=== PATIENT | female | born 1970 | race Caucasian/White ===

== ENCOUNTER 2019-05-31 13:49 | Outpatient (CLI) | payer BC, SELFPAY ==
--- NOTE | 2019-05-31 13:55 | US_ITS ---
WS: [id number] ULTRASOUND RENAL TECHNIQUE: Ultrasound examination of both kidneys. CLINICAL INFORMATION: CHRONIC KIDNEY DISEASE COMPARISON: None. FINDINGS: RIGHT: Right kidney is normal in size and appearance. Echogenicity: Normal. Cortical thickness: 1.1 cm; Normal. Hydronephrosis: None. Perinephric fluid: None. Right kidney measures: 11.4 cm x 5.7 cm x 5.6 cm. LEFT: Left kidney is normal in size and appearance. Echogenicity: Normal. Cortical thickness: 1.4 cm; Normal. Hydronephrosis: None. Perinephric fluid: None. Left kidney measures: 13.6 cm x 5.3 cm x 7.3 cm. Normal visualized aorta. Normal bladder. US/US renal BI* [id number] IMPRESSION: Unremarkable renal ultrasound
== END 2019-05-31 13:50 | disposition home or self-care (01) ==
LOC: RAD 13:51
PROVIDERS: Visit Provider Internal Medicine Nephrology
DX: N18.3 Chronic kidney disease, stage 3 (moderate) (principal)
CPT/HCPCS: 76770

== ENCOUNTER 2019-06-04 12:12 | Emergency (ER) | payer BC, SELFPAY ==
--- NOTE | 2019-06-04 12:17 | XRR_ITS ---
PROCEDURE INFORMATION: Exam: XR Chest, 1 View Exam date and time: 06/04/2019 12:35 PM Age: 48 years old Clinical indication: Chest pain; Type not specified; Additional info: Cp TECHNIQUE: Imaging protocol: XR of the chest Views: 1 view. COMPARISON: CR Chest 1 [place] [id number] 03/23/2019 6:37 PM FINDINGS: Lungs: Unremarkable. No consolidation. Pleural space: Unremarkable. No pleural effusion. No pneumothorax. Heart/Mediastinum: Borderline to mild cardiomegaly. Bones/joints: Unremarkable. XR/XR chest 1V portable [id number] IMPRESSION: Borderline to mild cardiomegaly.
--- NOTE | 2019-06-04 12:18 | ECG_ITS ---
Measurements Intervals [place] Rate: 99 P: 8 OH: 131 QRS: -10 QRSD: 86 T: 189 QT: 349 QTc: 449 SINUS RHYTHM NONSPECIFIC T-WAVE ABNORMALITY Compared to ECG 03/26/2019 00:26:40 T-wave abnormality now present Atrial flutter no longer present Left-axis deviation no longer present Myocardial infarct finding no longer present Electronically Signed On 06-04-2019 20:26:30 VORTEX OPERATOR by Robert Larios M.D. [email or web address]
[2019-06-04 12:20] VITALS: BP 133/113; PULSE 100; RESP 23; TEMP 36.8; O2SAT 96; BMI 40.7
--- NOTE | 2019-06-04 12:32 | ED_ITS ---
Entered by Flower Diaz, acting as scribe for Yordy Mead MD Jun 04, 2019 12:12 HPI - Chest Pain General: Chief Complaint: Chest Pain Stated Complaint: cp Time Seen by Provider: 06/04/19 12:26 Source: patient Mode of arrival: ambulatory Limitations: no limitations History of Present Illness: HPI narrative: 48 yo female presents with chest pain. 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 pt states she was walking to her car when she got sudden chest pain. pt states exertion makes this worse and nothing makes this better. pt has a hx of a recent PE 2 months ago. 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) Timing of current episode: constant Onset: during exertion (walking to car) Pain location: epigastric Pain radiation: none Severity: moderate Quality: heaviness Relieving factors: nothing Exacerbating factors: exertion Context: history of DVT/PE Associated symptoms: Deny fever(s), nausea or vomiting Treatment prior to arrival: none Review of Systems Const: Denies: fever, chills, body aches or change in appetite Eyes: Denies: blurry vision or eye discomfort ENMT: Denies: throat pain or dental pain GI: Denies: nausea, vomiting or diarrhea : Denies: painful urination Musc: Denies: neck pain or back pain Skin/Breast: Denies: rash Neuro: Denies: headache Psych: Denies: depression Hayder/Lymph: Denies: easy bruising All/Imm: Denies: hives PFSH ED PFSH: Statuses (acute, chronic, etc) shown below reflect problem list status as previously entered and may not be historically accurate Social History Smoking and tobacco status: former smoker Physical Exam Const: COMMON NORMALS: no apparent distress, oriented x3 and healthy appearing HENMT: COMMON NORMALS: normocephalic and head/scalp atraumatic HEAD & SCALP: normocephalic and atraumatic Eye: COMMON NORMALS: PERRL and EOMs intact bilaterally PUPIL: Yes PERRL Neck/C-Spine: COMMON NORMALS: full ROM and supple Resp: COMMON NORMALS: normal respiratory effort, no retractions, no use of accessory muscles and clear to auscultation bilaterally AUSCULTATION: clear to auscultation bilaterally Cardio: COMMON NORMALS: regular rate, regular rhythm and no murmurs RATE: regular rate RHYTHM: regular rhythm Extremity: COMMON NORMALS: normal to inspection and full ROM Neuro: COMMON NORMALS: oriented x3, moves all extremities and no focal motor deficits Psych: COMMON NORMALS: mental status grossly normal, thought process normal and cooperative THOUGHT PROCESS: normal thought process Skin: COMMON NORMALS: no rashes or lesions noted and no wounds GENERAL SKIN EXAM: no rashes or lesions noted Course Vital Signs: Vital signs: Vital Signs Temperature 98.3 F 06/04/19 12:20 Pulse Rate 74 06/04/19 15:27 Respiratory Rate 16 06/04/19 15:27 Blood Pressure 144/74 06/04/19 15:27 Pulse Oximetry 93 06/04/19 15:27 MDM - Chest Pain MDM Narrative: Medical decision making narrative: Patient presents here with chest pain that is atypical in nature. Patient's repeat troponin has a delta less than 10. He has no signs of acute cardiac cause and no signs of pulmonary embolism. 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 She is return if worsening. Lab Data: Labs: Lab Results 06/04/19 06/04/19 06/04/19 Range/Units 12:45 12:45 12:45 WBC 12.6 H (4.0-10.0) 10^3/ uL RBC 4.87 (4.1-5.3) 10^6/u L Hgb 12.6 (11.5-15.3) g/dL Hct 42.1 (37.0-47.0) % MCV 86.4 (81-99) fL MCH 25.9 L (28.0-34.0) pg MCHC 29.9 L (30.0-36.0) g/dL RDW 17.2 H (12.1-15.1) % Plt Count 317 (130-400) 10^3/c mm MPV 10.7 H (7.4-10.4) fL Neut % (Auto) 70.7 % Lymph % (Auto) 18.9 % Moore % (Auto) 7.1 % Eos % (Auto) 2.3 % Baso % (Auto) 0.6 % Neut # (Auto) 8.9 H (1.8-7.7) 10^3/u L Lymph # (Auto) 2.4 (0.8-4.8) 10^3/u L Moore # (Auto) 0.9 (0.2-0.9) 10^3/u L Eos # (Auto) 0.3 (0.0-0.8) 10^3/u L Baso # (Auto) 0.1 (0.0-0.1) 10^3/u L Nucleated RBC % (a uto) 0 % Nucleated RBCs # 0.0 /100WBC PT 14.00 H (10.5-13.3) SECO NDS INR 1.04 (0.8-1.2) Sodium 135 L (136-145) mmol/L Potassium 4.0 (3.5-5.1) mmol/L Chloride 101 (98-107) mmol/L Carbon Dioxide 23 (22-29) mmol/L Anion Gap 15.0 (5-19) BUN 16 (6-20) mg/dL Creatinine 0.7 (0.5-0.9) mg/dL GFR Calculation 89.3 L (90-130) mL/min Glucose 267 H (74-109) mg/dL Calcium 9.5 (8.5-10.5) mg/dL Total Bilirubin 0.4 (0.15-1.2) mg/dL AST 17 (0-32) U/L ALT < 5 (0-33) U/L Alkaline Phosphata se 114 H (35-105) IU/L Troponin T Baselin e (0-10) ng/mL Troponin T 120 Min earnest (0-10) ng/mL Delta Troponin T (0-10) ABS# NT-Pro-B Natriuret Pep 6034 H (0-125) pg/mL Total Protein 7.5 (6.6-8.7) g/dL Albumin 2.8 L (3.5-5.2) g/dL Globulin 4.7 H (1.3-4.6) g/dL 06/04/19 06/04/19 Range/Units 12:45 14:35 WBC (4.0-10.0) 10^3/ uL RBC (4.1-5.3) 10^6/u L Hgb (11.5-15.3) g/dL Hct (37.0-47.0) % MCV (81-99) fL MCH (28.0-34.0) pg MCHC (30.0-36.0) g/dL RDW (12.1-15.1) % Plt Count (130-400) 10^3/c mm MPV (7.4-10.4) fL Neut % (Auto) % Lymph % (Auto) % Moore % (Auto) % Eos % (Auto) % Baso % (Auto) % Neut # (Auto) (1.8-7.7) 10^3/u L Lymph # (Auto) (0.8-4.8) 10^3/u L Moore # (Auto) (0.2-0.9) 10^3/u L Eos # (Auto) (0.0-0.8) 10^3/u L Baso # (Auto) (0.0-0.1) 10^3/u L Nucleated RBC % (a uto) % Nucleated RBCs # /100WBC PT (10.5-13.3) SECO NDS INR (0.8-1.2) Sodium (136-145) mmol/L Potassium (3.5-5.1) mmol/L Chloride (98-107) mmol/L Carbon Dioxide (22-29) mmol/L Anion Gap (5-19) BUN (6-20) mg/dL Creatinine (0.5-0.9) mg/dL GFR Calculation (90-130) mL/min Glucose (74-109) mg/dL Calcium (8.5-10.5) mg/dL Total Bilirubin (0.15-1.2) mg/dL AST (0-32) U/L ALT (0-33) U/L Alkaline Phosphata se (35-105) IU/L Troponin T Baselin e 37 H (0-10) ng/mL Troponin T 120 Min earnest 34.70 H (0-10) ng/mL Delta Troponin T -2.30 L (0-10) ABS# NT-Pro-B Natriuret Pep (0-125) pg/mL Total Protein (6.6-8.7) g/dL Albumin (3.5-5.2) g/dL Globulin (1.3-4.6) g/dL Imaging Data^: CXR: Radiologist's impression: Ordering Provider/Ordering MD: Yordy Mead MD Date of Service: 06/04/19 Procedure(s): XR chest 1V portable [id number] Accession Number(s): [id number] Report Number: [id number] PROCEDURE INFORMATION: Exam: XR Chest, 1 View Exam date and time: 06/04/2019 12:35 PM Age: 48 years old Clinical indication: Chest pain; Type not specified; Additional info: Cp TECHNIQUE: Imaging protocol: XR of the chest Views: 1 view. COMPARISON: CR Chest 1 [place] [id number] 03/23/2019 6:37 PM FINDINGS: Lungs: Unremarkable. No consolidation. Pleural space: Unremarkable. No pleural effusion. No pneumothorax. Heart/Mediastinum: Borderline to mild cardiomegaly. Bones/joints: Unremarkable. XR/XR chest 1V portable [id number] IMPRESSION: Borderline to mild cardiomegaly. EKG Data^: EKG 1: EKG interpretation date: 06/04/19 EKG interpretation time: 14:22 Interpretation: nsr hr [address] or t wave abnormalities qrs 87 qtc 410 Discharge Plan Discharge Patient Disposition: Home, Self-Care Clinical Impression: Chest pain Qualifiers: Chest pain type: other chest pain Qualified Code(s): R07.89 - Other chest pain Condition: Stable Prescriptions: No Action furosemide [Lasix] 40 mg Tablet 40 mg PO DAILY RF: 0 atorvastatin 40 mg Tablet 40 mg PO QPM RF: 0 hydralazine 10 mg Tablet 10 mg PO BID RF: 0 cefpodoxime 100 mg Tablet 100 mg PO BID RF: 0 fluconazole 150 mg Tablet 150 mg PO Q3D RF: 0 Aspir-Low 81 mg Tablet,Delayed Release (Dr/Ec) 81 mg PO DAILY RF: 0 Tylenol Extra Strength 500 mg Tablet 1,000 mg PO Q4H PRN (Reason: Pain) RF: 0 spironolactone 25 mg Tablet 12.5 mg PO DAILY RF: 0 carvedilol 3.125 mg Tablet 3.125 mg PO BID RF: 0 famotidine 20 mg Tablet 20 mg PO BID RF: 0 norethindrone acetate 5 mg tablet 10 mg PO DAILY RF: 0 gabapentin 100 mg Capsule 100 mg PO TID PRN (Reason: Pain) RF: 0 insulin lispro [Humalog KwikPen Insulin] 100 unit/mL Insulin Pen See Rx Instructions .ROUTE .COMPLEX RF: 0 Eliquis 5 mg Tablet 5 mg PO BID RF: 0 Toujeo SoloStar U-300 Insulin 300 unit/mL (1.5 mL) Insulin Pen 50 unit SUBCUT BID RF: 0 Discharge Orders: Discharge Order (Routine); Ordered 06/04/19 Ordered By: Yordy Mead Referrals: Erik Castillo [Family Provider] - 4-7 days Discharge Diet: Advance as tolerated Discharge Activity: Resume usual activity Patient Instructions: Chest Pain (ED) Discharge Date/Time: 06/04/19 15:28 Coding Level of Care Code ED Dredge Pumper for Chg Fwd Exam Problem Focused The documentation recorded by the Joe torre Bridget Annette, accurately reflects the service I personally performed and the decisions made by Alyce tello Korby, MD Jun 04, 2019 12:12
[2019-06-04 13:01] VITALS: RESP 18; O2SAT 98
[2019-06-04] MEDS: HYDROmorphone 1 mg/mL INJ 1 mL IVP ×2 (13:01→15:02)
[2019-06-04] MEDS: ondansetron 2 mg/ML SDV 2 mL 4 MG IVP (13:02)
[2019-06-04 13:03] LABS: Basophils # 0.1 10^3/uL (0.0-0.1); Basophils % 0.6 %; Eosinophils # 0.3 10^3/uL (0.0-0.8); Eosinophils % 2.3 %; Hematocrit 42.1 % (37.0-47.0); Hemoglobin 12.6 g/dL (11.5-15.3); INR 1.04 (0.8-1.2); Lymphocytes # 2.4 10^3/uL (0.8-4.8); Lymphocytes % 18.9 %; Mean Corpuscular HGB Conc 29.9 g/dL (30.0-36.0); Mean Corpuscular Hemoglobin 25.9 pg (28.0-34.0); Mean Corpuscular Volume 86.4 fL (81-99); Mean Platelet Volume 10.7 fL (7.4-10.4); Monocytes # 0.9 10^3/uL (0.2-0.9); Monocytes % 7.1 %; Neutrophils # 8.9 10^3/uL (1.8-7.7); Neutrophils % 70.7 %; Nucleated Red Blood Cells % 0 %; Platelet Count 317 10^3/cmm (130-400); Red Blood Count 4.87 10^6/uL (4.1-5.3); Red Cell Distribution Width 17.2 % (12.1-15.1); White Blood Count 12.6 10^3/uL (4.0-10.0)
[2019-06-04 13:12] LABS: Troponin(5th) Baseline 37 ng/mL (0-10)
[2019-06-04 13:21] LABS: Alanine Aminotransferase < 5 U/L (0-33); Albumin Level 2.8 g/dL (3.5-5.2); Alkaline Phosphatase 114 IU/L (35-105); Aspartate Amino Transferase 17 U/L (0-32); Blood Urea Nitrogen 16 mg/dL (6-20); Calcium 9.5 mg/dL (8.5-10.5); Carbon Dioxide 23 mmol/L (22-29); Chloride 101 mmol/L (98-107); Globulin 4.7 g/dL (1.3-4.6); Glomerular Filtration Rate 89.3 mL/min (90-130); Glucose 267 mg/dL (74-109); NT Pro B Type Natriuretic Pept 6034 pg/mL (0-125); Sodium 135 mmol/L (136-145); Total Bilirubin 0.4 mg/dL (0.15-1.2); Total Protein 7.5 g/dL (6.6-8.7)
--- NOTE | 2019-06-04 14:18 | ECG_ITS ---
Measurements Intervals [place] Rate: 92 P: 7 TX: 134 QRS: -22 QRSD: 87 T: 187 QT: 360 QTc: 446 SINUS RHYTHM POSSIBLE LEFT ATRIAL ENLARGEMENT [-0.1mV P WAVE IN V1/V2] BORDERLINE LEFT AXIS DEVIATION [QRS AXIS < -20] NONSPECIFIC T-WAVE ABNORMALITY INTERPRETATION BASED ON A DEFAULT AGE OF 40 YEARS Compared to ECG 03/26/2019 00:26:40 T-wave abnormality now present Atrial flutter no longer present Myocardial infarct finding no longer present Electronically Signed On 06-05-2019 21:04:21 CONTRACTING SUPPORT SPECIALIST by Robert Larios M.D. [email or web address]
[2019-06-04 15:02] VITALS: RESP 18; O2SAT 97
[2019-06-04 15:27] VITALS: BP 144/74; PULSE 74; RESP 16; O2SAT 93
== END 2019-06-04 15:28 | disposition home or self-care (01) ==
PROVIDERS: Emergency Provider Emergency Medicine
DX: R07.89 Other chest pain (principal); Z79.82 Long term (current) use of aspirin; Z79.01 Long term (current) use of anticoagulants; Z79.4 Long term (current) use of insulin; Z87.891 Personal history of nicotine dependence
CPT/HCPCS: 36415; 71045; 80053; 83880; 84484; 85025; 85610; 93005; 96374; 96375; 96376; 99281; 99284; J1170; J2405

== ENCOUNTER 2019-06-20 03:29 | Inpatient (IN) | payer BC, SELFPAY ==
[2019-06-20] VITALS (27 sets, daily range): BP systolic 123–156; BP diastolic 64–103; PULSE 90–104; RESP 13–34; TEMP 36.6–37; O2SAT 93–99; BMI 41.5
--- NOTE | 2019-06-20 04:14 | XR_ITS ---
WS: [id number] XR chest 1V portable [id number] REASON FOR EXAM: cough FINDINGS: Cardiomegaly is again noted similar to the previous exam June 04, 2019. The lung garza are adequately aerated. There is no evidence of pleural effusion, pulmonary edema, pn eumonia, or mass effect. XR/XR chest 1V portable [id number] IMPRESSION: Cardiomegaly
--- NOTE | 2019-06-20 04:14 | ECG_ITS ---
Measurements Intervals [place] Rate: 98 P: 29 PA: 128 QRS: -18 QRSD: 98 T: 95 QT: 342 QTc: 438 SINUS RHYTHM POSSIBLE ANTERIOR MYOCARDIAL INFARCTION , OF INDETERMINATE AGE Compared to ECG 06/04/2019 14:22:31 Myocardial infarct finding now present T-wave abnormality no longer present Electronically Signed On 06-20-2019 10:31:31 [employer] POLICE [employer]IEUTENANT by Alexandra Mg M.D. [email or web address]
--- NOTE | 2019-06-20 04:18 | ED_ITS ---
Entered by Nuvia Powell, acting as scribe for Keeley Mcleod Jun 20, 2019 03:29 Documented by User: Keeley Mcleod 06/20/19 05:26 HPI - Chest Pain General: Chief Complaint: Chest Pain Stated Complaint: chest pain Time Seen by Provider: 06/20/19 04:13 Source: patient Mode of arrival: ambulatory History of Present Illness: HPI narrative: 48 y/o female presents to the ED with complaint of sharp chest pain. Pt states she was awakened from sleep with nausea. She denies any diaphoresis. Pt states she has hx of PE, DVT, and CHF. MD complaint: chest pain Onset (ago): hour(s) (1) Timing of current episode: constant and still present Prior episodes: Yes Onset: during rest Pain location: substernal Severity: mild Quality: sharp Relieving factors: nothing Associated symptoms: Reports nausea; Deny abdominal pain, diaphoresis, dyspnea, fever(s) or vomiting Review of Systems General: Reports: other (negative unless marked) Const: Denies: fever, chills, body aches, fatigue, malaise or diaphoresis Eyes: Denies: change in vision or blurry vision ENMT: Denies: throat pain, painful swallowing, hoarseness, ear pain, ear discharge, Change in hearing or nasal discharge Resp: Denies: shortness of breath, productive cough, non-productive cough, wheezing, coughing up blood or chest congestion GI: Reports: nausea; Denies: abdominal pain, vomiting, vomiting blood, coffee grounds in vomit, diarrhea, constipation, cramping, blood in stool or black tarry stool : Denies: flank pain, painful urination, urinary frequency, urinary urgency, decreased urine ouput, urinary incontinence or blood in urine Musc: Denies: neck pain, back pain, extremity pain, extremity swelling, joint pain, joint swelling, joint warmth or joint stiffness Skin/Breast: Denies: rash, skin tenderness or yellow skin Neuro: Denies: headache, numbness in extremities, weakness in extremities, changes in sensation, lack of coordination, difficulty walking, dizziness, vertigo or confusion Endo: Denies: excessive thirst, tired all the time, cold intolerance, excessive sweating, flushing or hot flashes Hayder/Lymph: Denies: easy bruising, easy bleeding, petechiae or enlarged lymph nodes All/Imm: Denies: hives, throat swelling, tongue swelling, facial swelling or acute wheezing PFSH ED PFSH: Social History Smoking and tobacco status: former smoker Physical Exam Const: COMMON NORMALS: no apparent distress, oriented x3, no limitations, healthy appearing and well nourished EXAM LIMITATIONS: no altered mental status GENERAL APPEARANCE: cooperative, well kempt and well developed ORIENTATION/CONSCIOUSNESS: Yes awake HENMT: COMMON NORMALS: normocephalic, head/scalp atraumatic, hearing grossly normal bilaterally, external ears normal, EAC's normal, external nose normal and moist oral mucous membranes HEAD & SCALP: normal to inspection, normocephalic and atraumatic FACE & SINUS: normal facial exam and face symmetric NOSE: external nose normal and nares normal EXTERNAL EAR: Yes external ears normal EXTERNAL AUDITORY CANAL: EAC's normal MOUTH: oral and palatal mucosa normal and tongue normal Eye: COMMON NORMALS: PERRL, EOMs intact bilaterally, conjunctivae normal and no scleral icterus GENERAL EYE: normal appearance of both eyes and normal light reflex CONJUNCTIVA: Yes conjunctivae normal SCLERA: sclerae normal CORNEA: Yes corneas normal PUPIL: Yes PERRL DIRECT OPHTHALMOSCOPY: Yes normal light reflex Neck/C-Spine: COMMON NORMALS: full ROM, no lymphadenopathy, supple and no meningeal signs GENERAL: Yes normal visual inspection and Yes trachea midline CERVICAL SPINE: Yes cervical ROM normal Resp: COMMON NORMALS: normal respiratory effort, no retractions, no use of accessory muscles and clear to auscultation bilaterally EFFORT & INSPECTION: Yes able to speak in complete sentences AUSCULTATION: clear to auscultation bilaterally GI: COMMON NORMALS: soft to palpation, non-tender, no hepatosplenomegaly and no masses INSPECTION: Yes normal to inspection PALPATION: Yes soft and Yes no hepatosplenomegaly : COMMON NORMALS: Yes no CVA tenderness BLADDER/KIDNEY EXAM: Yes no CVA tenderness Back/Pelvis: COMMON NORMALS: no CVA tenderness, thoracic and lumbar spine normal to inspection, no thoracic nor lumbar tenderness and thoraco-lumbar ROM normal Extremity: COMMON NORMALS: normal to inspection, full ROM, normal capillary refill, no joint enlargement, no clubbing, cyanosis or edema and no calf tenderness Neuro: COMMON NORMALS: oriented x3, CN's II-XII intact bilaterally, moves all extremities, no focal motor deficits and no sensory deficits noted MENINGEAL SIGNS: Yes no meningeal signs Psych: COMMON NORMALS: mental status grossly normal, thought process normal, c ooperative, affect normal, speech normal and activity/motor behavior normal APPEARANCE: Yes well kempt SPEECH: Yes normal speech THOUGHT PROCESS: normal thought process Skin: COMMON NORMALS: no rashes or lesions noted, skin turgor normal, no jaundice, no petechiae and no mottling GENERAL SKIN EXAM: no rashes or lesions noted and turgor normal Course Vital Signs: Vital signs: Vital Signs Temperature 97.8 F 06/20/19 04:23 Pulse Rate 104 H 06/20/19 07:16 Respiratory Rate 16 06/20/19 07:52 Blood Pressure 147/97 06/20/19 07:16 Pulse Oximetry 97 06/20/19 04:23 MDM - Chest Pain Lab Data: Labs: Lab Results 06/20/19 06/20/19 06/20/19 Range/Units 04:21 04:21 04:21 WBC 12.1 H (4.0-10.0) 10^3/ uL RBC 5.48 H (4.1-5.3) 10^6/u L Hgb 13.2 (11.5-15.3) g/dL Hct 44.8 (37.0-47.0) % MCV 81.8 (81-99) fL MCH 24.1 L (28.0-34.0) pg MCHC 29.5 L (30.0-36.0) g/dL RDW 17.2 H (12.1-15.1) % Plt Count 416 H (130-400) 10^3/c mm MPV 11.3 H (7.4-10.4) fL Neut % (Auto) 77.4 % Lymph % (Auto) 13.5 % [place] % (Auto) 6.6 % Eos % (Auto) 1.1 % Baso % (Auto) 0.9 % Neut # (Auto) 9.3 H (1.8-7.7) 10^3/u L Lymph # (Auto) 1.6 (0.8-4.8) 10^3/u L [place] # (Auto) 0.8 (0.2-0.9) 10^3/u L Eos # (Auto) 0.1 (0.0-0.8) 10^3/u L Baso # (Auto) 0.1 (0.0-0.1) 10^3/u L Nucleated RBC % (a uto) 0 % Nucleated RBCs # 0.0 /100WBC ABG pH (7.35-7.45) ABG pCO2 (35-45) mmHg ABG pO2 (80.0-100.0) mmH g ABG HCO3 (22-26) mmol/L ABG Base Excess (-2.0-2.0) mmol/ L Hector Test O2 Delivery Device FiO2 % Freelance Director ID Sodium 128 L (136-145) mmol/L Potassium 5.2 H (3.5-5.1) mmol/L Chloride 91 L (98-107) mmol/L Carbon Dioxide 22 (22-29) mmol/L Anion Gap 20.2 H (5-19) BUN 12 (6-20) mg/dL Creatinine 0.8 (0.5-0.9) mg/dL GFR Calculation 76.6 L (90-130) mL/min Glucose 658 H* (65-115) mg/dL POC Glucose (70-110) mg/dL Calcium 9.7 (8.5-10.5) mg/dL Total Bilirubin 0.3 (0.15-1.2) mg/dL AST 9 (0-32) U/L ALT 6 (0-33) U/L Alkaline Phosphata se 142 H (35-105) IU/L Troponin T Baselin e 71 H (0-10) ng/mL Troponin T 120 Min [place] (0-10) ng/mL Delta Troponin T (0-10) ABS# Total Protein 6.7 (6.6-8.7) g/dL Albumin 2.5 L (3.5-5.2) g/dL Globulin 4.2 (1.3-4.6) g/dL Lipase 31 (13-60) U/L Serum Ketones (Negative) 06/20/19 06/20/19 06/20/19 Range/Units 04:21 07:09 07:10 WBC (4.0-10.0) 10^3/ uL RBC (4.1-5.3) 10^6/u L Hgb (11.5-15.3) g/dL Hct (37.0-47.0) % MCV (81-99) fL MCH (28.0-34.0) pg MCHC (30.0-36.0) g/dL RDW (12.1-15.1) % Plt Count (130-400) 10^3/c mm MPV (7.4-10.4) fL Neut % (Auto) % Lymph % (Auto) % [place] % (Auto) % Eos % (Auto) % Baso % (Auto) % Neut # (Auto) (1.8-7.7) 10^3/u L Lymph # (Auto) (0.8-4.8) 10^3/u L [place] # (Auto) (0.2-0.9) 10^3/u L Eos # (Auto) (0.0-0.8) 10^3/u L Baso # (Auto) (0.0-0.1) 10^3/u L Nucleated RBC % (a uto) % Nucleated RBCs # /100WBC ABG pH (7.35-7.45) ABG pCO2 (35-45) mmHg ABG pO2 (80.0-100.0) mmH g ABG HCO3 (22-26) mmol/L ABG Base Excess (-2.0-2.0) mmol/ L Hector Test O2 Delivery Device FiO2 % Freelance Director ID Sodium (136-145) mmol/L Potassium (3.5-5.1) mmol/L Chloride (98-107) mmol/L Carbon Dioxide (22-29) mmol/L Anion Gap (5-19) BUN (6-20) mg/dL Creatinine (0.5-0.9) mg/dL GFR Calculation (90-130) mL/min Glucose (65-115) mg/dL POC Glucose 421 (70-110) mg/dL Calcium (8.5-10.5) mg/dL Total Bilirubin (0.15-1.2) mg/dL AST (0-32) U/L ALT (0-33) U/L Alkaline Phosphata se (35-105) IU/L Troponin T Baselin e (0-10) ng/mL Troponin T 120 Min [place] 98.91 H (0-10) ng/mL Delta Troponin T 27.91 H* (0-10) ABS# Total Protein (6.6-8.7) g/dL Albumin (3.5-5.2) g/dL Globulin (1.3-4.6) g/dL Lipase (13-60) U/L Serum Ketones Negative (Negative) 06/20/19 Range/Units 07:55 WBC (4.0-10.0) 10^3/ uL RBC (4.1-5.3) 10^6/u L Hgb (11.5-15.3) g/dL Hct (37.0-47.0) % MCV (81-99) fL MCH (28.0-34.0) pg MCHC (30.0-36.0) g/dL RDW (12.1-15.1) % Plt Count (130-400) 10^3/c mm MPV (7.4-10.4) fL Neut % (Auto) % Lymph % (Auto) % [place] % (Auto) % Eos % (Auto) % Baso % (Auto) % Neut # (Auto) (1.8-7.7) 10^3/u L Lymph # (Auto) (0.8-4.8) 10^3/u L [place] # (Auto) (0.2-0.9) 10^3/u L Eos # (Auto) (0.0-0.8) 10^3/u L Baso # (Auto) (0.0-0.1) 10^3/u L Nucleated RBC % (a uto) % Nucleated RBCs # /100WBC ABG pH 7.43 (7.35-7.45) ABG pCO2 33.5 L (35-45) mmHg ABG pO2 86.2 (80.0-100.0) mmH g ABG HCO3 22.3 (22-26) mmol/L ABG Base Excess -1.4 (-2.0-2.0) mmol/ L Hector Test Y O2 Delivery Device None FiO2 21.0 % Freelance Director ID Broma Sodium (136-145) mmol/L Potassium (3.5-5.1) mmol/L Chloride (98-107) mmol/L Carbon Dioxide (22-29) mmol/L Anion Gap (5-19) BUN (6-20) mg/dL Creatinine (0.5-0.9) mg/dL GFR Calculation (90-130) mL/min Glucose (65-115) mg/dL POC Glucose (70-110) mg/dL Calcium (8.5-10.5) mg/dL Total Bilirubin (0.15-1.2) mg/dL AST (0-32) U/L ALT (0-33) U/L Alkaline Phosphata se (35-105) IU/L Troponin T Baselin e (0-10) ng/mL Troponin T 120 Min [place] (0-10) ng/mL Delta Troponin T (0-10) ABS# Total Protein (6.6-8.7) g/dL Albumin (3.5-5.2) g/dL Globulin (1.3-4.6) g/dL Lipase (13-60) U/L Serum Ketones (Negative) EKG Data^: EKG 1: Attestation: I personally reviewed and interpreted this EKG as follows: EKG interpretation date: 06/20/19 EKG interpretation time: 04:14 Interpretation: Normal sinus rhythm at 98 beats a minute, left axis deviation, no acute ST-T wave changes. Discharge Plan Discharge Patient Disposition: Admitted As Inpatient Clinical Impression: Acute non-ST elevation myocardial infarction (NSTEMI), Acute hyperglycemia, Poorly controlled diabetes mellitus Chest pain Qualifiers: Chest pain type: chest pain due to myocardial ischemia Ischemic chest pain typ e: unstable angina pectoris Qualified Code(s): I20.0 - Unstable angina Condition: Fair Referrals: Erik Castillo [Primary Care Provider] - Sign Out Sign Out Data: Patient Sign Out occurred on 06/20/19 at 09:00. Patient's care was discussed, and care was transferred from to Quinton Woods. Coding Level of Care Code ED Clerk Television Production for Chg Fwd Exam Comprehensive Documented by User: Quinton Woods DO 06/20/19 09:08 HPI - Chest Pain General: Chief Complaint: Chest Pain Stated Complaint: chest pain Time Seen by Provider: 06/20/19 04:13 [facility] ED PFSH: Social History Smoking and tobacco status: former smoker Course Vital Signs: Vital signs: Vital Signs Temperature 97.8 F 06/20/19 04:23 Pulse Rate 104 H 06/20/19 07:16 Respiratory Rate 16 06/20/19 07:52 Blood Pressure 147/97 06/20/19 07:16 Pulse Oximetry 97 06/20/19 04:23 MDM - Chest Pain Lab Data: Labs: Lab Results 06/20/19 06/20/19 06/20/19 Range/Units 04:21 04:21 04:21 WBC 12.1 H (4.0-10.0) 10^3/ uL RBC 5.48 H (4.1-5.3) 10^6/u L Hgb 13.2 (11.5-15.3) g/dL Hct 44.8 (37.0-47.0) % MCV 81.8 (81-99) fL MCH 24.1 L (28.0-34.0) pg MCHC 29.5 L (30.0-36.0) g/dL RDW 17.2 H (12.1-15.1) % Plt Count 416 H (130-400) 10^3/c mm MPV 11.3 H (7.4-10.4) fL Neut % (Auto) 77.4 % Lymph % (Auto) 13.5 % [place] % (Auto) 6.6 % Eos % (Auto) 1.1 % Baso % (Auto) 0.9 % Neut # (Auto) 9.3 H (1.8-7.7) 10^3/u L Lymph # (Auto) 1.6 (0.8-4.8) 10^3/u L [place] # (Auto) 0.8 (0.2-0.9) 10^3/u L Eos # (Auto) 0.1 (0.0-0.8) 10^3/u L Baso # (Auto) 0.1 (0.0-0.1) 10^3/u L Nucleated RBC % (a uto) 0 % Nucleated RBCs # 0.0 /100WBC ABG pH (7.35-7.45) ABG pCO2 (35-45) mmHg ABG pO2 (80.0-100.0) mmH g ABG HCO3 (22-26) mmol/L ABG Base Excess (-2.0-2.0) mmol/ L Hector Test O2 Delivery Device FiO2 % Freelance Director ID Sodium 128 L (136-145) mmol/L Potassium 5.2 H (3.5-5.1) mmol/L Chloride 91 L (98-107) mmol/L Carbon Dioxide 22 (22-29) mmol/L Anion Gap 20.2 H (5-19) BUN 12 (6-20) mg/dL Creatinine 0.8 (0.5-0.9) mg/dL GFR Calculation 76.6 L (90-130) mL/min Glucose 658 H* (65-115) mg/dL POC Glucose (70-110) mg/dL Calcium 9.7 (8.5-10.5) mg/dL Total Bilirubin 0.3 (0.15-1.2) mg/dL AST 9 (0-32) U/L ALT 6 (0-33) U/L Alkaline Phosphata se 142 H (35-105) IU/L Troponin T Baselin e 71 H (0-10) ng/mL Troponin T 120 Min [place] (0-10) ng/mL Delta Troponin T (0-10) ABS# Total Protein 6.7 (6.6-8.7) g/dL Albumin 2.5 L (3.5-5.2) g/dL Globulin 4.2 (1.3-4.6) g/dL Lipase 31 (13-60) U/L Serum Ketones (Negative) 06/20/19 06/20/19 06/20/19 Range/Units 04:21 07:09 07:10 WBC (4.0-10.0) 10^3/ uL RBC (4.1-5.3) 10^6/u L Hgb (11.5-15.3) g/dL Hct (37.0-47.0) % MCV (81-99) fL MCH (28.0-34.0) pg MCHC (30.0-36.0) g/dL RDW (12.1-15.1) % Plt Count (130-400) 10^3/c mm MPV (7.4-10.4) fL Neut % (Auto) % Lymph % (Auto) % [place] % (Auto) % Eos % (Auto) % Baso % (Auto) % Neut # (Auto) (1.8-7.7) 10^3/u L Lymph # (Auto) (0.8-4.8) 10^3/u L [place] # (Auto) (0.2-0.9) 10^3/u L Eos # (Auto) (0.0-0.8) 10^3/u L Baso # (Auto) (0.0-0.1) 10^3/u L Nucleated RBC % (a uto) % Nucleated RBCs # /100WBC ABG pH (7.35-7.45) ABG pCO2 (35-45) mmHg ABG pO2 (80.0-100.0) mmH g ABG HCO3 (22-26) mmol/L ABG Base Excess (-2.0-2.0) mmol/ L Hector Test O2 Delivery Device FiO2 % Freelance Director ID Sodium (136-145) mmol/L Potassium (3.5-5.1) mmol/L Chloride (98-107) mmol/L Carbon Dioxide (22-29) mmol/L Anion Gap (5-19) BUN (6-20) mg/dL Creatinine (0.5-0.9) mg/dL GFR Calculation (90-130) mL/min Glucose (65-115) mg/dL POC Glucose 421 (70-110) mg/dL Calcium (8.5-10.5) mg/dL Total Bilirubin (0.15-1.2) mg/dL AST (0-32) U/L ALT (0-33) U/L Alkaline Phosphata se (35-105) IU/L Troponin T Baselin e (0-10) ng/mL Troponin T 120 Min [place] 98.91 H (0-10) ng/mL Delta Troponin T 27.91 H* (0-10) ABS# Total Protein (6.6-8.7) g/dL Albumin (3.5-5.2) g/dL Globulin (1.3-4.6) g/dL Lipase (13-60) U/L Serum Ketones Negative (Negative) 02/18/20 Range/Units 07:55 WBC (4.0-10.0) 10^3/ uL RBC (4.1-5.3) 10^6/u L Hgb (11.5-15.3) g/dL Hct (37.0-47.0) % MCV (81-99) fL MCH (28.0-34.0) pg MCHC (30.0-36.0) g/dL RDW (12.1-15.1) % Plt Count (130-400) 10^3/c mm MPV (7.4-10.4) fL Neut % (Auto) % Lymph % (Auto) % [place] % (Auto) % Eos % (Auto) % Baso % (Auto) % Neut # (Auto) (1.8-7.7) 10^3/u L Lymph # (Auto) (0.8-4.8) 10^3/u L [place] # (Auto) (0.2-0.9) 10^3/u L Eos # (Auto) (0.0-0.8) 10^3/u L Baso # (Auto) (0.0-0.1) 10^3/u L Nucleated RBC % (a uto) % Nucleated RBCs # /100WBC ABG pH 7.43 (7.35-7.45) ABG pCO2 33.5 L (35-45) mmHg ABG pO2 86.2 (80.0-100.0) mmH g ABG HCO3 22.3 (22-26) mmol/L ABG Base Excess -1.4 (-2.0-2.0) mmol/ L Hector Test Y O2 Delivery Device None FiO2 21.0 % Freelance Director ID Broma Sodium (136-145) mmol/L Potassium (3.5-5.1) mmol/L Chloride (98-107) mmol/L Carbon Dioxide (22-29) mmol/L Anion Gap (5-19) BUN (6-20) mg/dL Creatinine (0.5-0.9) mg/dL GFR Calculation (90-130) mL/min Glucose (65-115) mg/dL POC Glucose (70-110) mg/dL Calcium (8.5-10.5) mg/dL Total Bilirubin (0.15-1.2) mg/dL AST (0-32) U/L ALT (0-33) U/L Alkaline Phosphata se (35-105) IU/L Troponin T Baselin e (0-10) ng/mL Troponin T 120 Min [place] (0-10) ng/mL Delta Troponin T (0-10) ABS# Total Protein (6.6-8.7) g/dL Albumin (3.5-5.2) g/dL Globulin (1.3-4.6) g/dL Lipase (13-60) U/L Serum Ketones (Negative) Discharge Plan Discharge Patient Disposition: Admitted As Inpatient Clinical Impression: Acute non-ST elevation myocardial infarction (NSTEMI), Acute hyperglycemia, Poorly controlled diabetes mellitus Chest pain Qualifiers: Chest pain type: chest pain due to myocardial ischemia Ischemic chest pain type: unstable angina pectoris Qualified Code(s): I20.0 - Unstable angina Condition: Fair Referrals: Erik Castillo [Primary Care Provider] - Sign Out Sign Out Data: Patient Sign Out occurred on 06/20/19 at 09:00. Patient's care was discussed, and care was transferred from to Quinton Woods. Coding Level of Care Code ED Clerk Television Production for Chg Fwd Exam Comprehensive The documentation recorded by the Andre torre Ashley, accurately reflects the service I personally performed and the decisions made by Shani tello Eli N Jun 20, 2019 03:29
[2019-06-20 04:29] LABS: Basophils # 0.1 10^3/uL (0.0-0.1); Basophils % 0.9 %; Eosinophils # 0.1 10^3/uL (0.0-0.8); Eosinophils % 1.1 %; Hematocrit 44.8 % (37.0-47.0); Hemoglobin 13.2 g/dL (11.5-15.3); Lymphocytes # 1.6 10^3/uL (0.8-4.8); Lymphocytes % 13.5 %; Mean Corpuscular HGB Conc 29.5 g/dL (30.0-36.0); Mean Corpuscular Hemoglobin 24.1 pg (28.0-34.0); Mean Corpuscular Volume 81.8 fL (81-99); Mean Platelet Volume 11.3 fL (7.4-10.4); Monocytes # 0.8 10^3/uL (0.2-0.9); Monocytes % 6.6 %; Neutrophils # 9.3 10^3/uL (1.8-7.7); Neutrophils % 77.4 %; Nucleated Red Blood Cells % 0 %; Platelet Count 416 10^3/cmm (130-400); Red Blood Count 5.48 10^6/uL (4.1-5.3); Red Cell Distribution Width 17.2 % (12.1-15.1); White Blood Count 12.1 10^3/uL (4.0-10.0)
[2019-06-20 04:51] LABS: Troponin(5th) Baseline 71 ng/mL (0-10)
[2019-06-20 05:01] LABS: Alanine Aminotransferase 6 U/L (0-33); Albumin Level 2.5 g/dL (3.5-5.2); Alkaline Phosphatase 142 IU/L (35-105); Anion Gap 20.2 (5-19); Blood Urea Nitrogen 12 mg/dL (6-20); Calcium 9.7 mg/dL (8.5-10.5); Carbon Dioxide 22 mmol/L (22-29); Chloride 91 mmol/L (98-107); Creatinine Clr Calc Pharmacy 115.4547; Globulin 4.2 g/dL (1.3-4.6); Glomerular Filtration Rate 76.6 mL/min (90-130); Lipase 31 U/L (13-60); Potassium 5.2 mmol/L (3.5-5.1); Sodium 128 mmol/L (136-145); Total Bilirubin 0.3 mg/dL (0.15-1.2); Total Protein 6.7 g/dL (6.6-8.7)
[2019-06-20 05:07] LABS: Aspartate Amino Transferase 9 U/L (0-32); Glucose 658 mg/dL (65-115)
[2019-06-20] MEDS: ondansetron 2 mg/ML SDV 2 mL 4 MG IVP ×2 (05:16→08:47)
[2019-06-20] MEDS: aspirin 325 mg Tablet PO (05:16)
[2019-06-20] MEDS: sodium chloride 0.9% 1,000 ML 100 ML IV ×3 (05:16→22:24)
[2019-06-20] MEDS: nitroglycerin 0.4 mg sublingual Tablet SUBLINGUAL ×2 (05:19→05:35)
[2019-06-20] MEDS: sodium chloride 0.9% 1,000 ML 999 ML IV (05:37)
[2019-06-20] MEDS: morphine 4 mg/mL SDV 1 mL 2 MG IVP ×2 (06:09→07:52)
--- NOTE | 2019-06-20 06:14 | ECG_ITS ---
Measurements Intervals [place] Rate: 98 P: 40 AR: 133 QRS: 5 QRSD: 90 T: 0 QT: 345 QTc: 441 SINUS RHYTHM WITH OCCASIONAL VENTRICULAR PREMATURE COMPLEXES NONSPECIFIC ST & T-WAVE ABNORMALITY Compared to ECG 06/04/2019 14:22:31 Ventricular premature complex(es) now present T-wave abnormality still present Electronically Signed On 06-20-2019 18:02:53 SASH ASSEMBLER by Alexandra Mg M.D. [id number]
--- NOTE | 2019-06-20 07:11 | PC.NURSE ---
glucose currently 421. Pt C/O pain returning. Lab to room for redraw of troponin
[2019-06-20 07:12] LABS: Glucose Point of Care 421 mg/dL (70-110)
[2019-06-20 07:16] LABS: Ketone (Acetest) Serum Negative (Negative)
[2019-06-20 07:36] LABS: Troponin 5 2HR 98.91 ng/mL (0-10)
[2019-06-20 07:38] LABS: Troponin 5 2HR Delta 27.91 ABS# (0-10)
--- NOTE | 2019-06-20 07:41 | PC.NURSE ---
Troponin 98.91, Delta 27.91
--- NOTE | 2019-06-20 08:01 | PC.NURSE ---
Respiratory to room for ABG's
[2019-06-20 08:06] LABS: ABG PCO2 33.5 mmHg (35-45); ABG PH Result 7.43 (7.35-7.45); HCO3 ABG 22.3 mmol/L (22-26); PO2 ABG 86.2 mmHg (80.0-100.0)
[2019-06-20 08:07] LABS: Base Excess ABG -1.4 mmol/L (-2.0-2.0)
--- NOTE | 2019-06-20 09:09 | PC.NURSE ---
Pt states pain level down to a 2 after morphine and no nausea after zofran
[2019-06-20 09:33] LABS: Bilirubin Urine Neg (NEGATIVE); Blood Urine 3+ (Negative); Glucose Urine UA 4+ (Normal); Ketones Urine Negative (Negative); Leukocyte Esterase Urine Negative (Negative); Nitrate Urine Negative (Negative); Protein Urine 3+ (Negative); Specific Gravity, Urine 1.015 (1.005-1.030); Urine Appearance Clear (CLEAR); Urine Color Yellow (Yellow); Urobilinogen Urine Norm (Negative)
[2019-06-20 09:36] LABS: Add Urine Culture? No; Bacteria Urine 1+; WBC Urine 15-25 /hpf (0-5)
--- NOTE | 2019-06-20 10:02 | PM.HP ---
Providers/Chief Complaint Primary Care Provider: Erik Castillo Chief Complaint: chest pain History of Present Illness Eliza Quinn is a 48 year old female with history of diabetes, systolic CHF felt to be secondary to nonischemic cardiomyopathy, HTN, COPD, chronic kidney disease stage II, morbid obesity, recently quit smoking, presented to ER due to complaint of chest pain which started this morning, substernal, achy, persistent, severe. She states that she could not sleep most of the night, and in the morning started experiencing the symptoms which did not change with position, inspiration, pressure, did not feel like heartburn. She is currently pain-free. She says that she did receive nitroglycerin earlier, although that initially did not help. Morphine did seem to help the pain. She has been having a cough for 3-4 weeks, nonproductive. Chest x-ray showed cardiomegaly. EKGs with nonspecific ST and T wave abnormality. Troponin found elevated at 71 baseline with positive delta up to 98.91 at 120 minutes. She is hyperglycemic with blood glucose 658, not in ketoacidosis. She did not take any of her medications yet this morning. Review of Systems Const: Reports: other (Poor appetite); Denies: fever, chills, body aches or malaise Eyes: Denies: change in vision or eye redness ENMT: Denies: throat pain, oral sores/lesions or ear pain Card: Reports: chest pain and edema; Denies: pre-syncope or shortness of breath on exertion Resp: Reports: non-productive cough; Denies: shortness of breath, productive cough, change in phlegm color or coughing up blood GI: Denies: abdominal pain, nausea, vomiting, diarrhea, constipation, blood in stool or black tarry stool : Denies: flank pain, urinary frequency or blood in urine Musc: Denies: back pain, joint swelling or redness Skin/Breast: Denies: rash, sores or new lesion Neuro: Denies: headache, numbness in extremities, weakness in extremities, dizziness, confusion or seizure-like activity Endo: Denies: excessive urination or excessive thirst [place]/Lymph: Denies: easy bleeding or purpura All/Imm: Denies: hives, throat swelling or tongue swelling Medications/Allergies Home Medications Medication Instructions Recorded Confirmed Last Taken Type cyclobenzaprine 5 mg PO TID PRN 06/20/19 06/20/19 Unknown History Allergies Allergy/AdvReac Type Severity Reaction Status Date / Time No Known Allergies Allergy Verified 06/04/19 12:25 PFSH Acute PFSH: Medical History Chronic anticoagulation Chronic kidney disease, stage II (mild) History of DVT (deep vein thrombosis) Nonischemic cardiomyopathy Poorly controlled diabetes mellitus Urinary tract infection due to ESBL Klebsiella Surgical History History of back surgery History of History of shoulder surgery Hx of cholecystectomy Family History Other Diabetes Social History Smoking and tobacco status: former smoker Quit status (tobacco): has quit using tobacco Year quit tobacco: 3 mo ago Alcohol intake: never Substance/Drug Use: never Lives independently: Yes Household members: children Current occupational status: employed Vitals/I&O/Wt Last Vital Signs Temp 97.8 F 06/20/19 04:23 Pulse 104 H 06/20/19 07:16 Resp 16 06/20/19 07:52 BP 147/97 06/20/19 07:16 Pulse Ox 97 06/20/19 04:23 Weight last 48 hrs Weight 120.202 kg Physical Exam Const: COMMON NORMALS: no apparent distress and oriented x3 HENMT: COMMON NORMALS: oropharynx normal Neck/C-Spine: COMMON NORMALS: no JVD Resp: COMMON NORMALS: normal respiratory effort and clear to auscultation bilaterally AUSCULTATION: clear to auscultation bilaterally Cardio: COMMON NORMALS: no JVD, regular rhythm, S1 normal heart sound, S2 normal heart sound and no murmurs RHYTHM: regular rhythm HEART SOUNDS: S1 normal and S2 normal GI: COMMON NORMALS: normal to inspection, nondistended, normoactive bowel sounds, soft to palpation and non-tender PALPATION: Yes soft Extremity: COMMON NORMALS: no joint enlargement and no pedal edema Neuro: COMMON NORMALS: oriented x3 and moves all extremities Skin: LESIONS: lesion noted (Small ulcerations noted from poorly healed excoriations on her arms) Data : 06/20/19 04:21 06/20/19 04:21 A&P Assessment and plan (1) Acute non-ST elevation myocardial infarction (NSTEMI): Currently no further chest pain. Troponin found abnormal, with positive delta. 6-hour troponin 237. Received aspirin. She is already on anticoagulation. Continue beta-cristin, statin. Will load her with Plavix. Appreciate cardiology assessment. Status: Acute Code(s): I21.4 - Non-ST elevation (NSTEMI) myocardial infarction (2) Chest pain: As above. Status: Acute Qualifiers: Chest pain type: chest pain due to myocardial ischemia Ischemic chest pain type: unstable angina pectoris Qualified Code(s): I20.0 - Unstable angina Code(s): R07.9 - Chest pain, unspecified (3) Acute hyperglycemia: Blood glucose poorly controlled. She says that her primary care provider has been working with her on adjusting diabetes regimen. She has not yet taken any of her medications this morning. At this time we will continue her Lantus. Add insulin sliding scale. Status: Acute Code(s): R73.9 - Hyperglycemia, unspecified (4) Poorly controlled diabetes mellitus: As above. Status: Acute Code(s): E11.65 - Type 2 diabetes mellitus with hyperglycemia Additional A&P Information History of DVT. On chronic anticoagulation. Quit smoking about 3 months ago. Attestations Medical Necessity Statement*: Place in observation. Coding Level of Care Code Acute Plasterer Journeyman for Emily Anthony Diagnoses Acute non-ST elevation myocardial infarction (NSTEMI) I21.4 Chest pain I20.0 Chest pain type: chest pain due to myocardial ischemia Ischemic chest pain type: unstable angina pectoris Acute hyperglycemia R73.9 Poorly controlled diabetes mellitus E11.65
--- NOTE | 2019-06-20 10:14 | ECG_ITS ---
Measurements Intervals [place] Rate: 98 P: 63 CO: 131 QRS: -12 QRSD: 100 T: 0 QT: 355 QTc: [address] & T-WAVE ABNORMALITY Compared to ECG 06/04/2019 14:22:31 No significant changes Electronically Signed On 06-20-2019 17:20:58 [employer]ORCYCLE [employer]SEM[employer] by Alexandra Mg M.D. [email or web address]
[2019-06-20 10:50] LABS: Troponin 5 6HR 237.4 ng/mL (0-10)
[2019-06-20 10:59] LABS: Troponin 5 6HR Delta 166.4 ng/L (0-12)
[2019-06-20] MEDS: clopidogrel 300 mg Tablet PO (12:19)
[2019-06-20] MEDS: enoxaparin 120 mg/0.8 mL Syringe SUBCUT (12:19)
[2019-06-20] MEDS: morphine 4 mg/mL SDV 1 mL IVP ×2 (12:23→22:22)
[2019-06-20 13:05] LABS: Arterial Blood Gas Hematocrit 39.3 % (37-47); Blood Gas Allen Test Pos; Blood Gas Sample Site Radial, left; Blood Gas Sample Type Arterial
[2019-06-20] MEDS: lidocaine 2% viscous 15 ML, aluminum-mag hydrox-simethicon 30 ML, sucralfate oral liq 1 GM PO (13:12)
--- NOTE | 2019-06-20 13:23 | PM.CONSULT ---
Providers/Reason For Consult Consulting Physican/Specialty*: Cardiology Reason for Consult*: NSTEMI Primary Care Provider: Erik Castillo History of Present Illness History of Present Illness Eliza Quinn is a 48 year old female with past medical history of morbid obesity (BMI=43), nonischemic cardiomyopathy (left ventricle ejection fraction of 37%, normal coronaries by coronary angiogram in July 2018), history of apical ballooning syndrome in 2012, ?history of contrast-induced nephropathy leading to dialysis in July 2018, insulin-dependent diabetes mellitus, baseline chronic kidney disease stage II was hospitalized in Mar 2019 with shortness of breath, orthostatic hypotension and recurrent syncope. ?She was found to have superficial femoral vein and popliteal and posterior tibial vein DVT. ?For right upper quadrant tenderness and abnormal liver enzymes she underwent ultrasound of abdomen and was found to have hepatomegaly. ?Emperic diagnosis of pulmonary embolism was made and she was started on anticoagulation. ?She was dehydrated and received some IV fluids as well as was treated for ESBL Klebsiella UTI. ?She was discharged home on Coreg 3.125 twice a day, hydralazine 10 mg by mouth 3 times a day and Lasix 40 mg daily. She was doing well until last Wednesday and Wednesday when she started having nausea vomiting and diarrhea. She was unable to keep any of her medications down. This resolved on Wednesday and late Wednesday night early Wednesday morning she developed retrosternal chest discomfort described as dull 7/10 in intensity with intermittent sharp pains. She denies having any associated shortness of breath any radiation of her pain nausea or vomiting. She denies having any sick contacts, any URI or UTI-like symptoms. On presentation to the ER her troponin was noted to be elevated with no EKG changes and hence I have been asked to evaluate the patient to assist in further management. Review of Systems Const: Reports: fatigue; Denies: fever, chills or night sweats Eyes: Denies: change in vision ENMT: Denies: nasal discharge or nasal congestion Card: Reports: chest pain (as mentioned in HPI), swelling of feet/ankles (right more than left) and shortness of breath on exertion; Denies: palpitations, irregular heart rhythm, lightheadedness or shortness of breath when lying down Resp: Reports: shortness of breath; Denies: productive cough, non-productive cough or pain on inspiration GI: Denies: abdominal pain, nausea, vomiting, vomiting blood or blood in stool : Denies: difficulty urinating, painful urination or blood in urine Skin/Breast: Denies: rash or new lesion Neuro: Denies: headache or weakness in extremities Psych: Denies: anxiety or depression Hayder/Lymph: Denies: petechiae or purpura All/Imm: Denies: throat swelling or tongue swelling Meds/Allergies Home Medications and Allergies Home Medications Medication Instructions Recorded Confirmed Type acetaminophen [Tylenol Extra 1,000 mg PO Q4H PRN 06/04/19 06/20/19 History Strength] apixaban [Eliquis] 5 mg PO BID 06/04/19 06/20/19 History aspirin [Aspir-Low] 81 mg PO DAILY 06/04/19 06/20/19 History atorvastatin 40 mg PO QPM 06/04/19 06/20/19 History carvedilol 3.125 mg PO BID 06/04/19 06/20/19 History famotidine 20 mg PO BID 06/04/19 06/20/19 History furosemide [Lasix] 40 mg PO DAILY 06/04/19 06/20/19 History gabapentin 100 mg PO TID PRN 06/04/19 06/20/19 History hydralazine 10 mg PO TID 06/04/19 06/20/19 History insulin glargine U-300 conc 50 unit SUBCUT BID 06/04/19 06/20/19 History [Toujeo SoloStar U-300 Insulin] insulin lispro [Humalog KwikPen See Rx Instructions .ROUTE .COMPLEX 06/04/19 06/20/19 History Insulin] norethindrone acetate 10 mg PO BID 06/04/19 06/20/19 History spironolactone 12.5 mg PO DAILY 06/04/19 06/20/19 History cyclobenzaprine 5 mg PO TID PRN 06/20/19 06/20/19 History Allergies Allergy/AdvReac Type Severity Reaction Status Date / Time No Known Allergies Allergy Verified 06/04/19 12:25 Current Medications Current Medications Generic Name Dose Route Start Last Admin Trade Name Freq PRN Reason Stop Dose Admin Enoxaparin Sodium 120 mg 06/20/19 13:00 06/20/19 12:19 Lovenox SUBCUT 120 mg Q12H HI Administration Sodium Chloride 1,000 mls @ 100 mls/hr 06/20/19 04:15 06/20/19 05:16 Sodium Chloride 0.9% IV 100 mls/hr .Q10H HI Administration Sodium Chloride 1,000 mls @ 100 mls/hr 06/20/19 09:15 06/20/19 12:21 Sodium Chloride 0.9% IV 100 mls/hr .Q10H HI Administration Morphine Sulfate 4 mg 06/20/19 09:03 06/20/19 12:23 Morphine IVP 4 mg Q4H PRN Administration SEVERE PAIN Nitroglycerin 0.4 mg 06/20/19 04:13 06/20/19 05:35 Nitrostat SUBLINGUAL 0.4 mg Q5M PRN Administration CHEST PAIN PFSH Acute PFSH: Medical History Chronic anticoagulation Chronic kidney disease, stage II (mild) History of DVT (deep vein thrombosis) Nonischemic cardiomyopathy Poorly controlled diabetes mellitus Urinary tract infection due to ESBL Klebsiella Surgical History History of back surgery History of History of shoulder surgery Hx of cholecystectomy Family History Other Diabetes Social History Smoking and tobacco status: former smoker Quit status (tobacco): has quit using tobacco Year quit tobacco: 3 mo ago Alcohol intake: never Substance/Drug Use: never Lives independently: Yes Household members: children Current occupational status: employed Vitals/I&O/Wt Last Vital Signs Temp 97.8 F 06/20/19 04:23 Pulse 99 06/20/19 12:47 Resp 20 H 06/20/19 12:47 BP 139/80 06/20/19 12:47 Pulse Ox 99 06/20/19 12:47 Weight last 48 hrs Weight 265 lb Physical Exam Narrative: EXAM NARRATIVE: GENERAL: Averagely built and averagely nourished in no acute distress HEENT: Extraocular movement intact. Pupils equal round reactive to light. No pallor or icterus. NECK: central trachea, No JVD. No carotid bruit. CARDIOVASCULAR SYSTEM: S1-S2 regular. No S3 or S4 present. No murmur rubs or gallops. RESPIRATORY SYSTEM: Chest clear to auscultation. No wheezes rhonchi or rubs heard.No use of accessory muscles. ABDOMEN: Soft, nontender and nondistended. Normal bowel sounds present. EXTREMITIES: No cyanosis or clubbing. Trace-1+ edema (R>L). No signs of chronic venous insufficiency. WORKERS COMPENSATION CLAIMS SPECIALIST: Patient is alert oriented ?3. No focal neurological deficits. SKIN: Normal turgor and temperature. PSYCH: Normal insight and judgment. Data EKG^: EKG 1: I personally reviewed and interpreted this EKG as follows: My Interpretation: SINUS RHYTHM WITH OCCASIONAL VENTRICULAR PREMATURE COMPLEXES NONSPECIFIC ST & T-WAVE ABNORMALITY Previous EKG SINUS RHYTHM POSSIBLE ANTERIOR MYOCARDIAL INFARCTION , OF INDETERMINATE AGE Compared to ECG 06/04/2019 14:22:31 Myocardial infarct finding now present T-wave abnormality no longer present Other Data: Other data: Laboratory Tests 06/20/19 06/20/19 06/20/19 04:21 04:21 07:10 ABG pH ABG pCO2 ABG pO2 ABG HCO3 FiO2 Total Bilirubin 0.3 AST 9 ALT 6 Alkaline Phosphata se 142 H Troponin I 6 Hour Troponin I Hi Sens Del Troponin T Baselin e 71 H Troponin T 120 Min [place] 98.91 H Delta Troponin T 27.91 H* Total Protein 6.7 Albumin 2.5 L Globulin 4.2 Lipase 31 Urine Protein Urine Glucose (UA) Urine Ketones Urine Occult Blood Urine Nitrate Urine RBC Urine WBC 06/20/19 06/20/19 06/20/19 07:55 08:25 10:19 ABG pH 7.43 ABG pCO2 33.5 L ABG pO2 86.2 ABG HCO3 22.3 FiO2 21.0 Total Bilirubin AST ALT Alkaline Phosphata se Troponin I 6 Hour 237.4 H Troponin I Hi Sens Del 166.4 H* Troponin T Baselin e Troponin T 120 Min [place] Delta Troponin T Total Protein Albumin Globulin Lipase Urine Protein 3+ H Urine Glucose (UA) 4+ H Urine Ketones Negative Urine Occult Blood 3+ H Urine Nitrate Negative Urine RBC 5-10 H Urine WBC 15-25 H #Transthoracic echocardiogram (March): Moderately decreased left ventricular systolic function with global hypokinesis with ejection fraction of 37%. ?Grade 1 diastolic dysfunction. ?Moderately increased right atrial size. ?Trace mitral valve regurgitation. ?Mild aortic valve regurgitation. ?Moderate tricuspid valve regurgitation. # Lexiscan myocardial perfusion imaging (March): Patchy area of decreased tracer uptake in the anterolateral inferior and anteroseptal region suggestive of myocardial scarring versus attenuation artifact. ?Left ventricular ejection fraction of 17%. ?Diffuse hypokinesis of left ventricle. # Labs (03/2019) creatinine increased from 0.8-3 and decreased to 1.2. ?AST increased from 11-3027 and decreased to 16, ALT increased from 11-1060 and decreased 211 and alkaline phosphatase increased from 151-255 and decreased to 178. A&P Assessment and plan (1) Acute non-ST elevation myocardial infarction (NSTEMI): No significant EKG changes however patient has multiple CAD risk factors. She has negative coronary angiogram July of last year. Her renal function has normalized but she does have history of contrast-induced nephropathy. -Decision of coronary angiogram based on the findings of echocardiogram. -Continue to treat medically as non-ST elevation acute coronary syndrome in the meantime. Status: Acute Code(s): I21.4 - Non-ST elevation (NSTEMI) myocardial infarction (2) Poorly controlled diabetes mellitus: Status: Acute Code(s): E11.65 - Type 2 diabetes mellitus with hyperglycemia (3) Chronic anticoagulation: Status: Acute Code(s): Z79.01 - correction (current) use of anticoagulants (4) Nonischemic cardiomyopathy: Echocardiogram showed left ventricle ejection fraction of 37% few months back. -Follow-up on repeat echocardiogram. Status: Acute Code(s): I42.8 - Other cardiomyopathies (5) History of DVT (deep vein thrombosis): Status: Acute Code(s): Z86.718 - Personal history of other venous thrombosis and embolism Coding Level of Care Code Acute [facility] for [facility] Fwd Diagnoses Acute non-ST elevation myocardial infarction (NSTEMI) I21.4 Poorly controlled diabetes mellitus E11.65 Chronic anticoagulation Z79.01 Nonischemic cardiomyopathy I42.8 History of DVT (deep vein thrombosis) Z86.718
--- NOTE | 2019-06-20 14:24 | USCV_ITS ---
Eliza Quinn Age: 48 Gender: F : 1970 Exam Date: 06/20/2019 14:51 Ordering Phys: Alexandra Mg MD Technologist: Ed Kelley Exam Location: [facility] [place] Indication: LV FUNCTION BP: 126 / 78 HR: 96 Rhythm: Sinus Technical Quality: Good MEASUREMENTS (Male / Female) Normal Values 2D ECHO LVOT Diameter 2.4 cm LV Ejection Fraction MOD 2C 46.5 % LV Ejection Fraction 2C AL 46.7 % LA Diameter 4.6 cm M-MODE LV Diastolic Diameter MM 7.2 cm 4.2 - 5.9 / 3.9 - 5.3 cm LV Systolic Diameter MM 5.9 cm LV Ejection Fraction MM Teich 36.0 % IVS Diastolic Thickness MM 0.9 cm 0.6 - 1.0 / 0.6 - 0.9 cm IVS Systolic Thickness MM 1.2 cm LVPW Diastolic Thickness MM 1.1 cm 0.6 - 1.0 / 0.6 - 0.9 cm LVPW Systolic Thickness MM 1.3 cm RV Diastolic Diameter MM 1.8 cm Aortic Annulus Diameter 3.9 cm LA Ao Ratio MM 1.2 MV E Point Septal Separation 2.8 cm FINDINGS Left Ventricle Dilated left ventricle cavity. Moderately to severely decreased left ventricular systolic function. Left ventricular ejection fraction is estimated at 30 %. Global hypokinesis more pronounced in septal wall with relative sparing of basal to mid inferolateral sandhu. Right Ventricle Normal right ventricular size and systolic function. Right Atrium Normal right atrial size. Left Atrium Mildly increased left atrial size. Mitral Valve Mildly thickened mitral valve. Aortic Valve Aortic valve not well visualized. Tricuspid Valve Structurally normal tricuspid valve. Pulmonic Valve Pulmonic valve not assessed. Pericardium No pericardial effusion. Aorta Aorta not well visualized. CONCLUSIONS 1. Dilated left ventricle cavity. Moderately to severely decreased left ventricular systolic function. Left ventricular ejection fraction is estimated at 30 %. Global hypokinesis more pronounced in septal wall with relative sparing of basal to mid inferolateral sandhu. 2. Normal right ventricular size and systolic function. 3. When compared to previous echocardiogram dated 03/24/2019, there may not have been any significant change. Alexandra Mg MD (Electronically Signed) Final Date: 20 June 2019 18:35 Amended: 21 June 2019 09:14 C
--- NOTE | 2019-06-20 14:42 | PC.NURSE ---
US at bedside for ECHO
[2019-06-20] MEDS: perflutren protein-a microsphr 0.22 mg/mL SDV 3 mL 1 ML IV (15:08)
[2019-06-20] MEDS: famotidine 20 mg Tablet PO (16:13)
[2019-06-20] MEDS: hyDRALAzine 10 mg Tablet PO ×2 (16:13→20:41)
[2019-06-20] MEDS: carvedilol 3.125 mg Tablet PO (16:13)
[2019-06-20 16:25] LABS: Glucose Point of Care 454 mg/dL (70-110)
[2019-06-20] MEDS: atorvastatin 40 mg Tablet PO (18:20)
[2019-06-20] MEDS: cyclobenzaprine 10 mg Tablet 5 MG PO (18:33)
--- NOTE | 2019-06-20 18:59 | PC.NURSE ---
Assumed care of patient at this time. Performed assessments as documented. Patient reporting kidney pain pointing to both left and right flank for area of 5/10 pain. Noted redness to right leg with weak pulses. Patient reports taking Eliquis at home. Bilateral lower extremity +2 pitting edema observed.
[2019-06-20 20:22] LABS: Glucose Point of Care 373 mg/dL (70-110)
[2019-06-21] VITALS (39 sets, daily range): BP systolic 112–145; BP diastolic 71–95; PULSE 88–99; RESP 17–31; TEMP 36.6–36.8; O2SAT 92–99
[2019-06-21] MEDS: enoxaparin 120 mg/0.8 mL Syringe SUBCUT (01:54)
[2019-06-21] MEDS: morphine 4 mg/mL SDV 1 mL IVP ×3 (02:27→23:58)
[2019-06-21 04:16] LABS: Basophils # 0.1 10^3/uL (0.0-0.1); Basophils % 1.3 %; Eosinophils # 0.3 10^3/uL (0.0-0.8); Eosinophils % 2.6 %; Hematocrit 44.6 % (37.0-47.0); Hemoglobin 13.1 g/dL (11.5-15.3); Lymphocytes # 2.4 10^3/uL (0.8-4.8); Lymphocytes % 22.5 %; Mean Corpuscular HGB Conc 29.4 g/dL (30.0-36.0); Mean Corpuscular Hemoglobin 24.1 pg (28.0-34.0); Mean Corpuscular Volume 82.1 fL (81-99); Mean Platelet Volume 11.1 fL (7.4-10.4); Monocytes # 0.8 10^3/uL (0.2-0.9); Monocytes % 7.9 %; Neutrophils # 6.9 10^3/uL (1.8-7.7); Neutrophils % 65.2 %; Nucleated Red Blood Cells % 0 %; Platelet Count 360 10^3/cmm (130-400); Red Blood Count 5.43 10^6/uL (4.1-5.3); Red Cell Distribution Width 16.7 % (12.1-15.1); White Blood Count 10.6 10^3/uL (4.0-10.0)
[2019-06-21 04:27] LABS: Alanine Aminotransferase 9 U/L (0-33); Albumin Level 2.1 g/dL (3.5-5.2); Alkaline Phosphatase 111 IU/L (35-105); Anion Gap 17.5 (5-19); Aspartate Amino Transferase 50 U/L (0-32); Blood Urea Nitrogen 16 mg/dL (6-20); Calcium 9.2 mg/dL (8.5-10.5); Carbon Dioxide 21 mmol/L (22-29); Chloride 95 mmol/L (98-107); Creatinine Clr Calc Pharmacy 115.4547; Globulin 5.3 g/dL (1.3-4.6); Glomerular Filtration Rate 76.6 mL/min (90-130); Glucose 338 mg/dL (65-115); Potassium 4.5 mmol/L (3.5-5.1); Sodium 129 mmol/L (136-145); Total Bilirubin 0.3 mg/dL (0.15-1.2); Total Protein 7.4 g/dL (6.6-8.7)
[2019-06-21 06:31] LABS: Glucose Point of Care 282 mg/dL (70-110)
[2019-06-21 08:11] LABS: Troponin T (5th) Once 1342
--- NOTE | 2019-06-21 09:02 | XACV_ITS ---
Exam Room: [facility] Ht: 170 cm Wt: 120 kg BSA: 2.44 m2 Gender: Female : 1970 Any Known Allergies: No known allergies Exam Priority: Routine Procedure(s): Procedure Description: Diagnostic procedure Procedure Description: PCI procedure Procedure Description: Left Heart Catheterization Procedure Description: PTCA Procedure Description: Coronary Thrombectomy Procedure Description: Peripheral Cath Diagnostic Procedure Procedure Description: Coronary Angiography Diagnostic Cath Status: Urgent Diagnostic Findings No significant disease noted in the Left Main, LAD, Circumflex, or RCA coronary arteries. Coronary angiography shows right dominance. Interventional Findings Peripheral angiogram: Please see inventory for devices used in this procedure. Reason for peripheral angiogram was acute right leg with thrombus in the tibioperoneal trunk confirmed with vascular study. Reason for peripheral angiogram and intervention: Acute limb ischemia proven with vascular study, right leg and foot pain Through left groin approach right common iliac was engaged. Peripheral angiogram was performed which showed right common iliac, right external and internal iliac, right common femoral artery right profunda femoral artery, right proximal to mid SFA showed good flow without significant obstruction.Right distal SFA and popliteal artery had sluggish flow. Tibioperoneal trunk of the right leg was completely occluded no flow was observed below it. No anterior, posterior tibial and peroneal artery noted due to occlusion, posterior tibial artery staining with thrombus was noted. There appeared to be a thrombus while below the knee arteries appeared to be very calcified. Peripheral intervention: After somewhat difficulty we were able to cross through the tibioperoneal trunk into peroneal artery. Using penumbra device multiple passes for thrombectomy was performed. Due to reocclusion and no reflow phenomena we also used Pronto 4 catheter in desperate attempt to open up the vessel below the knee to restore the flow. I then crossed with wire into posterior anterior tibial vessels. Multiple balloon angioplasty was performed in tibioperoneal trunk anterior posterior tibial artery and peroneal arteries. At one point I was able to restore the flow in all 3 above defined arteries but later shutdown again. I also performed kissing balloon from tibioperoneal trunk and posterior tibial and peroneal artery. Multiple injections of nitroglycerin were performed as spasm was observed. Finally I was able to restore blood flow in the posterior tibial artery all the way to the leg. Selective injection in the anterior and peroneal artery also confirm the flow. Due to history of renal dysfunction we used less contrast with hand-injection. Good dopplerable anterior and posterior tibial pulse with good pinkish color of right foot was achieved. It was also observed that patient has highly calcified tibioperoneal trunk ostial anterior tibial and peroneal artery stenosis is observed. Since we achieved good pulse duration over the flow in the right foot it was suggested that for now we will start patient on anticoagulation and will follow her up with atherectomy of tibioperoneal trunk in the future . Conclusions No significant disease noted in the Left Main, LAD, Circumflex, or RCA coronary arteries. Recommendations 1-Return to inpatient for close monitoring and routine cath care2-Risk factor modification for secondary prevention3-Statin and aspirin 81 mg life-long, if tolerated4-Continue anticoagulation5-Continue optimal medical management6-Follow up with Dr. Dorsey in four weeks and your primary care in 10 days. Pressures Phase:Rest AO : 114 mmHg / 85 mmHg ( 100 mmHg ) @ 5:07:00 AM 168 mmHg / 79 mmHg ( 108 mmHg ) @ 5:29:00 AM 164 mmHg / 78 mmHg ( 109 mmHg ) @ 5:35:00 AM 155 mmHg / 74 mmHg ( 97 mmHg ) @ 5:42:00 AM 140 mmHg / 69 mmHg ( 94 mmHg ) @ 6:00:00 AM 142 mmHg / 71 mmHg ( 96 mmHg ) @ 6:10:00 AM 148 mmHg / 70 mmHg ( 99 mmHg ) @ 6:29:00 AM 133 mmHg / 67 mmHg ( 89 mmHg ) @ 7:11:00 AM 135 mmHg / 69 mmHg ( 92 mmHg ) @ 7:28:00 AM 131 mmHg / 66 mmHg ( 90 mmHg ) @ 7:58:00 AM 122 mmHg / 68 mmHg ( 87 mmHg ) @ 8:06:00 AM Hemodynamic Data Phase:Rest AO : 114.0 mmHg / 85.0 mmHg ( 100.0 mmHg ) @ 5:07:00 AM 168.0 mmHg / 79.0 mmHg ( 108.0 mmHg ) @ 5:29:00 AM 164.0 mmHg / 78.0 mmHg ( 109.0 mmHg ) @ 5:35:00 AM 155.0 mmHg / 74.0 mmHg ( 97.0 mmHg ) @ 5:42:00 AM 140.0 mmHg / 69.0 mmHg ( 94.0 mmHg ) @ 6:00:00 AM 142.0 mmHg / 71.0 mmHg ( 96.0 mmHg ) @ 6:10:00 AM 148.0 mmHg / 70.0 mmHg ( 99.0 mmHg ) @ 6:29:00 AM 133.0 mmHg / 67.0 mmHg ( 89.0 mmHg ) @ 7:11:00 AM 135.0 mmHg / 69.0 mmHg ( 92.0 mmHg ) @ 7:28:00 AM 131.0 mmHg / 66.0 mmHg ( 90.0 mmHg ) @ 7:58:00 AM 122.0 mmHg / 68.0 mmHg ( 87.0 mmHg ) @ 8:06:00 AM Clinical Evaluation EBL: 5mL-10mL Procedural Details Procedure Consent Obtained. Pre-Procedure Time Out. Identified patient by full name and date of as verbalized by the patient/guarantor. Does the consent match the physician's order: Yes. Accurate & Complete Informed Consent: Yes. Inpatient/Outpatient History & Physical on Chart: Yes. If H&P is completed, is and addenduem needed: N/A; If yes, is the addendum complete: N/A. Visualize and Verify Site with Patient/Guarantor: N/A. Relevant Radiology Images available: Yes. Pre-op teaching completed and patient verbalized understanding. The risks, benefits, and alternatives of sedation and/or procedure were discussed by physician. The patient agrees to continue. Procedure started. Correct patient, site and procedure confirmed by cath team. PERRLA. Strong, equal hand research quality assurance specialist bilaterally. Lungs clear x 5 lobes. IV Site on Arrival: 20 gauge in the right anticubital. IV Fluids: 0.9% NaCl at KVO. 0 mL infused prior to label pinker. Pre Procedural Pulses: bilateral dorsalis pedis was Doppled. Pre Procedural Pulses: bilateral posterior tibial was Doppled. Pre Procedural Pulses: bilateral radial was Doppled. Oxygen started at 2liters/min via nasal canula. bilateral groins was prepped with chloroprep then draped in the usual sterile fashion. Physician notified. Baseline sample Acquired. HR: 91 BPM. Equipment: 6F - Femoral. Cardiac Cath Pack. ACTapPress Manifold Kit Model BT 2000. Heparinized Saline (2 units/mL), 1000 mL bag. Kit, Micropuncture. Physician arrived. Physician scrubbed in. Immediate Pre-Procedure Time Out. Correct Patient: Yes; Correct Procedure: Yes; Correct Site: Yes; Correct Patient Position: Yes; Correct Supplies: Yes; Dried Flammable Prep: Yes; Blood Products Available: No;. Lidocaine 1% infiltrated to the left groin. Arterial access obtained with micropuncture set. A 5 thai JL4 catheter in over wire. Multiple views taken of left coronary artery. Catheter out. A 5 thai JR4 catheter in over wire. Multiple views taken of right coronary artery. Inventory is TR Glidewire Angled Stiff Shaft .035 260cm. JR4 postioned above the bifurcation of the iliacs. Aortagram performed @ 10 mL/sec for a total of 20 mL. Catheter removed over the glide wire. 6Fr short sheath exchanged for a 6FR long flexor sheath. Side port of sheath attached to Normal Saline flush at KVO to maintain patency. seeker inserted over glide wire. glidewire removed. hand injection. command wire inserted. seeker removed. Penumbra Indigo system inserted over wire. aspiration performed in right peroneal trunk. catheter removed. seeker inserted. checking results. attempted to insert Penumbra Indigo system over wire. aspiration catheter removed. Inflation number : 1 A AB ARMADA 14 OTW [id number] was prepped and advanced across the Posterior Tibial, Right , then inflated to 8 JO for 2:00 seconds. Inflation number: 2 The AB ARMADA 14 OTW [id number] was reinflated across the Posterior Tibial, Right, to 8 JO for 0:35 seconds. Balloon out. Patient's family updated. seeker inserted over command wire. command wire removed. hand injection performed. wire removed. Inflation number: 3 The AB ARMADA 14 OTW [id number] was reinflated across the Posterior Tibial, Right, to 8 JO for 2:00 seconds. Balloon inserted over the wire to the tibial peroneal trunk. Inflation number: 4 The AB ARMADA 14 OTW [id number] was reinflated across the Posterior Tibial, Right, to 8 JO for 1:02 seconds. Balloon out over wire. Inflation number: 5 The AB ARMADA 14 OTW [id number] was reinflated across the Posterior Tibial, Right, to 10 JO for 2:00 seconds. Inflation number : 6 A AB ARMADA 14 OTW [id number] was prepped and advanced across the Posterior Tibial, Right , then inflated to 8 JO for 0:22 seconds. Inflation number: 7 The AB ARMADA 14 OTW [id number] was reinflated across the Posterior Tibial, Right, to 8 JO for 2:01 seconds. Balloon and wire out. glidewire inserted. seeker advanced OTW. runthrough wire inserted. Inventory is TR Runthrough NS Guidewire .014 300cm. Pronto V4 extraction catheter inserted. Patient's family unavailable. Pronto V4 extraction catheter removed. Inflation number : 8 A AB ARMADA 35 OTW [id number] was prepped and advanced across the Posterior Tibial, Right , then inflated to 4 JO for 0:31 seconds. Inflation number: 9 The AB ARMADA 35 OTW [id number] was reinflated across the Posterior Tibial, Right, to 3 JO for 0:31 seconds. Inflation number: 10 The AB ARMADA 35 OTW [id number] was reinflated across the Posterior Tibial, Right, to 10 JO for 0:32 seconds. Inflation number: 11 The AB ARMADA 35 OTW [id number] was reinflated across the Posterior Tibial, Right, to 8 JO for 0:21 seconds. Inflation number: 12 The AB ARMADA 35 OTW [id number] was reinflated across the Posterior Tibial, Right, to 8 JO for 0:31 seconds. Inflation number: 13 The AB ARMADA 35 OTW [id number] was reinflated across the Posterior Tibial, Right, to 8 JO for 0:36 seconds. Inflation number: 14 The AB ARMADA 14 OTW [id number] was reinflated across the Posterior Tibial, Right, to 8 JO for 1:52 seconds. Inflation number: 15 The AB ARMADA 14 OTW [id number] was reinflated across the Posterior Tibial, Right, to 10 JO for 1:04 seconds. runthrough inserted. seeker removed over wire. Inflation number : 1 A AB MINI TREK 2.00X25 RX BALLOON was prepped and advanced across the Peroneal, Right , then inflated to 8 JO for 1:02 seconds. Inflation number : 16 A AB MINI TREK 2.00X30 RX BALLOON was prepped and advanced across the Posterior Tibial, Right , then inflated to 8 JO for 1:11 seconds. Inflation number: 17 The AB MINI TREK 2.00X30 RX BALLOON was reinflated across the Posterior Tibial, Right, to 4 JO for 1:07 seconds. Inflation number: 2 The AB MINI TREK 2.00X25 RX BALLOON was reinflated across the Peroneal, Right, to 4 JO for 1:05 seconds. Inflation number: 3 The AB MINI TREK 2.00X25 RX BALLOON was reinflated across the Peroneal, Right, to 4 JO for 0:35 seconds. Inflation number: 18 The AB MINI TREK 2.00X30 RX BALLOON was reinflated across the Posterior Tibial, Right, to 4 JO for 0:36 seconds. Inflation number: 4 The AB MINI TREK 2.00X25 RX BALLOON was reinflated across the Peroneal, Right, to 9 JO for 0:32 seconds. Inflation number: 19 The AB MINI TREK 2.00X30 RX BALLOON was reinflated across the Posterior Tibial, Right, to 9 JO for 0:32 seconds. Inflation number: 5 The AB MINI TREK 2.00X25 RX BALLOON was reinflated across the Peroneal, Right, to 14 JO for 0:31 seconds. Inflation number: 20 The AB MINI TREK 2.00X30 RX BALLOON was reinflated across the Posterior Tibial, Right, to 14 JO for 0:31 seconds. Inflation number: 6 The AB MINI TREK 2.00X25 RX BALLOON was reinflated across the Peroneal, Right, to 14 JO for 0:08 seconds. Inflation number: 21 The AB MINI TREK 2.00X30 RX BALLOON was reinflated across the Posterior Tibial, Right, to 14 JO for 0:08 seconds. Inflation number: 7 The AB MINI TREK 2.00X25 RX BALLOON was reinflated across the Peroneal, Right, to 14 JO for 0:15 seconds. Inflation number: 22 The AB MINI TREK 2.00X30 RX BALLOON was reinflated across the Posterior Tibial, Right, to 14 JO for 0:33 seconds. Inflation number: 8 The AB MINI TREK 2.00X25 RX BALLOON was reinflated across the Peroneal, Right, to 14 JO for 0:11 seconds. Inflation number: 9 The AB MINI TREK 2.00X25 RX BALLOON was reinflated across the Peroneal, Right, to 14 JO for 0:30 seconds. Inflation number: 23 The AB MINI TREK 2.00X30 RX BALLOON was reinflated across the Posterior Tibial, Right, to 14 JO for 0:29 seconds. both wires removed. glidewire inserted. 6Fr long sheath exchanged for a 6FR short sheath. A Suture was successful obtaining hemostatsis at the Left Femoral artery insertion site. Sheath(s) sutured into position with 2-0 silk and sterile 4x4's and Op-site applied over the site. No oozing or signs and symptoms of hematoma noted. Arterial sheath flushed and connected to tranducer and pressure bag with heparinized saline. Post Procedure: Pulses reassessed and unchanged. PERRLA. Strong, equal hand research quality assurance specialist bilaterally. No VTE prophylaxis required. Medication's Wasted: Nitro = 48.2 mg. Medication's Wasted: Heparin = 2000 units. Total IV fluids: 400 mL. Fluoro: 629:00. Contrast type used: Visipaque 320 mgI/mL, 500 mL bottle. [id number]. Post-op diagnosis: normal coronaries. Complications: none. Estimated blood loss: 5mL-10mL. Procedure completed. [facility] Clinical Fraility Score: 4: Vulnerable. On Air Director Indications: ACS <= 24 hours. Chest Pain Symptom Assessment: Atypical Angina. Cardiovascular Instability: No. Vital chart was stopped. Patient transferred by bed to 1st floor. Site: Left Femoral artery Sheath Size: 6 Fr Hemostasis Method: Suture Hemostasis Success: Successful Procedure Medications Start: 10:42 AM Stop: 10:42 AM Medication: Zofran (ondansetron) Amount: 4 mg Route: I.V. Start: 10:48 AM Stop: 10:48 AM Medication: Pepcid Amount: 40 mg Route: I.V. Start: 10:52 AM Stop: 10:52 AM Medication: Versed Amount: 1 mg Route: I.V. Start: 10:52 AM Stop: 10:52 AM Medication: Fentanyl Amount: 50 mcg Route: I.V. Start: 10:55 AM Stop: 10:55 AM Medication: 0.9% Saline Amount: 100 ml/hr Route: I.V. drip Start: 11:12 AM Stop: 11:12 AM Medication: Versed Amount: 1 mg Route: I.V. Start: 11:12 AM Stop: 11:12 AM Medication: Fentanyl Amount: 25 mcg Route: I.V. Start: 11:34 AM Stop: 11:34 AM Medication: Versed Amount: 1 mg Route: I.V. Start: 11:34 AM Stop: 11:34 AM Medication: Fentanyl Amount: 25 mcg Route: I.V. Start: 11:51 AM Stop: 11:51 AM Medication: Lovenox (Enoxaparin) Amount: 40 mg Route: I.V. Start: 12:06 PM Stop: 12:06 PM Medication: Versed Amount: 1 mg Route: I.V. Start: 12:35 PM Stop: 12:35 PM Medication: Versed Amount: 1 mg Route: I.V. Start: 12:35 PM Stop: 12:35 PM Medication: Fentanyl Amount: 50 mcg Route: I.V. Start: 1:07 PM Stop: 1:07 PM Medication: Versed Amount: 1 mg Route: I.V. Start: 1:07 PM Stop: 1:07 PM Medication: Fentanyl Amount: 50 mcg Route: I.V. Start: 1:11 PM Stop: 1:11 PM Medication: Lovenox (Enoxaparin) Amount: 60 mg Route: I.V. Start: 1:29 PM Stop: 1:29 PM Medication: Nitrogylcerin Amount: 400 mcg Route: I.A. Start: 1:37 PM Stop: 1:37 PM Medication: Lovenox (Enoxaparin) Amount: 30 mg Route: I.V. Start: 1:40 PM Stop: 1:40 PM Medication: Versed Amount: 1 mg Route: I.V. Start: 1:40 PM Stop: 1:40 PM Medication: Fentanyl Amount: 50 mcg Route: I.V. Start: 2:04 PM Stop: 2:04 PM Medication: Nitrogylcerin Amount: 400 mcg Route: I.A. Start: 2:08 PM Stop: 2:08 PM Medication: Nitrogylcerin Amount: 400 mcg Route: I.A. Start: 2:13 PM Stop: 2:13 PM Medication: Versed Amount: 1 mg Route: I.V. Start: 2:13 PM Stop: 2:13 PM Medication: Fentanyl Amount: 50 mcg Route: I.V. Start: 2:38 PM Stop: 2:38 PM Medication: Nitrogylcerin Amount: 400 mcg Route: I.A. I, the attending physician, have reviewed and verified all procedure medications. Yes, all medications given per verbal order History/Risk Factors Hypertension: Yes Dyslipidemia: No Diabetic Therapy: Insulin Peripheral Arterial Disease (PAD): No Myocardial Infarction (NE): No Obesity: Yes Renal Disease: No Tobacco Use: Former Prior Interventions PCI: No CABG: No Valve Surgery: No Report Signatures Finalized by:Sofi Dorsey MD on 07/05/2019 7:25:46 PM
[2019-06-21] MEDS: clopidogrel 75 mg Tablet PO (09:27)
[2019-06-21] MEDS: aspirin 325 mg EC Tablet PO (09:27)
[2019-06-21] MEDS: FUROsemide 10 mg/mL SDV 4mL 40 MG IVP (09:27)
[2019-06-21] MEDS: famotidine 20 mg Tablet PO (09:27)
[2019-06-21] MEDS: carvedilol 3.125 mg Tablet PO (09:27)
[2019-06-21] MEDS: sodium chloride 0.9% 1,000 ML 100 ML IV ×2 (09:28→20:09)
[2019-06-21] MEDS: diphenhydrAMINE 50 mg Capsule PO (10:25)
--- NOTE | 2019-06-21 10:35 | P.CONIM_ITS ---
Providers/Reason For Consult Consulting Physican/Specialty*: Interventional cardiology Reason for Consult*: Limb ischemia/Non-ST elevation NC Attending Physician: Kar Pearl Primary Care Provider: Erik Castillo History of Present Illness History of Present Illness Eliza uQinn is a 48 year old female past medical history significant for nonischemic cardiomyopathy, history of DVT on anticoagulation, history of uncontrolled diabetes mellitus, obesity, history of contrast-induced nephropathy leading to transient dialysis presented with nausea diarrhea and chest pain going on for the last couple of days. Cardiac markers were abnormal with generation fifth troponin increased to 237. She kept on having chest pressure and chest pain. She also complaining of leg pain. She has dopplerable anterior tibial but no posterior tibial in both feet. She is able to move both feet no sensory deficit. Color of both foot not dusky. Both forefeet are slightly cool to touch in the toe region. Arterial Doppler consistent with popliteal thrombus, it is unofficial result. I have been asked by our cardiology and medicine colleagues to assist in her care. Review of Systems General: Reports: other (negative unless marked) Const: Reports: fatigue and other (Poor appetite); Denies: fever, chills, body aches, malaise, night sweats or diaphoresis Eyes: Denies: change in vision, blurry vision or eye redness ENMT: Denies: throat pain, painful swallowing, hoarseness, oral sores/lesions, ear pain, ear discharge, change in hearing, nasal discharge or nasal congestion Card: Reports: chest pain (as mentioned in HPI), edema, swelling of feet/ankles (right more than left) and shortness of breath on exertion; Denies: palpitations, irregular heart rhythm, lightheadedness, pre-syncope or shortness of breath when lying down Resp: Reports: shortness of breath; Denies: productive cough, non-productive cough, wheezing, pain on inspiration, change in phlegm color, coughing up blood or chest congestion GI: Denies: abdominal pain, nausea, vomiting, vomiting blood, coffee grounds in vomit, diarrhea, constipation, cramping, blood in stool or black tarry stool : Denies: flank pain, difficulty urinating, painful urination, urinary frequency, urinary urgency, decreased urine ouput, urinary incontinence or blood in urine Musc: Denies: neck pain, back pain, extremity pain, extremity swelling, joint pain, joint swelling, redness, joint warmth or joint stiffness Skin/Breast: Denies: rash, skin tenderness, sores, new lesion or yellow skin Neuro: Denies: headache, numbness in extremities, weakness in extremities, changes in sensation, lack of coordination, difficulty walking, dizziness, vertigo, confusion or seizure-like activity Psych: Denies: anxiety or depression Endo: Denies: excessive urination, excessive thirst, tired all the time, cold intolerance, excessive sweating, flushing or hot flashes Hayder/Lymph: Denies: easy bruising, easy bleeding, petechiae, purpura or enlarged lymph nodes All/Imm: Denies: hives, throat swelling, tongue swelling, facial swelling or acute wheezing Meds/Allergies Home Medications and Allergies Home Medications Medication Instructions Recorded Confirmed Type acetaminophen [Tylenol Extra 1,000 mg PO Q4H PRN 06/04/19 06/20/19 History Strength] apixaban [Eliquis] 5 mg PO BID 06/04/19 06/20/19 History aspirin [Aspir-Low] 81 mg PO DAILY 06/04/19 06/20/19 History atorvastatin 40 mg PO QPM 06/04/19 06/20/19 History carvedilol 3.125 mg PO BID 06/04/19 06/20/19 History famotidine 20 mg PO BID 06/04/19 06/20/19 History furosemide [Lasix] 40 mg PO DAILY 06/04/19 06/20/19 History gabapentin 100 mg PO TID PRN 06/04/19 06/20/19 History hydralazine 10 mg PO TID 06/04/19 06/20/19 History insulin glargine U-300 conc 50 unit SUBCUT BID 06/04/19 06/20/19 History [Toujeo SoloStar U-300 Insulin] insulin lispro [Humalog KwikPen See Rx Instructions .ROUTE .COMPLEX 06/04/19 06/20/19 History Insulin] norethindrone acetate 10 mg PO BID 06/04/19 06/20/19 History spironolactone 12.5 mg PO DAILY 06/04/19 06/20/19 History cyclobenzaprine 5 mg PO TID PRN 06/20/19 06/20/19 History Allergies Allergy/AdvReac Type Severity Reaction Status Date / Time No Known Allergies Allergy Verified 06/04/19 12:25 Current Medications Current Medications Generic Name Dose Route Start Last Admin Trade Name Freq PRN Reason Stop Dose Admin Aspirin 81 mg 06/21/19 09:00 06/21/19 10:07 Aspirin Ec PO Not Given DAILY HI Atorvastatin Calcium 40 mg 06/20/19 18:00 06/20/19 18:20 Lipitor PO 40 mg QPM HI Administration Carvedilol 3.125 mg 06/20/19 15:46 06/21/19 09:27 Coreg PO 3.125 mg BID HI Administration Cyclobenzaprine HCl 5 mg 06/20/19 18:30 06/20/19 18:33 Flexeril PO 5 mg TID PRN Administration MUSCLE PAIN Enoxaparin Sodium 120 mg 06/20/19 13:00 06/21/19 01:54 Lovenox SUBCUT 120 mg Q12H HI Administration Famotidine 20 mg 06/20/19 15:46 06/21/19 09:27 Pepcid Tab PO 20 mg BID HI Administration Hydralazine HCl 10 mg 06/20/19 15:46 06/20/19 20:41 Apresoline PO 10 mg TID HI Administration Sodium Chloride 1,000 mls @ 100 mls/hr 06/20/19 04:15 06/21/19 09:28 Sodium Chloride 0.9% IV 100 mls/hr .Q10H HI Administration Sodium Chloride 1,000 mls @ 100 mls/hr 06/20/19 09:15 06/21/19 07:35 Sodium Chloride 0.9% IV Not Given .Q10H HI Insulin Aspart 0 unit 06/20/19 15:46 06/21/19 09:27 Novolog SUBCUT 10 unit WM&BEDTIME HI Administration Protocol Morphine Sulfate 4 mg 06/20/19 09:03 06/21/19 02:27 Morphine IVP 4 mg Q4H PRN Administration SEVERE PAIN Nitroglycerin 0.4 mg 06/20/19 04:13 06/20/19 05:35 Nitrostat SUBLINGUAL 0.4 mg Q5M PRN Administration CHEST PAIN PFSH Acute PFSH: Medical History (Updated 06/21/19 @ 18:52 by Kar Pearl MD) Chronic anticoagulation Chronic kidney disease, stage II (mild) History of DVT (deep vein thrombosis) Nonischemic cardiomyopathy Poorly controlled diabetes mellitus Urinary tract infection due to ESBL Klebsiella Surgical History History of back surgery History of History of shoulder surgery Hx of cholecystectomy Family History Other Diabetes Social History Smoking and tobacco status: former smoker Quit status (tobacco): has quit using tobacco Year quit tobacco: 3 mo ago Alcohol intake: never Substance/Drug Use: never Lives independently: Yes Household members: children Current occupational status: employed Vitals/I&O/Wt Last Vital Signs Temp 98.3 F 06/21/19 07:32 Pulse 92 06/21/19 07:30 Resp 18 06/21/19 07:30 BP 134/82 06/21/19 07:30 Pulse Ox 98 06/21/19 07:30 06/20/19 06/21/19 06/21/19 22:59 06:59 14:59 Intake Total 2480 / 2480 1040 / 1040 Balance 2480 / 2480 1040 / 1040 Weight last 48 hrs Weight 265 lb Physical Exam Narrative: EXAM NARRATIVE: GENERAL: Patient is alert, awake and oriented x3. NECK: No jugular vein distension. HEENT: No cyanosis. No icterus. No pallor. HEART: Regular S1 and S2. No murmur, rub or gallop. LUNGS: Clear to auscultate bilaterally. ABDOMEN: Soft, nontender and nondistended. Positive bowel sounds. No guarding, rebound or tenderness. CENTRAL NERVOUS SYSTEM: Grossly nonfocal. EXTREMITIES: Lower extremities without edema bilaterally. Pulses not palpable in both feet. Toes of the right foot or on the older side but reasonable capillary refill. It isn't appeared to me acute ischemia. A&P Assessment and plan (1) Acute non-ST elevation myocardial infarction (NSTEMI): Patient cardiac markers are markedly abnormal however cannot rule out stress-induced or viral myocarditis. We agree with proceeding with angiogram. Patient has been explained Risk benefit and alternative for the procedure.. Patient has been explained high risk for contrast induced nephropathy. She agrees rate and would like to proceed with it. She has been hydrated and will be hydrated during the procedure. We will try to minimize contrast Status: Acute Code(s): I21.4 - Non-ST elevation (NSTEMI) myocardial infarction (2) Poorly controlled diabetes mellitus: As per medicine Status: Acute Code(s): E11.65 - Type 2 diabetes mellitus with hyperglycemia (3) Chronic anticoagulation: Continue Lovenox Status: Acute Code(s): Z79.01 - supervisor intermediates (current) use of anticoagulants (4) Nonischemic cardiomyopathy: Appeared to be compensated Status: Acute Code(s): I42.8 - Other cardiomyopathies (5) History of DVT (deep vein thrombosis): Patient is on Lovenox. Continue Status: Acute Code(s): Z86.718 - Personal history of other venous thrombosis and embolism (6) Lower limb ischemia: We will proceed with arterial angiogram. Further plan will be advised as per progress of the patient. Patient has been explained all risks benefits and alternative for the procedure including emergent vascular surgery ,Acute limb ischemia, and contrast iinduced nephropathy Status: Acute Code(s): I99.8 - Other disorder of circulatory system Coding Level of Care Code New Pt Acute Application Support for g Fwd Patient Type New History Expanded Problem Focused Exam Detailed Medical Decision Making High Complexity Diagnoses Acute non-ST elevation myocardial infarction (NSTEMI) I21.4 Poorly controlled diabetes mellitus E11.65 Chronic anticoagulation Z79.01 Nonischemic cardiomyopathy I42.8 History of DVT (deep vein thrombosis) Z86.718 Lower limb ischemia I99.8
--- NOTE | 2019-06-21 12:18 | PC.CHAP ---
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 oxygen furnace operator visit [] Patient/Family/Request visit [] Outpatient visit [] Follow-up visit [] Physician referral [] Code/Alert [x] Routine visit [] Staff referral [] Actively dying [] Patient sleeping [x] Family support [] [] Out of room [] Palliative care [] [] Receiving care in room [] Pre-surgical visit [] Trauma [] Long length of stay [] ICU visit [] Other: Relational/Emotional Strength [] Patient feels connected with others/family/visitors/staff [] Distress [] Loneliness/isolation [] Abandonment Spirituality of Patient [] Person of Crystal [] Attends Jainism of their Crystal [] Believes in Prayer [] Reads Bible or Judaism materials [] There are Spiritual issues to be addressed Scale And Skip Car Operator Interventions [] Prayer [] Active listening [] Non-anxious presence [] Spiritual/emotional support [] Crisis/trauma care [] Spiritual counseling [] Bereavement support [] Provided bereavement packet [] Provided Bible/devotional materials [] Provided toy/stuffed animal, coloring book to patient or family member [] Provided Communion [] Anointing/[place] [] Salvation [x] Completed spiritual assessment [] Other: Impact on Illness or Injury [] Angry [] Fearful [] Anxious [] Often cries [] Exhaustion [] Unable to work [] Unable to attend anglican [] Unable to walk/stand [] Unable to read [] Unable to drive [] Unable to eat/drink [] Unable to sleep [] Unable to be with family [] Patient intubated [] Other: Summary Patients out for tests. Parents were present discussed patient. Time spent with patient 10min
--- NOTE | 2019-06-21 14:46 | P.PN_ITS ---
Subjective Subjective: Interval history: Patient underwent thrombectomy followed by balloon angioplasty of tibioperoneal trunk anterior, posterior and peroneal artery of the right leg. One-vessel runoff noted. Post procedure patient had good dopplerable posterior and anterior tibial pulse. Foot was warm. No overnight event. She continues to have good dopplerable posterior and anterior tibial pulse of the right leg. She has nonischemic cardiomyopathy coronary arteries were normal. Vitals/I&O/Wt Last Vital Signs Temp 98.3 F 06/21/19 07:32 Pulse 92 06/21/19 07:30 Resp 18 06/21/19 07:30 BP 134/82 06/21/19 07:30 Pulse Ox 98 06/21/19 07:30 06/20/19 06/21/19 06/21/19 22:59 06:59 14:59 Intake Total 2480 / 2480 1160 / 1160 Balance 2480 / 2480 1160 / 1160 Weight last 48 hrs Weight 265 lb Physical Exam Narrative: EXAM NARRATIVE: GENERAL: Patient is alert, awake and oriented x3. NECK: No jugular vein distension. HEENT: No cyanosis. No icterus. No pallor. HEART: Regular S1 and S2. No murmur, rub or gallop. LUNGS: Clear to auscultate bilaterally. ABDOMEN: Soft, nontender and nondistended. Positive bowel sounds. No guarding, rebound or tenderness. CENTRAL NERVOUS SYSTEM: Grossly nonfocal. EXTREMITIES: Lower extremities without edema bilaterally. Dopplerable anterior and posterior tibial pulse in the right foot. Foot appeared to be warm moist with good capillary refill. Data : 06/22/19 04:00 06/22/19 04:00 A&P Assessment and plan (1) Acute non-ST elevation myocardial infarction (NSTEMI): Normal coronaries. No obstructive disease noted. Could be stress-induced cardiomyopathy. Continue statin and aspirin beta-cristin and ROSETTA inhibitor. 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 Switching to Xarelto since patient has peripheral vascular disease as well Status: Acute Code(s): Z86.718 - Personal history of other venous thrombosis and embolism (6) Lower limb ischemia: Patient underwent peripheral angiogram she was found to have acute on chronic total occlusion at the level of popliteal artery and tibioperoneal trunk. Posterior anterior tibial and peroneal arteries were chronically occluded. Most likely she was living by collaterals and now ruptured the plaque in the tibioperoneal trunk area where there was lot of clot burden. With somewhat difficulty I was able to cross into peroneal artery. Penumbra device was used for embolectomy. Multiple balloon angioplasties were performed in anterior tibial, peroneal and posterior tibial arteries. We were able to achieve a reasonable two-vessel runoff to the foot, severe spasm of the vessels were observed after balloon angioplasty. Nitroglycerin was also given. Since patient has history of contrast-induced nephropathy we will tried to keep contrast as low as possible. I have sent and discuss imaging with vascular surgery at the [facility] to Dr. Jonas who recommended treating with anticoagulation for 2 to 3 weeks and possible CSI atherectomy. She will be seeing Dr. Jonas as an outpatient. Currently she is stable has good anterior and posterior dopplerable pulses. Status: Acute Code(s): I99.8 - Other disorder of circulatory system Attestations Medical Necessity Statement*: Patient require continuation hospitalization for 24 more hours. We are switching her to anticoagulation. Coding Level of Care Code Established Pt Acute Cloth Washer Back Tender for g Fwernestine Patient Type Established History Expanded Problem Focused Exam Expanded Problem Focused Medical Decision Making Moderate Complexity Diagnoses Acute non-ST elevation myocardial infarction (NSTEMI) I21.4 Poorly controlled diabetes mellitus E11.65 Chronic anticoagulation Z79.01 Nonischemic cardiomyopathy I42.8 History of DVT (deep vein thrombosis) Z86.718 Lower limb ischemia I99.8
[2019-06-21 17:05] LABS: Glucose Point of Care 272 mg/dL (70-110)
--- NOTE | 2019-06-21 18:51 | PM.PN ---
Subjective Subjective: Interval history: This morning she denied chest pain. Persistent numbness, pain in both lower extremities, worse on the right, with swelling, purple discoloration of the right foot. Vitals/I&O/Wt Last Vital Signs Temp 98.3 F 06/21/19 07:32 Pulse 91 06/21/19 17:45 Resp 19 H 06/21/19 17:25 BP 112/76 06/21/19 17:25 Pulse Ox 99 06/21/19 17:45 06/21/19 06/21/19 06/21/19 06:59 14:59 22:59 Intake Total 1160 / 1160 Balance 1160 / 1160 Weight last 48 hrs Weight 120.202 kg Physical Exam Const: COMMON NORMALS: no apparent distress and oriented x3 HENMT: COMMON NORMALS: oropharynx normal Neck/C-Spine: COMMON NORMALS: no JVD Resp: COMMON NORMALS: normal respiratory effort and clear to auscultation bilaterally AUSCULTATION: clear to auscultation bilaterally Cardio: COMMON NORMALS: no JVD, regular rhythm, S1 normal heart sound, S2 normal heart sound and no murmurs RHYTHM: regular rhythm HEART SOUNDS: S1 normal and S2 normal GI: COMMON NORMALS: normal to inspection, nondistended, normoactive bowel sounds, soft to palpation and non-tender PALPATION: Yes soft Extremity: COMMON NORMALS: no joint enlargement and no pedal edema Neuro: COMMON NORMALS: oriented x3 and moves all extremities Skin: COMMON NORMALS: no rashes or lesions noted GENERAL SKIN EXAM: no rashes or lesions noted LESIONS: lesion noted (Small ulcerations noted from poorly healed excoriations on her arms) Data : 06/21/19 03:50 06/21/19 03:50 A&P Assessment and plan (1) Lower limb ischemia: Acute on chronic occlusion of circulation noted on peripheral angiography below popliteal artery, with chronic calcification, as well as acute obstruction. Earlier no flow noted in right lower extremity below popliteal artery on duplex ultrasound apart from perhaps some collaterals. Flow to DP artery was reopened during angiography. Tibioperoneal trunk could not be opened endovascularly. Appreciate cardiology recommendations. Continue anticoagulation. Aspirin. Statin. Attempt to improve diabetes control and adherence with diet and medications. Status: Acute Code(s): I99.8 - Other disorder of circulatory system (2) Acute non-ST elevation myocardial infarction (NSTEMI): Appears to have nonischemic myocardial injury. No acute obstruction of coronary artery noted. Etiology of troponin ovation is not entirely clear. Possibly stress-induced cardiomyopathy. Status: Acute Code(s): I21.4 - Non-ST elevation (NSTEMI) myocardial infarction (3) Chest pain: As above. Status: Acute Qualifiers: Chest pain type: chest pain due to myocardial ischemia Ischemic chest pain type: unstable angina pectoris Qualified Code(s): I20.0 - Unstable angina Code(s): R07.9 - Chest pain, unspecified (4) Acute hyperglycemia: Blood glucose poorly controlled. She says that her primary care provider has been working with her on adjusting diabetes regimen. Restart Lantus, not sure why it was discontinued. Continue insulin sliding scale. Status: Acute Code(s): R73.9 - Hyperglycemia, unspecified (5) Poorly controlled diabetes mellitus: As above. Status: Acute Code(s): E11.65 - Type 2 diabetes mellitus with hyperglycemia Additional A&P Information History of DVT. On chronic anticoagulation. Quit smoking about 3 months ago. Attestations Medical Necessity Statement*: Continue admission for assessment of management of acute limb ischemia, nonischemic myocardial injury. Coding Level of Care Code Acute Licensed And Certified Midwife for Emily Anthony Diagnoses Lower limb ischemia I99.8 Acute non-ST elevation myocardial infarction (NSTEMI) I21.4 Chest pain I20.0 Chest pain type: chest pain due to myocardial ischemia Ischemic chest pain type: unstable angina pectoris Acute hyperglycemia R73.9 Poorly controlled diabetes mellitus E11.65
[2019-06-21] MEDS: apixaban 5 mg Tablet PO (19:28)
[2019-06-21 20:36] LABS: Partial Thromboplastin Time 32.1 SECONDS (23.9-36.7)
--- NOTE | 2019-06-21 20:36 | PC.NURSE ---
Lab unable to draw PTT. This nurse krys lab from IV site to right AC without difficulty after wasting 6cc's. Awaiting lab results before pulling sheath to left groin. Pierre catheter inserted using sterile technique with return of cloudy yellow urine. Tolerated fair. Will monitor.
--- NOTE | 2019-06-21 21:21 | USCV_ITS ---
Kai Eliza Age: 48 Gender: F : 1970 Exam Date: 06/21/2019 08:49 Ordering Phys: Kar Pearl MD Technologist: Ed Kelley Exam Location: [facility] [place] Indication: COLD RT FOOT Risk Factors: Previous Vascular Surgery: RIGHT LEFT Waveform Velocity (cm/s) Velocity (cm/s) Waveform 66.5 Iliac Prox Iliac Mid 67.7 64.1 Iliac Distal 64.7 FEDERAL MEDIATOR 67.1 SFA Prox 58.6 SFA Mid 47.1 SFA Dist FINDINGS NO BLOOD FLOW FROM RT POPLETEAL DOWN COULD NOT DO SUSANNAH NO FLOW Normal Doppler flow signals in the iliac and femoral arteries Sluggish blood flow in the popliteal artery No Doppler flow signals are noted in the dorsalis pedis and posterior artery. CONCLUSIONS 1. Features of subtotal occlusion of the right popliteal artery with no detectable flow in the dorsalis pedis and posterior tibial arteries, based on the Doppler flow signals. 2. Patent iliac and femoral arteries with a normal Doppler flow pattern. No similar previous studies are available for comparison Dr Robert Larios MD [facility] (Electronically Signed) Final Date: 21 June 2019 20:11 S
[2019-06-21] MEDS: hyDRALAzine 10 mg Tablet PO (21:34)
[2019-06-21] MEDS: insulin glargine 100 units/1 mL 30 UNIT SUBCUT (21:37)
[2019-06-21 21:38] LABS: Glucose Point of Care 494 mg/dL (70-110)
--- NOTE | 2019-06-21 22:00 | PC.NURSE ---
Sheath pulled from left groin at 2200 with pressure applied. Pressure held for 20 minutes. No hematoma noted. Area soft to palpation. No bleeding or drainage noted after 20 minutes. Pressure dressing applied to left groin after 20 minutes of pressure. Tolerated well. Will monitor.
[2019-06-22] VITALS (12 sets, daily range): BP systolic 117–162; BP diastolic 68–89; PULSE 92–97; RESP 16–26; TEMP 36.6–37.2; O2SAT 94–100
--- NOTE | 2019-06-22 03:17 | PC.NURSE ---
Walked into patient's room to check patient's cath site and found patient moving left leg. Explained to patient the need to keep leg straight with patient voicing, I don't know if I can do it or not. Site to left groin without drainage or hematoma noted. Dressing dry and intact. When can I have something for pain.....my back is starting to hurt again. This nurse informed patient that it would be around 4 before I could give her something. Patient voices understanding. Will monitor.
[2019-06-22] MEDS: morphine 4 mg/mL SDV 1 mL IVP ×2 (04:04→18:04)
--- NOTE | 2019-06-22 04:12 | PC.NURSE ---
Ambulated patient from room to nurses station and back to room. Tolerated well. Cath site to left groin without drainage or hematoma. Dressing dry and intact. Complaining of severe back and leg pain. From laying there so long. Will monitor.
[2019-06-22 04:38] LABS: Basophils # 0.1 10^3/uL (0.0-0.1); Basophils % 1.3 %; Eosinophils # 0.2 10^3/uL (0.0-0.8); Eosinophils % 1.8 %; Hematocrit 38.8 % (37.0-47.0); Hemoglobin 11.3 g/dL (11.5-15.3); Lymphocytes # 2.4 10^3/uL (0.8-4.8); Lymphocytes % 22.9 %; Mean Corpuscular HGB Conc 29.1 g/dL (30.0-36.0); Mean Corpuscular Hemoglobin 24.2 pg (28.0-34.0); Mean Corpuscular Volume 83.3 fL (81-99); Mean Platelet Volume 11.2 fL (7.4-10.4); Monocytes # 0.9 10^3/uL (0.2-0.9); Monocytes % 8.9 %; Neutrophils # 6.7 10^3/uL (1.8-7.7); Neutrophils % 64.6 %; Nucleated Red Blood Cells % 0 %; Platelet Count 389 10^3/cmm (130-400); Red Blood Count 4.66 10^6/uL (4.1-5.3); Red Cell Distribution Width 16.9 % (12.1-15.1); White Blood Count 10.3 10^3/uL (4.0-10.0)
[2019-06-22 04:54] LABS: Alanine Aminotransferase 7 U/L (0-33); Alkaline Phosphatase 106 IU/L (35-105); Aspartate Amino Transferase 20 U/L (0-32); Blood Urea Nitrogen 14 mg/dL (6-20); Calcium 8.5 mg/dL (8.5-10.5); Carbon Dioxide 23 mmol/L (22-29); Chloride 95 mmol/L (98-107); Globulin 4.6 g/dL (1.3-4.6); Glomerular Filtration Rate 66.8 mL/min (90-130); Sodium 129 mmol/L (136-145); Total Bilirubin 0.3 mg/dL (0.15-1.2); Total Protein 6.6 g/dL (6.6-8.7)
[2019-06-22 05:17] LABS: Glucose 525 mg/dL (65-115)
[2019-06-22] MEDS: sodium chloride 0.9% 1,000 ML 100 ML IV ×4 (05:31→15:58)
--- NOTE | 2019-06-22 05:43 | PC.NURSE ---
Critical glucose of 525mg/dl called to Dr. Menjivar. 16 units of novolog insulin given sc per sliding scale. Tolerated well. Will monitor. No change noted in left groin cath site at this time. Patient denies discomfort at this time.
[2019-06-22] MEDS: enoxaparin 120 mg/0.8 mL Syringe SUBCUT ×2 (06:26→12:49)
[2019-06-22 06:44] LABS: Glucose Point of Care 450 mg/dL (70-110)
[2019-06-22 08:26] LABS: Glucose Point of Care 360 mg/dL (70-110)
[2019-06-22] MEDS: spironolactone 25 mg Tablet 12.5 MG PO (10:36)
[2019-06-22] MEDS: carvedilol 3.125 mg Tablet PO ×2 (10:36→18:02)
[2019-06-22] MEDS: famotidine 20 mg Tablet PO ×2 (10:36→18:02)
[2019-06-22] MEDS: hyDRALAzine 10 mg Tablet PO ×3 (10:36→22:04)
[2019-06-22] MEDS: insulin glargine 100 units/1 mL 30 UNIT SUBCUT ×2 (10:36→18:03)
[2019-06-22] MEDS: aspirin 81 mg EC Tablet PO (10:36)
[2019-06-22 11:41] LABS: Glucose Point of Care 350 mg/dL (70-110)
[2019-06-22] MEDS: acetaminophen 325 mg Tablet 650 MG PO (15:57)
[2019-06-22 17:21] LABS: Glucose Point of Care 356 mg/dL (70-110)
[2019-06-22] MEDS: atorvastatin 40 mg Tablet PO (18:02)
[2019-06-22] MEDS: rivaroxaban 10 mg Tablet 20 MG PO (18:02)
--- NOTE | 2019-06-22 19:10 | PC.NURSE ---
Patient states in her room when rounding and introducing self, I do not want to take a shower, I feel cruddy PCT was told same information, patient encouraged to shower but declines and patient was instructed that if she changes her mind to notify nursing at any time. Patient verbalizes understanding. Patient given bath wipes and shower cap per patient request. Care continued.
--- NOTE | 2019-06-22 20:29 | PC.NURSE ---
Removed patient's right groin dressing, patient's right groin area without redness. Patient has changed her mind and is requesting a shower at this time.
--- NOTE | 2019-06-22 20:56 | PM.PN ---
Subjective Subjective: Interval history: She is doing well. She states she can feel much change in symptoms and right lower extremity due to neuropathy. Otherwise denies any worsening of symptoms. Sensation is currently impaired, she is able to move her toes. Vitals/I&O/Wt Last Vital Signs Temp 97.9 F 06/22/19 15:54 Pulse 92 06/22/19 15:54 Resp 16 06/22/19 18:04 BP 117/71 06/22/19 15:54 Pulse Ox 96 06/22/19 18:04 06/22/19 06/22/19 06/22/19 06:59 14:59 22:59 Intake Total 1086.667 / 3486.667 971.667 / 971.667 240 / 1211.667 Output Total 1750 / 1750 Balance -663.333 / 1736.667 971.667 / 971.667 240 / 1211.667 Weight last 48 hrs Weight 129.682 kg Physical Exam Const: COMMON NORMALS: no apparent distress and oriented x3 HENMT: COMMON NORMALS: oropharynx normal Neck/C-Spine: COMMON NORMALS: no JVD Resp: COMMON NORMALS: normal respiratory effort and clear to auscultation bilaterally AUSCULTATION: clear to auscultation bilaterally Cardio: COMMON NORMALS: no JVD, regular rhythm, S1 normal heart sound, S2 normal heart sound and no murmurs RHYTHM: regular rhythm HEART SOUNDS: S1 normal and S2 normal GI: COMMON NORMALS: normal to inspection, nondistended, normoactive bowel sounds, soft to palpation and non-tender PALPATION: Yes soft Extremity: COMMON NORMALS: no joint enlargement and no pedal edema Neuro: COMMON NORMALS: oriented x3 and moves all extremities Skin: COMMON NORMALS: no rashes or lesions noted GENERAL SKIN EXAM: no rashes or lesions noted LESIONS: lesion noted (Small ulcerations noted from poorly healed excoriations on her arms) Urinary Catheter Management^: Pierre: Cath Placed During This Visit: yes, but has since been removed by the nurse Reason for Continuing Indwelling Catheter: Other Urinary Catheter Date of Insertion: 06/21/19 Urinary Catheter Time of Insertion: 19:33 Date Urinary Catheter Removed: 06/22/19 Time Urinary Catheter Discontinued: 08:00 Data : 06/22/19 04:00 06/22/19 04:00 A&P Assessment and plan (1) Lower limb ischemia: Has pulses in right lower extremity today. Sensation was did not feel much improvement, but does have chronic neuropathy. Appreciate cardiology recommendations. Anticoagulation to be switched to Xarelto tonight. Subsequent follow-up with vascular surgery for possible staged rotablation procedure. 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 Continue anticoagulation. Aspirin. Statin. Attempt to improve diabetes control and adherence with diet and medications. Status: Acute Code(s): I99.8 - Other disorder of circulatory system (2) Poorly controlled diabetes mellitus: Again severely hyperglycemic today. Consistent carbohydrate diet as ordered. Monitor for noncompliance. Will increase glargine to 40 units. At home on 50 units twice daily, but I am concerned about compliance based on reports during prior admissions, and would be concerned about hypoglycemia if we restart her home regimen exactly. We will increase sliding scale correction dose to aggressive. Status: Acute Code(s): E11.65 - Type 2 diabetes mellitus with hyperglycemia (3) Acute non-ST elevation myocardial infarction (NSTEMI): Appears to have nonischemic myocardial injury. No acute obstruction of coronary artery noted. Etiology of troponin ovation is not entirely clear. Possibly stress-induced cardiomyopathy. Status: Acute Code(s): I21.4 - Non-ST elevation (NSTEMI) myocardial infarction (4) Chest pain: As above. Status: Acute Qualifiers: Chest pain type: chest pain due to myocardial ischemia Ischemic chest pain type: unstable angina pectoris Qualified Code(s): I20.0 - Unstable angina Code(s): R07.9 - Chest pain, unspecified (5) Acute hyperglycemia: As above. Status: Acute Code(s): R73.9 - Hyperglycemia, unspecified Additional A&P Information History of DVT. On chronic anticoagulation. Quit smoking about 3 months ago. Attestations Medical Necessity Statement*: Continue admission hospital event of acute on chronic lower limb ischemia, optimization of control hyperglycemia. Coding Level of Care Code Acute Chemistry Department Chair for [facility] Diagnoses Lower limb ischemia I99.8 Poorly controlled diabetes mellitus E11.65 Acute non-ST elevation myocardial infarction (NSTEMI) I21.4 Chest pain I20.0 Chest pain type: chest pain due to myocardial ischemia Ischemic chest pain type: unstable angina pectoris Acute hyperglycemia R73.9
[2019-06-22 21:51] LABS: Glucose Point of Care 418 mg/dL (70-110)
--- NOTE | 2019-06-22 21:57 | PC.NURSE ---
Patient agreed to shower, patient took shower and full linen change completed.
[2019-06-23] VITALS (56 sets, daily range): BP systolic 122–159; BP diastolic 62–97; PULSE 89–95; RESP 15–33; TEMP 36.8–37; O2SAT 97–99
[2019-06-23] MEDS: sodium chloride 0.9% 1,000 ML 100 ML IV (04:11)
[2019-06-23 04:12] LABS: Basophils # 0.1 10^3/uL (0.0-0.1); Basophils % 1.2 %; Eosinophils # 0.3 10^3/uL (0.0-0.8); Hematocrit 36.8 % (37.0-47.0); Hemoglobin 10.6 g/dL (11.5-15.3); Lymphocytes # 2.5 10^3/uL (0.8-4.8); Lymphocytes % 24.7 %; Mean Corpuscular HGB Conc 28.8 g/dL (30.0-36.0); Mean Corpuscular Hemoglobin 25.1 pg (28.0-34.0); Mean Corpuscular Volume 87.2 fL (81-99); Mean Platelet Volume 11.3 fL (7.4-10.4); Monocytes # 0.9 10^3/uL (0.2-0.9); Monocytes % 9.1 %; Neutrophils # 6.2 10^3/uL (1.8-7.7); Neutrophils % 61.6 %; Nucleated Red Blood Cells % 0 %; Platelet Count 337 10^3/cmm (130-400); Red Blood Count 4.22 10^6/uL (4.1-5.3); Red Cell Distribution Width 16.7 % (12.1-15.1)
[2019-06-23 04:22] LABS: Alanine Aminotransferase 7 U/L (0-33); Albumin Level 1.6 g/dL (3.5-5.2); Alkaline Phosphatase 106 IU/L (35-105); Chloride 102 mmol/L (98-107); Potassium 3.9 mmol/L (3.5-5.1); Sodium 134 mmol/L (136-145)
[2019-06-23 05:03] LABS: Anion Gap 16.9 (5-19); Aspartate Amino Transferase 12 U/L (0-32); Blood Urea Nitrogen 14 mg/dL (6-20); Calcium 8.2 mg/dL (8.5-10.5); Carbon Dioxide 19 mmol/L (22-29); Globulin 4.4 g/dL (1.3-4.6); Glomerular Filtration Rate 76.6 mL/min (90-130); Glucose 216 mg/dL (65-115); Total Bilirubin 0.2 mg/dL (0.15-1.2); Total Protein 6.1 g/dL (6.6-8.7)
[2019-06-23 06:42] LABS: Glucose Point of Care 223 mg/dL (70-110)
--- NOTE | 2019-06-23 06:44 | PC.NURSE ---
Patient c/o right foot pain, doppled pedal pulse and 2+, contacted Dr. Graham to make aware that the patient's right foot has redness on top of foot with bruising. Per Dr. Graham, he will be to see patient. Made patient aware and care continued.
--- NOTE | 2019-06-23 08:50 | PM.PN ---
Subjective Subjective: Interval history: Patient is complaining of right foot pain. There is a new spot on the dorsum of the foot with some redness. She continues to have good dopplerable anterior and posterior tibial pulses. She has good second and third toe digital pulse which is also dopplerable. She though has developed swelling of the right foot, she has intact motor and sensory sensation. Vitals/I&O/Wt Last Vital Signs Temp 98.2 F 06/23/19 04:00 Pulse 94 06/23/19 07:47 Resp 20 H 06/23/19 07:47 BP 122/92 06/23/19 07:47 Pulse Ox 99 06/23/19 07:47 06/22/19 06/23/19 06/23/19 22:59 06:59 14:59 Intake Total 240 / 2374.151 9767 / 2311.667 500 / 500 Balance 240 / 6220.096 3673 / 2311.667 500 / 500 Weight last 48 hrs Weight 290 lb 6.4 oz Weight 285 lb 14.4 oz Physical Exam Narrative: EXAM NARRATIVE: GENERAL: Patient is alert, awake and oriented x3. NECK: No jugular vein distension. HEENT: No cyanosis. No icterus. No pallor. HEART: Regular S1 and S2. No murmur, rub or gallop. LUNGS: Clear to auscultate bilaterally. ABDOMEN: Soft, nontender and nondistended. Positive bowel sounds. No guarding, rebound or tenderness. CENTRAL NERVOUS SYSTEM: Grossly nonfocal. EXTREMITIES: Lower extremities without edema bilaterally. Dopplerable anterior and posterior tibial pulse in the right foot. Motor and sensory intact. Right dorsal foot mid reddish spot tender to touch. Swelling of the right foot is more pronounced. Second third toe digital vessels are also dopplerable. No obvious wound. Urinary Catheter Management^: Pierre: Cath Placed During This Visit: yes, but has since been removed by the nurse Reason for Continuing Indwelling Catheter: Other Urinary Catheter Date of Insertion: 06/21/19 Urinary Catheter Time of Insertion: 19:33 Date Urinary Catheter Removed: 06/22/19 Time Urinary Catheter Discontinued: 08:00 Data : 06/23/19 03:24 06/23/19 03:24 A&P Assessment and plan (1) Acute non-ST elevation myocardial infarction (NSTEMI): Normal coronaries. No obstructive disease noted. Could be stress-induced cardiomyopathy. Continue statin and aspirin beta-cristin and ROSETTA inhibitor. Status: Acute Code(s): I21.4 - Non-ST elevation (NSTEMI) myocardial infarction (2) Poorly controlled diabetes mellitus: Treatment as per medicine Status: Acute Code(s): E11.65 - Type 2 diabetes mellitus with hyperglycemia (3) Chronic anticoagulation: Patient has been switched to Xarelto Status: Acute Code(s): Z79.01 - assisted (current) use of anticoagulants (4) Nonischemic cardiomyopathy: Appeared to be compensated. We will stop IV fluid. Status: Acute Code(s): I42.8 - Other cardiomyopathies (5) History of DVT (deep vein thrombosis): Continue Xarelto Status: Acute Code(s): Z86.718 - Personal history of other venous thrombosis and embolism (6) Lower limb ischemia: Patient underwent peripheral angiogram she was found to have acute on chronic total occlusion at the level of popliteal artery and tibioperoneal trunk. Posterior anterior tibial and peroneal arteries were chronically occluded. Most likely she was living by collaterals and now ruptured the plaque in the tibioperoneal trunk area where there was lot of clot burden. With somewhat difficulty I was able to cross into peroneal artery. Penumbra device was used for embolectomy. Multiple balloon angioplasties were performed in anterior tibial, peroneal and posterior tibial arteries. We were able to achieve a reasonable two-vessel runoff to the foot, severe spasm of the vessels were observed after balloon angioplasty. Nitroglycerin was also given. Since patient has history of contrast-induced nephropathy we will tried to keep contrast as low as possible. I have sent and discuss imaging with vascular surgery at the [facility] to Dr. Jonas who recommended treating with anticoagulation for 2 to 3 weeks and possible CSI atherectomy. She will be seeing Dr. Jonas as an outpatient. Currently she is stable has good anterior and posterior dopplerable pulses. On today's visit dated June 23, 2019 overnight patient developed swelling of the right foot and painful dorsal foot spot. She continues to have good dopplerable anterior and posterior tibial pulses and second third toe digital pulse. Sensorimotor intact however when she moves her foot due to tender spot she feels pain. She is rating pain 6 x 10. Patient has been started on Xarelto 20 mg last night. Most likely patient has micro emboli since her right leg was full of clot. We will keep her foot warm, we will elevate her leg. Compression stocking can be started. Will pain control with hydrocodone if needed. If needed prednisone can be given to reduce inflammation. Patient has a history of DVT now she has a flow in the right leg and return is not good therefore swelling of the right leg is more pronounced. I have discussed again the case with [facility] vascular department with Dr. Jonas. He is also in agreement with treatment. She is scheduled to see Dr. Jonas as an outpatient on Wednesday. We will discontinue her discharge today and watch her at our service. Further plan will be advised as per progress of the patient. Status: Acute Code(s): I99.8 - Other disorder of circulatory system Attestations Medical Necessity Statement*: Patient require continuation hospitalization due to above defined problem. 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
[2019-06-23] MEDS: FUROsemide 10 mg/mL SDV 4mL 40 MG IVP (09:20)
[2019-06-23] MEDS: aspirin 81 mg EC Tablet PO (09:21)
[2019-06-23] MEDS: nitroglycerin 1 gm/inch oint Pkt 1 INCH TOPICAL (09:21)
[2019-06-23] MEDS: famotidine 20 mg Tablet PO ×2 (09:21→17:30)
[2019-06-23] MEDS: spironolactone 25 mg Tablet 12.5 MG PO (09:21)
[2019-06-23] MEDS: HYDROcodone-acetaminophen 5-325 mg Tablet 1 TAB PO ×2 (09:21→21:18)
[2019-06-23] MEDS: hyDRALAzine 10 mg Tablet PO ×3 (09:21→21:07)
[2019-06-23] MEDS: rivaroxaban 10 mg Tablet 20 MG PO (09:21)
[2019-06-23] MEDS: carvedilol 3.125 mg Tablet PO ×2 (09:22→17:30)
[2019-06-23] MEDS: insulin glargine 100 units/1 mL 40 UNIT SUBCUT ×2 (09:22→17:31)
[2019-06-23 12:00] LABS: Glucose Point of Care 347 mg/dL (70-110)
[2019-06-23] MEDS: atorvastatin 40 mg Tablet PO (17:30)
[2019-06-23 17:32] LABS: Glucose Point of Care 426 mg/dL (70-110)
--- NOTE | 2019-06-23 19:28 | PC.NURSE ---
Called into patient's room by the patient. Patient states, I don't know if my IV is working Checked IV patency with good blood return, cleaned site, reapplied dressing, secured with Coban. Applied Heat pack to the patient's lower right extremity. Care continued.
--- NOTE | 2019-06-23 20:36 | PM.PN ---
Subjective Subjective: Interval history: Today her lower right leg was feeling worse. Appearance of a bruise on dorsal foot. Vitals/I&O/Wt Last Vital Signs Temp 98.2 F 06/23/19 04:00 Pulse 94 06/23/19 16:40 Resp 30 H 06/23/19 16:40 BP 127/62 06/23/19 16:40 Pulse Ox 98 06/23/19 15:55 06/23/19 06/23/19 06/23/19 06:59 14:59 22:59 Intake Total 1100 / 2311.667 860 / 860 360 / 1220 Balance 1100 / 2311.667 860 / 860 360 / 1220 Weight last 48 hrs Weight 131.723 kg Weight 129.682 kg Physical Exam Const: COMMON NORMALS: no apparent distress and oriented x3 HENMT: COMMON NORMALS: oropharynx normal Neck/C-Spine: COMMON NORMALS: no JVD Resp: COMMON NORMALS: normal respiratory effort and clear to auscultation bilaterally AUSCULTATION: clear to auscultation bilaterally Cardio: COMMON NORMALS: no JVD, regular rhythm, S1 normal heart sound, S2 normal heart sound and no murmurs RHYTHM: regular rhythm HEART SOUNDS: S1 normal and S2 normal GI: COMMON NORMALS: normal to inspection, nondistended, normoactive bowel sounds, soft to palpation and non-tender PALPATION: Yes soft Extremity: COMMON NORMALS: no joint enlargement NARRATIVE EXTREMITY EXAM: Right lower extremity persistent edema. Mild erythema of the right foot. Faint bruise appearing on the dorsal surface. Foot feels warmer to the touch than on presentation. Neuro: COMMON NORMALS: oriented x3 and moves all extremities Skin: COMMON NORMALS: no rashes or lesions noted GENERAL SKIN EXAM: no rashes or lesions noted LESIONS: lesion noted (Small ulcerations noted from poorly healed excoriations on her arms) Urinary Catheter Management^: Pierre: Cath Placed During This Visit: yes, but has since been removed by the nurse Reason for Continuing Indwelling Catheter: Other Urinary Catheter Date of Insertion: 06/21/19 Urinary Catheter Time of Insertion: 19:33 Date Urinary Catheter Removed: 06/22/19 Time Urinary Catheter Discontinued: 08:00 Data : 06/23/19 03:24 06/23/19 03:24 A&P Assessment and plan (1) Lower limb ischemia: Some worsening in symptoms today, worse pain, some erythema in the foot. Appearance of faint bruise on the dorsum of the foot. Discussed with cardiology. Has dopplerable pulses. Possibility of reperfusion injury. Discussed also possibility of small embolus. Discussed also with the patient. Symptoms may be exacerbated due to prior history of DVT in that leg. Extremity Warm. Nitropaste was applied. Continues on anticoagulation with Xarelto. Aspirin, statin. Monitor. Subsequent follow-up with vascular surgery for possible staged rotablation procedure. Status: Acute Code(s): I99.8 - Other disorder of circulatory system (2) Poorly controlled diabetes mellitus: Glucose somewhat better, although still variable. Increase Lantus to 50 mg twice daily. Aggressive sliding scale. Status: Acute Code(s): E11.65 - Type 2 diabetes mellitus with hyperglycemia (3) Acute non-ST elevation myocardial infarction (NSTEMI): Appears to have nonischemic myocardial injury. No acute obstruction of coronary artery noted. Etiology of troponin ovation is not entirely clear. Possibly stress-induced cardiomyopathy. Status: Acute Code(s): I21.4 - Non-ST elevation (NSTEMI) myocardial infarction (4) Chest pain: As above. Status: Acute Qualifiers: Chest pain type: chest pain due to myocardial ischemia Ischemic chest pain type: unstable angina pectoris Qualified Code(s): I20.0 - Unstable angina Code(s): R07.9 - Chest pain, unspecified (5) Acute hyperglycemia: As above. Status: Acute Code(s): R73.9 - Hyperglycemia, unspecified Additional A&P Information History of DVT. On chronic anticoagulation. Quit smoking about 3 months ago. Attestations Medical Necessity Statement*: Continue admission for assessment management following reperfusion due to acute on chronic right lower extremity ischemia. 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 Diagnoses Lower limb ischemia I99.8 Poorly controlled diabetes mellitus E11.65 Acute non-ST elevation myocardial infarction (NSTEMI) I21.4 Chest pain I20.0 Chest pain type: chest pain due to myocardial ischemia Ischemic chest pain type: unstable angina pectoris Acute hyperglycemia R73.9
[2019-06-23 21:01] LABS: Glucose Point of Care 383 mg/dL (70-110)
[2019-06-24] VITALS: BP 130/76; PULSE 91; RESP 24; TEMP 36.8; O2SAT 97
[2019-06-24 04:00] VITALS: BP 144/94; PULSE 90; RESP 21; TEMP 36.8; O2SAT 98
[2019-06-24 04:40] LABS: Basophils # 0.1 10^3/uL (0.0-0.1); Basophils % 0.9 %; Eosinophils # 0.3 10^3/uL (0.0-0.8); Eosinophils % 3.1 %; Hematocrit 33.5 % (37.0-47.0); Hemoglobin 9.7 g/dL (11.5-15.3); Lymphocytes # 2.3 10^3/uL (0.8-4.8); Lymphocytes % 24.9 %; Mean Corpuscular Hemoglobin 25.1 pg (28.0-34.0); Mean Corpuscular Volume 86.6 fL (81-99); Mean Platelet Volume 11.5 fL (7.4-10.4); Monocytes # 0.7 10^3/uL (0.2-0.9); Monocytes % 8.1 %; Neutrophils # 5.7 10^3/uL (1.8-7.7); Neutrophils % 62.6 %; Nucleated Red Blood Cells % 0 %; Platelet Count 305 10^3/cmm (130-400); Red Blood Count 3.87 10^6/uL (4.1-5.3); Red Cell Distribution Width 16.8 % (12.1-15.1); White Blood Count 9.2 10^3/uL (4.0-10.0)
[2019-06-24 05:06] LABS: Alanine Aminotransferase < 5 U/L (0-33); Albumin Level 1.7 g/dL (3.5-5.2); Alkaline Phosphatase 107 IU/L (35-105); Anion Gap 13.9 (5-19); Aspartate Amino Transferase 8 U/L (0-32); Blood Urea Nitrogen 14 mg/dL (6-20); Calcium 7.7 mg/dL (8.5-10.5); Carbon Dioxide 21 mmol/L (22-29); Chloride 103 mmol/L (98-107); Creatine Phosphokinase 36 U/L (26-192); Globulin 4.1 g/dL (1.3-4.6); Glomerular Filtration Rate 106.7 mL/min (90-130); Glucose 273 mg/dL (65-115); Potassium 3.9 mmol/L (3.5-5.1); Sodium 134 mmol/L (136-145); Total Bilirubin 0.2 mg/dL (0.15-1.2); Total Protein 5.8 g/dL (6.6-8.7)
[2019-06-24 06:21] LABS: Glucose Point of Care 263 mg/dL (70-110)
[2019-06-24 07:44] VITALS: BP 156/99; PULSE 92; RESP 24; TEMP 36.7; O2SAT 98
[2019-06-24] MEDS: spironolactone 25 mg Tablet 12.5 MG PO (08:05)
[2019-06-24] MEDS: aspirin 81 mg EC Tablet PO (08:05)
[2019-06-24] MEDS: famotidine 20 mg Tablet PO (08:05)
[2019-06-24] MEDS: rivaroxaban 10 mg Tablet 20 MG PO (08:06)
[2019-06-24] MEDS: carvedilol 3.125 mg Tablet PO (08:06)
[2019-06-24] MEDS: HYDROcodone-acetaminophen 5-325 mg Tablet 1 TAB PO (08:06)
[2019-06-24] MEDS: hyDRALAzine 10 mg Tablet PO ×2 (08:06→15:05)
[2019-06-24] MEDS: insulin glargine 100 units/1 mL 50 UNIT SUBCUT (08:08)
[2019-06-24 11:07] VITALS: BP 147/96; PULSE 94; RESP 92; TEMP 526.1; TEMP 979; O2SAT 99
[2019-06-24 11:42] LABS: Glucose Point of Care 282 mg/dL (70-110)
--- NOTE | 2019-06-24 14:37 | P.PN_ITS ---
Subjective Subjective: Interval history: Denies any more leg pain. Right foot looks good. She has dopplerable reasonable anterior tibial and good posterior tibial. She also has dopplerable second and third toe digital vessels. Right leg is swollen. Medications: Reviewed: Yes Vitals/I&O/Wt Last Vital Signs Temp 979 F H 06/24/19 11:07 Pulse 94 06/24/19 11:07 Resp 92 H 06/24/19 11:07 BP 147/96 06/24/19 11:07 Pulse Ox 99 06/24/19 11:07 06/23/19 06/24/19 06/24/19 22:59 06:59 14:59 Intake Total 480 / 1340 250 / 1590 840 / 840 Output Total 750 / 750 Balance 480 / 1340 -500 / 840 840 / 840 Weight last 48 hrs Weight 298 lb 9.6 oz Weight 290 lb 6.4 oz Physical Exam Narrative: EXAM NARRATIVE: GENERAL: Patient is alert, awake and oriented x3. NECK: No jugular vein distension. HEENT: No cyanosis. No icterus. No pallor. HEART: Regular S1 and S2. No murmur, rub or gallop. LUNGS: Clear to auscultate bilaterally. ABDOMEN: Soft, nontender and nondistended. Positive bowel sounds. No guarding, rebound or tenderness. CENTRAL NERVOUS SYSTEM: Grossly nonfocal. EXTREMITIES: Lower extremities without edema bilaterally. Dopplerable anterior and posterior tibial pulse in the right foot. Motor and sensory intact. Right dorsal foot mid reddish spot has cleared. Second third toe digital vessels are also dopplerable. No obvious wound. Urinary Catheter Management^: Pierre: Cath Placed During This Visit: yes, but has since been removed by the nurse Reason for Continuing Indwelling Catheter: Other Urinary Catheter Date of Insertion: 06/21/19 Urinary Catheter Time of Insertion: 19:33 Date Urinary Catheter Removed: 06/22/19 Time Urinary Catheter Discontinued: 08:00 Data : 06/24/19 04:12 06/24/19 04:12 A&P Assessment and plan (1) Acute non-ST elevation myocardial infarction (NSTEMI): Continue current medical management including carvedilol diuretics aspirin will add ROSETTA inhibitor. Status: Acute Code(s): I21.4 - Non-ST elevation (NSTEMI) myocardial infarction (2) Poorly controlled diabetes mellitus: Treatment as per medicine Status: Acute Code(s): E11.65 - Type 2 diabetes mellitus with hyperglycemia (3) Chronic anticoagulation: Patient has been switched to Xarelto Status: Acute Code(s): Z79.01 - long term acute care registered nurse (current) use of anticoagulants (4) Nonischemic cardiomyopathy: Appeared to be compensated. We will stop IV fluid. Status: Acute Code(s): I42.8 - Other cardiomyopathies (5) History of DVT (deep vein thrombosis): Continue Xarelto Status: Acute Code(s): Z86.718 - Personal history of other venous thrombosis and embolism (6) Lower limb ischemia: Patient underwent peripheral angiogram she was found to have acute on chronic total occlusion at the level of popliteal artery and tibioperoneal trunk. Posterior anterior tibial and peroneal arteries were chronically occluded. Most likely she was living by collaterals and now ruptured the plaque in the tibioperoneal trunk area where there was lot of clot burden. With somewhat difficulty I was able to cross into peroneal artery. Penumbra device was used for embolectomy. Multiple balloon angioplasties were performed in anterior tibial, peroneal and posterior tibial arteries. We were able to achieve a reasonable two-vessel runoff to the foot, severe spasm of the vessels were observed after balloon angioplasty. Nitroglycerin was also given. Since patient has history of contrast-induced nephropathy we will tried to keep contrast as low as possible. I have sent and discuss imaging with vascular surgery at the [facility] to Dr. Jonas who recommended treating with anticoagulation for 2 to 3 weeks and possible CSI atherectomy. She will be seeing Dr. Jonas as an outpatient. Currently she is stable has good anterior and posterior dopplerable pulses. On today's visit dated June 23, 2019 overnight patient developed swelling of the right foot and painful dorsal foot spot. She continues to have good dopplerable anterior and posterior tibial pulses and second third toe digital pulse. Sensorimotor intact however when she moves her foot due to tender spot she feels pain. She is rating pain 6 x 10. Patient has been started on Xarelto 20 mg last night. Most likely patient has micro emboli since her right leg was full of clot. We will keep her foot warm, we will elevate her leg. Compression stocking can be started. Will pain control with hydrocodone if needed. If needed prednisone can be given to reduce inflammation. Patient has a history of DVT now she has a flow in the right leg and return is not good therefore swelling of the right leg is more pronounced. I have discussed again the case with [facility] vascular department with Dr. Jonas. He is also in agreement with treatment. She is scheduled to see Dr. Jonas as an outpatient on Wednesday. We will discontinue her discharge today and watch her at our service. Further plan will be advised as per progress of the patient. On today's visit dated June 24, 2019 patient overall has improved. She denies any pain in the right foot. Right foot appears to be perfusing well. She has good motor and sensory tactile sensations. She has good pulses. Patient has been discharged home. She is going to follow-up with Dr. Jonas as scheduled this Wednesday. Patient has been encouraged to call us if she noticed that she has more pain, pale or cold foot. We will diurese her which will also reduce the swelling. She has been encouraged to wear stockings. For pain she has been given tramadol. She is going to follow-up with me in my clinic in 7 to 10 days with Acacia Ward. She will follow-up with myself in 6 to 8 weeks. Status: Acute Code(s): I99.8 - Other disorder of circulatory system Attestations Medical Necessity Statement*: From a cardiovascular perspective patient can be discharged Coding Level of Care Code Acute Air Traffic Coordinator for [facility] Fwd History Detailed Exam Detailed Medical Decision Making Moderate Complexity Diagnoses Acute non-ST elevation myocardial infarction (NSTEMI) I21.4 Poorly controlled diabetes mellitus E11.65 Chronic anticoagulation Z79.01 Nonischemic cardiomyopathy I42.8 History of DVT (deep vein thrombosis) Z86.718 Lower limb ischemia I99.8
[2019-06-24 15:14] VITALS: TEMP 526.6; TEMP 980
[2019-06-24 15:37] VITALS: BP 147/96; PULSE 94; RESP 92; TEMP 526.6; TEMP 980; O2SAT 99
--- NOTE | 2019-06-24 19:31 | PM.DCS ---
Discharge Providers Date of Admission: 06/21/19 16:52 Date of Discharge: June 24, 2019 Attending Provider at Admission: Kar Pearl Attending Provider at Discharge: Kar Pearl Primary Care Provider: Erik Castillo Diagnoses at Discharge Discharge Diagnosis (1) Lower limb ischemia: Status: Acute (2) Acute non-ST elevation myocardial infarction (NSTEMI): Status: Acute (3) Poorly controlled diabetes mellitus: Status: Acute (4) Chronic anticoagulation: Status: Acute (5) Nonischemic cardiomyopathy: Status: Acute (6) History of DVT (deep vein thrombosis): Status: Acute Reason for Visit Reason for Visit: Reason For Visit: nstemi;hyperglycemia Hospital Course Hospital Course: 48-year-old lady who is been working with her primary care provider to optimize control of her diabetes presented with a complaint of chest pain, with finding of troponin elevation concerning for non-STEMI, was started on non-STEMI treatment. During evaluation also noted to have poorly perfused right foot, reddish, cool to touch with poor pulses, subsequently with almost absent flow below popliteal artery found on arterial Doppler. She likely cannot feel much due to chronic neuropathy. Underwent angiographic assessment of coronary arteries and right lower extremity. Coronaries without suggestion of acute occlusion. Troponin elevation possibly secondary to stress cardiomyopathy. She had no recurrence of chest pain. Peripheral vascular study with finding of acute on chronic occlusion below popliteal artery and tibioperoneal trunk. With effort flow was reestablished with a two-vessel runoff achieved to the foot. Pulses have remained dopplerable. Her foot has been reddish, with appearance of a small faint bruise on the dorsal surface thought to be perhaps secondary to small embolus. Mild redness, swelling, pain, are thought to be secondary to reperfusion. The foot remains warm she has no motor deficit. Her anticoagulation was switched over to Xarelto. She continues on aspirin, statin. She will be kindly seen by vascular surgery Dr. Jonas at [facility] for additional assessment and plan for possible staged atherectomy after treatment with anticoagulation. Physical Exam Const: COMMON NORMALS: no apparent distress and oriented x3 HENMT: COMMON NORMALS: oropharynx normal Neck/C-Spine: COMMON NORMALS: no JVD Resp: COMMON NORMALS: normal respiratory effort and clear to auscultation bilaterally AUSCULTATION: clear to auscultation bilaterally Cardio: COMMON NORMALS: no JVD, regular rhythm, S1 normal heart sound, S2 normal heart sound and no murmurs RHYTHM: regular rhythm HEART SOUNDS: S1 normal and S2 normal GI: COMMON NORMALS: normal to inspection, nondistended, normoactive bowel sounds, soft to palpation and non-tender PALPATION: Yes soft Extremity: COMMON NORMALS: no joint enlargement NARRATIVE EXTREMITY EXAM: Right lower extremity. Edema and erythema actually appear better this morning. Mild erythema of the right foot. Faint bruise appearing on the dorsal surface without any change in intensity. Foot feels warmer to the touch than on presentation. Neuro: COMMON NORMALS: oriented x3 and moves all extremities Skin: COMMON NORMALS: no rashes or lesions noted GENERAL SKIN EXAM: no rashes or lesions noted LESIONS: lesion noted (Small ulcerations noted from poorly healed excoriations on her arms) Urinary Catheter Management^: Pierre: Cath Placed During This Visit: yes, but has since been removed by the nurse Reason for Continuing Indwelling Catheter: Other Urinary Catheter Date of Insertion: 06/21/19 Urinary Catheter Time of Insertion: 19:33 Date Urinary Catheter Removed: 06/22/19 Time Urinary Catheter Discontinued: 08:00 Discharge Data Data Completed and Pending: Completed Studies During Hospitalization Category Date Time Status XR chest 1V zafar ble 98552 Stat Exams 06/20/19 04:14 [place] [id number] Rout ine Ultrasound 06/21/19 21:21 Completed CV echo lmt wo/w contras C8924 Urge nt Ultrasound 06/20/19 14:24 Completed US/CV paperwork R outine Ultrasound 06/20/19 Completed Pending at discharge Category Date Time Status FRACTIONATION SUPERVISOR request for service Routin e Exams 06/21/19 09:02 [place] [id number] Rout ine Ultrasound 06/21/19 09:20 Taken Labs from last 24 hours 06/24/19 06/24/19 06/24/19 11:09 06:14 04:12 WBC RBC Hgb Hct MCV MCH MCHC RDW Plt Count MPV Neut % (Auto) Lymph % (Auto) Wayne % (Auto) Eos % (Auto) Baso % (Auto) Neut # (Auto) Lymph # (Auto) Wayne # (Auto) Eos # (Auto) Baso # (Auto) Nucleated RBC % (a uto) Nucleated RBCs # Sodium 134 L Potassium 3.9 Chloride 103 Carbon Dioxide 21 L Anion Gap 13.9 BUN 14 Creatinine 0.6 GFR Calculation 106.7 Glucose 273 H POC Glucose 282 263 Calcium 7.7 L Total Bilirubin 0.2 AST 8 ALT < 5 Alkaline Phosphata se 107 H Creatine Kinase 36 Total Protein 5.8 L Albumin 1.7 L Globulin 4.1 06/24/19 06/23/19 04:12 20:46 WBC 9.2 RBC 3.87 L Hgb 9.7 L Hct 33.5 L MCV 86.6 MCH 25.1 L MCHC 29.0 L RDW 16.8 H Plt Count 305 MPV 11.5 H Neut % (Auto) 62.6 Lymph % (Auto) 24.9 Wayne % (Auto) 8.1 Eos % (Auto) 3.1 Baso % (Auto) 0.9 Neut # (Auto) 5.7 Lymph # (Auto) 2.3 Wayne # (Auto) 0.7 Eos # (Auto) 0.3 Baso # (Auto) 0.1 Nucleated RBC % (a uto) 0 Nucleated RBCs # 0.0 Sodium Potassium Chloride Carbon Dioxide Anion Gap BUN Creatinine GFR Calculation Glucose POC Glucose 383 Calcium Total Bilirubin AST ALT Alkaline Phosphata se Creatine Kinase Total Protein Albumin Globulin Vitals: Last Vital Signs Temp 980 F H 06/24/19 15:37 Pulse 94 06/24/19 15:37 Resp 92 H 06/24/19 15:37 BP 147/96 06/24/19 15:37 Pulse Ox 99 06/24/19 15:37 Discharge Plan Discharge Patient Disposition: Home, Self-Care Condition: Fair Prescriptions: New pantoprazole 40 mg tablet,delayed release (DR/EC) 40 mg PO DAILY Qty: 30 RF: 4 potassium chloride 10 mEq capsule, extended release 10 meq PO DAILY Qty: 30 RF: 3 tramadol 50 mg tablet 50 mg PO QID PRN (Reason: pain) Qty: 30 RF: 0 Xarelto 20 mg tablet 20 mg PO DAILY Qty: 30 RF: 5 Continued cyclobenzaprine 5 mg Tablet 5 mg PO TID PRN (Reason: Muscle Pain) RF: 0 furosemide [Lasix] 40 mg Tablet 40 mg PO DAILY RF: 0 atorvastatin 40 mg Tablet 40 mg PO QPM RF: 0 hydralazine 10 mg Tablet 10 mg PO TID RF: 0 aspirin [Aspir-Low] 81 mg Tablet,Delayed Release (Dr/Ec) 81 mg PO DAILY RF: 0 acetaminophen [Tylenol Extra Strength] 500 mg Tablet 1,000 mg PO Q4H PRN (Reason: Pain) RF: 0 spironolactone 25 mg Tablet 12.5 mg PO DAILY RF: 0 carvedilol 3.125 mg Tablet 3.125 mg PO BID RF: 0 famotidine 20 mg Tablet 20 mg PO BID RF: 0 norethindrone acetate 5 mg tablet 10 mg PO BID RF: 0 gabapentin 100 mg Capsule 100 mg PO TID PRN (Reason: Pain) RF: 0 insulin lispro [Humalog KwikPen Insulin] 100 unit/mL Insulin Pen See Rx Instructions .ROUTE .COMPLEX RF: 0 Changed Toujeo SoloStar U-300 Insulin 300 unit/mL (1.5 mL) Insulin Pen 55 unit SUBCUT BID Qty: 0 RF: 0 Discontinued Eliquis 5 mg Tablet 5 mg PO BID RF: 0 Discharge Orders: Discharge Order (Routine); Ordered 06/24/19 Ordered By: Kar Pearl Referrals: Sofi Dorsey MD [Physician] - 6 Weeks Acacia Ward FNP [Nurse Practitioner] - 1 week Erik Castillo [Primary Care Provider] - 4-7 days ([facility] will,be calling to set up a hospital followup with rEik Castillo to be seen in 4 to 7 days. If you haven't heard from them by Wednesday afternoon, please call them at [phone]) Galo Jonas MD [Referring] - 06/27/19 (Please keep your appointment at [facility] Card[facility] Vascular with Dr. Jonas on 06/27/19. Any questions or concerns, please call them at [phone]) Discharge Diet: Cardiac and Diabetic Discharge Activity: Increase activity as tolerated Patient Instructions: Potassium Chloride (By mouth), Tramadol (By mouth), Pantoprazole (By mouth), Rivaroxaban (By mouth), Left Heart Catheterization (DC), Peripheral Vascular Angioplasty (DC) Activity Restrictions/Additional Instructions: Follow-up with Dr. Jonas in [facility] Wednesday. If you do not hear from Dr. Jonas's office by Wednesday noon, Please call Dr. Dorsey's office. Keep your foot elevated. Please wear compression stockings. Increase your Lasix 40 mg twice a day for next 2 days. When using Lasix use potassium chloride 10 mEq with it twice a day. After 3 days if your leg swelling goes down reduce her Lasix to once a day and potassium chloride to 1 tablet that is 10 meq, if you notice worsening of the pain in the right foot, change of color to pale white and noticed that you are not able to feel or move your toes please call Dr. Dorsey's office. 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
== END 2019-06-24 16:18 | disposition home or self-care (01) | DRG 270 ==
LOC: ER 09:02 → CSU 15:08
PROVIDERS: Emergency Medicine; Internal Medicine Cardiovascular Disease; Admitting Provider Internal Medicine; Emergency Provider Family Medicine; Visit Provider Internal Medicine
PROC: 047P3ZZ Dilation of Right Anterior Tibial Artery, Percutaneous Approach (ICD-10-PCS; principal; 2019-06-21 11:30)
PROC: 047P3ZZ Dilation of Right Anterior Tibial Artery, Percutaneous Approach (ICD-10-PCS; 2019-06-21 11:30)
PROC: 047P3ZZ Dilation of Right Anterior Tibial Artery, Percutaneous Approach (ICD-10-PCS; 2019-06-21 11:30)
DX: I74.3 Embolism and thrombosis of arteries of the lower extremities (principal); I21.4 Non-ST elevation (NSTEMI) myocardial infarction; I13.0 Hypertensive heart and chronic kidney disease with heart failure and stage 1 through stage 4 chronic kidney disease, or unspecified chronic kidney disease; I50.20 Unspecified systolic (congestive) heart failure; I42.8 Other cardiomyopathies; Z68.42 Body mass index [BMI] 45.0-49.9, adult; I82.451 Acute embolism and thrombosis of right peroneal vein; E11.22 Type 2 diabetes mellitus with diabetic chronic kidney disease; E11.65 Type 2 diabetes mellitus with hyperglycemia; N18.2 Chronic kidney disease, stage 2 (mild); J44.9 Chronic obstructive pulmonary disease, unspecified; E66.01 Morbid (severe) obesity due to excess calories; Z87.891 Personal history of nicotine dependence; Z79.01 Long term (current) use of anticoagulants; Z86.718 Personal history of other venous thrombosis and embolism; Z87.440 Personal history of urinary (tract) infections; Z79.4 Long term (current) use of insulin; E11.42 Type 2 diabetes mellitus with diabetic polyneuropathy; E11.51 Type 2 diabetes mellitus with diabetic peripheral angiopathy without gangrene
CPT/HCPCS: 12345; 36415; 36416; 36600; 37228; 51702; 71045; 75625; 75710; 80053; 81001; 82009; 82550; 82803; 82962; 83690; 84484; 85025; 85730; 93005; 93454; 93926; 96372; 96375; 99283; C1725; C1757; C1769; C1887; C1894; C8924; G0378; J1644; J1650; J1815; J1940; J2001; J2250; J2270; J2405; J3010; J3490; J7030; Q0163; Q9956; Q9967

== ENCOUNTER → 2019-06-30 11:50 | Outpatient (BNVA) | payer BC, SELFPAY | PROVIDERS: Visit Provider Nurse Practitioner Family | DX: I21.4 Non-ST elevation (NSTEMI) myocardial infarction (principal); R60.0 Localized edema | CPT/HCPCS: 80048 ==

== ENCOUNTER 2019-07-06 09:07 | Inpatient (IN) | payer BC, SELFPAY ==
[2019-07-06] VITALS (21 sets, daily range): BP systolic 78–186; BP diastolic 56–112; PULSE 93–113; RESP 14–26; TEMP 36.6–36.8; O2SAT 73–100
--- NOTE | 2019-07-06 09:28 | ED_ITS ---
Entered by Flower Diaz, acting as scribe for Aston Dean DO HPI - Chest Pain General: Chief Complaint: Chest Pain Stated Complaint: chest pain Time Seen by Provider: 07/06/19 09:28 Source: patient and family Mode of arrival: ambulatory Limitations: no limitations History of Present Illness: HPI narrative: 48 yo female presents with chest pain. pt states this started this morning when she woke up. pt has had nausea. pt states nothing makes this better or worse. pt has had chest pains in the past. pt denies any other symptoms at this time. MD complaint: chest pain and chest heaviness Onset (ago): day(s) (today) Timing of current episode: constant and still present Prior episodes: Yes Onset: during rest and awoke with symptoms Pain radiation: none Severity: moderate Quality: heaviness and sharp Relieving factors: nothing Exacerbating factors: nothing Associated symptoms: Reports nausea; Deny fever(s) Treatment prior to arrival: none Review of Systems Const: Denies: fever, chills, body aches, change in appetite, fatigue or malaise ENMT: Denies: throat pain, ear pain, nasal discharge or nasal congestion Card: Reports: chest pain and swelling of feet/ankles; Denies: edema Resp: Denies: productive cough or non-productive cough GI: Reports: nausea : Denies: flank pain, difficulty urinating, painful urination, urinary frequency or urinary urgency Musc: Denies: joint warmth All/Imm: Denies: acute wheezing PFSH ED PFSH: Medical History Chronic anticoagulation Chronic kidney disease, stage II (mild) History of DVT (deep vein thrombosis) Nonischemic cardiomyopathy Poorly controlled diabetes mellitus Urinary tract infection due to ESBL Klebsiella Surgical History History of back surgery History of History of shoulder surgery Hx of cholecystectomy Family History Father CAD (coronary artery disease) Chronic kidney disease (CKD) Hyperlipidemia Hypertension Grandmother Dementia Mother Stroke Other Diabetes Denies family history of Clotting disorder Psychiatric illness Suicide Anesthesia complication Bleeding disorder Family history of premature coronary artery disease Lung disease Cancer Social History Smoking and tobacco status: former smoker Quit status (tobacco): has quit using tobacco Year quit tobacco: 3 mo ago Alcohol intake: never Lives independently: Yes Household members: children Current occupational status: employed Physical Exam Const: COMMON NORMALS: average body habitus, oriented x3 and alert GENERAL APPEARANCE: cooperative, well kempt and well developed; not comfortable NUTRITIONAL APPEARANCE: obese ORIENTATION/CONSCIOUSNESS: Yes awake, Yes oriented to person and Yes oriented to place HENMT: COMMON NORMALS: normocephalic, head/scalp atraumatic, EAC's normal, TM's normal bilaterally, external nose normal, moist oral mucous membranes and oropharynx normal HEAD & SCALP: normocephalic and atraumatic NOSE: external nose normal EXTERNAL AUDITORY CANAL: EAC's normal TYMPANIC MEMBRANE: TM's normal bilaterally MOUTH: oral and palatal mucosa normal, lip normal and tongue normal THROAT: posterior oropharynx normal and tonsils normal Eye: COMMON NORMALS: PERRL, EOMs intact bilaterally, conjunctivae normal and no scleral icterus CONJUNCTIVA: Yes conjunctivae normal PUPIL: Yes PERRL Neck/C-Spine: COMMON NORMALS: full ROM, no lymphadenopathy, supple, no meningeal signs and thyroid normal THYROID: thyroid normal and asymmetrical Lymph: LYMPHATIC: no lymphadenopathy noted Resp: COMMON NORMALS: normal respiratory effort, no retractions, no use of accessory muscles and clear to auscultation bilaterally AUSCULTATION: clear to auscultation bilaterally GI: COMMON NORMALS: normal to inspection, nondistended, normoactive bowel sounds, soft to palpation and no hepatosplenomegaly PALPATION: Yes soft and Yes no hepatosplenomegaly : COMMON NORMALS: Yes no CVA tenderness BLADDER/KIDNEY EXAM: Yes no CVA tenderness Back/Pelvis: COMMON NORMALS: no CVA tenderness LUMBAR SPINE/LOWER BACK: Yes normal to inspection Extremity: COMMON NORMALS: no clubbing, cyanosis or edema, no calf tenderness and no pedal edema Neuro: COMMON NORMALS: oriented x3 SENSORIUM/ORIENTATION: Yes alert, Yes oriented to person and Yes oriented to place MENINGEAL SIGNS: Yes no meningeal signs Psych: APPEARANCE: Yes well kempt Skin: COMMON NORMALS: no rashes or lesions noted and skin turgor normal GENERAL SKIN EXAM: no rashes or lesions noted and turgor normal Course ED course: Patient initially writhing in pain. Reviewing her chart she had a angiogram done about 14 days ago that was completely normal. She has been on anticoagulants but is little difficult to get her to confirm exactly how regularly she has been taking them. She was supposed to be changed to Xarelto but had some insurance issues she tells me she was still taking the Eliquis but I think she is taking it intermittently. Her troponin is elevated as well as her blood sugar and her BNP. Although her chest x-ray really does not show any significant worsening of congestive heart failure reviewed EKGs with Dr. Coombs he does not feel there is any significant ST changes given the recent angiogram he would not recommend taking her back to Prenatal Genetic Counselor there is a little bit of what appears to be lateral changes some of that may be artifactual Dr. Coombs did not feel represented a true STEMI. I spoke to Dr. Lala she will admit the pt with cardiac consult. Vital Signs: Vital signs: Vital Signs Temperature 97.8 F 07/06/19 14:06 Pulse Rate 108 H 07/06/19 15:27 Respiratory Rate 18 07/06/19 15:27 Blood Pressure 148/97 07/06/19 15:27 Pulse Oximetry 95 07/06/19 15:27 MDM - Chest Pain Lab Data: Labs: Lab Results 07/06/19 07/06/19 07/06/19 Range/Units 09:31 09:54 09:55 WBC 13.7 H (4.0-10.0) 10^3/ uL RBC 5.71 H (4.1-5.3) 10^6/u L Hgb 13.1 (11.5-15.3) g/dL Hct 45.5 (37.0-47.0) % MCV 79.7 L (81-99) fL MCH 22.9 L (28.0-34.0) pg MCHC 28.8 L (30.0-36.0) g/dL RDW 17.2 H (12.1-15.1) % Plt Count 385 (130-400) 10^3/c mm MPV 11.0 H (7.4-10.4) fL Neut % (Auto) 72.7 % Lymph % (Auto) 17.9 % Denali % (Auto) 7.3 % Eos % (Auto) 0.7 % Baso % (Auto) 1.0 % Neut # (Auto) 9.9 H (1.8-7.7) 10^3/u L Lymph # (Auto) 2.5 (0.8-4.8) 10^3/u L Denali # (Auto) 1.0 H (0.2-0.9) 10^3/u L Eos # (Auto) 0.1 (0.0-0.8) 10^3/u L Baso # (Auto) 0.1 (0.0-0.1) 10^3/u L Nucleated RBC % (a uto) 0 % Nucleated RBCs # 0.0 /100WBC Sodium 129 L (136-145) mmol/L Potassium 4.5 (3.5-5.1) mmol/L Chloride 92 L (98-107) mmol/L Carbon Dioxide 24 (22-29) mmol/L Anion Gap 17.5 (5-19) BUN 12 (6-20) mg/dL Creatinine 0.9 (0.5-0.9) mg/dL GFR Calculation 66.8 L (90-130) mL/min Glucose 528 H* (65-115) mg/dL POC Glucose 455 (70-110) mg/dL Calcium 9.0 (8.5-10.5) mg/dL Total Bilirubin 0.6 (0.15-1.2) mg/dL AST 9 (0-32) U/L ALT 6 (0-33) U/L Alkaline Phosphata se 108 H (35-105) IU/L Creatine Kinase 60 (26-192) U/L Troponin T Baselin e (0-10) ng/mL NT-Pro-B Natriuret Pep 37022 H (0-125) pg/mL Total Protein 6.9 (6.6-8.7) g/dL Albumin 2.1 L (3.5-5.2) g/dL Globulin 4.8 H (1.3-4.6) g/dL 07/06/19 Range/Units 09:55 WBC (4.0-10.0) 10^3/ uL RBC (4.1-5.3) 10^6/u L Hgb (11.5-15.3) g/dL Hct (37.0-47.0) % MCV (81-99) fL MCH (28.0-34.0) pg MCHC (30.0-36.0) g/dL RDW (12.1-15.1) % Plt Count (130-400) 10^3/c mm MPV (7.4-10.4) fL Neut % (Auto) % Lymph % (Auto) % Denali % (Auto) % Eos % (Auto) % Baso % (Auto) % Neut # (Auto) (1.8-7.7) 10^3/u L Lymph # (Auto) (0.8-4.8) 10^3/u L Denali # (Auto) (0.2-0.9) 10^3/u L Eos # (Auto) (0.0-0.8) 10^3/u L Baso # (Auto) (0.0-0.1) 10^3/u L Nucleated RBC % (a uto) % Nucleated RBCs # /100WBC Sodium (136-145) mmol/L Potassium (3.5-5.1) mmol/L Chloride (98-107) mmol/L Carbon Dioxide (22-29) mmol/L Anion Gap (5-19) BUN (6-20) mg/dL Creatinine (0.5-0.9) mg/dL GFR Calculation (90-130) mL/min Glucose (65-115) mg/dL POC Glucose (70-110) mg/dL Calcium (8.5-10.5) mg/dL Total Bilirubin (0.15-1.2) mg/dL AST (0-32) U/L ALT (0-33) U/L Alkaline Phosphata se (35-105) IU/L Creatine Kinase (26-192) U/L Troponin T Baselin e 200 H* (0-10) ng/mL NT-Pro-B Natriuret Pep (0-125) pg/mL Total Protein (6.6-8.7) g/dL Albumin (3.5-5.2) g/dL Globulin (1.3-4.6) g/dL Imaging Data^: CXR: Radiologist's impression: [address] [address] XRay Report Signed Patient: Esdras Quinn #: [id number] : 1970Acct#:[id number] Age/Sex: 48 / FADM Date: 07/06/19 Loc: ERRoom/Bed: Attending Dr: Ordering Provider/Ordering MD: Aston Dean DO Date of Service: 07/06/19 Procedure(s): XR chest 1V portable [id number] Accession Number(s): [id number] Report Number: [id number] WS: [id number] XR chest 1V portable [id number] REASON FOR EXAM: chest pain FINDINGS: Gross cardiomegaly is noted. The findings today are similar to 2019. The lung garza show no definite pneumonia, pleural effusion, pulmonary edema, mass effect, or pneumothorax. The hilum and apices are normal. XR/XR chest 1V portable [id number] IMPRESSION: Cardiomegaly. Dictated By:Darek Wall DO Signed By:Darek Wall DOSigned Date/Time:07/06/19 0942 Discharge Plan Discharge Patient Disposition: Placed in Observation Admit Provider: Megan Lala Clinical Impression: Chest pain, Poorly controlled diabetes mellitus, Acute hyperglycemia, History of DVT (deep vein thrombosis), Nonischemic cardiomyopathy, Chronic anticoagulation, Lower limb ischemia Interventions: ED Discharge Assessment Last Done: 07/06/19 12:18 Discharge Date/Time: 07/06/19 12:36 Coding Level of Care Code ED Quality Systems Specialist for Chg Fwd Exam Comprehensive The documentation recorded by the Joe torre Bridget Annette, accurately reflects the service I personally performed and the decisions made by Jermaine tello Curtis L, DO Jul 06, 2019 09:07
--- NOTE | 2019-07-06 09:30 | XR_ITS ---
WS: [id number] XR chest 1V portable [id number] REASON FOR EXAM: chest pain FINDINGS: Gross cardiomegaly is noted. The findings today are similar to June 20, 2019. The lung garza show no definite pneumonia, pleural effusion, pulmonary edema, mass effect, or pneumo thorax. The hilum and apices are normal. XR/XR chest 1V portable [id number] IMPRESSION: Cardiomegaly.
--- NOTE | 2019-07-06 09:30 | ECG_ITS ---
Measurements Intervals [place] Rate: 111 P: 45 NM: 104 QRS: -31 QRSD: 86 T: 37 QT: 325 QTc: 442 SINUS TACHYCARDIA WITH SHORT NM INTERVAL MARKED LEFT AXIS DEVIATION [QRS AXIS < -30] PATTERN CONSISTENT WITH PULMONARY DISEASE ST ELEVATION, CONSIDER ANTERIOR INJURY [MARKED ST ELEVATION W/O NORMALLY INF INFLECTED T WAVE IN V2-V5] Compared to ECG 06/20/2019 10:28:46 Short NM interval now present Left-axis deviation now present ST (T wave) deviation now present Sinus rhythm no longer present T-wave abnormality no longer present Electronically Signed On 07-06-2019 16:57:06 BANKING MANAGER by Bj Coombs M.D. [email or web address]
[2019-07-06 09:42] LABS: Basophils # 0.1 10^3/uL (0.0-0.1); Eosinophils # 0.1 10^3/uL (0.0-0.8); Eosinophils % 0.7 %; Hematocrit 45.5 % (37.0-47.0); Hemoglobin 13.1 g/dL (11.5-15.3); Lymphocytes # 2.5 10^3/uL (0.8-4.8); Lymphocytes % 17.9 %; Mean Corpuscular HGB Conc 28.8 g/dL (30.0-36.0); Mean Corpuscular Hemoglobin 22.9 pg (28.0-34.0); Mean Corpuscular Volume 79.7 fL (81-99); Monocytes % 7.3 %; Neutrophils # 9.9 10^3/uL (1.8-7.7); Neutrophils % 72.7 %; Nucleated Red Blood Cells % 0 %; Platelet Count 385 10^3/cmm (130-400); Red Blood Count 5.71 10^6/uL (4.1-5.3); Red Cell Distribution Width 17.2 % (12.1-15.1); White Blood Count 13.7 10^3/uL (4.0-10.0)
[2019-07-06] MEDS: aspirin 81 mg Chew Tablet 324 MG PO (09:44)
[2019-07-06] MEDS: LORazepam 2 mg/mL INJ 1 mL 1 MG IVP ×2 (09:45→11:51)
[2019-07-06] MEDS: morphine 4 mg/mL SDV 1 mL IVP (09:45)
[2019-07-06] MEDS: ondansetron 2 mg/ML SDV 2 mL 4 MG IVP (09:46)
[2019-07-06 09:57] LABS: Glucose Point of Care 455 mg/dL (70-110)
[2019-07-06 10:25] LABS: Alanine Aminotransferase 6 U/L (0-33); Albumin Level 2.1 g/dL (3.5-5.2); Alkaline Phosphatase 108 IU/L (35-105); Anion Gap 17.5 (5-19); Aspartate Amino Transferase 9 U/L (0-32); Blood Urea Nitrogen 12 mg/dL (6-20); Carbon Dioxide 24 mmol/L (22-29); Chloride 92 mmol/L (98-107); Creatine Phosphokinase 60 U/L (26-192); Globulin 4.8 g/dL (1.3-4.6); Glomerular Filtration Rate 66.8 mL/min (90-130); Potassium 4.5 mmol/L (3.5-5.1); Sodium 129 mmol/L (136-145); Total Bilirubin 0.6 mg/dL (0.15-1.2); Total Protein 6.9 g/dL (6.6-8.7)
[2019-07-06 10:26] LABS: NT Pro B Type Natriuretic Pept 13582 pg/mL (0-125)
[2019-07-06 10:29] LABS: Glucose 528 mg/dL (65-115); Troponin(5th) Baseline 200 ng/mL (0-10)
--- NOTE | 2019-07-06 10:40 | PC.NURSE ---
Pt to CT
--- NOTE | 2019-07-06 11:30 | ECG_ITS ---
Measurements Intervals [place] Rate: 112 P: 50 VT: 126 QRS: -30 QRSD: 88 T: 32 QT: 321 QTc: 439 SINUS TACHYCARDIA BORDERLINE LEFT AXIS DEVIATION [QRS AXIS < -20] MARKED ST ELEVATION, CONSIDER ANTEROLATERAL INJURY [MARKED ST ELEVATION W/O NOR NORMALLY INFLECTED T WAVE IN V3-V6] Compared to ECG 06/20/2019 10:28:46 ST (T wave) deviation now present Myocardial infarct finding now present Sinus rhythm no longer present T-wave abnormality no longer present Electronically Signed On 07-06-2019 17:03:03 MATE CHIEF by Bj Coombs M.D. [email or web address]
[2019-07-06 12:11] LABS: Troponin 5 2HR Delta 8.9 ABS# (0-10)
[2019-07-06 12:16] LABS: Troponin 5 2HR 208.9 ng/mL (0-10)
--- NOTE | 2019-07-06 13:05 | P.HP_ITS ---
Providers/Chief Complaint Admitting Physician: Megan Lala DO Primary Care Provider: Erik Castillo Chief Complaint: chest pain History of Present Illness Eliza Quinn is a 48 year old female with a past medical history of poorly controlled diabetes, history of DVT and nonischemic cardiomyopathy as well as peripheral vascular disease that presented to the emergency department today for chest pain. Patient was recently admitted and discharged on 06/24/2019 after being diagnosed with lower limb ischemia and non-ST elevation [place]. During her previous admission she had troponin elevation that was believed to be secondary to stress cardiomyopathy, peripheral vascular study showed findings concerning for peripheral vascular disease. Cardiology was consulted and patient was noted to have coronary angiography performed which showed no obstructive coronary artery disease. Patient also had lower extremity angiography performed and showed blood flow was able to be restored in the posterior tibial artery. She continued to have good dopplerable pulses in the right lower extremity following the procedure and she was discharged to home. Patient reports that she had rece ntly been started on prednisone at cardiology follow-up. Reported recently increased on [place], and starting to have nausea and vomiting since that time. Patient reports that she has not been able to take some of her medications due to this nausea and vomiting. She reports that her blood sugars have been elevated at home. Patient does have a history of medication noncompliance Patient was seen and evaluated in the emergency department due to the concern for chest pain and elevated troponin she was admitted for further evaluation and treatment. Patient reporting that her right lower extremity has increased in pain and increase in swelling. Therefore discussed with her semiconductor bonder. Review of Systems Const: Denies: fever or chills Eyes: Denies: change in vision ENMT: Denies: nasal congestion Card: Reports: chest pain and edema; Denies: palpitations Resp: Reports: shortness of breath; Denies: productive cough or coughing up blood GI: Reports: nausea and vomiting; Denies: abdominal pain, diarrhea, constipation, blood in stool or black tarry stool : Denies: painful urination or blood in urine Musc: Reports: extremity pain; Denies: muscle cramps Skin/Breast: Denies: rash or new lesion Neuro: Denies: headache or dizziness Psych: Denies: anxiety or depression Endo: Denies: excessive urination or hot flashes Hayder/Lymph: Denies: easy bruising or easy bleeding Medications/Allergies Home Medications Medication Instructions Recorded Confirmed Last Taken Type apixaban [Eliquis] 5 mg PO BID 07/06/19 07/06/19 07/05/19 History fluoxetine [Prozac] 10 mg PO DAILY 07/06/19 07/06/19 07/05/19 History semaglutide [Ozempic] 0.25 mg SUBCUT Q7D 07/06/19 07/06/19 Unknown History trazodone 100 mg PO BEDTIME 07/06/19 07/06/19 07/05/19 History Allergies Allergy/AdvReac Type Severity Reaction Status Date / Time No Known Allergies Allergy Verified 06/04/19 12:25 PFSH Acute 2 PFSH: Medical History Chronic anticoagulation Chronic kidney disease, stage II (mild) History of DVT (deep vein thrombosis) Nonischemic cardiomyopathy Poorly controlled diabetes mellitus Urinary tract infection due to ESBL Klebsiella Surgical History History of back surgery History of History of shoulder surgery Hx of cholecystectomy Family History Father CAD (coronary artery disease) Chronic kidney disease (CKD) Hyperlipidemia Hypertension Grandmother Dementia Mother Stroke Other Diabetes Denies family history of Clotting disorder Psychiatric illness Suicide Anesthesia complication Bleeding disorder Family history of premature coronary artery disease Lung disease Cancer Social History Smoking and tobacco status: former smoker Quit status (tobacco): has quit using tobacco Year quit tobacco: 3 mo ago Alcohol intake: never Lives independently: Yes Household members: children Current occupational status: employed Vitals/I&O/Wt Last Vital Signs Temp 98.2 F 07/06/19 11:00 Pulse 112 H 07/06/19 12:18 Resp 18 07/06/19 12:18 BP 122/73 07/06/19 12:18 Pulse Ox 94 07/06/19 12:18 Physical Exam Const: COMMON NORMALS: oriented x3 and alert ORIENTATION/CONSCIOUSNESS: Yes awake, Yes oriented to person, Yes oriented to place and Yes oriented to time HENMT: COMMON NORMALS: normocephalic and head/scalp atraumatic HEAD & SCALP: normocephalic and atraumatic Eye: COMMON NORMALS: PERRL PUPIL: Yes PERRL Neck/C-Spine: COMMON NORMALS: supple GENERAL: Yes normal visual inspection Resp: COMMON NORMALS: normal respiratory effort and clear to auscultation bilaterally EFFORT & INSPECTION: Yes able to speak in complete sentences AUSCULTATION: clear to auscultation bilaterally, no rhonchi and no wheezes Cardio: COMMON NORMALS: regular rate, regular rhythm and no murmurs RATE: regular rate RHYTHM: regular rhythm GI: COMMON NORMALS: soft to palpation and non-tender INSPECTION: No abdominal distension AUSCULTATION: Yes normoactive bowel sounds PALPATION: Yes soft Extremity: NARRATIVE EXTREMITY EXAM: 1+ pitting edema in the right lower extremity with some discoloration to the right foot, anterior burton on the right with scab in place, no surrounding erythema or drainage. Neuro: COMMON NORMALS: oriented x3, CN's II-XII intact bilaterally, moves all extremities and no focal motor deficits SENSORIUM/ORIENTATION: Yes alert, Yes oriented to person, Yes oriented to place and Yes oriented to time SPEECH: speech normal Psych: COMMON NORMALS: mental status grossly normal and cooperative Skin: OTHER: Right lower extremity, foot with erythema and anterior right burton abrasion that appears to be healing with no surrounding erythema or drainage Data : 07/06/19 09:31 07/06/19 09:55 A&P Assessment and plan (1) Acute non-ST elevation myocardial infarction (NSTEMI): Discussed with patient's primary semiconductor bonder, Dr. Dorsey. Appreciate assistance in patient's care Treatment dose Lovenox given, will continue SWATI as needed for pain Serial EKG and troponin close monitoring on telemetry Continue aspirin and statin and coreg Status: Acute Code(s): I21.4 - Non-ST elevation (NSTEMI) myocardial infarction (2) Chest pain: Reported pain occurred at rest, will continue to monitor serial EKG and troponin Telemetry Recent coronary angiogram with no significant obstructive coronary artery disease Status: Acute Qualifiers: Chest pain type: chest pain due to myocardial ischemia Ischemic chest pain type: unstable angina pectoris Qualified Code(s): I20.0 - Unstable angina Code(s): R07.9 - Chest pain, unspecified (3) Poorly controlled diabetes mellitus: With acute hyperglycemia. Will start on Lantus 40 units twice daily, increase as able to tolerate. Will monitor closely as do not wish for patient to become hypoglycemic in the acute inpatient setting. Continue on high-dose sliding scale insulin as needed Status: Acute Code(s): E11.65 - Type 2 diabetes mellitus with hyperglycemia (4) Lower limb ischemia: Continues to have dopplerable pulses in the right lower extremity, continue close monitoring. Patient has a vascular surgery follow-up scheduled in [place] on Wednesday of next week. Recent lower extremity angiogram by Dr. Dorsey. Continue on aspirin, atorvastatin, Eliquis Status: Acute Code(s): I99.8 - Other disorder of circulatory system Additional A&P Information History of DVT: Continue on treatment dose Lovenox, holding Eliquis at this time Nonischemic cardiomyopathy: Echocardiogram from 06/20/2019 reviewed showed LVEF of 30%, global hypokinesis Kidney disease, stage II History of medication noncompliance Attestations Medical Necessity Statement*: Hospitalization due to NSTEMI and chest pain, expected stay less than 2 midnights Coding Level of Care Code Acute Railroad Signal And Switch Operator for [facility] Fwd Exam Comprehensive Diagnoses Acute non-ST elevation myocardial infarction (NSTEMI) I21.4 Chest pain I20.0 Chest pain type: chest pain due to myocardial ischemia Ischemic chest pain type: unstable angina pectoris Poorly controlled diabetes mellitus E11.65 Lower limb ischemia I99.8
[2019-07-06 14:25] LABS: Glucose Point of Care 364 mg/dL (70-110)
--- NOTE | 2019-07-06 16:07 | USCV_ITS ---
Kai Eliza Age: 48 Gender: F : 1970 Exam Date: 07/06/2019 18:10 Ordering Phys: Sofi Dorsey MD ([email or web address]) Technologist: Cindy Shook [place] [facility] [place] HISTORY OF OCCLUSION OF RT POP Risk Factors: Previous Vascular Surgery: RIGHT LEFT BP: 138.0 / BP: 139.0/ 0 0 Waveform Velocity (cm/s) Velocity (cm/s) Waveform Triphasic 89.2 Iliac Prox 48.1 Triphasic Triphasic 58.7 Iliac Mid 46.1 Triphasic Triphasic 54.0 Iliac Distal 47.1 Triphasic Triphasic 42.3 CUTTER OUT 42.1 Triphasic Triphasic 50.7 SFA Prox 52.1 Triphasic Triphasic 61.7 SFA Mid 48.1 Triphasic Triphasic 24.1 SFA Dist 44.6 Triphasic Biphasic 15.6 POP 32.6 Triphasic Monophasic 10.8 PROCUREMENT CLERK 6.3 Monophasic DPA 12.0 Monophasic FINDINGS SUSANNAH'S NOT DONE. FLOW VERY DIMINISHED CONCLUSIONS Normal arterial Doppler waveforms in the iliac and femoral arteries bilaterally. Abnormal arterial Doppler waveforms and velocities in the popliteal and infrapopliteal vessels, suggestive of obstructive arterial disease, possibly severe. ABIs could not be performed . Compared to the study from 06/21/2019, the popliteal and the posterior tibial artery found to be patent on the right side. Dr Robert Larios MD [facility] (Electronically Signed) Final Date: 07 July 2019 13:38 S
[2019-07-06] MEDS: FUROsemide 10 mg/mL SDV 4mL 40 MG IVP (16:26)
[2019-07-06] MEDS: spironolactone 25 mg Tablet 12.5 MG PO (16:26)
[2019-07-06] MEDS: enoxaparin 120 mg/0.8 mL Syringe SUBCUT (16:27)
[2019-07-06] MEDS: aspirin 81 mg EC Tablet PO (16:27)
[2019-07-06] MEDS: predniSONE 20 mg Tablet 40 MG PO (16:28)
[2019-07-06] MEDS: pantoprazole DR 40 mg Tablet PO (16:28)
[2019-07-06] MEDS: atorvastatin 40 mg Tablet PO (16:28)
[2019-07-06] MEDS: hyDRALAzine 10 mg Tablet PO ×2 (16:28→20:22)
[2019-07-06 17:13] LABS: Troponin 5 6HR 433.8 ng/mL (0-10); Troponin 5 6HR Delta 233.8 ng/L (0-12)
[2019-07-06 17:18] LABS: Glucose Point of Care 275 mg/dL (70-110)
--- NOTE | 2019-07-06 17:47 | ECG_ITS ---
Measurements Intervals [place] Rate: 106 P: -1 MO: 131 QRS: 129 QRSD: 85 T: 0 QT: 357 QTc: 474 SINUS TACHYCARDIA MARKED RIGHT AXIS DEVIATION [QRS AXIS > 100] LOW QRS VOLTAGE IN EXTREMITY LEADS ANTERIOR MYOCARDIAL INFARCTION,PROBABLY RECENT Compared to ECG 07/06/2019 11:16:48 Right-axis deviation now present Low QRS voltage now present ST (T wave) deviation no longer present Myocardial infarct finding still present Electronically Signed On 07-07-2019 15:34:21 HEEL GOUGER by Alexandra Mg M.D. [id number]
[2019-07-06] MEDS: nitroglycerin 1 gm/inch oint Pkt 0.5 INCH TOPICAL (18:27)
[2019-07-06] MEDS: famotidine 20 mg Tablet PO (18:28)
[2019-07-06] MEDS: carvedilol 3.125 mg Tablet PO (18:28)
[2019-07-06] MEDS: insulin glargine 100 units/1 mL 40 UNIT SUBCUT (18:29)
--- NOTE | 2019-07-06 18:39 | PC.RESP ---
Attempted to complete stat ekg ordered by nursing staff on the cardiac stepdown floor, however patient is having echo at this time. Will attempt ekg as soon as possible.
--- NOTE | 2019-07-06 18:46 | P.CONIM_ITS ---
Providers/Reason For Consult Consulting Physican/Specialty*: Impression cardiology Reason for Consult*: Abnormal cardiac markers chest pain Abnormal EKG Peripheral vascular disease, right foot and leg pain Attending Physician: Megan Lala DO Primary Care Provider: Erik Castillo History of Present Illness History of Present Illness Eliza Quinn is a 48 year old female Past medical history significant for uncontrolled diabetes mellitus, peripheral vascular disease, history of DVT, History of chest pain, obesity and noncompliance Presented to the emergency room with nausea vomiting chest pain weakness and right leg pain. Patient blood sugar was more than 500 while troponin generation 5 was [address] changes noted. She was recently discharged from the hospital When she was admitted for worsening of chest pain and right leg pain. 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 Thrombectomy followed by balloon angioplasty of the right tibioperoneal trunk anterior and posterior tibial and peroneal artery was performed. Reasonable good flow below the knee was restored with dopplerable posterior and faint anterior tibial pulse. Patient was started on anticoagulation and as outpatient she was scheduled to see Dr. Galo Jonas in the [place] next week. She was also seen by me in the clinic a few days ago when despite of increasing Lasix right leg was Swollen for Which She Was Started on Prednisone Which Reduced Her Swelling. I Examined Today Patient in the ER. I Was Not Convinced with EKG to Be Called As ST Elevation RI. She Has Recent Negative Angiogram Therefore No Further Invasive Test Is Recommended However We Will Continue to Monitor Her. I Examined Her Foot Which Appeared to Be Slightly mottled not different from the baseline. She has good posterior tibial dopplerable but no anterior tibial pulse. She is able to move the right foot without any sensitivity loss. She denies PND orthopnea presyncope or syncope. Review of Systems Const: Denies: fever, chills, body aches, change in appetite, fatigue or malaise Eyes: Denies: change in vision ENMT: Denies: throat pain, ear pain, nasal discharge or nasal congestion Card: Reports: chest pain, edema and swelling of feet/ankles; Denies: palpitations Resp: Reports: shortness of breath; Denies: productive cough, non-productive cough or coughing up blood GI: Reports: nausea and vomiting; Denies: abdominal pain, diarrhea, constipation, blood in stool or black tarry stool : Denies: flank pain, difficulty urinating, painful urination, urinary frequency, urinary urgency or blood in urine Musc: Reports: extremity pain; Denies: joint warmth or muscle cramps Skin/Breast: Denies: rash or new lesion Neuro: Denies: headache or dizziness Psych: Denies: anxiety or depression Endo: Denies: excessive urination or hot flashes Hayder/Lymph: Denies: easy bruising or easy bleeding All/Imm: Denies: acute wheezing Meds/Allergies Home Medications and Allergies Home Medications Medication Instructions Recorded Confirmed Type acetaminophen [Tylenol Extra 1,000 mg PO Q4H PRN 06/04/19 07/06/19 History Strength] aspirin [Aspir-Low] 81 mg PO DAILY 06/04/19 07/06/19 History atorvastatin 40 mg PO DAILY 06/04/19 07/06/19 History carvedilol 3.125 mg PO BID 06/04/19 07/06/19 History famotidine 20 mg PO BID 06/04/19 07/06/19 History furosemide [Lasix] 40 mg PO DAILY 06/04/19 07/06/19 History gabapentin 100 mg PO TID PRN 06/04/19 07/06/19 History hydralazine 10 mg PO TID 06/04/19 07/06/19 History insulin lispro [Humalog KwikPen See Rx Instructions .ROUTE .COMPLEX 06/04/19 07/06/19 History Insulin] norethindrone acetate 10 mg PO BID 06/04/19 07/06/19 History spironolactone 12.5 mg PO DAILY 06/04/19 07/06/19 History cyclobenzaprine 5 mg PO TID PRN 06/20/19 07/06/19 History apixaban [Eliquis] 5 mg PO BID 07/06/19 07/06/19 History fluoxetine [Prozac] 10 mg PO DAILY 07/06/19 07/06/19 History semaglutide [Ozempic] 0.25 mg SUBCUT Q7D 07/06/19 07/06/19 History trazodone 100 mg PO BEDTIME 07/06/19 07/06/19 History Allergies Allergy/AdvReac Type Severity Reaction Status Date / Time No Known Allergies Allergy Verified 06/04/19 12:25 Current Medications Current Medications Generic Name Dose Route Start Last Admin Trade Name Freq PRN Reason Stop Dose Admin Aspirin 81 mg 07/06/19 13:04 07/06/19 16:27 Aspirin Ec PO 81 mg DAILY HI Administration Atorvastatin Calcium 40 mg 07/06/19 13:04 07/06/19 16:28 Lipitor PO 40 mg DAILY HI Administration Carvedilol 3.125 mg 07/06/19 18:00 07/06/19 18:28 Coreg PO 3.125 mg BID HI Administration Enoxaparin Sodium 120 mg 07/06/19 15:00 07/06/19 16:27 Lovenox SUBCUT 120 mg Q12H HI Administration Famotidine 20 mg 07/06/19 18:00 07/06/19 18:28 Pepcid Tab PO 20 mg BID HI Administration Furosemide 40 mg 07/06/19 13:04 07/06/19 16:26 Lasix IVP 40 mg Q24H HI Administration Hydralazine HCl 10 mg 07/06/19 15:00 07/06/19 16:28 Apresoline PO 10 mg TID HI Administration Insulin Aspart 0 unit 07/06/19 13:04 07/06/19 18:28 Novolog SUBCUT 12 unit TIDWM HI Administration Protocol Insulin Glargine 40 unit 07/06/19 18:00 07/06/19 18:29 Lantus SUBCUT 40 unit BID HI Administration Pantoprazole Sodium 40 mg 07/06/19 13:04 07/06/19 16:28 Protonix PO 40 mg DAILY HI Administration Potassium Chloride 10 meq 07/06/19 15:00 07/06/19 16:27 Klor-Con 10 PO 10 meq DAILY HI Administration Spironolactone 12.5 mg 07/06/19 13:04 07/06/19 16:26 Aldactone PO 12.5 mg DAILY HI Administration PFSH Acute PFSH: Medical History (Updated 07/06/19 @ 19:05 by Sofi Dorsey MD) Chronic anticoagulation Chronic kidney disease, stage II (mild) History of DVT (deep vein thrombosis) Nonischemic cardiomyopathy Poorly controlled diabetes mellitus PVD (peripheral vascular disease) with claudication Urinary tract infection due to ESBL Klebsiella Surgical History History of back surgery History of History of shoulder surgery Hx of cholecystectomy Family History Father CAD (coronary artery disease) Chronic kidney disease (CKD) Hyperlipidemia Hypertension Grandmother Dementia Mother Stroke Other Diabetes Denies family history of Clotting disorder Psychiatric illness Suicide Anesthesia complication Bleeding disorder Family history of premature coronary artery disease Lung disease Cancer Social History Smoking and tobacco status: former smoker Quit status (tobacco): has quit using tobacco Year quit tobacco: 3 mo ago Alcohol intake: never Lives independently: Yes Household members: children Current occupational status: employed Dietary Habits: Current diet type/program: regular Caffeine: Yes Exercise: What type of physical activity do you participate in?: none Safety: Seatbelt use: never Home Safety: Working smoke detector in home: Yes Fire extinguisher in home: No Carbon monoxide detector in home: No Personal Safety: Do you feel safe at home: Yes Vitals/I&O/Wt Last Vital Signs Temp 97.8 F 07/06/19 14:06 Pulse 108 H 07/06/19 15:27 Resp 18 07/06/19 15:27 BP 148/97 07/06/19 15:27 Pulse Ox 95 07/06/19 15:27 Weight last 48 hrs Weight 279 lb 3.2 oz Physical Exam Narrative: EXAM NARRATIVE: GENERAL: Patient is alert, awake and oriented x3. NECK: No jugular vein distension. HEENT: No cyanosis. No icterus. No pallor. HEART: Regular S1 and S2. No murmur, rub or gallop. LUNGS: Clear to auscultate bilaterally. ABDOMEN: Soft, nontender and nondistended. Positive bowel sounds. No guarding, rebound or tenderness. CENTRAL NERVOUS SYSTEM: Grossly nonfocal. EXTREMITIES: Lower extremities with 1+ edema bilaterally. Pulses right posterior tibial dopplerable no anterior tibial. Good motor and sensitivity A&P Assessment and plan (1) History of DVT (deep vein thrombosis): I'm not sure patient is taking anticoagulation right.. There is a question of compliance and also question of nausea vomiting. I will start her on Lovenox full dose. Status: Acute Code(s): Z86.718 - Personal history of other venous thrombosis and embolism (2) Chest pain: Appeared to be nonspecific Could be due to myopericarditis.. She has negative angiogram. No further invasive test at this point needed. Continue pain control Status: Acute Code(s): R07.9 - Chest pain, unspecified (3) PVD (peripheral vascular disease) with claudication: Patient has severe peripheral vascular disease as defined above. She has good dopplerable pulse to the foot. Recommend keeping right foot are warm and anticoagulation with Lovenox. We'll continue to monitor it. I will also obtain vascular study. Status: Acute Code(s): I73.9 - Peripheral vascular disease, unspecified (4) Poorly controlled diabetes mellitus: As per medicine. Status: Acute Code(s): E11.65 - Type 2 diabetes mellitus with hyperglycemia Coding Level of Care Code New Pt Acute Business Development Representative for [facility] Fwd Patient Type New History Detailed Exam Detailed Medical Decision Making Moderate Complexity Diagnoses History of DVT (deep vein thrombosis) Z86.718 Chest pain R07.9 PVD (peripheral vascular disease) with claudication I73.9 Poorly controlled diabetes mellitus E11.65
--- NOTE | 2019-07-06 19:13 | PC.NURSE ---
UPON STARTING MY SHIFT WILLIAM VILLELA WANTED ME TO GET AN EKG FOR THIS PT AND CALL THE RESULTS TO DR TIDWELL PER DR MOREJON'S REQUEST. EKG SHOWED SINUS TACH, DR TIDWELL WAS NOTIFIED AND SAID THAT WAS FINE. DR TIDWELL WANTS HEAT PACKS TO RIGHT FOOT AND TO KEEP PT COMFORTABLE. PT C/O 2/[address] TIDWELL WAS INFORMED OF THAT. PT DOES HAVE 1/2 NITRO PASTE ON AND C/O OF A LITTLE H/A. WILL CONTINUE TO MONITOR.
[2019-07-06] MEDS: trazodone 100 mg Tablet PO (20:22)
[2019-07-06 21:53] LABS: Glucose Point of Care 137 mg/dL (70-110)
[2019-07-06] MEDS: morphine 4 mg/mL SDV 1 mL 2 MG IVP (22:00)
[2019-07-07] VITALS (7 sets, daily range): BP systolic 121–142; BP diastolic 82–99; PULSE 103–106; RESP 18–32; TEMP 36.8–36.9; O2SAT 94–98
[2019-07-07] MEDS: enoxaparin 120 mg/0.8 mL Syringe SUBCUT ×2 (03:18→14:51)
[2019-07-07 03:59] LABS: Basophils # 0.1 10^3/uL (0.0-0.1); Basophils % 0.5 %; Eosinophils % 0.1 %; Hematocrit 42.7 % (37.0-47.0); Hemoglobin 12.1 g/dL (11.5-15.3); Lymphocytes # 1.4 10^3/uL (0.8-4.8); Lymphocytes % 12.1 %; Mean Corpuscular HGB Conc 28.3 g/dL (30.0-36.0); Mean Corpuscular Hemoglobin 23.6 pg (28.0-34.0); Mean Corpuscular Volume 83.2 fL (81-99); Mean Platelet Volume 10.8 fL (7.4-10.4); Monocytes # 0.4 10^3/uL (0.2-0.9); Monocytes % 3.3 %; Neutrophils # 9.3 10^3/uL (1.8-7.7); Neutrophils % 83.6 %; Nucleated Red Blood Cells % 0 %; Platelet Count 407 10^3/cmm (130-400); Red Blood Count 5.13 10^6/uL (4.1-5.3); Red Cell Distribution Width 16.9 % (12.1-15.1); White Blood Count 11.1 10^3/uL (4.0-10.0)
[2019-07-07 04:25] LABS: Anion Gap 19.3 (5-19); Blood Urea Nitrogen 21 mg/dL (6-20); Calcium 8.9 mg/dL (8.5-10.5); Carbon Dioxide 20 mmol/L (22-29); Chloride 94 mmol/L (98-107); Glomerular Filtration Rate 59.2 mL/min (90-130); Glucose 291 mg/dL (65-115); Osmolality Calculated 273 mOsm/kg (285-295); Potassium 5.3 mmol/L (3.5-5.1); Sodium 128 mmol/L (136-145)
[2019-07-07 06:33] LABS: Glucose Point of Care 284 mg/dL (70-110)
[2019-07-07] MEDS: famotidine 20 mg Tablet PO ×2 (08:45→18:06)
[2019-07-07] MEDS: pantoprazole DR 40 mg Tablet PO (08:45)
[2019-07-07] MEDS: predniSONE 10 mg Tablet 30 MG PO (08:45)
[2019-07-07] MEDS: aspirin 81 mg EC Tablet PO (08:45)
[2019-07-07] MEDS: carvedilol 3.125 mg Tablet PO ×2 (08:45→18:06)
[2019-07-07] MEDS: atorvastatin 40 mg Tablet PO (08:46)
[2019-07-07] MEDS: spironolactone 25 mg Tablet 12.5 MG PO (08:46)
[2019-07-07] MEDS: hyDRALAzine 10 mg Tablet PO ×3 (08:46→22:05)
[2019-07-07] MEDS: insulin glargine 100 units/1 mL 40 UNIT SUBCUT (08:47)
[2019-07-07] MEDS: fluoxetine 10 mg Capsule PO (08:49)
[2019-07-07 11:35] LABS: Glucose Point of Care 364 mg/dL (70-110)
[2019-07-07] MEDS: sodium chloride 0.9% 1,000 ML 100 ML IV (14:51)
[2019-07-07] MEDS: TRAMadol 50 mg Tablet PO (15:00)
[2019-07-07 16:13] LABS: Anion Gap 18.9 (5-19); Blood Urea Nitrogen 26 mg/dL (6-20); Calcium 8.8 mg/dL (8.5-10.5); Carbon Dioxide 20 mmol/L (22-29); Chloride 92 mmol/L (98-107); Osmolality Calculated 285 mOsm/kg (285-295); Potassium 5.9 mmol/L (3.5-5.1); Sodium 125 mmol/L (136-145)
[2019-07-07 16:16] LABS: Glucose 599 mg/dL (65-115)
[2019-07-07 16:20] LABS: Glucose Point of Care 491 mg/dL (70-110)
--- NOTE | 2019-07-07 16:23 | PM.PN ---
Subjective Subjective: Interval history: Patient awake in bed at time of exam today. She denied any chest pain at time of exam, no shortness of breath. Vitals/I&O/Wt Last Vital Signs Temp 98.2 F 07/07/19 07:42 Pulse 105 H 07/07/19 14:53 Resp 23 H 07/07/19 14:53 BP 142/99 07/07/19 14:53 Pulse Ox 98 07/07/19 14:53 07/07/19 07/07/19 07/07/19 06:59 14:59 22:59 Intake Total 100 / 100 360 / 360 Balance 100 / 100 360 / 360 Weight last 48 hrs Weight 126.643 kg Physical Exam Const: COMMON NORMALS: oriented x3 and alert ORIENTATION/CONSCIOUSNESS: Yes awake, Yes oriented to person, Yes oriented to place and Yes oriented to time HENMT: COMMON NORMALS: normocephalic and head/scalp atraumatic HEAD & SCALP: normocephalic and atraumatic Eye: COMMON NORMALS: PERRL PUPIL: Yes PERRL Neck/C-Spine: COMMON NORMALS: supple GENERAL: Yes normal visual inspection Resp: COMMON NORMALS: normal respiratory effort and clear to auscultation bilaterally EFFORT & INSPECTION: Yes able to speak in complete sentences AUSCULTATION: clear to auscultation bilaterally, no rhonchi and no wheezes Cardio: COMMON NORMALS: regular rate, regular rhythm and no murmurs RATE: regular rate RHYTHM: regular rhythm GI: COMMON NORMALS: soft to palpation and non-tender INSPECTION: No abdominal distension AUSCULTATION: Yes normoactive bowel sounds PALPATION: Yes soft Extremity: NARRATIVE EXTREMITY EXAM: 1+ pitting edema in the right lower extremity with some discoloration to the right foot, anterior burton on the right with scab in place, no surrounding erythema or drainage. Neuro: COMMON NORMALS: oriented x3, CN's II-XII intact bilaterally, moves all extremities and no focal motor deficits SENSORIUM/ORIENTATION: Yes alert, Yes oriented to person, Yes oriented to place and Yes oriented to time SPEECH: speech normal Psych: COMMON NORMALS: mental status grossly normal and cooperative Skin: OTHER: Right lower extremity, foot with erythema and anterior right burton abrasion that appears to be healing with no surrounding erythema or drainage Data : 07/07/19 03:30 07/07/19 14:57 A&P Assessment and plan (1) Acute non-ST elevation myocardial infarction (NSTEMI): Chest pain resolved this morning On treatment dose Lovenox Recent negative coronary angiogram SWATI as needed for pain Serial EKG and troponin close monitoring on telemetry Continue aspirin and statin and coreg Status: Acute Code(s): I21.4 - Non-ST elevation (NSTEMI) myocardial infarction (2) Chest pain: Recent coronary angiogram with no significant obstructive coronary artery disease Status: Acute Code(s): R07.9 - Chest pain, unspecified (3) Poorly controlled diabetes mellitus: Aggressive sliding scale Increase Lantus to 50 units twice daily Status: Acute Code(s): E11.65 - Type 2 diabetes mellitus with hyperglycemia (4) Lower limb ischemia: Continues to have dopplerable pulses in the right lower extremity, continue close monitoring. Patient has a vascular surgery follow-up scheduled in [place] on Wednesday of next week. Recent lower extremity angiogram by Dr. Dorsey. Continue on aspirin, atorvastatin, Eliquis Status: Acute Code(s): I99.8 - Other disorder of circulatory system Additional A&P Information History of DVT: Continue on treatment dose Lovenox, holding Eliquis Acute kidney injury: We will give gentle IV fluids today and recheck tomorrow Nonischemic cardiomyopathy: Echocardiogram from 06/20/2019 reviewed showed LVEF of 30%, global hypokinesis Kidney disease, stage II History of medication noncompliance Attestations Medical Necessity Statement*: Change to inpatient admission due to acute kidney injury with non-ST elevation [place] and chest pain and poorly controlled diabetes. 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
[2019-07-07] MEDS: sodium chloride 0.9% 1,000 ML 50 ML IV (16:45)
[2019-07-07] MEDS: ondansetron 2 mg/ML SDV 2 mL 4 MG IVP (18:06)
[2019-07-07] MEDS: insulin glargine 100 units/1 mL 50 UNIT SUBCUT (18:36)
--- NOTE | 2019-07-07 18:51 | P.PN_ITS ---
Subjective Subjective: Interval history: Denies any chest pain. Vitals/I&O/Wt Last Vital Signs Temp 98.2 F 07/07/19 07:42 Pulse 105 H 07/07/19 14:53 Resp 23 H 07/07/19 14:53 BP 142/99 07/07/19 14:53 Pulse Ox 98 07/07/19 14:53 07/07/19 07/07/19 07/07/19 06:59 14:59 22:59 Intake Total 100 / 100 360 / 360 240 / 600 Balance 100 / 100 360 / 360 240 / 600 Weight last 48 hrs Weight 279 lb 3.2 oz Physical Exam Narrative: EXAM NARRATIVE: GENERAL: Patient is alert, awake and oriented x3. NECK: No jugular vein distension. HEENT: No cyanosis. No icterus. No pallor. HEART: Regular S1 and S2. No murmur, rub or gallop. LUNGS: Clear to auscultate bilaterally. ABDOMEN: Soft, nontender and nondistended. Positive bowel sounds. No guarding, rebound or tenderness. CENTRAL NERVOUS SYSTEM: Grossly nonfocal. EXTREMITIES: Lower extremities with 1+ edema bilaterally. Pulses right posterior tibial dopplerable no anterior tibial. Good motor However painful to move fore foot. Patient has dopplerable anterior and posterior tibial on the left foot. Data : 07/07/19 03:30 07/08/19 05:15 A&P Assessment and plan (1) History of DVT (deep vein thrombosis): Patient continues to have good pulse dopplerable one-vessel in the posterior tibial of the right foot. Not able to feel or palpate the anterior tibial. She has extensive peripheral vascular disease with uncontrolled diabetes mellitus. She is scheduled to see Dr. Jonas early next week. She had an appointment last week but somehow it was not arrange in between Dr. Jonas clinic and herself. Her compliance is questionable. She's not having any pain in the right foot. Continue anticoagulation, continue warming of the right foot.I will again discuss the case with vascular surgery. Status: Acute Code(s): Z86.718 - Personal history of other venous thrombosis and embolism (2) Chest pain: Nonspecific could be musculoskeletal versus myopericarditis. Pain control advised Status: Acute Code(s): R07.9 - Chest pain, unspecified (3) PVD (peripheral vascular disease) with claudication: Patient has severe peripheral vascular disease as defined above. She has good dopplerable pulse to the foot. Recommend keeping right foot are warm and anticoagulation with Lovenox. We'll continue to monitor it. I will also obtain vascular study. Status: Acute Code(s): I73.9 - Peripheral vascular disease, unspecified (4) Poorly controlled diabetes mellitus: As per medicine. Status: Acute Code(s): E11.65 - Type 2 diabetes mellitus with hyperglycemia Attestations Medical Necessity Statement*: Requires continuation hospitalization for above defined care. Coding Level of Care Code Established Pt Acute Gas Regulator Repairer Helper for Chg Fwd Patient Type Established History Expanded Problem Focused Exam Expanded Problem Focused Medical Decision Making Moderate Complexity Diagnoses History of DVT (deep vein thrombosis) Z86.718 Chest pain R07.9 PVD (peripheral vascular disease) with claudication I73.9 Poorly controlled diabetes mellitus E11.65
[2019-07-07] MEDS: morphine 4 mg/mL SDV 1 mL 2 MG IVP (19:36)
[2019-07-07 20:55] LABS: Glucose Point of Care 560 mg/dL (70-110)
[2019-07-07] MEDS: trazodone 100 mg Tablet PO (22:05)
[2019-07-08] VITALS (8 sets, daily range): BP systolic 99–140; BP diastolic 59–94; PULSE 94–99; RESP 16–25; TEMP 36.6–36.8; O2SAT 95–98
[2019-07-08 02:05] LABS: Glucose Point of Care 334 mg/dL (70-110)
[2019-07-08] MEDS: ondansetron 2 mg/ML SDV 2 mL 4 MG IVP ×4 (02:20→22:54)
[2019-07-08] MEDS: enoxaparin 120 mg/0.8 mL Syringe SUBCUT ×2 (02:20→17:46)
[2019-07-08 06:05] LABS: Anion Gap 16.1 (5-19); Blood Urea Nitrogen 26 mg/dL (6-20); Calcium 8.8 mg/dL (8.5-10.5); Carbon Dioxide 21 mmol/L (22-29); Chloride 96 mmol/L (98-107); Glucose 330 mg/dL (65-115); Osmolality Calculated 276 mOsm/kg (285-295); Potassium 5.1 mmol/L (3.5-5.1); Sodium 128 mmol/L (136-145)
[2019-07-08 06:27] LABS: Glucose Point of Care 257 mg/dL (70-110)
[2019-07-08 11:06] LABS: C Reactive Protein 15.4 mg/L (0.0-4.9)
[2019-07-08] MEDS: spironolactone 25 mg Tablet 12.5 MG PO (11:13)
[2019-07-08] MEDS: predniSONE 20 mg Tablet PO (11:13)
[2019-07-08] MEDS: aspirin 81 mg EC Tablet PO (11:14)
[2019-07-08] MEDS: carvedilol 3.125 mg Tablet PO ×2 (11:14→17:47)
[2019-07-08] MEDS: atorvastatin 40 mg Tablet PO (11:14)
[2019-07-08] MEDS: pantoprazole DR 40 mg Tablet PO (11:14)
[2019-07-08] MEDS: fluoxetine 10 mg Capsule PO (11:14)
[2019-07-08] MEDS: famotidine 20 mg Tablet PO ×2 (11:14→17:47)
[2019-07-08] MEDS: hyDRALAzine 10 mg Tablet PO ×3 (11:14→21:12)
[2019-07-08] MEDS: sodium chloride 0.9% 1,000 ML 50 ML IV ×2 (11:15→22:53)
--- NOTE | 2019-07-08 11:33 | P.PN_ITS ---
Subjective Subjective: Interval history: Denies chest pain or foot pain right foot continues to be dusky but with good dopplerable posterior tibial pulse. Medications: Reviewed: Yes Vitals/I&O/Wt Last Vital Signs Temp 98.0 F 07/08/19 07:26 Pulse 98 07/08/19 07:26 Resp 20 H 07/08/19 07:26 BP 140/94 07/08/19 07:26 Pulse Ox 98 07/08/19 07:26 07/07/19 07/08/19 07/08/19 22:59 06:59 14:59 Intake Total 240 / 600 200 / 800 1285 / 1285 Balance 240 / 600 200 / 800 1285 / 1285 Weight last 48 hrs Weight 279 lb 3.2 oz Physical Exam Narrative: EXAM NARRATIVE: GENERAL: Patient is alert, awake and oriented x3. NECK: No jugular vein distension. HEENT: No cyanosis. No icterus. No pallor. HEART: Regular S1 and S2. No murmur, rub or gallop. LUNGS: Clear to auscultate bilaterally. ABDOMEN: Soft, nontender and nondistended. Positive bowel sounds. No guarding, rebound or tenderness. CENTRAL NERVOUS SYSTEM: Grossly nonfocal. EXTREMITIES: Lower extremities with 1+ edema bilaterally. Pulses right posterior tibial dopplerable no anterior tibial. Good motor, painful to move forefoot. Patient has dopplerable anterior and posterior tibial on the left foot. Data : 07/07/19 03:30 07/08/19 05:15 A&P Assessment and plan (1) History of DVT (deep vein thrombosis): Good dopplerable posterior tibial on the right and anterior-posterior on the left. Right foot painful forefoot to move, right leg swelling. Continue anticoagulation continue warming the foot. I will contact vascular surgery again to see whether she can be transferred for further assessment and treatment such as grafting Status: Acute Code(s): Z86.718 - Personal history of other venous thrombosis and embolism (2) Chest pain: Nonspecific. Continue current regimen Status: Acute Code(s): R07.9 - Chest pain, unspecified (3) PVD (peripheral vascular disease) with claudication: Patient has severe peripheral vascular disease as defined above. She has good dopplerable pulse to the foot. Recommend keeping right foot are warm and anticoagulation with Lovenox. We'll continue to monitor it. I will also obtain vascular study. Status: Acute Code(s): I73.9 - Peripheral vascular disease, unspecified (4) Poorly controlled diabetes mellitus: As per medicine. Status: Acute Code(s): E11.65 - Type 2 diabetes mellitus with hyperglycemia Attestations Medical Necessity Statement*: Patient regarding continuation hospitalization for above defined care. Coding Level of Care Code Established Pt Acute Triple Valve Tester for g Fwd Patient Type Established History Expanded Problem Focused Exam Expanded Problem Focused Medical Decision Making Moderate Complexity Diagnoses History of DVT (deep vein thrombosis) Z86.718 Chest pain R07.9 PVD (peripheral vascular disease) with claudication I73.9 Poorly controlled diabetes mellitus E11.65
[2019-07-08 11:51] LABS: Erythrocyte Sedimentation Rate 67 mm/hr (0-15)
[2019-07-08 11:54] LABS: Glucose Point of Care 288 mg/dL (70-110)
[2019-07-08 12:23] LABS: Alanine Aminotransferase 8 U/L (0-33); Albumin Level 1.8 g/dL (3.5-5.2); Alkaline Phosphatase 98 IU/L (35-105); Anion Gap 15.8 (5-19); Aspartate Amino Transferase 19 U/L (0-32); Blood Urea Nitrogen 26 mg/dL (6-20); Calcium 8.8 mg/dL (8.5-10.5); Carbon Dioxide 21 mmol/L (22-29); Chloride 94 mmol/L (98-107); Globulin 4.8 g/dL (1.3-4.6); Glucose 309 mg/dL (65-115); Magnesium 2.1 mg/dL (1.7-2.3); Phosphorus 4.1 mg/dL (2.5-4.5); Potassium 4.8 mmol/L (3.5-5.1); Sodium 126 mmol/L (136-145); Total Bilirubin 0.3 mg/dL (0.15-1.2); Total Protein 6.6 g/dL (6.6-8.7)
[2019-07-08 12:46] LABS: Hepatitis A Antibody IgM. Non-Reactive (Nonreactive); Hepatitis B Core IgM Non-Reactive (Nonreactive); Hepatitis B Surface Antigen. Non-Reactive (Nonreactive); Hepatitis C Virus Antibody Non-Reactive (Nonreactive)
--- NOTE | 2019-07-08 13:23 | PC.CHAP ---
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 solar designer/installer visit [] Patient/Family/Request visit [] Outpatient visit [] Follow-up visit [] Physician referral [] Code/Alert [] Routine visit [] Staff referral [] Actively dying [X] Patient sleeping [] Family support [] [] Out of room [] Palliative care [] [] Receiving care in room [] Pre-surgical visit [] Trauma [] Long length of stay [] ICU visit [] Other: Relational/Emotional Strength [] Patient feels connected with others/family/visitors/staff [] Distress [] Loneliness/isolation [] Abandonment Spirituality of Patient [] Person of Crystal [] Attends Zoroastrianism of their Crystal [] Believes in Prayer [] Reads Bible or Sikh materials [] There are Spiritual issues to be addressed Skull Grinder Interventions [] Prayer [] Active listening [] Non-anxious presence [] Spiritual/emotional support [] Crisis/trauma care [] Spiritual counseling [] Bereavement support [] Provided bereavement packet [] Provided Bible/devotional materials [] Provided toy/stuffed animal, coloring book to patient or family member [] Provided Communion [] Anointing/[place] [] Salvation [] Completed spiritual assessment [] Other: Impact on Illness or Injury [] Angry [] Fearful [] Anxious [] Often cries [] Exhaustion [] Unable to work [] Unable to attend anglican [] Unable to walk/stand [] Unable to read [] Unable to drive [] Unable to eat/drink [] Unable to sleep [] Unable to be with family [] Patient intubated [] Other: Summary NEED FOLLOW UP NEXT DAY Time spent with patient
[2019-07-08] MEDS: morphine 4 mg/mL SDV 1 mL 2 MG IVP ×2 (13:46→21:14)
--- NOTE | 2019-07-08 16:56 | P.PN_ITS ---
Subjective Subjective: Interval history: This morning patient states that she feels ill, feels nauseous, has a poor oral intake, no fevers, no chills, her bilateral lower extremities feel cool, her right lower extremity feels cool and clammy, but has a dopplerable pt pulse, no dopplerable DP pulse. Her right lower extremity has dopplerable DP PT pulses. No chest pain, no shortness of breath, lightheaded, no dizziness Vitals/I&O/Wt Last Vital Signs Temp 98.0 F 07/08/19 11:48 Pulse 96 07/08/19 11:48 Resp 22 H 07/08/19 13:46 BP 99/59 07/08/19 11:48 Pulse Ox 96 07/08/19 13:46 07/08/19 07/08/19 07/08/19 06:59 14:59 22:59 Intake Total 200 / 800 1285 / 1285 Balance 200 / 800 1285 / 1285 Physical Exam Const: COMMON NORMALS: no apparent distress and oriented x3 HENMT: COMMON NORMALS: normocephalic HEAD & SCALP: normocephalic Neck/C-Spine: COMMON NORMALS: no JVD Resp: COMMON NORMALS: normal respiratory effort, no retractions, no use of accessory muscles and clear to auscultation bilaterally AUSCULTATION: clear to auscultation bilaterally Cardio: COMMON NORMALS: no JVD, regular rate, regular rhythm, S1 normal heart sound and S2 normal heart sound RATE: regular rate RHYTHM: regular rhythm HEART SOUNDS: S1 normal and S2 normal GI: COMMON NORMALS: normal to inspection, nondistended, normoactive bowel sounds, soft to palpation, non-tender, no hepatosplenomegaly, no masses and no bruits PALPATION: Yes soft and Yes no hepatosplenomegaly Extremity: OTHER: Bilateral lower extremities are cool and clammy Left lower extremity, DP PT pulses are dopplerable, feels cool and clammy Right lower extremity, bluish discoloration of distal phalanges, feels cool and clammy, has loss of sensation, DP pulse not dopplerable, PT pulse dopplerable Neuro: COMMON NORMALS: oriented x3 Psych: COMMON NORMALS: mental status grossly normal Data : 07/07/19 03:30 07/08/19 11:58 A&P Assessment and plan (1) Acute non-ST elevation myocardial infarction (NSTEMI): No repeat episodes of chest pain, unlikely cardiac Recent negative coronary angiogram SWATI as needed for pain Continue telemetry monitoring Continue aspirin and statin and coreg Status: Acute Code(s): I21.4 - Non-ST elevation (NSTEMI) myocardial infarction (2) Chest pain: Recent coronary angiogram with no significant obstructive coronary artery disease Status: Acute Code(s): R07.9 - Chest pain, unspecified (3) Poorly controlled diabetes mellitus: Aggressive sliding scale Increase Lantus to 50 units twice daily Status: Acute Code(s): E11.65 - Type 2 diabetes mellitus with hyperglycemia (4) Lower limb ischemia: -Left lower extremity cool, clammy, no blue discoloration, no loss of sensation, DP PT pulses dopplerable -Right lower extremity, blue discoloration of distal phalanges, cool, clammy, loss of sensation, no pain, DP pulse not dopplerable, PT pulse dopplerable Recent lower extremity angiogram by Dr. Dorsey. Continue on aspirin, atorvastatin, therapeutic Lovenox Cardiology is considering transfer to higher level of facility for vascular surg justice Status: Acute Code(s): I99.8 - Other disorder of circulatory system Additional A&P Information History of DVT: Continue on treatment dose Lovenox, holding Eliquis Hyponatremia: Likely hypovolemic, continue IV hydration Acute kidney injury: We will give gentle IV fluids at 75 cc an hour Nonischemic cardiomyopathy: Echocardiogram from 06/20/2019 reviewed showed LVEF of 30%, global hypokinesis Kidney disease, stage II History of medication noncompliance Attestations Medical Necessity Statement*: Patient requires hospitalization due to lower limb ischemia, chest pain Coding Level of Care Code Acute Core Layer Machine Operator for Emily Anthony Diagnoses Acute non-ST elevation myocardial infarction (NSTEMI) I21.4 Chest pain R07.9 Poorly controlled diabetes mellitus E11.65 Lower limb ischemia I99.8
[2019-07-08 17:14] LABS: Glucose Point of Care 245 mg/dL (70-110)
--- NOTE | 2019-07-08 19:30 | PC.NURSE ---
Upon making rounds, patient requesting Morphine, closer to bedtime so I can sleep. Will monitor.
[2019-07-08 20:56] LABS: Glucose Point of Care 329 mg/dL (70-110)
[2019-07-08] MEDS: trazodone 100 mg Tablet PO (21:12)
[2019-07-08] MEDS: insulin glargine 100 units/1 mL 50 UNIT SUBCUT (21:13)
--- NOTE | 2019-07-08 22:12 | PC.NURSE ---
Patient requesting Zofran for nausea;however, was informed by staff that it wasn't time for medication. Patient upset. Will monitor.
[2019-07-09] VITALS (10 sets, daily range): BP systolic 101–150; BP diastolic 41–94; PULSE 90–100; RESP 13–32; TEMP 36.6–37.1; O2SAT 94–99
[2019-07-09] MEDS: enoxaparin 120 mg/0.8 mL Syringe SUBCUT ×2 (03:30→15:24)
[2019-07-09 05:32] LABS: Basophils # 0.1 10^3/uL (0.0-0.1); Basophils % 0.5 %; Eosinophils % 0.1 %; Hematocrit 39.2 % (37.0-47.0); Lymphocytes % 14.7 %; Mean Corpuscular HGB Conc 28.1 g/dL (30.0-36.0); Mean Platelet Volume 11.2 fL (7.4-10.4); Monocytes # 1.2 10^3/uL (0.2-0.9); Monocytes % 8.9 %; Neutrophils # 10.3 10^3/uL (1.8-7.7); Neutrophils % 75.4 %; Nucleated Red Blood Cells % 0 %; Platelet Count 424 10^3/cmm (130-400); Red Blood Count 4.78 10^6/uL (4.1-5.3); Red Cell Distribution Width 17.1 % (12.1-15.1); White Blood Count 13.7 10^3/uL (4.0-10.0)
[2019-07-09 05:53] LABS: Alanine Aminotransferase 9 U/L (0-33); Albumin Level 1.8 g/dL (3.5-5.2); Alkaline Phosphatase 109 IU/L (35-105); Anion Gap 16.5 (5-19); Aspartate Amino Transferase 16 U/L (0-32); Blood Urea Nitrogen 31 mg/dL (6-20); Calcium 8.5 mg/dL (8.5-10.5); Carbon Dioxide 19 mmol/L (22-29); Chloride 95 mmol/L (98-107); Globulin 4.4 g/dL (1.3-4.6); Glucose 330 mg/dL (65-115); Magnesium 2.4 mg/dL (1.7-2.3); Phosphorus 3.6 mg/dL (2.5-4.5); Potassium 5.5 mmol/L (3.5-5.1); Sodium 125 mmol/L (136-145); Total Bilirubin 0.2 mg/dL (0.15-1.2); Total Protein 6.2 g/dL (6.6-8.7)
[2019-07-09 06:38] LABS: Glucose Point of Care 320 mg/dL (70-110)
[2019-07-09] MEDS: morphine 4 mg/mL SDV 1 mL 2 MG IVP ×3 (06:47→22:09)
[2019-07-09] MEDS: predniSONE 10 mg Tablet PO (09:02)
[2019-07-09] MEDS: fluoxetine 10 mg Capsule PO (09:02)
[2019-07-09] MEDS: famotidine 20 mg Tablet PO ×2 (09:02→18:10)
[2019-07-09] MEDS: pantoprazole DR 40 mg Tablet PO (09:02)
[2019-07-09] MEDS: atorvastatin 40 mg Tablet PO (09:02)
[2019-07-09] MEDS: aspirin 81 mg EC Tablet PO (09:02)
[2019-07-09] MEDS: carvedilol 3.125 mg Tablet PO ×2 (09:02→18:10)
[2019-07-09] MEDS: sodium polystyrene sulfonate 15 gm/60 mL Btl PO (11:44)
[2019-07-09 11:59] LABS: Glucose Point of Care 293 mg/dL (70-110)
[2019-07-09] MEDS: ondansetron 2 mg/ML SDV 2 mL 4 MG IVP ×2 (15:22→22:14)
[2019-07-09] MEDS: hyDRALAzine 10 mg Tablet PO ×2 (15:24→21:48)
--- NOTE | 2019-07-09 15:55 | P.PN_ITS ---
Subjective Subjective: Interval history: Eliza reports she is doing okay. She states her foot still hurts, but it feels a little bit better than it did. I discussed her case with Dr. Dorsey and an angiogram is planned tomorrow. Medications: Reviewed: Yes Vitals/I&O/Wt Last Vital Signs Temp 98.7 F 07/09/19 12:00 Pulse 90 07/09/19 07:44 Resp 18 07/09/19 15:23 BP 113/74 07/09/19 07:44 Pulse Ox 95 07/09/19 15:23 07/09/19 07/09/19 07/09/19 06:59 14:59 22:59 Intake Total 240 / 240 Output Total 200 / 200 Balance 40 / 40 Physical Exam Narrative: EXAM NARRATIVE: General exam is no apparent distress Cardiovascular regular rate and rhythm without murmur Lungs clear no wheezing or crackles Abdomen is soft with positive bowel sounds Extremities no cyanosis clubbing. Right lower extremity with rubor, edema. Cap refill is less than 2 seconds. Data : 07/09/19 04:39 07/09/19 04:39 A&P Assessment and plan (1) Acute non-ST elevation myocardial infarction (NSTEMI): Type II. Patient is not having chest discomfort. Continue aspirin, statin, carvedilol Status: Acute Code(s): I21.4 - Non-ST elevation (NSTEMI) myocardial infarction (2) Chest pain: Recent coronary angiogram with no significant obstructive coronary artery disease Status: Acute Code(s): R07.9 - Chest pain, unspecified (3) Poorly controlled diabetes mellitus: Aggressive sliding scale Continue Lantus Status: Acute Code(s): E11.65 - Type 2 diabetes mellitus with hyperglycemia (4) Lower limb ischemia: Continue full dose anticoagulation Anticipate angiogram tomorrow, possible intervention Continue aspirin, carvedilol, statin Status: Acute Code(s): I99.8 - Other disorder of circulatory system Additional A&P Information History of DVT. Continue on a full dose Lovenox currently, holding Eliquis while awaiting procedure Hyponatremic. This is worsened with hydration. Hold fluids. Hold Aldactone. Acute kidney injury, unchanged. Hyperkalemia. Kayexalate given. Stop Aldactone. Stop potassium. Recheck BMP this afternoon Nonischemic cardiomyopathy: Echocardiogram from 06/20/2019 reviewed showed LVEF of 30%, global hypokinesis Kidney disease, stage II History of medication noncompliance Attestations Medical Necessity Statement*: Needs continued hospitalization, for follow-up of ischemic limb, adjustment of medications for hyponatremia and hyperkalemia. Coding Level of Care Code Acute Trim Die Maker for [facility] Fwd Diagnoses Acute non-ST elevation myocardial infarction (NSTEMI) I21.4 Chest pain R07.9 Poorly controlled diabetes mellitus E11.65 Lower limb ischemia I99.8
[2019-07-09 16:28] LABS: Glucose Point of Care 251 mg/dL (70-110)
[2019-07-09 16:43] LABS: Potassium 4.9 mmol/L (3.5-5.1)
--- NOTE | 2019-07-09 18:45 | P.PN_ITS ---
Subjective Subjective: Interval history: Continues to do fine but still has some pain in the right foot. Continues to have absent anterior tibial but faint posterior tibial pulse. Denies any chest pain. She has hyperkalemia which is being treated by medicine. Medications: Reviewed: Yes Vitals/I&O/Wt Last Vital Signs Temp 98.6 F 07/09/19 16:00 Pulse 99 07/09/19 16:00 Resp 24 H 07/09/19 16:00 BP 150/90 07/09/19 16:00 Pulse Ox 96 07/09/19 16:00 07/09/19 07/09/19 07/09/19 06:59 14:59 22:59 Intake Total 240 / 240 240 / 480 Output Total 200 / 200 Balance 40 / 40 240 / 280 Physical Exam Narrative: EXAM NARRATIVE: GENERAL: Patient is alert, awake and oriented x3. NECK: No jugular vein distension. HEENT: No cyanosis. No icterus. No pallor. HEART: Regular S1 and S2. No murmur, rub or gallop. LUNGS: Clear to auscultate bilaterally. ABDOMEN: Soft, nontender and nondistended. Positive bowel sounds. No guarding, rebound or tenderness. CENTRAL NERVOUS SYSTEM: Grossly nonfocal. EXTREMITIES: Lower extremities with 1+ edema bilaterally. Pulses right posterior tibial dopplerable no anterior tibial. Good motor, painful to move forefoot. Patient has dopplerable anterior and posterior tibial on the left foot. Data : 07/09/19 04:39 07/09/19 16:15 A&P Assessment and plan (1) History of DVT (deep vein thrombosis): Since patient is not getting better her right foot still appeared to be dusky. She has absent anterior tibial pulse and continue to have right foot pa in upon walking we will proceed with peripheral angiogram I have discussed this case with Dr. Galo Jonas vascular surgeon in [facility]. He is also on the same opinion that we should first try to see whether we can revascularize again otherwise she will be considered for possible open leg grafting. Continue anticoagulation we will proceed with peripheral angiogram/ppercutaneous angioplasty/rotablation tomorrow. Patient has been explained all risks benefits and alternative for the procedure. She understand risk of amputation of the right foot. We will proceed with it tomorrow Status: Acute Code(s): Z86.718 - Personal history of other venous thrombosis and embolism (2) Chest pain: Nonspecific. Continue current regimen Status: Acute Code(s): R07.9 - Chest pain, unspecified (3) PVD (peripheral vascular disease) with claudication: Patient has severe peripheral vascular disease as defined above. As defined above I will proceed with peripheral angiogram tomorrow for critical limb ischemia. Status: Acute Code(s): I73.9 - Peripheral vascular disease, unspecified (4) Poorly controlled diabetes mellitus: As per medicine. Status: Acute Code(s): E11.65 - Type 2 diabetes mellitus with hyperglycemia (5) Hyperkalemia: As per medicine. Status: Acute Code(s): E87.5 - Hyperkalemia Attestations Medical Necessity Statement*: Patient regarding continuation hospitalization for above defined care. Most likely will proceed with peripheral angiogram tomorrow Coding Level of Care Code Established Pt Acute Dry Food Products Mixer for Chg Fwd Patient Type Established History Expanded Problem Focused Exam Expanded Problem Focused Medical Decision Making Moderate Complexity Diagnoses History of DVT (deep vein thrombosis) Z86.718 Chest pain R07.9 PVD (peripheral vascular disease) with claudication I73.9 Poorly controlled diabetes mellitus E11.65 Hyperkalemia E87.5
--- NOTE | 2019-07-09 20:25 | PC.NURSE ---
Per Dr. Graham, Hold 07/10/2019 dose of Lovenox and may start fluids after midnight of 07/09/19.
[2019-07-09 20:37] LABS: Glucose Point of Care 303 mg/dL (70-110)
[2019-07-09] MEDS: insulin glargine 100 units/1 mL 50 UNIT SUBCUT (21:47)
[2019-07-09] MEDS: trazodone 100 mg Tablet PO (21:48)
[2019-07-10] VITALS (54 sets, daily range): BP systolic 121–171; BP diastolic 75–116; PULSE 96–108; RESP 14–35; TEMP 36.9; O2SAT 97–99
[2019-07-10] MEDS: cyclobenzaprine 10 mg Tablet 5 MG PO (00:12)
[2019-07-10] MEDS: sodium chloride 0.9% 1,000 ML 50 ML IV (03:53)
[2019-07-10 05:36] LABS: Basophils # 0.1 10^3/uL (0.0-0.1); Basophils % 0.8 %; Eosinophils # 0.2 10^3/uL (0.0-0.8); Eosinophils % 1.2 %; Hematocrit 41.1 % (37.0-47.0); Hemoglobin 11.9 g/dL (11.5-15.3); Lymphocytes # 2.9 10^3/uL (0.8-4.8); Lymphocytes % 22.6 %; Mean Corpuscular Hemoglobin 23.7 pg (28.0-34.0); Mean Corpuscular Volume 81.9 fL (81-99); Mean Platelet Volume 10.8 fL (7.4-10.4); Monocytes # 1.3 10^3/uL (0.2-0.9); Neutrophils # 8.3 10^3/uL (1.8-7.7); Neutrophils % 64.9 %; Nucleated Red Blood Cells % 0 %; Platelet Count 406 10^3/cmm (130-400); Red Blood Count 5.02 10^6/uL (4.1-5.3); White Blood Count 12.8 10^3/uL (4.0-10.0)
[2019-07-10 05:59] LABS: Alanine Aminotransferase 8 U/L (0-33); Albumin Level 1.8 g/dL (3.5-5.2); Alkaline Phosphatase 125 IU/L (35-105); Anion Gap 14.6 (5-19); Aspartate Amino Transferase 14 U/L (0-32); Blood Urea Nitrogen 25 mg/dL (6-20); Calcium 8.7 mg/dL (8.5-10.5); Carbon Dioxide 21 mmol/L (22-29); Chloride 100 mmol/L (98-107); Globulin 4.6 g/dL (1.3-4.6); Glomerular Filtration Rate 59.2 mL/min (90-130); Glucose 216 mg/dL (65-115); Osmolality Calculated 275 mOsm/kg (285-295); Potassium 4.6 mmol/L (3.5-5.1); Sodium 131 mmol/L (136-145); Total Bilirubin 0.3 mg/dL (0.15-1.2); Total Protein 6.4 g/dL (6.6-8.7)
[2019-07-10 06:23] LABS: Glucose Point of Care 180 mg/dL (70-110)
--- NOTE | 2019-07-10 08:23 | PC.NURSE ---
Instructions from Dr. bro to hold this am insulin dose
--- NOTE | 2019-07-10 08:30 | XACV_ITS ---
Ht: 170 cm Wt: 127 kg BSA: 2.51 m2 Any Known Allergies: No known allergies Gender: Female : 1970 Exam Type: Invasive Peripheral Vascular Procedure(s): Procedure Description: Peripheral Cath Diagnostic Procedure Procedure Description: Peripheral vascular Intervention Procedure Description: PV Balloon Procedure Description: PV Atherectomy Exam Priority: Routine Lower Extremity Interventional Findings Reason for angiogram: Acute limb ischemia Through left common femoral approach right common iliac and common femoral artery was engaged peripheral angiogram was performed. Complete occlusion at the level of mid right tibioperoneal trunk was noted faint collaterals with delayed mild filling of right posterior tibial, peroneal artery and right anterior tibial artery . Right anterior tibial artery was chronically occluded in the mid segment. No distal flow noted. Procedure: With the help of seeker catheter and hydrophilic wire I was able to cross into the peroneal artery. Through seeker catheter Viper wire was exchanged , CSI atherectomy using 1.25 mm jennifer was used for atherectomy of tibioperoneal trunk. Multiple balloon angioplasty using 3.0 to 4.0 mm balloons were used to open up Tibioperoneal trunk. No reflow phenomenon was observed in peroneal artery, multiple injection of nitroglycerin and Cardine were used along with multiple attempts for thrombectomy through seeker catheter, However would not restore the flow in the leg and foot. Since we achieved a patent tibioperoneal trunk, and because of the fact anterior and posterior tibial arteries were highly calcified and chronically occluded with poor outflow, We discussed the case with Dr. Jonas again to see whether she can be benefited with surgical intervention. Nitro paste Massage was used. Post procedure right foot remained cold and pale, vascular surgery at [facility] was treated for discussion of the case and possible transfer. Patient understands the risk of transfer, patient understand that she may will be requiring open leg surgery/grafting or amputation of leg/ foot due to her baseline disease. She would like to proceed with it. She was also noted to have no flow below the left knee at the time of procedure conclusion. Left leg peripheral angiogram showed patent left common, left external and internal iliac, patent left common femoral artery, Patent left SFA and left popliteal artery , tibioperoneal trunk on the left side was occluded in the distal segment. Hemodynamic Data Phase:Rest AO : 133.0 mmHg / 81.0 mmHg ( 99.0 mmHg ) @ 3:21:00 AM 143.0 mmHg / 89.0 mmHg ( 160.0 mmHg ) @ 3:28:00 AM 161.0 mmHg / 84.0 mmHg ( 109.0 mmHg ) @ 3:33:00 AM 162.0 mmHg / 85.0 mmHg ( 109.0 mmHg ) @ 3:34:00 AM 141.0 mmHg / 81.0 mmHg ( 102.0 mmHg ) @ 3:45:00 AM 135.0 mmHg / 77.0 mmHg ( 98.0 mmHg ) @ 3:53:00 AM 164.0 mmHg / 84.0 mmHg ( 107.0 mmHg ) @ 4:00:00 AM 124.0 mmHg / 69.0 mmHg ( 87.0 mmHg ) @ 4:22:00 AM 154.0 mmHg / 73.0 mmHg ( 98.0 mmHg ) @ 4:54:00 AM 164.0 mmHg / 95.0 mmHg ( 107.0 mmHg ) @ 5:13:00 AM Access Site Site: Left Femoral artery Sheath Size: 6 Fr Hemost... Method: Suture Hemost... Success: Successful Procedure Details Findings Procedure Consent Obtained. Pre-Procedure Time Out. Identified patient by full name and date of as verbalized by the patient/guarantor. Does the consent match the physician's order: Yes. Accurate & Complete Informed Consent: Yes. Inpatient/Outpatient History & Physical on Chart: Yes. If H&P is completed, is and addenduem needed: N/A; If yes, is the addendum complete: N/A. Visualize and Verify Site with Patient/Guarantor: N/A. Relevant Radiology Images available: Yes. Pre-op teaching completed and patient verbalized understanding. The risks, benefits, and alternatives of sedation and/or procedure were discussed by physician. The patient agrees to continue. Procedure started. PERRLA. Strong, equal hand dip unit operator bilaterally. Lungs clear x 5 lobes. IV Site on Arrival: 20 gauge in the left forearm. IV Fluids: 0.9% NaCl at KVO. 0 mL infused prior to minilab operator. Oxygen started at 2liters/min via nasal canula. bilateral groins was prepped with chloroprep then draped in the usual sterile fashion. Physician notified. Baseline sample Acquired. HR: 96 BPM. Physician arrived. Equipment: 6F - Femoral. Cardiac Cath Pack. ACIST Manifold Kit Model BT 2000. Heparinized Saline (2 units/mL), 1000 mL bag. Kit, Micropuncture. Physician scrubbed in. Immediate Pre-Procedure Time Out. Correct Patient: Yes; Correct Procedure: Yes; Correct Site: Yes; Correct Patient Position: Yes; Correct Supplies: Yes; Dried Flammable Prep: Yes; Blood Products Available: No;. Lidocaine 1% infiltrated to the left groin. Arterial access obtained with micropuncture set. A 4FrFr RIM catheter in over wire. catheter removed. 6 fr short sheath exchanged for a 6fr long sheath. Maggi Wyatt RN scrubbed in to circulate. right leg runoff 10ml/sec for a total of 30ml. Side port of sheath attached to Normal Saline flush at KVO to maintain patency. [place] wire inserted. seeker inserted over glide wire. Glidewire removed. Hand injection performed. viper wire inserted to right tibial peroneal trunk. seeker catheter removed over viper wire. loading jennifer. orbital atherectomy. jennifer removed. seeker inserted over viper wire. hand injection performed. command wire inserted. seeker removed. Inflation number : 1 A AB ARMADA 14 OTW [id number] was prepped and advanced across the Tibial Peroneal Trunk, Right , then inflated to 10 JO for 1:05 seconds. Inflation number: 2 The AB ARMADA 14 OTW [id number] was reinflated across the Tibial Peroneal Trunk, Right, to 10 JO for 1:01 seconds. Balloon out. seeker inserted. command wire removed. command wire inserted to the right tibial peroneal trunk. Inflation number : 3 A AB TREK [id number] RX BALLOON was prepped and advanced across the Tibial Peroneal Trunk, Right , then inflated to 8 JO for 2:16 seconds. Inflation number: 4 The AB TREK [id number] RX BALLOON was reinflated across the Tibial Peroneal Trunk, Right, to 8 JO for 2:01 seconds. balloon removed. Inflation number: 5 The AB TREK [id number] RX BALLOON was reinflated across the Tibial Peroneal Trunk, Right, to 14 JO for 2:00 seconds. Khoa Sheikh RN scrubbed in to circulate. hand injection. Inflation number : 6 A MDT NC EUPHORA RX [id number] BALLOON was prepped and advanced across the Tibial Peroneal Trunk, Right , then inflated to 12 JO for 1:01 seconds. Inflation number: 7 The MDT NC EUPHORA RX 5.20V13AK BALLOON was reinflated across the Tibial Peroneal Trunk, Right, to 10 JO for 0:31 seconds. Inflation number: 8 The MDT NC EUPHORA RX [id number] BALLOON was reinflated across the Tibial Peroneal Trunk, Right, to 8 JO for 0:33 seconds. Inflation number: 9 The MDT NC EUPHORA RX [id number] BALLOON was reinflated across the Tibial Peroneal Trunk, Right, to 8 JO for 0:08 seconds. Inflation number: 10 The MDT NC EUPHORA RX [id number] BALLOON was reinflated across the Tibial Peroneal Trunk, Right, to 8 JO for 0:11 seconds. Inflation number: 11 The MDT NC EUPHORA RX 5.78I09PS BALLOON was reinflated across the Tibial Peroneal Trunk, Right, to 8 JO for 0:15 seconds. Inflation number: 12 The MDT NC EUPHORA RX 5.23X08WF BALLOON was reinflated across the Tibial Peroneal Trunk, Right, to 6 JO for 0:19 seconds. Inflation number: 13 The MDT NC EUPHORA RX 5.95H26LL BALLOON was reinflated across the Tibial Peroneal Trunk, Right, to 12 JO for 1:01 seconds. Inflation number: 14 The MDT NC EUPHORA RX 5.03P18HN BALLOON was reinflated across the Tibial Peroneal Trunk, Right, to 12 JO for 1:01 seconds. Inflation number: 15 The MDT NC EUPHORA RX 5.85U12XO BALLOON was reinflated across the Tibial Peroneal Trunk, Right, to 12 JO for 0:30 seconds. Inflation number: 16 The MDT NC EUPHORA RX 5.15H25UR BALLOON was reinflated across the Tibial Peroneal Trunk, Right, to 12 JO for 0:20 seconds. balloon out. Seeker inserted over the command wire. commmand wire out. inserting the Viper wire into th Seeker. Viper wire inserted. Jennifer inserted over Viper wire. orbital atherectomy performed. [place] removed. Viper removed.Command wire inserted. Inflation number: 17 The AB TREK [id number] RX BALLOON was reinflated across the Tibial Peroneal Trunk, Right, to 12 JO for 2:00 seconds. ballon out. wire removed. Inflation number : 18 A AB ARMADA 14 OTW [id number] was prepped and advanced across the Tibial Peroneal Trunk, Right , then inflated to 12 JO for 1:01 seconds. Inflation number: 19 The AB ARMADA 14 OTW [id number] was reinflated across the Tibial Peroneal Trunk, Right, to 12 JO for 1:01 seconds. ballon removed. glidewire inserted. 6fr long sheath exchanged for a 6fr short sheath. 10ml/sec for a total of 30ml left leg runoff. A Suture was successful obtaining hemostatsis at the Left Femoral artery insertion site. Sheath(s) sutured into position with 2-0 silk and sterile 4x4's and Op-site applied over the site. No oozing or signs and symptoms of hematoma noted. Arterial sheath flushed and connected to tranducer and pressure bag with heparinized saline. Post Procedure: Pulses reassessed and unchanged. PERRLA. Strong, equal hand dip unit operator bilaterally. No VTE prophylaxis required. Fluoro: 291:00. Contrast type used: Visipaque 320 mgI/mL, 500 mL bottle. [id number]. Post-op diagnosis: PAD. Complications: none. Estimated blood loss: 5mL-10mL. Procedure completed. Medication's Wasted: Other = versed mg. Medication's Wasted: Nitro = 46.9 mg. Medication's Wasted: Other = cardene 23.5 mg. Medication's Wasted: Heparin = 1000 units. Total IV fluids: 214 mL. Vital chart was stopped. Procedure Medications Start: 8:52 AM Stop: 8:52 AM Medication: Zofran (ondansetron) Amount: 4 mg Route: I.V. Start: 8:58 AM Stop: 8:58 AM Medication: Versed Amount: 1 mg Route: I.V. Start: 8:59 AM Stop: 8:59 AM Medication: Fentanyl Amount: 50 mcg Route: I.V. Start: 9:02 AM Stop: 9:02 AM Medication: Versed Amount: 1 mg Route: I.V. Start: 9:02 AM Stop: 9:02 AM Medication: Fentanyl Amount: 50 mcg Route: I.V. Start: 9:22 AM Stop: 9:22 AM Medication: Heparin Amount: 5000 units Route: I.V. Start: 9:33 AM Stop: 9:33 AM Medication: Nitrogylcerin Amount: 500 mcg Route: I.A. Start: 9:34 AM Stop: 9:34 AM Medication: Versed Amount: 1 mg Route: I.V. Start: 9:34 AM Stop: 9:34 AM Medication: Fentanyl Amount: 25 mcg Route: I.V. Start: 9:42 AM Stop: 9:42 AM Medication: Fentanyl Amount: 25 mcg Route: I.V. Start: 9:42 AM Stop: 9:42 AM Medication: Versed Amount: 1 mg Route: I.V. Start: 9:44 AM Stop: 9:44 AM Medication: Nitrogylcerin Amount: 400 mcg Route: I.A. Start: 9:49 AM Stop: 9:49 AM Medication: Heparin Amount: 3000 units Route: I.V. Start: 9:57 AM Stop: 9:57 AM Medication: Nitrogylcerin Amount: 400 mcg Route: I.A. Start: 10:02 AM Stop: 10:02 AM Medication: Versed Amount: 1 mg Route: I.V. Start: 10:13 AM Stop: 10:13 AM Medication: Cardene Amount: 500 mcg Route: I.A. Start: 10:26 AM Stop: 10:26 AM Medication: Versed Amount: 1 mg Route: I.V. Start: 10:26 AM Stop: 10:26 AM Medication: Fentanyl Amount: 25 mcg Route: I.V. Start: 10:29 AM Stop: 10:29 AM Medication: Cardene Amount: 500 mcg Route: I.A. Start: 10:30 AM Stop: 10:30 AM Medication: Heparin Amount: 2000 units Route: I.V. Start: 10:32 AM Stop: 10:32 AM Medication: Cardene Amount: 500 mcg Route: I.A. Start: 10:38 AM Stop: 10:38 AM Medication: Versed Amount: 1 mg Route: I.V. Start: 10:38 AM Stop: 10:38 AM Medication: Fentanyl Amount: 25 mcg Route: I.V. Start: 10:48 AM Stop: 10:48 AM Medication: Cardene Amount: 500 mcg Route: I.A. Start: 10:55 AM Stop: 10:55 AM Medication: Versed Amount: 1 mg Route: I.V. Start: 10:56 AM Stop: 10:56 AM Medication: Fentanyl Amount: 50 mcg Route: I.V. Start: 11:13 AM Stop: 11: AM Medication: Cardene Amount: 500 mcg Route: I.A. Start: 11: AM Stop: : AM Medication: Nitrogylcerin Amount: 500 mcg Route: I.A. Start: 11: AM Stop: : AM Medication: Versed Amount: 1 mg Route: I.V. Start: : AM Stop: AM Medication: Fentanyl Amount: 50 mcg Route: I.V. Start: 11:33 AM Stop: : AM Medication: Nitrogylcerin Amount: 400 mcg Route: I.A. I, the attending physician, have reviewed and verified all procedure medications. Yes, all medications given per verbal order History/Risk Factors Hypertension: Yes Dyslipidemia: No Diabetic Therapy: Insulin Peripheral Arterial Disease (PAD): Yes Myocardial Infarction (MD): No Obesity: Yes Renal Disease: No Tobacco Use: Never Prior Interventions PCI: No CABG: No Valve Surgery: No Report Signatures Finalized by:Sofi Dorsey MD on 07/14/2019 8:39:49 PM
--- NOTE | 2019-07-10 10:52 | PC.CHAP ---
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 agriculture consultant visit [] Patient/Family/Request visit [] Outpatient visit [x] Follow-up visit [] Physician referral [] Code/Alert [] Routine visit [] Staff referral [] Actively dying [] Patient sleeping [] Family support [] [x] Out of room [] Palliative care [] [] Receiving care in room [] Pre-surgical visit [] Trauma [] Long length of stay [] ICU visit [x] Other: Follow up needed Relational/Emotional Strength [] Patient feels connected with others/family/visitors/staff [] Distress [] Loneliness/isolation [] Abandonment Spirituality of Patient [] Person of Crystal [] Attends Orthodox of their Crystal [] Believes in Prayer [] Reads Bible or Cheondoism materials [] There are Spiritual issues to be addressed Recruiting Operations Consultant Interventions [] Prayer [] Active listening [] Non-anxious presence [] Spiritual/emotional support [] Crisis/trauma care [] Spiritual counseling [] Bereavement support [] Provided bereavement packet [] Provided Bible/devotional materials [] Provided toy/stuffed animal, coloring book to patient or family member [] Provided Communion [] Anointing/[place] [] Salvation [] Completed spiritual assessment [] Other: Impact on Illness or Injury [] Angry [] Fearful [] Anxious [] Often cries [] Exhaustion [] Unable to work [] Unable to attend episcopalian [] Unable to walk/stand [] Unable to read [] Unable to drive [] Unable to eat/drink [] Unable to sleep [] Unable to be with family [] Patient intubated [] Other: Summary Pt is in surgery and willl not be able to have visitors/agriculture consultant for rest of day. Follow up needed Recruiting Operations Consultant Kelley Mancera Time spent with patient 2 minutes
[2019-07-10 11:57] LABS: Anti-Nuclear Antibody Screen NEGATIVE (NEGATIVE)
[2019-07-10] MEDS: nitroglycerin 1 gm/inch oint Pkt 2 INCH TOPICAL ×2 (12:45→20:29)
[2019-07-10] MEDS: morphine 4 mg/mL SDV 1 mL 2 MG IVP ×2 (13:56→14:49)
[2019-07-10 14:31] LABS: Partial Thromboplastin Time 29.6 SECONDS (23.9-36.7)
--- NOTE | 2019-07-10 14:39 | P.PN_ITS ---
Subjective Subjective: Interval history: Eliza reports she has quite a bit of pain in the right leg, following her angiogram. From my understanding this was only partially successful. Cardiology is visiting with vascular surgery regarding the case. Medications: Reviewed: Yes Vitals/I&O/Wt Last Vital Signs Temp 98.4 F 07/10/19 07:40 Pulse 100 07/10/19 07:40 Resp 19 H 07/10/19 07:40 BP 141/90 07/10/19 07:40 Pulse Ox 99 07/10/19 07:40 07/09/19 07/10/19 07/10/19 22:59 06:59 14:59 Intake Total 240 / 480 240 / 240 Balance 240 / 280 240 / 240 Physical Exam Narrative: EXAM NARRATIVE: General exam is no apparent distress Cardiovascular regular rate and rhythm without murmur Lungs clear no wheezing or crackles Abdomen is soft with positive bowel sounds Extremities no cyanosis clubbing. Right lower extremity with some pallor. Pulses are difficult to palpate. Left groin without significant hematoma. Data : 07/10/19 05:20 07/10/19 05:20 A&P Assessment and plan (1) Acute non-ST elevation myocardial infarction (NSTEMI): Type II. Patient is not having chest discomfort. Continue aspirin, statin, carvedilol Status: Acute Code(s): I21.4 - Non-ST elevation (NSTEMI) myocardial infarction (2) Chest pain: Recent coronary angiogram with no significant obstructive coronary artery disease Status: Acute Code(s): R07.9 - Chest pain, unspecified (3) Poorly controlled diabetes mellitus: Aggressive sliding scale Continue Lantus Status: Acute Code(s): E11.65 - Type 2 diabetes mellitus with hyperglycemia (4) Lower limb ischemia: Continue full dose anticoagulation Cardiology reports angiogram only partially successful, and they are in discussion with vascular surgery regarding the potential for further intervention Continue aspirin, carvedilol, statin Status: Acute Code(s): I99.8 - Other disorder of circulatory system Additional A&P Information History of DVT. Continue on a full dose Lovenox currently, holding Eliquis while awaiting procedure Hyponatremic. Improved. Continue to hold Aldactone. Acute kidney injury, unchanged. Hyperkalemia. Kayexalate given. Improved. Aldactone discontinued Nonischemic cardiomyopathy: Echocardiogram from 06/20/2019 reviewed showed LVEF of 30%, global hypokinesis Kidney disease, stage II History of medication noncompliance Attestations Medical Necessity Statement*: Needs continued hospitalization, for definitive care of right lower extremity ischemia Coding Level of Care Code Acute [place] Pump Operator for brittany Fwernestine Diagnoses Acute non-ST elevation myocardial infarction (NSTEMI) I21.4 Chest pain R07.9 Poorly controlled diabetes mellitus E11.65 Lower limb ischemia I99.8
[2019-07-10] MEDS: hyDRALAzine 10 mg Tablet PO ×2 (14:49→20:29)
[2019-07-10] MEDS: enoxaparin 120 mg/0.8 mL Syringe SUBCUT (14:50)
[2019-07-10] MEDS: hyDRALAzine 20 mg/mL INJ 1 mL 10 MG IVP (16:16)
[2019-07-10] MEDS: HYDROmorphone 1 mg/mL INJ 1 mL IVP ×2 (16:46→20:29)
[2019-07-10 17:28] LABS: Glucose Point of Care 164 mg/dL (70-110)
--- NOTE | 2019-07-10 17:45 | P.TS_ITS ---
Transfer Summary Providers Date of Admission: 07/07/19 16:43 Date of Discharge: 07/10/19 Attending Provider at Admission: Megan Lala DO Attending Provider at Transfer: Blake Wong MD Primary Care Provider: Erik Castillo Anticipated Date of Transfer: Anticipated date of transfer: 07/10/19 Receiving Facility & Provider: Receiving Provider: [] Receiving facility: [] Diagnoses at Discharge Discharge Diagnosis (1) Chest pain: Status: Acute Qualifiers: Chest pain type: unspecified Qualified Code(s): R07.9 - Chest pain, unspecified (2) Poorly controlled diabetes mellitus: Status: Acute (3) Lower limb ischemia: Status: Acute Reason for Visit Reason for Visit: Reason For Visit: chest pain Hospital Course Hospital Course: Eliza Quinn is a 48 year old female Past medical history significant for uncontrolled diabetes mellitus, sevre below the knee peripheral vascular disease bilaterally ,Peripheral neuropathy, history of DVT, History of chest pain with recent normal coronary angiogram, obesity and noncompliance Presented to the emergency room with nausea vomiting chest pain weakness and right leg pain. Patient blood sugar was more than 500 while troponin generation 5 was high with nonspecific ST changes noted. She was recently discharged from the hospital When she was admitted for worsening of chest pain and right leg pain. 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 Thrombectomy followed by balloon angioplasty of the right tibioperoneal trunk anterior and posterior tibial and peroneal artery was performed. Reasonable flow below the knee was restored with dopplerable posterior and faint anterior tibial pulse. Patient was started on anticoagulation and as outpatient she was scheduled to see Dr. Galo Jonas in the [place] next week. She was also seen by me in the clinic a few days ago when despite of increasing Lasix right leg was Swollen . Four days back patient presented with Nausea vomiting flu like symptoms and chest pressure. Due to abnormal EKG we were called to see the patient I was not convinced that she has acute coronary syndrome, nearly a week back she has a normal angiogram of the coronary arteries, however due to right foot pain and dusky color patient was admitted for treatment, Patient was started on anticoagulation as she remained noncompliant and was not taking Eliquis. I contacted vascular surgery in the [facility], where plan was that early this week she was scheduled to see Dr. Jonas in the clinic we will continue with that appointment however since last night patient started having more worsening of right foot pain. I discussed the case with vascular surgery yesterday, we decided that We should try once again with angiogram and give a chance for percutaneous intervention to see whether we can improve the flow in the right leg and foot. This morning peripheral angiogram was performed she was noted to have 100% occlusion in the tibioperoneal trunk beyond which no flow was observed. With the help of seeker catheter and hydrophilic wire I was able to cross into the peroneal artery. Through seeker catheter Viper wire was exchanged , CSI atherectomy using 1.25 mm bur was used for atherectomy of tibioperoneal trunk. Multiple balloon angioplasty using 3.0 to 4.0 mm balloons were used to open up Tibioperoneal trunk. No reflow phenomenon was observed in peroneal artery, multiple injection of nitroglycerin and Cardine were used along with multiple attempts for thrombectomy through seeker catheter, However would not restore the flow in the leg and foot. Since we achieved a patent tibioperoneal trunk, and because of the fact anterior and posterior tibial arteries were highly calcified and chronically occluded with poor outflow, We discussed the case with Dr. Jonas again to see whether she can be benefited with surgical intervention. Patient foot was Warm, nitro paste Massage was used. Post procedure performed remain cold and pale. She Is complaining of right foot pain which is worsening, therefore I contacted vascular surgery at [facility] who accepted her transfer. Patient understands the risk of transfer patient understand that she may will be requiring open leg surgery/grafting or amputation of leg/ foot due to her baseline disease. She would like to proceed with it.She was also noted to have no flow below the left knee. She has dopplerable faint anterior posterior tibial pulses on the left side though. From a Cardiac perspective he shouldn't is stable to withstand vascular surgery. Physical Exam Narrative: EXAM NARRATIVE: GENERAL: Patient is alert, awake and oriented x3. NECK: No jugular vein distension. HEENT: No cyanosis. No icterus. No pallor. HEART: Regular S1 and S2. No murmur, rub or gallop. LUNGS: Clear to auscultate bilaterally. ABDOMEN: Soft, nontender and nondistended. Positive bowel sounds. No guarding, rebound or tenderness. CENTRAL NERVOUS SYSTEM: Grossly nonfocal. EXTREMITIES: Lower extremities with 1+ edema bilaterally. Right foot pale and co ld. No dopplerable anterior posterior tibial pulse in the right foot., painful to move forefoot. Patient has dopplerable anterior and posterior tibial on the left foot. Urinary Catheter Management^: Pierre: Cath Placed During This Visit: yes Urinary Catheter Date of Insertion: 07/10/19 Urinary Catheter Time of Insertion: 13:45 TS Data Data Completed and Pending: Completed Studies During Hospitalization Category Date Time Status XR chest 1V zafar ble [id number] Stat Exams 07/06/19 09:30 Completed US arterial duple x lower extremity bilat [CV arterial Ultrasound 07/06/19 16:07 [place] [id number]] Routine Pending at discharge Category Date Time Status CONTENT PRODUCTION SPECIALIST request for service Routin e Exams 07/10/19 08:30 Taken Anti-Neutrophil C utoplasmic AB Stat Lab 07/08/19 11:58 Received Basic Metabolic P demarco AM LABS Lab 07/11/19 04:00 Ordered Complete Blood Co unt w/Auto AM LABS Lab 07/11/19 04:00 Ordered Complete Blood Co unt w/Auto AM LABS Lab 07/11/19 04:00 Ordered Comprehensive Met abolic Panel AM LA BS Lab 07/11/19 04:00 Ordered Labs from last 24 hours 07/10/19 07/10/19 07/10/19 17:19 13:50 06:20 WBC RBC Hgb Hct MCV MCH MCHC RDW Plt Count MPV Neut % (Auto) Lymph % (Auto) [place] % (Auto) Eos % (Auto) Baso % (Auto) Neut # (Auto) Lymph # (Auto) [place] # (Auto) Eos # (Auto) Baso # (Auto) Nucleated RBC % (a uto) Nucleated RBCs # APTT 29.6 Sodium Potassium Chloride Carbon Dioxide Anion Gap BUN Creatinine GFR Calculation Glucose POC Glucose 164 180 Calculated Osmolal ity Calcium Total Bilirubin AST ALT Alkaline Phosphata se Total Protein Albumin Globulin CHELSEY Screen 07/10/19 07/10/19 07/09/19 05:20 05:20 20:32 WBC 12.8 H RBC 5.02 Hgb 11.9 Hct 41.1 MCV 81.9 MCH 23.7 L MCHC 29.0 L RDW 17.0 H Plt Count 406 H MPV 10.8 H Neut % (Auto) 64.9 Lymph % (Auto) 22.6 [place] % (Auto) 10.0 Eos % (Auto) 1.2 Baso % (Auto) 0.8 Neut # (Auto) 8.3 H Lymph # (Auto) 2.9 [place] # (Auto) 1.3 H Eos # (Auto) 0.2 Baso # (Auto) 0.1 Nucleated RBC % (a uto) 0 Nucleated RBCs # 0.0 APTT Sodium 131 L Potassium 4.6 Chloride 100 Carbon Dioxide 21 L Anion Gap 14.6 BUN 25 H Creatinine 1.0 H GFR Calculation 59.2 L Glucose 216 H POC Glucose 303 Calculated Osmolal ity 275 L Calcium 8.7 Total Bilirubin 0.3 AST 14 ALT 8 Alkaline Phosphata se 125 H Total Protein 6.4 L Albumin 1.8 L Globulin 4.6 CHELSEY Screen 07/08/19 11:58 WBC RBC Hgb Hct MCV MCH MCHC RDW Plt Count MPV Neut % (Auto) Lymph % (Auto) [place] % (Auto) Eos % (Auto) Baso % (Auto) Neut # (Auto) Lymph # (Auto) [place] # (Auto) Eos # (Auto) Baso # (Auto) Nucleated RBC % (a uto) Nucleated RBCs # APTT Sodium Potassium Chloride Carbon Dioxide Anion Gap BUN Creatinine GFR Calculation Glucose POC Glucose Calculated Osmolal ity Calcium Total Bilirubin AST ALT Alkaline Phosphata se Total Protein Albumin Globulin CHELSEY Screen Negative Vitals: Last Vital Signs Temp 98.4 F 07/10/19 07:40 Pulse 108 H 07/10/19 15:32 Resp 27 H 07/10/19 16:46 BP 156/94 07/10/19 15:32 Pulse Ox 99 07/10/19 07:40 TS Medications Medications Home Medications acetaminophen [Tylenol Extra Strength] 1,000 mg PO Q4H PRN 06/04/19 [History Confirmed 07/06/19] aspirin [Aspir-Low] 81 mg PO DAILY 06/04/19 [History Confirmed 07/06/19] atorvastatin 40 mg PO DAILY 06/04/19 [History Confirmed 07/06/19] carvedilol 3.125 mg PO BID 06/04/19 [History Confirmed 07/06/19] famotidine 20 mg PO BID 06/04/19 [History Confirmed 07/06/19] furosemide [Lasix] 40 mg PO DAILY 06/04/19 [History Confirmed 07/06/19] gabapentin 100 mg PO TID PRN 06/04/19 [History Confirmed 07/06/19] hydralazine 10 mg PO TID 06/04/19 [History Confirmed 07/06/19] insulin lispro [Humalog KwikPen Insulin] See Rx Instructions .ROUTE .COMPLEX 06/04/19 [History Confirmed 07/06/19] norethindrone acetate 10 mg PO BID 06/04/19 [History Confirmed 07/06/19] spironolactone 12.5 mg PO DAILY 06/04/19 [History Confirmed 07/06/19] cyclobenzaprine 5 mg PO TID PRN 06/20/19 [History Confirmed 07/06/19] Touflaca SoloStar U-300 Insulin 55 unit SUBCUT BID #0 ml 06/24/19 [Rx Confirmed 07/06/19] pantoprazole 40 mg PO DAILY #30 tab 06/24/19 [Rx Confirmed 07/06/19] potassium chloride 10 meq PO DAILY #30 cap 06/24/19 [Rx Confirmed 07/06/19] tramadol 50 mg PO QID PRN #30 tab 06/24/19 [Rx Confirmed 07/06/19] prednisone 20 mg tablet 40 mg PO .COMPLEX #7 tab 06/30/19 [Rx Confirmed 07/06/19] apixaban [Eliquis] 5 mg PO BID 07/06/19 [History Confirmed 07/06/19] fluoxetine [Prozac] 10 mg PO DAILY 07/06/19 [History Confirmed 07/06/19] semaglutide [Ozempic] 0.25 mg SUBCUT Q7D 07/06/19 [History Confirmed 07/06/19] trazodone 100 mg PO BEDTIME 07/06/19 [History Confirmed 07/06/19] Active Medications Acetaminophen (Tylenol) 1,000 mg PO Q4H PRN PRN Reason: Pain Acetaminophen (Tylenol) 650 mg PO Q6H PRN PRN Reason: Mild/Mod Pain Or Temp >/= 101 Al Hydrox/Mg Hydrox/Simethicone (Maalox) 30 ml PO Q15M PRN PRN Reason: INDIGESTION Alprazolam (Xanax) 0.25 mg PO TID PRN PRN Reason: ANXIETY Aspirin (Aspirin Ec) 81 mg PO DAILY [facility] Last Admin: 07/09/19 09:02 Dose: 81 mg Documented by: Atorvastatin Calcium (Lipitor) 40 mg PO DAILY [facility] Last Admin: 07/09/19 09:02 Dose: 40 mg Documented by: Atropine Sulfate (Atropine) 0.5 mg IVP PRN PRN PRN Reason: Symptomatic bradycardia Carvedilol (Coreg) 3.125 mg PO BID [facility] Last Admin: 07/09/19 18:10 Dose: 3.125 mg Documented by: Cyclobenzaprine HCl (Flexeril) 5 mg PO TID PRN PRN Reason: MUSCLE PAIN Last Admin: 07/10/19 00:12 Dose: 5 mg Documented by: Dextrose (D50w) 25 ml IVP ONCE PRN; Protocol PRN Reason: hypoglycemia protocol Dextrose (D50w) 50 ml IVP PRN PRN; Protocol PRN Reason: hypoglycemia protocol Dextrose (D50w) 25 ml IVP ONCE PRN; Protocol PRN Reason: hypoglycemia protocol Dextrose (D50w) 50 ml IVP PRN PRN; Protocol PRN Reason: hypoglycemia protocol Enoxaparin Sodium (Lovenox) 120 mg SUBCUT Q12H [facility] Last Admin: 07/10/19 14:50 Dose: 120 mg Documented by: Famotidine (Pepcid Tab) 20 mg PO BID [facility] Last Admin: 07/09/19 18:10 Dose: 20 mg Documented by: Fluoxetine HCl (Prozac) 10 mg PO DAILY [facility] Last Admin: 07/09/19 09:02 Dose: 10 mg Documented by: Gabapentin (Neurontin) 100 mg PO TID PRN PRN Reason: Pain Glucagon (Glucagen) 1 mg IM ONCE PRN; Protocol PRN Reason: Adult Acute Hypoglycemia Prot. Hydralazine HCl (Apresoline) 10 mg PO TID [facility] Last Admin: 07/10/19 14:49 Dose: 10 mg Documented by: Hydromorphone HCl (Dilaudid Inj) 1 mg IVP Q2H PRN PRN Reason: PAIN Last Admin: 07/10/19 16:46 Dose: 1 mg Documented by: Dextrose (D5w) 500 mls @ 100 mls/hr IV ONCE PRN; Protocol PRN Reason: Adult Acute Hypoglycemia Prot Dextrose (D5w) 500 mls @ 100 mls/hr IV ONCE PRN; Protocol PRN Reason: Adult Acute Hypoglycemia Prot Sodium Chloride (Sodium Chloride 0.9%) 1,000 mls @ 100 mls/hr IV .Q10H [facility] Last Admin: 07/10/19 13:26 Dose: Not Given Documented by: Insulin Aspart (Novolog) 0 unit SUBCUT WM&BEDTIME [facility]; Protocol Last Admin: 07/10/19 08:21 Dose: Not Given Documented by: Insulin Glargine (Lantus) 50 unit SUBCUT BEDTIME [facility] Last Admin: 07/09/19 21:47 Dose: 50 unit Documented by: Magnesium Hydroxide (Milk Of Magnesia) 30 ml PO DAILY PRN PRN Reason: CONSTIPATION Naloxone HCl (Narcan) 0.1 mg IVP Q2M PRN PRN Reason: RESPIRATORY RATE < 8/MIN Nitroglycerin (Nitrostat) 0.4 mg SUBLINGUAL Q5M PRN PRN Reason: CHEST PAIN Nitroglycerin (Nitro-Bid) 2 inch TOPICAL Q8H [facility] Last Admin: 07/10/19 12:45 Dose: 2 inch Documented by: Ondansetron HCl (Zofran) 4 mg IVP Q6H PRN PRN Reason: NAUSEA AND VOMITING Last Admin: 07/09/19 22:14 Dose: 4 mg Documented by: Pantoprazole Sodium (Protonix) 40 mg PO DAILY [facility] Last Admin: 07/09/19 09:02 Dose: 40 mg Documented by: Temazepam (Restoril) 15 mg PO BEDTIME PRN PRN Reason: INSOMNIA Tramadol HCl (Ultram) 50 mg PO QID PRN PRN Reason: pain Last Admin: 07/07/19 15:00 Dose: 50 mg Documented by: Trazodone HCl (Desyrel) 100 mg PO BEDTIME [facility] Last Admin: 07/09/19 21:48 Dose: 100 mg Documented by: Discharge Plan Discharge Patient Disposition: Home, Self-Care Condition: Stable Prescriptions: No Action prednisone 20 mg tablet 40 mg PO .COMPLEX Qty: 7 RF: 0 cyclobenzaprine 5 mg Tablet 5 mg PO TID PRN (Reason: Muscle Pain) RF: 0 pantoprazole 40 mg tablet,delayed release (DR/EC) 40 mg PO DAILY Qty: 30 RF: 4 potassium chloride 10 mEq capsule, extended release 10 meq PO DAILY Qty: 30 RF: 3 tramadol 50 mg tablet 50 mg PO QID PRN (Reason: pain) Qty: 30 RF: 0 Toujeo SoloStar U-300 Insulin 300 unit/mL (1.5 mL) Insulin Pen 55 unit SUBCUT BID Qty: 0 RF: 0 furosemide [Lasix] 40 mg Tablet 40 mg PO DAILY RF: 0 atorvastatin 40 mg Tablet 40 mg PO DAILY RF: 0 hydralazine 10 mg Tablet 10 mg PO TID RF: 0 aspirin [Aspir-Low] 81 mg Tablet,Delayed Release (Dr/Ec) 81 mg PO DAILY RF: 0 acetaminophen [Tylenol Extra Strength] 500 mg Tablet 1,000 mg PO Q4H PRN (Reason: Pain) RF: 0 spironolactone 25 mg Tablet 12.5 mg PO DAILY RF: 0 carvedilol 3.125 mg Tablet 3.125 mg PO BID RF: 0 famotidine 20 mg Tablet 20 mg PO BID RF: 0 norethindrone acetate 5 mg tablet 10 mg PO BID RF: 0 gabapentin 100 mg Capsule 100 mg PO TID PRN (Reason: Pain) RF: 0 insulin lispro [Humalog KwikPen Insulin] 100 unit/mL Insulin Pen See Rx Instructions .ROUTE .COMPLEX RF: 0 trazodone 100 mg Tablet 100 mg PO BEDTIME RF: 0 Prozac 10 mg Capsule 10 mg PO DAILY RF: 0 Eliquis 5 mg Tablet 5 mg PO BID RF: 0 Ozempic 0.25 mg or 0.5 mg(2 mg/1.5 mL) Pen Injector 0.25 mg SUBCUT Q7D RF: 0 Discharge Orders: Transfer Out of Facility (Order); Ordered 07/10/19 Ordered By: Blake Wong Transfer Attestations Time Spent in Transfer Care*: greater than 30 min Specific Discharge Activities: Specific discharge activities: educating and/or supporting family/caregiver and discussing with pcp/other providers Quality Metrics Clinical Quality Measures: During this hospital stay, did patient experience: None Coding Level of Care Code Established Pt Acute Moving Picture Producer for Chg Fwd Patient Type Established History Expanded Problem Focused Exam Expanded Problem Focused Medical Decision Making Moderate Complexity Diagnoses Chest pain R07.9 Chest pain type: unspecified Poorly controlled diabetes mellitus E11.65 Lower limb ischemia I99.8
[2019-07-10] MEDS: carvedilol 3.125 mg Tablet PO (19:21)
[2019-07-10] MEDS: diazePAM 5 mg Tablet 10 MG PO (19:21)
[2019-07-10] MEDS: famotidine 20 mg Tablet PO (19:21)
--- NOTE | 2019-07-10 19:50 | PC.NURSE ---
Ashley Vicente APN given report via telephone regarding patient, Report given to Gunnar Farrar RN regarding patient at [facility] in [place] [employer]: : [facility] 4108-2 ----[phone]
[2019-07-10] MEDS: trazodone 100 mg Tablet PO (20:29)
--- NOTE | 2019-07-10 21:17 | PC.NURSE ---
patient picked up via [facility], Removed loza catheter as ordered per Dr. Dorsey. Patient's right groin site dressing dry and in place. Paperwork given to EMS and patient in route to [facility] in [place].
[2019-07-12 13:12] LABS: ANCA Interp Negative (Negative)
== END 2019-07-10 21:19 | disposition home or self-care (01) | DRG 271 ==
LOC: ER 10:13 → CSU 11:32
PROVIDERS: Family Medicine; Internal Medicine Cardiovascular Disease; Admitting Provider Family Medicine; Emergency Provider Family Medicine; Visit Provider Internal Medicine
PROC: 04CC3ZZ Extirpation of Matter from Right Common Iliac Artery, Percutaneous Approach (ICD-10-PCS; principal; 2019-07-10 08:30)
PROC: 04CC3ZZ Extirpation of Matter from Right Common Iliac Artery, Percutaneous Approach (ICD-10-PCS; 2019-07-10 08:30)
DX: I21.4 Non-ST elevation (NSTEMI) myocardial infarction (principal); N17.9 Acute kidney failure, unspecified; E87.1 Hypo-osmolality and hyponatremia; I42.8 Other cardiomyopathies; Z68.42 Body mass index [BMI] 45.0-49.9, adult; E11.65 Type 2 diabetes mellitus with hyperglycemia; I99.8 Other disorder of circulatory system; E66.9 Obesity, unspecified; R07.9 Chest pain, unspecified; I73.9 Peripheral vascular disease, unspecified; I20.0 Unstable angina; N18.2 Chronic kidney disease, stage 2 (mild); I12.9 Hypertensive chronic kidney disease with stage 1 through stage 4 chronic kidney disease, or unspecified chronic kidney disease; E87.5 Hyperkalemia; Z91.14 Patient's other noncompliance with medication regimen; Z86.718 Personal history of other venous thrombosis and embolism; Z87.891 Personal history of nicotine dependence; Z79.82 Long term (current) use of aspirin; Z79.02 Long term (current) use of antithrombotics/antiplatelets; Z79.84 Long term (current) use of oral hypoglycemic drugs; Z79.83 Long term (current) use of bisphosphonates; Z79.899 Other long term (current) drug therapy
CPT/HCPCS: 12345; 36415; 36416; 37229; 51702; 71045; 75716; 80048; 80053; 80074; 82550; 82962; 83516; 83735; 83880; 84100; 84132; 84484; 85025; 85651; 85730; 86038; 86140; 93005; 93925; 96372; 96375; 99283; C1724; C1725; C1769; C1887; C1894; G0378; J0360; J1170; J1644; J1650; J1815; J1940; J2001; J2060; J2250; J2270; J2405; J3010; J3490; J7030; J7512; Q9967

== ENCOUNTER 2019-08-24 18:05 | Emergency (ER) | payer BC, SELFPAY ==
[2019-08-24 18:06] VITALS: BP 115/62; PULSE 90; RESP 20; TEMP 37.1; O2SAT 98; BMI 86.9
--- NOTE | 2019-08-24 18:22 | ED_ITS ---
HPI - Wound/Laceration General: Chief Complaint: Wound/Laceration Stated Complaint: RIGHT KNEE INFECTION Time Seen by Provider: 08/24/19 18:12 History of Present Illness: HPI narrative: Ms. Quinn is a nice 48-year-old female who comes in complaining of drainage from her surgical wound. She is also had increased pain, nausea and generalized malaise. The drainage is purulent. The patient has subjective fevers but nothing objectively measured. The patient had a right lower extremity AKA 14 to [address] Wong at [facility] in [place]. She said she lost her leg secondary to poor circulation and blood clot that was present in her leg. She is currently rehabilitating at [facility] here in [place]. Associated symptoms: Denies chills, fever(s), nausea, syncope or vomiting Review of Systems General: Reports: other (negative unless marked) Const: Reports: body aches, fatigue and malaise; Denies: fever, chills or diaphoresis Eyes: Denies: change in vision or blurry vision ENMT: Denies: throat pain, painful swallowing, hoarseness, ear pain, ear discharge, Change in hearing or nasal discharge Card: Denies: chest pain, palpitations, irregular heart rhythm, syncope, pre- syncope, shortness of breath on exertion or shortness of breath when lying down Resp: Denies: shortness of breath, productive cough, non-productive cough, wheezing, coughing up blood or chest congestion GI: Denies: abdominal pain, nausea, vomiting, vomiting blood, coffee grounds in vomit, diarrhea, constipation, cramping, blood in stool or black tarry stool : Denies: flank pain, painful urination, urinary frequency, urinary urgency, decreased urine ouput, urinary incontinence or blood in urine Musc: Denies: neck pain, back pain, extremity pain, extremity swelling, joint pain, joint swelling, joint warmth or joint stiffness Skin/Breast: Reports: other (See HPI); Denies: rash, skin tenderness or yellow skin Neuro: Denies: headache, numbness in extremities, weakness in extremities, changes in sensation, lack of coordination, difficulty walking, dizziness, vertigo or confusion Endo: Denies: excessive thirst, tired all the time, cold intolerance, excessive sweating, flushing or hot flashes Hayder/Lymph: Denies: easy bruising, easy bleeding, petechiae or enlarged lymph nodes All/Imm: Denies: hives, throat swelling, tongue swelling, facial swelling or acute wheezing PFSH ED PFSH: Medical History Chronic anticoagulation Chronic kidney disease, stage II (mild) History of DVT (deep vein thrombosis) Nonischemic cardiomyopathy Poorly controlled diabetes mellitus PVD (peripheral vascular disease) with claudication Urinary tract infection due to ESBL Klebsiella Surgical History History of back surgery History of History of shoulder surgery Hx of cholecystectomy Family History Father CAD (coronary artery disease) Chronic kidney disease (CKD) Hyperlipidemia Hypertension Grandmother Dementia Mother Stroke Other Diabetes Denies family history of Clotting disorder Psychiatric illness Suicide Anesthesia complication Bleeding disorder Family history of premature coronary artery disease Lung disease Cancer Social History Smoking and tobacco status: former smoker Quit status (tobacco): has quit using tobacco Year quit tobacco: 3 mo ago Alcohol intake: never Lives independently: Yes Household members: children Current occupational status: employed Physical Exam Const: COMMON NORMALS: no apparent distress, oriented x3, no limitations, healthy appearing and well nourished EXAM LIMITATIONS: no altered mental status GENERAL APPEARANCE: cooperative, well kempt and well developed ORIENTATION/CONSCIOUSNESS: Yes awake HENMT: COMMON NORMALS: normocephalic, head/scalp atraumatic, hearing grossly normal bilaterally, external ears normal, EAC's normal, external nose normal and moist oral mucous membranes HEAD & SCALP: normal to inspection, normocephalic and atraumatic FACE & SINUS: normal facial exam and face symmetric NOSE: external nose normal and nares normal EXTERNAL EAR: Yes external ears normal EXTERNAL AUDITORY CANAL: EAC's normal MOUTH: oral and palatal mucosa normal and tongue normal Eye: COMMON NORMALS: PERRL, EOMs intact bilaterally, conjunctivae normal and no scleral icterus GENERAL EYE: normal appearance of both eyes and normal light reflex CONJUNCTIVA: Yes conjunctivae normal SCLERA: sclerae normal CORNEA: Yes corneas normal PUPIL: Yes PERRL DIRECT OPHTHALMOSCOPY: Yes normal light reflex Neck/C-Spine: COMMON NORMALS: full ROM, no lymphadenopathy, supple, no meningeal signs and no JVD GENERAL: Yes normal visual inspection and Yes trachea midline CERVICAL SPINE: Yes cervical ROM normal Chest: COMMONS NORMALS: inspection of chest normal and palpation of chest normal Resp: COMMON NORMALS: normal respiratory effort, no retractions, no use of accessory muscles and clear to auscultation bilaterally EFFORT & INSPECTION: Yes able to speak in complete sentences AUSCULTATION: clear to auscultation bilaterally Cardio: COMMON NORMALS: no JVD, regular rate, regular rhythm, S1 normal heart sound, S2 normal heart sound, no gallops, no clicks, no murmurs and no rub JUGULAR VENOUS DISTENTION: no JVD RATE: regular rate RHYTHM: regular rhythm HEART SOUNDS: S1 normal and S2 normal GI: COMMON NORMALS: soft to palpation, non-tender, no hepatosplenomegaly and no masses INSPECTION: Yes normal to inspection PALPATION: Yes soft and Yes no hepatosplenomegaly : COMMON NORMALS: Yes no CVA tenderness BLADDER/KIDNEY EXAM: Yes no CVA tenderness Back/Pelvis: COMMON NORMALS: no CVA tenderness, thoracic and lumbar spine normal to inspection, no thoracic nor lumbar tenderness and thoraco-lumbar ROM normal Extremity: COMMON NORMALS: full ROM, normal capillary refill, no joint enlargement, no clubbing, cyanosis or edema and no calf tenderness NARRATIVE EXTREMITY EXAM: Right surgical incision with erythema around the wound with purulent drainage coming from the most lateral aspect. No crepitance palpated. Neuro: COMMON NORMALS: oriented x3, CN's II-XII intact bilaterally, moves all extremities, no focal motor deficits and no sensory deficits noted MENINGEAL SIGNS: Yes no meningeal signs Psych: COMMON NORMALS: mental status grossly normal, thought process normal, cooperative, affect normal, speech normal and activity/motor behavior normal APPEARANCE: Yes well kempt SPEECH: Yes normal speech THOUGHT PROCESS: normal thought process Skin: COMMON NORMALS: no rashes or lesions noted, skin turgor normal, no jaundice, no petechiae and no mottling GENERAL SKIN EXAM: no rashes or lesions noted and turgor normal Course Vital Signs: Vital signs: Vital Signs Temperature 98.7 F 08/24/19 18:06 Pulse Rate 86 08/24/19 22:09 Respiratory Rate 18 08/24/19 22:09 Blood Pressure 97/83 08/24/19 22:09 Pulse Oximetry 100 08/24/19 22:09 MDM - Wound/Laceration MDM Narrative: Medical decision making narrative: The case was reviewed with Dr. Jonas, on-call for Dr. Wong at [facility]. He is familiar with the patient's case. He agrees to go ahead and accept the patient in transfer. The patient does have some clinical signs and symptoms of systemic illness such as nausea, subjective fever and generalized weakness. Her lactate is slightly elevated at 2.3 but she has not been hypotensive. I see no evidence of gas or air in her x-ray to suggest necrotizing fasciitis. The patient will be loaded with vancomycin and Zosyn and be transferred to [place] for continuation of care and possible need of further vascular surgery. Lab Data: Attestation: I reviewed the patient's lab results. Labs: Lab Results 08/24/19 08/24/19 08/24/19 Range/Units 18:58 18:58 18:58 WBC 12.1 H (4.0-10.0) 10^3/ uL RBC 4.48 (4.1-5.3) 10^6/u L Hgb 9.7 L (11.5-15.3) g/dL Hct 35.7 L (37.0-47.0) % MCV 79.7 L (81-99) fL MCH 21.7 L (28.0-34.0) pg MCHC 27.2 L (30.0-36.0) g/dL RDW 20.0 H (12.1-15.1) % Plt Count 535 H (130-400) 10^3/c mm MPV 10.6 H (7.4-10.4) fL Neut % (Auto) 72.1 % Lymph % (Auto) 16.8 % [place] % (Auto) 7.4 % Eos % (Auto) 2.0 % Baso % (Auto) 1.5 % Neut # (Auto) 8.7 H (1.8-7.7) 10^3/u L Lymph # (Auto) 2.0 (0.8-4.8) 10^3/u L [place] # (Auto) 0.9 (0.2-0.9) 10^3/u L Eos # (Auto) 0.2 (0.0-0.8) 10^3/u L Baso # (Auto) 0.2 H (0.0-0.1) 10^3/u L Nucleated RBC % (a uto) 0 % Nucleated RBCs # 0.0 /100WBC Sodium 132 L (136-145) mmol/L Potassium 4.2 (3.5-5.1) mmol/L Chloride 95 L (98-107) mmol/L Carbon Dioxide 24 (22-29) mmol/L Anion Gap 17.2 (5-19) BUN 17 (6-20) mg/dL Creatinine 1.0 H (0.5-0.9) mg/dL GFR Calculation 59.2 L (90-130) mL/min Glucose 399 H (65-115) mg/dL Calculated Osmolal ity 287 (285-295) mOsm/k g Lactic Acid 2.3 H (0.5-2.2) mmol/L Lactic Acid (Sepsi s) (0.5-2.2) mmol/L Calcium 9.5 (8.5-10.5) mg/dL Magnesium 1.9 (1.7-2.3) mg/dL Total Bilirubin 0.4 (0.15-1.2) mg/dL AST 25 (0-32) U/L ALT 11 (0-33) U/L Alkaline Phosphata se 172 H (35-105) IU/L Total Protein 7.4 (6.6-8.7) g/dL Albumin 2.8 L (3.5-5.2) g/dL Globulin 4.6 (1.3-4.6) g/dL 08/24/19 Range/Units 22:04 WBC (4.0-10.0) 10^3/ uL RBC (4.1-5.3) 10^6/u L Hgb (11.5-15.3) g/dL Hct (37.0-47.0) % MCV (81-99) fL MCH (28.0-34.0) pg MCHC (30.0-36.0) g/dL RDW (12.1-15.1) % Plt Count (130-400) 10^3/c mm MPV (7.4-10.4) fL Neut % (Auto) % Lymph % (Auto) % [place] % (Auto) % Eos % (Auto) % Baso % (Auto) % Neut # (Auto) (1.8-7.7) 10^3/u L Lymph # (Auto) (0.8-4.8) 10^3/u L [place] # (Auto) (0.2-0.9) 10^3/u L Eos # (Auto) (0.0-0.8) 10^3/u L Baso # (Auto) (0.0-0.1) 10^3/u L Nucleated RBC % (a uto) % Nucleated RBCs # /100WBC Sodium (136-145) mmol/L Potassium (3.5-5.1) mmol/L Chloride (98-107) mmol/L Carbon Dioxide (22-29) mmol/L Anion Gap (5-19) BUN (6-20) mg/dL Creatinine (0.5-0.9) mg/dL GFR Calculation (90-130) mL/min Glucose (65-115) mg/dL Calculated Osmolal ity (285-295) mOsm/k g Lactic Acid (0.5-2.2) mmol/L Lactic Acid (Sepsi s) 1.8 (0.5-2.2) mmol/L Calcium (8.5-10.5) mg/dL Magnesium (1.7-2.3) mg/dL Total Bilirubin (0.15-1.2) mg/dL AST (0-32) U/L ALT (0-33) U/L Alkaline Phosphata se (35-105) IU/L Total Protein (6.6-8.7) g/dL Albumin (3.5-5.2) g/dL Globulin (1.3-4.6) g/dL Imaging Data^: Rt. Femur: My impression: No fracture. No obvious gas in tissues. Discharge Plan Discharge Patient Disposition: Xfer Short-Term Hosp Clinical Impression: Postprocedural wound infection Condition: Stable Discharge Orders: Transfer Out of Facility (Order); Ordered 08/24/19 Ordered By: Keeley Mcleod Referrals: Erik Castillo [Primary Care Provider] - Discharge Date/Time: 08/24/19 22:45 Coding Level of Care Code ED Ore Crusher for Chg Fwd Exam Comprehensive
--- NOTE | 2019-08-24 18:24 | XR_ITS ---
WS: [id number] FEMUR RIGHT TECHNIQUE: 2 views of the right femur CLINICAL INFORMATION: PAIN COMPARISON: None. FINDINGS: Amputation of the mid to distal right femur. Vascular calcification. Postoperative edema in the surgi lee stump. Surgical isela. Small amount of air in the distal stump likely postoperative. XR/XR femur RT min 2V* [id number] IMPRESSION: 1. Postoperative changes mid to distal femur amputation. Right femoral shaft w ith recent postoperative changes. 2. Overlying surgical isela and expected postoperative edema. 3. Vascular calcification. 4. No acute fractures.
[2019-08-24] MEDS: ondansetron 2 mg/ML SDV 2 mL 4 MG IVP ×2 (19:00→22:05)
[2019-08-24] MEDS: sodium chloride 0.9% 1,000 ML 100 ML IV (19:01)
[2019-08-24] MEDS: piperacillin-tazobactam 3.375 GM in sodium chloride 0.9% (plus) 50 ML IV (19:03)
[2019-08-24 19:08] LABS: Basophils # 0.2 10^3/uL (0.0-0.1); Basophils % 1.5 %; Eosinophils # 0.2 10^3/uL (0.0-0.8); Hematocrit 35.7 % (37.0-47.0); Hemoglobin 9.7 g/dL (11.5-15.3); Lymphocytes % 16.8 %; Mean Corpuscular HGB Conc 27.2 g/dL (30.0-36.0); Mean Corpuscular Hemoglobin 21.7 pg (28.0-34.0); Mean Corpuscular Volume 79.7 fL (81-99); Mean Platelet Volume 10.6 fL (7.4-10.4); Monocytes # 0.9 10^3/uL (0.2-0.9); Monocytes % 7.4 %; Neutrophils # 8.7 10^3/uL (1.8-7.7); Neutrophils % 72.1 %; Nucleated Red Blood Cells % 0 %; Platelet Count 535 10^3/cmm (130-400); Red Blood Count 4.48 10^6/uL (4.1-5.3); White Blood Count 12.1 10^3/uL (4.0-10.0)
[2019-08-24 19:21] LABS: Lactic Sepsis W/Reflex 2.3 mmol/L (0.5-2.2)
[2019-08-24 19:22] LABS: Alanine Aminotransferase 11 U/L (0-33); Albumin Level 2.8 g/dL (3.5-5.2); Alkaline Phosphatase 172 IU/L (35-105); Anion Gap 17.2 (5-19); Blood Urea Nitrogen 17 mg/dL (6-20); Calcium 9.5 mg/dL (8.5-10.5); Carbon Dioxide 24 mmol/L (22-29); Chloride 95 mmol/L (98-107); Globulin 4.6 g/dL (1.3-4.6); Glomerular Filtration Rate 59.2 mL/min (90-130); Glucose 399 mg/dL (65-115); Magnesium 1.9 mg/dL (1.7-2.3); Osmolality Calculated 287 mOsm/kg (285-295); Potassium 4.2 mmol/L (3.5-5.1); Sodium 132 mmol/L (136-145); Total Bilirubin 0.4 mg/dL (0.15-1.2); Total Protein 7.4 g/dL (6.6-8.7)
[2019-08-24 19:27] LABS: Aspartate Amino Transferase 25 U/L (0-32)
[2019-08-24 20:00] VITALS: BP 120/82; PULSE 91; RESP 18; O2SAT 98
[2019-08-24 20:47] LABS: Reflex Lactate Order REFLEX LACTIC ORDERD
[2019-08-24 20:54] VITALS: BP 117/65; PULSE 92; RESP 18; O2SAT 99
[2019-08-24] MEDS: HYDROmorphone 1 mg/mL INJ 1 mL 0.5 MG IVP (22:06)
[2019-08-24 22:09] VITALS: BP 97/83; PULSE 86; RESP 18; O2SAT 100
[2019-08-24 22:25] LABS: Lactic Acid level (Lactate) 1.8 mmol/L (0.5-2.2)
== END 2019-08-24 22:45 | disposition short-term general hospital (02) ==
PROVIDERS: Emergency Provider Emergency Medicine
DX: T81.49XA Infection following a procedure, other surgical site, initial encounter (principal); L08.9 Local infection of the skin and subcutaneous tissue, unspecified; E11.22 Type 2 diabetes mellitus with diabetic chronic kidney disease; N18.2 Chronic kidney disease, stage 2 (mild); Z86.718 Personal history of other venous thrombosis and embolism; Z89.611 Acquired absence of right leg above knee; I73.9 Peripheral vascular disease, unspecified; Z87.891 Personal history of nicotine dependence
CPT/HCPCS: 12345; 36415; 73552; 80053; 83605; 83735; 85025; 87040; 87205; 96361; 96365; 96366; 96368; 96374; 96375; 99282; 99285; J1170; J2405; J2543; J3370; J7030; J7040

== ENCOUNTER 2019-10-01 21:23 | Emergency (ER) | payer MEDICAID, SELFPAY ==
[2019-10-01 21:47] VITALS: BP 118/78; PULSE 89; RESP 14; TEMP 36.6; O2SAT 99; BMI 36.5
[2019-10-01 22:46] LABS: Basophils # 0.2 10^3/uL (0.0-0.1); Basophils % 1.6 %; Eosinophils # 0.3 10^3/uL (0.0-0.8); Eosinophils % 2.8 %; Hematocrit 33.4 % (37.0-47.0); Lymphocytes # 2.4 10^3/uL (0.8-4.8); Lymphocytes % 23.5 %; Mean Corpuscular HGB Conc 26.9 g/dL (30.0-36.0); Mean Corpuscular Hemoglobin 21.4 pg (28.0-34.0); Mean Corpuscular Volume 79.3 fL (81-99); Mean Platelet Volume 10.8 fL (7.4-10.4); Monocytes # 0.9 10^3/uL (0.2-0.9); Monocytes % 8.9 %; Neutrophils # 6.3 10^3/uL (1.8-7.7); Neutrophils % 62.8 %; Nucleated Red Blood Cells % 0 %; Platelet Count 526 10^3/cmm (130-400); Red Blood Count 4.21 10^6/uL (4.1-5.3); Red Cell Distribution Width 22.2 % (12.1-15.1); White Blood Count 10.1 10^3/uL (4.0-10.0)
--- NOTE | 2019-10-01 22:56 | CTR_ITS ---
PROCEDURE INFORMATION: Exam: CT Pelvis Without Contrast; Skeletal Exam date and time: 10/01/2019 10:58 PM Age: 48 years old Clinical indication: Injury or trauma; Initial encounter; Blunt trauma (contusions or hematomas); Right; Pelvic region; Patient HX: C/O lbp/pelvic pain after sideways fall TECHNIQUE: Imaging protocol: Computed tomography images of the pelvis without contrast. Exam focused on the skeletal structures. Radiation optimization: All CT scans at this facility use at least one of these dose optimization techniques: automated exposure control; mA and/or kV adjustment per patient size (includes targeted exams where dose is matched to clinical indication); or iterative reconstruction. COMPARISON: CT Abdomen/Pelvis w IV* [id number] 01/22/2019 9:32 PM RADIATION DOSE METRICS: Total DLP: 1130.39 mGy-cm patient's obesity results in increased quantum mottle artifact which degrades image quality in detail. FINDINGS: Bones/joints: No visible fracture, subluxation, or dislocation. No visible joint effusion of the hips. Degenerative disc disease with vacuum disc phenomenon and disc space height loss L5/S1. Soft tissues: No visible soft tissue hematoma. CT/CT pelvis wo con [id number] IMPRESSION: No visible fracture, subluxation, or dislocation. Radiation Dose CTDIVOL = (mGy): DLP = 1130.39 (mGy-cm)
--- NOTE | 2019-10-01 22:56 | CTR_ITS ---
PROCEDURE INFORMATION: Exam: CT Right Lower Extremity Without Contrast; Thigh Exam date and time: 10/01/2019 10:58 PM Age: 48 years old Clinical indication: Prior surgery; Surgery date: 1-6 months; Surgery type: R aka; Patient HX: C/O pain and foul smelling drainage from aka site - prev HX of infection - wound vac in place; Additional info: ? Wound infection TECHNIQUE: Imaging protocol: CT of the Right lower extremity without contrast was performed. Exam focused on the thigh. Radiation optimization: All CT scans at this facility use at least one of these dose optimization techniques: automated exposure control; mA and/or kV adjustment per patient size (includes targeted exams where dose is matched to clinical indication); or iterative reconstruction. COMPARISON: CR XR femur RT min 2V* [id number] 08/24/2019 6:32 PM RADIATION DOSE METRICS: Total DLP: 5108.64 mGy-cm FINDINGS: Bones/joints: Previous [id number] amputation. Myositis ossificans at the amputation site. No visible osteolytic destructive process. Soft tissues: Just below the amputation site within the soft tissue stump are small pockets of subcutaneous emphysema and soft tissue swelling. No visible organized loculated fluid collection to suggest seroma, hematoma, or definitive evidence of mature abscess. Presence of soft tissue emphysema increases the risk for underlying infection, however. Patient's obesity results in increased quantum mottle artifact which degrades image quality in detail. CT/CT femur RT wo con* [id number] IMPRESSION: 1. Soft tissue fullness with subcutaneous emphysema amputation stump. 2. No visible definitive evidence of loculated fluid collection to suggest organized abscess. 3. Status post [id number] amputation. Radiation Dose CTDIVOL = (mGy): DLP = 5108.64 (mGy-cm)
--- NOTE | 2019-10-01 22:56 | CTR_ITS ---
PROCEDURE INFORMATION: Exam: CT Lumbar Spine Without Contrast Exam date and time: 10/01/2019 10:58 PM Age: 48 years old Clinical indication: Injury or trauma; Initial encounter; Blunt trauma (contusions or hematomas); Prior surgery; Surgery date: 6+ months; Patient HX: C/O lbp/pelvic pain after sideways fall TECHNIQUE: Imaging protocol: Computed tomography images of the lumbar spine without contrast. Radiation optimization: All CT scans at this facility use at least one of these dose optimization techniques: automated exposure control; mA and/or kV adjustment per patient size (includes targeted exams where dose is matched to clinical indication); or iterative reconstruction. COMPARISON: [place] [id number] 11/05/2017 5:45 PM RADIATION DOSE METRICS: Total DLP: 2504.74 mGy-cm FINDINGS: Vertebrae: Degenerative disc disease with vacuum disc phenomenon and disc space height loss L5/S1. Moderate spondylosis deformans. Findings of a previous left hemilaminectomy S1. No visible spondylolysis or spondylolisthesis. Discs/Spinal canal/Neural foramina: Moderate central canal narrowing L5/S1 due to a mild posterior disc bulge aggravated by ligamentum flavum hypertrophy. Soft tissues: Patient's morbid obesity results in increased quantum mottle artifact which degrades image quality in detail assessment. CT/CT lumbar spine wo con* [id number] IMPRESSION: 1. No visible fracture, subluxation, or dislocation. 2. Degenerative disc disease with vacuum disc phenomenon L5/S1. 3. Moderate central canal narrowing L5/S1. Radiation Dose CTDIVOL = (mGy): DLP = 2504.74 (mGy-cm)
[2019-10-01 23:04] LABS: Alanine Aminotransferase 8 U/L (0-33); Albumin Level 2.4 g/dL (3.5-5.2); Alkaline Phosphatase 166 IU/L (35-105); Anion Gap 17.1 (5-19); Aspartate Amino Transferase 12 U/L (0-32); Blood Urea Nitrogen 20 mg/dL (6-20); C Reactive Protein 20.6 mg/L (0.0-4.9); Calcium 9.1 mg/dL (8.5-10.5); Carbon Dioxide 24 mmol/L (22-29); Chloride 99 mmol/L (98-107); Globulin 4.5 g/dL (1.3-4.6); Glomerular Filtration Rate 59.2 mL/min (90-130); Glucose 290 mg/dL (65-115); Osmolality Calculated 287 mOsm/kg (285-295); Potassium 5.1 mmol/L (3.5-5.1); Sodium 135 mmol/L (136-145); Total Bilirubin 0.3 mg/dL (0.15-1.2); Total Protein 6.9 g/dL (6.6-8.7)
--- NOTE | 2019-10-01 23:50 | PC.NURSE ---
Assisted patient up to BS with moderate assist.
[2019-10-02 00:17] VITALS: BP 124/76; PULSE 82; RESP 16; O2SAT 97
[2019-10-02] MEDS: oxyCODONE-APAP 5-325 mg Tablet 2 TAB PO (00:29)
--- NOTE | 2019-10-02 01:14 | ED_ITS ---
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 She presents with an increase in output from the wound VAC, with foul odor, and increasing pain following a fall little over 24 hours prior. She has not had a fever. Onset (ago): day(s) (1) Location: lower extremity (Right thigh) Radiation: non-radiation Quality: stabbing and aching Pain Consistency: constant Relieving factors: none Exacerbating factors: movement Associated symptoms: Reports nausea and rash; Deny chest pain, dyspnea, headache(s), palpitations or vomiting Treatments prior to arrival: none Review of Systems Const: Reports: chills; Denies: fever(s) Eyes: Denies: change in vision ENMT: Denies: dental pain or post nasal drip Card: Denies: chest pain, palpitations or irregular heart rhythm Resp: Denies: dyspnea, productive cough, non-productive cough or wheezing GI: Reports: nausea; Denies: abdominal pain or vomiting : Denies: dysuria or hematuria Musc: Reports: back pain; Denies: neck pain, joint redness or joint warmth Skin/Breast: Reports: rash; Denies: pruritus Neuro: Denies: headache(s), dizziness or vertigo Psych: Denies: anxiety PFSH ED PFSH: Medical History (Updated 10/02/19 @ 02:22 by Narciso Cordero DO) Chronic anticoagulation Chronic kidney disease, stage II (mild) History of DVT (deep vein thrombosis) Nonischemic cardiomyopathy Poorly controlled diabetes mellitus PVD (peripheral vascular disease) with claudication Urinary tract infection due to ESBL Klebsiella Surgical History History of back surgery History of History of shoulder surgery Hx of cholecystectomy Family History Father CAD (coronary artery disease) Chronic kidney disease (CKD) Hyperlipidemia Hypertension Grandmother Dementia Mother Stroke Other Diabetes Denies family history of Clotting disorder Psychiatric illness Suicide Anesthesia complication Bleeding disorder Family history of premature coronary artery disease Lung disease Cancer Social History Smoking and tobacco status: former smoker Quit status (tobacco): has quit using tobacco Year quit tobacco: 3 mo ago Alcohol intake: never Lives independently: Yes Household members: children Current occupational status: employed Physical Exam Const: GENERAL APPEARANCE: well developed ORIENTATION/CONSCIOUSNESS: Yes oriented to person, Yes oriented to place and Yes oriented to time HENMT: COMMON NORMALS: normocephalic, external ears normal and Normal external nose present HEAD & SCALP: normocephalic FACE & SINUS: normal facial exam NOSE: Normal external nose present and No nasal discharge present EXTERNAL EAR: Yes external ears normal MOUTH: tongue normal Eye: COMMON NORMALS: Equal, round and reactive pupils present, EOMs intact bilaterally and conjunctivae normal EYELID: eyelids normal CONJUNCTIVA: Yes conjunctivae normal PUPIL: Yes Equal, round and reactive pupils present Neck/C-Spine: GENERAL: No tracheal deviation Chest: COMMONS NORMALS: normal inspection of the chest Resp: COMMON NORMALS: clear to auscultation bilaterally EFFORT & INSPECTION: No tachypneic, No respiratory distress, No retractions, No uses accessory muscles and No tracheal deviation AUSCULTATION: clear to auscultation bilaterally, no rhonchi, no wheezes and lung sounds not diminished Cardio: COMMON NORMALS: regular rate and regular rhythm RATE: regular rate RHYTHM: regular rhythm HEART SOUNDS: no murmurs PERIPHERAL PULSES: radial pulses present GI: INSPECTION: No abdominal distension AUSCULTATION: No Hyperactive bowel sounds present and No Hypoactive bowel sounds present PALPATION: No Guarding due to palpation present (GI) and No Rigid due to palpation PERCUSSION: no dullness to percussion and no tympanic to percussion Extremity: NARRATIVE EXTREMITY EXAM: Right AKA site wound VAC present. Drainage and wound VAC, with some foul odor. Slight redness at inferior most point. No definite fluid collection. Neuro: SENSORIUM/ORIENTATION: Yes oriented to person, Yes oriented to place and Yes oriented to time Psych: COMMON NORMALS: mental status grossly normal Course Vital Signs: Vital signs: Vital Signs Temperature 97.8 F 10/01/19 21:47 Pulse Rate 89 10/01/19 21:47 Respiratory Rate 14 10/01/19 21:47 Blood Pressure 118/78 10/01/19 21:47 Pulse Oximetry 99 05/31/20 21:47 MDM - General Adult MDM Narrative: Medical decision making narrative: 48-year-old female with complications following above-knee amputation prior. She had a fall with some trauma to her stump, and has had fell odor drainage in her wound VAC since that time. Her white count is 10. She is afebrile. There is only slight redness to the skin with some tenderness. CT is performed, there is no fluid collection, there is no bony destruction is evidence of osteomyelitis, there is a bit of superficial layer, which can be from the wound VAC itself. There is a mild elevation in her CRP. She is received vancomycin and Zosyn here. She has not been on any antibiotics since her revision. Lab Data: Labs: Lab Results 10/01/19 10/01/19 Range/Units 22:42 22:42 WBC 10.1 H (4.0-10.0) 10^3/ uL RBC 4.21 (4.1-5.3) 10^6/u L Hgb 9.0 L (11.5-15.3) g/dL Hct 33.4 L (37.0-47.0) % MCV 79.3 L (81-99) fL MCH 21.4 L (28.0-34.0) pg MCHC 26.9 L (30.0-36.0) g/dL RDW 22.2 H (12.1-15.1) % Plt Count 526 H (130-400) 10^3/c mm MPV 10.8 H (7.4-10.4) fL Neut % (Auto) 62.8 % Lymph % (Auto) 23.5 % [place] % (Auto) 8.9 % Eos % (Auto) 2.8 % Baso % (Auto) 1.6 % Neut # (Auto) 6.3 (1.8-7.7) 10^3/u L Lymph # (Auto) 2.4 (0.8-4.8) 10^3/u L [place] # (Auto) 0.9 (0.2-0.9) 10^3/u L Eos # (Auto) 0.3 (0.0-0.8) 10^3/u L Baso # (Auto) 0.2 H (0.0-0.1) 10^3/u L Nucleated RBC % (a uto) 0 % Nucleated RBCs # 0.0 /100WBC Sodium 135 L (136-145) mmol/L Potassium 5.1 (3.5-5.1) mmol/L Chloride 99 (98-107) mmol/L Carbon Dioxide 24 (22-29) mmol/L Anion Gap 17.1 (5-19) BUN 20 (6-20) mg/dL Creatinine 1.0 H (0.5-0.9) mg/dL GFR Calculation 59.2 L (90-130) mL/min Glucose 290 H (65-115) mg/dL Calculated Osmolal ity 287 (285-295) mOsm/k g Calcium 9.1 (8.5-10.5) mg/dL Total Bilirubin 0.3 (0.15-1.2) mg/dL AST 12 (0-32) U/L ALT 8 (0-33) U/L Alkaline Phosphata se 166 H (35-105) IU/L C-Reactive Protein 20.6 H (0.0-4.9) mg/L Total Protein 6.9 (6.6-8.7) g/dL Albumin 2.4 L (3.5-5.2) g/dL Globulin 4.5 (1.3-4.6) g/dL Discharge Plan Discharge Patient Disposition: Home, Self-Care Clinical Impression: Cellulitis Qualifiers: Site of cellulitis: extremity Site of cellulitis of extremity: lower extremity Laterality: right Qualified Code(s): L03.115 - Cellulitis of right lower limb Condition: Stable Prescriptions: New Augmentin 875-125 mg tablet 1 tab PO Q12H Qty: 30 RF: 0 [place] 7.5-325 mg tablet 1 tab PO Q6H PRN (Reason: pain) Qty: 10 RF: 0 No Action prednisone 20 mg tablet 40 mg PO .COMPLEX Qty: 7 RF: 0 cyclobenzaprine 5 mg Tablet 5 mg PO TID PRN (Reason: Muscle Pain) RF: 0 pantoprazole 40 mg tablet,delayed release (DR/EC) 40 mg PO DAILY Qty: 30 RF: 4 potassium chloride 10 mEq capsule, extended release 10 meq PO DAILY Qty: 30 RF: 3 tramadol 50 mg tablet 50 mg PO QID PRN (Reason: pain) Qty: 30 RF: 0 Toujeo SoloStar U-300 Insulin 300 unit/mL (1.5 mL) Insulin Pen 55 unit SUBCUT BID Qty: 0 RF: 0 furosemide [Lasix] 40 mg Tablet 40 mg PO DAILY RF: 0 atorvastatin 40 mg Tablet 40 mg PO DAILY RF: 0 hydralazine 10 mg Tablet 10 mg PO TID RF: 0 aspirin [Aspir-Low] 81 mg Tablet,Delayed Release (Dr/Ec) 81 mg PO DAILY RF: 0 acetaminophen [Tylenol Extra Strength] 500 mg Tablet 1,000 mg PO Q4H PRN (Reason: Pain) RF: 0 spironolactone 25 mg Tablet 12.5 mg PO DAILY RF: 0 carvedilol 3.125 mg Tablet 3.125 mg PO BID RF: 0 famotidine 20 mg Tablet 20 mg PO BID RF: 0 norethindrone acetate 5 mg tablet 10 mg PO BID RF: 0 gabapentin 100 mg Capsule 100 mg PO TID PRN (Reason: Pain) RF: 0 insulin lispro [Humalog KwikPen Insulin] 100 unit/mL Insulin Pen See Rx Instructions .ROUTE .COMPLEX RF: 0 trazodone 100 mg Tablet 100 mg PO BEDTIME RF: 0 Prozac 10 mg Capsule 10 mg PO DAILY RF: 0 Eliquis 5 mg Tablet 5 mg PO BID RF: 0 Ozempic 0.25 mg or 0.5 mg(2 mg/1.5 mL) Pen Injector 0.25 mg SUBCUT Q7D RF: 0 Discharge Orders: Discharge Order (Routine); Ordered 10/02/19 Ordered By: Narciso Cordero Referrals: Erik Castillo [Primary Care Provider] - [facility], [Staff Physician] - 4-7 days Discharge Diet: Advance as tolerated Discharge Activity: Increase activity as tolerated Patient Instructions: Cellulitis (ED) Activity Restrictions/Additional Instructions: Continue routine wound care/home health. Call the wound care clinic later this morning for an appointment for follow-up. Return for fever greater than 100 despite 2-3 doses of antibiotics, worsening pain despite antibiotics, vomiting liquids or medications, other concerning symptoms Coding Level of Care Code ED Videotape Sales Representative for Chg Fwd Exam Comprehensive
[2019-10-02] MEDS: piperacillin-tazobactam 3.375 GM in sodium chloride 0.9% (plus) 50 ML IV (02:00)
[2019-10-02] MEDS: vancomycin 1,000 MG in sodium chloride 0.9% 250 ML 250 MG IV (02:45)
[2019-10-02] MEDS: morphine 4 mg/mL SDV 1 mL IVP (03:37)
[2019-10-02] MEDS: ondansetron 2 mg/ML SDV 2 mL 4 MG IVP (03:37)
[2019-10-02 04:12] VITALS: BP 126/84; PULSE 16; RESP 86; O2SAT 96
--- NOTE | 2019-10-04 11:38 | DCPLANNER ---
manager transportation planning had message to schedule a follow up appointment for patient with Wound Care. manager transportation planning called the Wound Care clinic, spoke with Denise, a follow up appointment is scheduled for Wednesday, October 04, 2019 at 3:00. Patient is aware of appointment.
--- NOTE | 2019-11-01 13:43 | DCPLANNER ---
Patient did attend appointment scheduled for 10.04.19 with Wound Care.
== END 2019-10-02 04:15 | disposition home or self-care (01) ==
PROVIDERS: Emergency Provider Emergency Medicine
DX: L03.115 Cellulitis of right lower limb (principal); Z79.82 Long term (current) use of aspirin; Z79.4 Long term (current) use of insulin; Z89.611 Acquired absence of right leg above knee; N18.2 Chronic kidney disease, stage 2 (mild); E11.22 Type 2 diabetes mellitus with diabetic chronic kidney disease; I73.9 Peripheral vascular disease, unspecified; Z87.891 Personal history of nicotine dependence
CPT/HCPCS: 12345; 36415; 72131; 72192; 73700; 80053; 85025; 86140; 96365; 96368; 96375; 99283; 99284; J2270; J2405; J2543; J3370; J7050

== ENCOUNTER 2019-10-04 13:12 | Outpatient (CLI) | payer MEDICAID, SELFPAY | END 2019-10-04 13:13 | disposition home or self-care (01) | LOC: WOUND 13:12 | PROVIDERS: Visit Provider Thoracic Surgery (Cardiothoracic Vascular Surgery) | DX: E11.622 Type 2 diabetes mellitus with other skin ulcer (principal); L97.812 Non-pressure chronic ulcer of other part of right lower leg with fat layer exposed; Z89.611 Acquired absence of right leg above knee | CPT/HCPCS: 11042; 11045; G0463 ==

== ENCOUNTER 2019-10-11 14:07 | Outpatient (CLI) | payer MEDICAID, SELFPAY | END 2019-10-11 14:08 | disposition home or self-care (01) | LOC: WOUND 14:13 | PROVIDERS: Visit Provider Thoracic Surgery (Cardiothoracic Vascular Surgery) | DX: T81.89XA Other complications of procedures, not elsewhere classified, initial encounter (principal); Y83.8 Other surgical procedures as the cause of abnormal reaction of the patient, or of later complication, without mention of misadventure at the time of the procedure | CPT/HCPCS: 11042; 11045 ==

== ENCOUNTER 2019-10-22 18:42 | Emergency (ER) | payer MEDICAID, SELFPAY ==
[2019-10-22] VITALS (7 sets, daily range): BP systolic 97–180; BP diastolic 62–81; PULSE 89–94; RESP 14–18; TEMP 37.1; O2SAT 94–97; BMI 37.1
--- NOTE | 2019-10-22 19:05 | PC.NURSE ---
Patient report received from WILLIAM Valencia and care transferred to WILLIAM Maher
--- NOTE | 2019-10-22 19:22 | XRR_ITS ---
PROCEDURE INFORMATION: Exam: XR Chest, 1 View Exam date and time: 10/22/2019 7:40 PM Age: 49 years old Clinical indication: Chest pain; Type not specified TECHNIQUE: Imaging protocol: XR of the chest Views: 1 view. COMPARISON: No relevant prior studies available. FINDINGS: Lungs: There is no consolidation. Mild coarse reticular opacity in the lung bases suggesting subsegmental atelectasis. Pleural space: There is no pleural effusion or pneumothorax. Heart/Mediastinum: Marked enlargement of the cardiac silhouette. Bones/joints: Bones are unremarkable. XR/XR chest 1V portable [id number] IMPRESSION: 1. No acute pulmonary process. 2. Marked enlargement of the cardiac silhouette. Possible cardiac enlargement or pericardial effusion. Recommend comparison with prior chest radiographs (not available currently).
--- NOTE | 2019-10-22 19:23 | ECG_ITS ---
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 Measurements Intervals [place] Rate: 90 P: 13 MN: 141 QRS: -38 QRSD: 94 T: 60 QT: 362 QTc: 444 Interpretive Statements SINUS RHYTHM LEFT AXIS DEVIATION [QRS AXIS < -30] LOW QRS VOLTAGE IN EXTREMITY LEADS [QRS DEFLECTION < 0.5 mV IN LIMB LEADS] POSSIBLE ANTERIOR MYOCARDIAL INFARCTION , PROBABLY OLD Compared to ECG 07/06/2019 19:00:53 Left-axis deviation now present Sinus tachycardia no longer present Right-axis deviation no longer present Myocardial infarct finding still present Electronically Signed On 10-23-2019 18:30:22 CDT by Alexandra Mg M.D. [email or web address]
[2019-10-22] MEDS: LORazepam 1 mg Tablet PO (19:40)
--- NOTE | 2019-10-22 19:43 | W.ED.ANXIETY ---
HPI - Anxiety General: Chief Complaint: Anxiety Stated Complaint: ANXIETY Time Seen by Provider: 10/22/19 19:03 Source: patient Mode of arrival: EMS History of Present Illness: HPI narrative: Patient had a right above-knee amputation in about 2 months ago which got infected and needed a revision which was recently done. The patient is scheduled for an angiogram of her left lower extremity for possible stent placement. She was discharged yesterday from [facility] in [place] after evaluation of her arterial supply to her left lower extremity. At that time she was told that she may require amputation of the left lower extremity at some point. She thinks she may be worried about the possibility of losing the left lower extremity and felt she went into a panic attack. Symptoms started last night and progressively worsened. She also has of difficulty breathing and chest pain. She has a prior history of pulmonary embolism. The above-knee amputation was secondary to peripheral artery disease. Associated symptoms: Reports chest pain; Deny chills, fever(s), headache(s), nausea, palpitations or vomiting Review of Systems General: Reports: 10 or more systems reviewed and unremarkable except in HPI and below Const: Denies: fever(s), chills or body aches Card: Reports: chest pain; Denies: palpitations, irregular heart rhythm, edema or swelling of feet/ankles Resp: Denies: dyspnea, productive cough or non-productive cough GI: Denies: abdominal pain, nausea or vomiting : Denies: flank pain, difficulty voiding, dysuria, urinary frequency, urinary urgency or urinary hesitancy Musc: Denies: neck pain, back pain or extremity swelling Skin/Breast: Denies: rash, pruritus or erythema Neuro: Denies: headache(s), numbness in extremities or weakness in extremities Psych: Reports: anxiety Endo: Denies: polyuria, polydipsia or tired all the time PFS ED PFSH: Medical History Chronic anticoagulation Chronic kidney disease, stage II (mild) History of DVT (deep vein thrombosis) Nonischemic cardiomyopathy Poorly controlled diabetes mellitus PVD (peripheral vascular disease) with claudication Urinary tract infection due to ESBL Klebsiella Surgical History History of back surgery History of History of shoulder surgery Hx of cholecystectomy Family History (Reviewed 10/22/19 @ 19:45 by Jinny Rincon MD, [facility] [facility]) Father CAD (coronary artery disease) Chronic kidney disease (CKD) Hyperlipidemia Hypertension Grandmother Dementia Mother Stroke Other Diabetes Denies family history of Clotting disorder Psychiatric illness Suicide Anesthesia complication Bleeding disorder Family history of premature coronary artery disease Lung disease Cancer Social History (Reviewed 10/22/19 @ 19:45 by Jinny Rincon MD, [facility] [place] [facility]) Smoking and tobacco status: never smoked Quit status (tobacco): has quit using tobacco Year quit tobacco: 3 mo ago Alcohol intake: never Lives independently: Yes Household members: children Current occupational status: employed History of recent travel: No Physical Exam Const: COMMON NORMALS: no acute distress, average body habitus, patient oriented x3, no limitations, healthy appearing, alert and well nourished Neck/C-Spine: COMMON NORMALS: no meningeal signs and no JVD Resp: COMMON NORMALS: normal respiratory effort, No retractions, No use of accessory muscles, clear to auscultation bilaterally and percussion normal AUSCULTATION: clear to auscultation bilaterally PERCUSSION: percussion normal Cardio: COMMON NORMALS: no JVD, regular rate, regular rhythm, S1 normal heart sound present, S2 normal heart sound present, No gallops present (Cardio), No clicks present (Cardio), No murmurs present (Cardio), No rub (Cardio) and Peripheral pulses 2+ throughout RATE: regular rate RHYTHM: regular rhythm HEART SOUNDS: S1 normal heart sound present and S2 normal heart sound present PERIPHERAL PULSES: Peripheral pulses 2+ throughout GI: COMMON NORMALS: Normal to inspection, nondistended, normoactive bowel sounds present, Soft to palpation, non-tender, No hepatosplenomegaly present, no masses and no bruits PALPATION: Yes Soft to palpation and Yes No hepatosplenomegaly present : COMMON NORMALS: Yes no CVA tenderness BLADDER/KIDNEY EXAM: Yes no CVA tenderness Back/Pelvis: COMMON NORMALS: no CVA tenderness Extremity: COMMON NORMALS: capillary refill normal, no calf tenderness and no pedal edema NARRATIVE EXTREMITY EXAM: Right above-knee amputation. Wound dressing over the right stump. No erythema noted. Neuro: COMMON NORMALS: patient oriented x3 SENSORIUM/ORIENTATION: Yes alert MENINGEAL SIGNS: Yes no meningeal signs Skin: COMMON NORMALS: no rashes or lesions noted, no wounds, turgor normal, no jaundice, no petechiae and no mottling GENERAL SKIN EXAM: no rashes or lesions noted and turgor normal Course Reevaluation(s): Reevaluation #1: Discussed her lab and imaging findings with her. VQ scan with a very low probability of a PE. Other labs without acute findings. She has CHF but is not new. The patient is much calmer now and she feels much better. I discussed options going forward with her. I believe she needs to be in a facility for rehab at least in the short-term until she gains her strength and since she was just discharged yesterday from [facility] in [place] and has had 3 midnights she would qualify for custodial. She does state that she has a home health nurse who is working on getting her placed in a nursing facility. She also lives with 2 of her sons who are helping her and she says she believes they can continue to help her until she gets placed. I offered her hospital admission so we can place as I think she needs a lot of help but she thinks her sons are capable of taking care of her. We will therefore discharge her home with no new orders. She voiced understanding and is in agreement with the plan. Time: 23:43 Vital Signs: Vital signs: Vital Signs Temperature 98.8 F 10/22/19 18:50 Pulse Rate 94 10/22/19 23:11 Respiratory Rate 16 10/22/19 23:11 Blood Pressure 154/81 10/22/19 23:11 Pulse Oximetry 94 10/22/19 23:11 MDM - Anxiety MDM Narrative: Medical decision making narrative: 49-year-old female patient who had a recent above-knee amputation secondary to peripheral artery disease. She was admitted at [facility] in [place] and discharged yesterday for evaluation of the arterial flow to her left lower extremity. During the visit she was told that she may eventually require an amputation of her left lower extremity. Thinking about this all night with the patient really anxious and she had a panic attack. She presented to the emergency department for this. Evaluation in the emergency department was negative for acute findings. She is therefore discharged home to follow-up with her primary care provider. She was advised that she needs to be in a nursing facility for physical therapy and the patient states that her home health nurse is working on it for her, she therefore declined admission. Differential Diagnosis: Differential diagnosis anxiety: Likely hyperventilation, panic disorder and acute anxiety Medical Records: Attestation: I reviewed the patient's medical records. Imaging Data^: Other Imaging: Radiologist's impression: [place] [address] Nuclear Medicine Report Signed Patient: Esdras Quinn #: [id number] : 1970Acct#:[id number] Age/Sex: 49 / FADM Date: 10/22/19 Loc: ERRoom/Bed: Attending Dr: Ordering Provider/Ordering MD: Jinny Rincon MD, [facility] [place] [facility] Date of Service: 10/22/19 Procedure(s): NM pul vent and perfus* 10225 Accession Number(s): [id number] Report Number: [id number] PROCEDURE INFORMATION: Exam: NM Lung Ventilation and Perfusion Imaging Exam date and time: 10/22/2019 10:08 PM Age: 49 years old Clinical indication: Pain and abnormal findings; Abnormal diagnostic tests; Elevated d-dimer; Patient HX: Chest pressure since right leg amputation 2-3 months ago. Worse tonight; Additional info: High pretest prob pe TECHNIQUE: Imaging protocol: Nuclear pulmonary ventilation with aerosol or gas was performed followed by perfusion. Views: Ventilation acquired with multiple projections. Perfusion acquired with multiple projections. Radiopharmaceutical: 32.7 mCi of Tc-99m DTPA, inhaled. 5.5 mCi of Tc-99m MAA, IV. COMPARISON: No relevant prior studies available. FINDINGS: Ventilation: Large ventilation defect involving the right lung base. Linear nonsegmental ventilation defect extending from the hilum to the lateral aspect of the right lung visible on all images. Perfusion: Matched large ventilation/perfusion defect at the right lung base with regionally clear chest radiograph. No segmental perfusion defect. NM/NM pul vent and perfus* [id number] IMPRESSION: 1. Very low probability of pulmonary embolism by PIOPED II criteria. 2. Matched ventilation/perfusion defect in the right lung base is probably due to elevation of the right hemidiaphragm in the supine position which is greater than on the semi upright chest radiograph. Dictated By:Imer Peña MD Signed By:Imer Peña MDSigned Date/Time:10/22/19 2331 DD/ 28 EKG Data^: EKG 1: Attestation: I personally reviewed and interpreted this EKG as follows: EKG interpretation date: 10/22/19 Prior EKG tracings: available for review Interpretation: Chest X-Ray 10/22/19 19:22 IMPRESSION: 1. No acute pulmonary process. 2. Marked enlargement of the cardiac silhouette. Possible cardiac enlargement or pericardial effusion. Recommend comparison with prior chest radiographs (not available currently). Pulmonary Perfusion Imaging 10/22/19 21:08 IMPRESSION: 1. Very low probability of pulmonary embolism by PIOPED II criteria. 2. Matched ventilation/perfusion defect in the right lung base is probably due to elevation of the right hemidiaphragm in the supine position which is greater than on the semi upright chest radiograph. Computer generated interpretation: [address] [address] Electrocardiograph Report Draft Patient: Esdras Quinn #: [id number] : 1970Acct#:[id number] Age/Sex: 49 / FADM Date: 10/22/19 Loc: 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1970 Requested By: Jinny Rincon I Order Number: [id number] Reading MD: Measurements Intervals [place] Rate: 90 P: 13 WI: 141 QRS: -38 QRSD: 94 T: 60 QT: 362 QTc: 444 Interpretive Statements SINUS RHYTHM LEFT AXIS DEVIATION [QRS AXIS < -30] LOW QRS VOLTAGE IN EXTREMITY LEADS [QRS DEFLECTION < 0.5 mV IN LIMB LEADS] POSSIBLE ANTERIOR MYOCARDIAL INFARCTION , PROBABLY OLD [30 ms Q WAVE IN V3/V4, OR R < 0.2 mV IN V4] Compared to ECG 07/06/2019 19:00:53 Left-axis deviation now present Sinus tachycardia no longer present Right-axis deviation no longer present Myocardial infarct finding still present [email or web address]/store/OM/[id number] Dictated By:INTERFACE,USER Signed By:Signed Date/Time: DD/ 37 Other EKG comments: Chest X-Ray 10/22/19 19:22 IMPRESSION: 1. No acute pulmonary process. 2. Marked enlargement of the cardiac silhouette. Possible cardiac enlargement or pericardial effusion. Recommend comparison with prior chest radiographs (not available currently). Pulmonary Perfusion Imaging 10/22/19 21:08 IMPRESSION: 1. Very low probability of pulmonary embolism by PIOPED II criteria. 2. Matched ventilation/perfusion defect in the right lung base is probably due to elevation of the right hemidiaphragm in the supine position which is greater than on the semi upright chest radiograph. EKG 2: EKG interpretation date: 10/22/19 Interpretation: Chest X-Ray 10/22/19 19:22 IMPRESSION: 1. No acute pulmonary process. 2. Marked enlargement of the cardiac silhouette. Possible cardiac enlargement or pericardial effusion. Recommend comparison with prior chest radiographs (not available currently). Pulmonary Perfusion Imaging 10/22/19 21:08 IMPRESSION: 1. Very low probability of pulmonary embolism by PIOPED II criteria. 2. Matched ventilation/perfusion defect in the right lung base is probably due to elevation of the right hemidiaphragm in the supine position which is greater than on the semi upright chest radiograph. 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1970 Requested By: Jinny Rincon I Order Number: [id number] Reading MD: Measurements Intervals [place] Rate: 92 P: 7 WI: 145 QRS: -39 QRSD: 93 T: 60 QT: 366 QTc: 453 Interpretive Statements SINUS RHYTHM LEFT AXIS DEVIATION [QRS AXIS < -30] LOW QRS VOLTAGE IN EXTREMITY LEADS [QRS DEFLECTION < 0.5 mV IN LIMB LEADS] POSSIBLE ANTERIOR MYOCARDIAL INFARCTION , PROBABLY OLD [30 ms Q WAVE IN V3/V4, OR R < 0.2 mV IN V4] Compared to ECG 10/22/2019 19:38:30 No significant changes [email or web address]/store/[id number] Dictated By:INTERFACE,USER Signed By:Signed Date/Time: DD/ 40 Other EKG comments: Chest X-Ray 10/22/19 19:22 IMPRESSION: 1. No acute pulmonary process. 2. Marked enlargement of the cardiac silhouette. Possible cardiac enlargement or pericardial effusion. Recommend comparison with prior chest radiographs (not available currently). Pulmonary Perfusion Imaging 10/22/19 21:08 IMPRESSION: 1. Very low probability of pulmonary embolism by PIOPED II criteria. 2. Matched ventilation/perfusion defect in the right lung base is probably due to elevation of the right hemidiaphragm in the supine position which is greater than on the semi upright chest radiograph. Lab Data: Attestation: I reviewed the patient's lab results. Labs: Lab Results 10/22/19 10/22/19 10/22/19 Range/Units 19:48 19:48 19:48 WBC 10.0 (4.0-10.0) 10^3/ uL RBC 4.24 (4.1-5.3) 10^6/u L Hgb 8.7 L (11.5-15.3) g/dL Hct 32.8 L (37.0-47.0) % MCV 77.4 L (81-99) fL MCH 20.5 L (28.0-34.0) pg MCHC 26.5 L (30.0-36.0) g/dL RDW 22.9 H (12.1-15.1) % Plt Count 375 (130-400) 10^3/c mm MPV 11.0 H (7.4-10.4) fL Neut % (Auto) 71.1 % Lymph % (Auto) 16.0 % [place] % (Auto) 10.8 % Eos % (Auto) 0.7 % Baso % (Auto) 1.0 % Neut # (Auto) 7.1 (1.8-7.7) 10^3/u L Lymph # (Auto) 1.6 (0.8-4.8) 10^3/u L Dade # (Auto) 1.1 H (0.2-0.9) 10^3/u L Eos # (Auto) 0.1 (0.0-0.8) 10^3/u L Baso # (Auto) 0.1 (0.0-0.1) 10^3/u L Nucleated RBC % (a uto) 0 % Nucleated RBCs # 0.0 /100WBC D-Dimer (0-0.59) ug/mIFE U Sodium 134 L (136-145) mmol/L Potassium 5.3 H (3.5-5.1) mmol/L Chloride 100 (98-107) mmol/L Carbon Dioxide 22 (22-29) mmol/L Anion Gap 17.3 (5-19) BUN 17 (6-20) mg/dL Creatinine 0.7 (0.5-0.9) mg/dL GFR Calculation 88.9 L (90-130) mL/min Glucose 231 H (65-115) mg/dL Calculated Osmolal ity 282 L (285-295) mOsm/k g Calcium 8.9 (8.5-10.5) mg/dL Total Bilirubin 0.5 (0.15-1.2) mg/dL AST 10 (0-32) U/L ALT 7 (0-33) U/L Alkaline Phosphata se 129 H (35-105) IU/L Troponin T Baselin e 70 H (0-10) ng/L Troponin T 120 Min [place] (0-10) ng/L Delta Troponin T (0-10) ABS# NT-Pro-B Natriuret Pep 4885 H (0-125) pg/mL Total Protein 6.8 (6.6-8.7) g/dL Albumin 2.4 L (3.5-5.2) g/dL Globulin 4.4 (1.3-4.6) g/dL 10/22/19 10/22/19 Range/Units 19:48 21:15 WBC (4.0-10.0) 10^3/ uL RBC (4.1-5.3) 10^6/u L Hgb (11.5-15.3) g/dL Hct (37.0-47.0) % MCV (81-99) fL MCH (28.0-34.0) pg MCHC (30.0-36.0) g/dL RDW (12.1-15.1) % Plt Count (130-400) 10^3/c mm MPV (7.4-10.4) fL Neut % (Auto) % Lymph % (Auto) % [place]ade % (Auto) % Eos % (Auto) % Baso % (Auto) % Neut # (Auto) (1.8-7.7) 10^3/u L Lymph # (Auto) (0.8-4.8) 10^3/u L Dade # (Auto) (0.2-0.9) 10^3/u L Eos # (Auto) (0.0-0.8) 10^3/u L Baso # (Auto) (0.0-0.1) 10^3/u L Nucleated RBC % (a uto) % Nucleated RBCs # /100WBC D-Dimer 1.50 H (0-0.59) ug/mIFE U Sodium (136-145) mmol/L Potassium (3.5-5.1) mmol/L Chloride (98-107) mmol/L Carbon Dioxide (22-29) mmol/L Anion Gap (5-19) BUN (6-20) mg/dL Creatinine (0.5-0.9) mg/dL GFR Calculation (90-130) mL/min Glucose (65-115) mg/dL Calculated Osmolal ity (285-295) mOsm/k g Calcium (8.5-10.5) mg/dL Total Bilirubin (0.15-1.2) mg/dL AST (0-32) U/L ALT (0-33) U/L Alkaline Phosphata se (35-105) IU/L Troponin T Baselin e (0-10) ng/L Troponin T 120 Min [place] 77.04 H (0-10) ng/L Delta Troponin T 7.04 (0-10) ABS# NT-Pro-B Natriuret Pep (0-125) pg/mL Total Protein (6.6-8.7) g/dL Albumin (3.5-5.2) g/dL Globulin (1.3-4.6) g/dL Discharge Plan Discharge Patient Disposition: Home, Self-Care Clinical Impression: Panic attack Condition: Stable Prescriptions: Continued prednisone 20 mg tablet 40 mg PO .COMPLEX Qty: 7 RF: 0 Lantus Solostar U-100 Insulin 100 unit/mL (3 mL) insulin pen 60 unit SUBCUT BID Qty: 15 RF: 6 [place] 7.5-325 mg tablet 1 tab PO Q6H PRN (Reason: pain) 14 Days Qty: 30 RF: 0 insulin lispro [Humalog KwikPen Insulin] 100 unit/mL insulin pen 5 unit SUBCUT .qac Qty: 15 RF: 0 cyclobenzaprine 5 mg Tablet 5 mg PO TID PRN (Reason: Muscle Pain) RF: 0 pantoprazole 40 mg tablet,delayed release (DR/EC) 40 mg PO DAILY Qty: 30 RF: 4 potassium chloride 10 mEq capsule, extended release 10 meq PO DAILY Qty: 30 RF: 3 tramadol 50 mg tablet 50 mg PO QID PRN (Reason: pain) Qty: 30 RF: 0 furosemide [Lasix] 40 mg Tablet 40 mg PO DAILY RF: 0 atorvastatin 40 mg Tablet 40 mg PO DAILY RF: 0 hydralazine 10 mg Tablet 10 mg PO TID RF: 0 aspirin [Aspir-Low] 81 mg Tablet,Delayed Release (Dr/Ec) 81 mg PO DAILY RF: 0 acetaminophen [Tylenol Extra Strength] 500 mg Tablet 1,000 mg PO Q4H PRN (Reason: Pain) RF: 0 carvedilol 3.125 mg Tablet 3.125 mg PO BID RF: 0 famotidine 20 mg Tablet 20 mg PO BID RF: 0 norethindrone acetate 5 mg tablet 10 mg PO BID RF: 0 gabapentin 100 mg Capsule 100 mg PO TID PRN (Reason: Pain) RF: 0 trazodone 100 mg Tablet 100 mg PO BEDTIME RF: 0 Prozac 10 mg Capsule 10 mg PO DAILY RF: 0 Eliquis 5 mg Tablet 5 mg PO BID RF: 0 Augmentin 875-125 mg tablet 1 tab PO Q12H Qty: 30 RF: 0 Discharge Orders: Discharge Order (Routine); Ordered 10/22/19 Ordered By: Jinny Rincon Referrals: Hamilton Scott MD [Primary Care Provider] - 1-3 days Patient Instructions: Anxiety (ED), Panic Attack Activity Restrictions/Additional Instructions: Return for any new or worsening symptoms. Follow-up with your primary care provider within 3 days. Continue home medications as prescribed. Coding Level of Care Code ED Bottom Saw Operator for Emily Fwd Exam Comprehensive
[2019-10-22 20:01] LABS: Basophils # 0.1 10^3/uL (0.0-0.1); Eosinophils # 0.1 10^3/uL (0.0-0.8); Eosinophils % 0.7 %; Hematocrit 32.8 % (37.0-47.0); Hemoglobin 8.7 g/dL (11.5-15.3); Lymphocytes # 1.6 10^3/uL (0.8-4.8); Mean Corpuscular HGB Conc 26.5 g/dL (30.0-36.0); Mean Corpuscular Hemoglobin 20.5 pg (28.0-34.0); Mean Corpuscular Volume 77.4 fL (81-99); Monocytes # 1.1 10^3/uL (0.2-0.9); Monocytes % 10.8 %; Neutrophils # 7.1 10^3/uL (1.8-7.7); Neutrophils % 71.1 %; Nucleated Red Blood Cells % 0 %; Platelet Count 375 10^3/cmm (130-400); Red Blood Count 4.24 10^6/uL (4.1-5.3); Red Cell Distribution Width 22.9 % (12.1-15.1)
[2019-10-22 20:15] LABS: Troponin(5th) Baseline 70 ng/L (0-10)
[2019-10-22 20:25] LABS: Alanine Aminotransferase 7 U/L (0-33); Albumin Level 2.4 g/dL (3.5-5.2); Alkaline Phosphatase 129 IU/L (35-105); Anion Gap 17.3 (5-19); Aspartate Amino Transferase 10 U/L (0-32); Blood Urea Nitrogen 17 mg/dL (6-20); Calcium 8.9 mg/dL (8.5-10.5); Carbon Dioxide 22 mmol/L (22-29); Chloride 100 mmol/L (98-107); Globulin 4.4 g/dL (1.3-4.6); Glomerular Filtration Rate 88.9 mL/min (90-130); Glucose 231 mg/dL (65-115); NT Pro B Type Natriuretic Pept 4885 pg/mL (0-125); Osmolality Calculated 282 mOsm/kg (285-295); Potassium 5.3 mmol/L (3.5-5.1); Sodium 134 mmol/L (136-145); Total Bilirubin 0.5 mg/dL (0.15-1.2); Total Protein 6.8 g/dL (6.6-8.7)
--- NOTE | 2019-10-22 21:08 | NMR_ITS ---
PROCEDURE INFORMATION: Exam: VT Lung Ventilation and Perfusion Imaging Exam date and time: 10/22/2019 10:08 PM Age: 49 years old Clinical indication: Pain and abnormal findings; Abnormal diagnostic tests; Elevated d-dimer; Patient HX: Chest pressure since right leg amputation 2-3 months ago. Worse tonight; Additional info: High pretest prob pe TECHNIQUE: Imaging protocol: Nuclear pulmonary ventilation with aerosol or gas was performed followed by perfusion. Views: Ventilation acquired with multiple projections. Perfusion acquired with multiple projections. Radiopharmaceutical: 32.7 mCi of Tc-99m DTPA, inhaled. 5.5 mCi of Tc-99m MAA, IV. COMPARISON: No relevant prior studies available. FINDINGS: Ventilation: Large ventilation defect involving the right lung base. Linear nonsegmental ventilation defect extending from the hilum to the lateral aspect of the right lung visible on all images. Perfusion: Matched large ventilation/perfusion defect at the right lung base with regionally clear chest radiograph. No segmental perfusion defect. VT/VT pul vent and perfus* 61771 IMPRESSION: 1. Very low probability of pulmonary embolism by PIOPED II criteria. 2. Matched ventilation/perfusion defect in the right lung base is probably due to elevation of the right hemidiaphragm in the supine position which is greater than on the semi upright chest radiograph.
--- NOTE | 2019-10-22 21:23 | ECG_ITS ---
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 Measurements Intervals [place] Rate: 92 P: 7 SC: 145 QRS: -39 QRSD: 93 T: 60 QT: 366 QTc: 453 Interpretive Statements SINUS RHYTHM LEFT AXIS DEVIATION LOW QRS VOLTAGE IN EXTREMITY LEADS POSSIBLE ANTERIOR MYOCARDIAL INFARCTION , PROBABLY OLD Compared to ECG 10/22/2019 19:38:30 No significant changes Electronically Signed On 10-23-2019 18:39:11 CDT by Alexandra Mg M.D. [id number]
[2019-10-22 21:35] LABS: Troponin 5 2HR 77.04 ng/L (0-10); Troponin 5 2HR Delta 7.04 ABS# (0-10)
[2019-10-22] MEDS: morphine 4 mg/mL SDV 1 mL 10 MG IVP (21:50)
--- NOTE | 2019-10-22 22:31 | PC.NURSE ---
Gone to Nuc med
[2019-10-23 00:02] VITALS: BP 127/96; PULSE 92; RESP 16; O2SAT 95
--- NOTE | 2019-10-23 15:34 | DCPLANNER ---
business project manager had message to speak with patient about custodial placement. business project manager spoke with patient, was told that her home agency is going to take care of placement.
== END 2019-10-23 00:33 | disposition home or self-care (01) ==
PROVIDERS: Emergency Provider Family Medicine; PCP Internal Medicine
DX: F41.0 Panic disorder [episodic paroxysmal anxiety] (principal); Z79.01 Long term (current) use of anticoagulants; Z79.82 Long term (current) use of aspirin; Z79.4 Long term (current) use of insulin; E11.22 Type 2 diabetes mellitus with diabetic chronic kidney disease; N18.2 Chronic kidney disease, stage 2 (mild); Z87.891 Personal history of nicotine dependence
CPT/HCPCS: 12345; 36415; 71045; 78014; 80053; 83880; 84484; 85025; 85378; 93005; 96374; 96375; 99283; 99284; A9540; A9567; J2270

== ENCOUNTER 2019-10-25 11:46 | Emergency (ER) | payer MEDICAID, SELFPAY | END 2019-10-25 18:25 | disposition still patient (30) | LOC: ER 10-27 02:16 | PROVIDERS: Emergency Provider Emergency Medicine; PCP Internal Medicine | DX: J18.9 Pneumonia, unspecified organism (principal); Z87.891 Personal history of nicotine dependence; E11.22 Type 2 diabetes mellitus with diabetic chronic kidney disease; N18.2 Chronic kidney disease, stage 2 (mild) | CPT/HCPCS: 12345; 36415; 36416; 70450; 70496; 70498; 71045; 80048; 80053; 80306; 80307; 81001; 82009; 82803; 82962; 83036; 83605; 83735; 83880; 84145; 84484; 85025; 85651; 86140; 87040; 93005; 96361; 96365; 96375; 99284; 99285; G0378; J2543; J7030; Q9967 ==

== ENCOUNTER 2019-10-25 11:46 | Inpatient (IN) | payer MEDICAID, SELFPAY ==
[2019-10-25] VITALS (8 sets, daily range): BP systolic 110–134; BP diastolic 66–91; PULSE 66–71; RESP 13–22; TEMP 36.4–36.7; O2SAT 92–99; BMI 47.0
--- NOTE | 2019-10-25 11:53 | CT_ITS ---
WS: [id number] CT HEAD NONCONTRAST HISTORY: POSS CVA TECHNIQUE: Contiguous axial imaging performed through the brain in 2.5 mm imaging. Bone and soft tiss ue windows. Sagittal and coronal reformats reviewed. All CT scans at [facility] use at ast one of these dose optimization techniques: automated exposure control; mA and/or kV adjustment pe r patient size (includes targeted exams where dose is matched to clinical indication); or iterative r econstruction. DLP: 1456.75 mGy-cm. COMPARISON: 03/26/2019 No acute intracranial hemorrhage, midline shift or mass effect. No atrophy or prior infarcts or herniation. Minimal chronic microvascular ischemic disease. Ventricles: Normal size with no hydrocephalus. Paranasal sinuses: As visualized are clear. Mastoid air cells: Well pneumatized. Calvarium and scalp: Hyperostosis frontalis interna. No destructive lesions. Notified Keeley Mcleod at 10/25/2019 12:[address]/CT head wo con* [id number] IMPRESSION: Negative head CT.
--- NOTE | 2019-10-25 11:54 | CT_ITS ---
WS: [id number] CT ANGIOGRAM CEREBRAL AND CAROTID ARTERIES HISTORY: POSS CVA TECHNIQUE: CT angiogram is performed of the carotid and cerebral arteries. During arterial injection imaging is obtained from the skull vertex to the aortic arch in 1.25 mm imaging. Coronal and sagittal reformats are submitted. Additional multi planar reformats of the carotid and cerebral arteries are submitted, MIP imaging also reviewed. NASCET criteria utilized. All CT scans at [facility] use at least one of these dose optimization techniques: automated exposure control; mA and/or kV ad justment per patient size (includes targeted exams where dose is matched to clinical indication); or iterative reconstruction. CONTRAST: Omnipaque 350; 95 mL IV. DLP: 1532.62 mGy.cm COMPARISON: None available. Carotid Angiogram: Right carotid: Common carotid artery: Arises normally from the innominate artery. No significant plaque or stenosis. Internal carotid artery: Mild calcified plaque at the bifurcation with no significant obstruction. External carotid artery: Patent. Left carotid: Common carotid artery: Arises normally from the aorta. No significant plaque or stenosis. Internal carotid artery: Mild atherosclerosis and calcified plaque at the bifurcation without signifi cant stenosis. External carotid artery: Patent. Right vertebral artery: Unremarkable. Left vertebral artery: Unremarkable. Arises normally from the subclavian artery. Subclavian arteries: RIGHT subclavian artery is poorly visualized. LEFT is negative. Upper thorax: Increased soft tissue noted in the posterior RIGHT upper lung. May be loculated effusio n, pneumonia or atelectasis. Additional patchy consolidation in the anterior LEFT upper lobe. There i s significant artifact obscuring detail in the upper thorax. Thyroid gland: Subcentimeter LEFT thyroid nodule. Osseous structures: Unremarkable. CEREBRAL ANGIOGRAM: Intracranial vertebral arteries: Normal with no significant atherosclerosis. Basilar artery: No significant stenosis or occlusion. No aneurysm. Intracranial Internal carotid arteries: Demonstrates no significant stenosis or plaque. Middle cerebral arteries: Normal. Anterior cerebral arteries and ACOM: Normal. Posterior cerebral arteries and PCOM's: Hypoplastic LEFT P-comm. Posterior cerebrals are normal. Norm al RIGHT P-comm. Dural venous sinuses are normally enhancing. Mastoid air cells: Normal. Paranasal sinuses: Small mucous retention cyst RIGHT maxillary sinus. Calvarium: Hyperostosis frontalis interna. CT/CT angio headneck* [id number] IMPRESSION: 1. Mild atherosclerosis proximal internal carotid arteries. No significant britni nosis. 2. No occlusions or aneurysms intracranial arteries. 3. Pleural fluid or pneumonia noted in the posterior RIGHT upper lobe and an a payam of pneumonitis or developing pneumonia LEFT upper lobe.
--- NOTE | 2019-10-25 11:54 | XRR_ITS ---
PROCEDURE INFORMATION: Exam: XR Chest, 1 View Exam date and time: 10/25/2019 12:54 PM Age: 49 years old Clinical indication: Other: CVA; Stroke alert protocol; Additional info: CVA. HX of gb surgery, shoulder, back surgeries TECHNIQUE: Imaging protocol: XR of the chest Views: 1 view. COMPARISON: CR XR chest 1V portable [id number] 10/22/2019 7:31 PM FINDINGS: Lungs: Unremarkable. No consolidation. Low lung volumes seen. Pleural space: Unremarkable. No pleural effusion. No pneumothorax. Heart/Mediastinum: There is cardiomegaly for projection. Bones/joints: Unremarkable. No interval changes are seen compared to prior XR/XR chest 1V portable [id number] IMPRESSION: No acute findings. Low lung volumes Cardiomegaly for projection
--- NOTE | 2019-10-25 11:55 | ECG_ITS ---
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 Measurements Intervals Barre Rate: 68 P: 56 OK: 164 QRS: -55 QRSD: 96 T: 60 QT: 409 QTc: 436 Interpretive Statements SINUS RHYTHM LEFT AXIS DEVIATION LOW QRS VOLTAGE IN EXTREMITY LEADS Compared to ECG 10/22/2019 21:41:20 Myocardial infarct finding no longer present Electronically Signed On 10-25-2019 17:07:15 CDT by Alexandra Mg M.D. [id number]
[2019-10-25] MEDS: iohexol 350 mg/mL 100 mL Btl IV (12:14)
[2019-10-25 12:24] LABS: Glucose Point of Care 464 mg/dL (70-110)
--- NOTE | 2019-10-25 12:29 | ED_ITS ---
HPI - Neuro Symptoms/Deficit General: Chief Complaint: Neuro Symptoms/Deficit Stated Complaint: Stroke Alert Time Seen by Provider: 10/25/19 11:51 Source: patient and EMS Mode of arrival: EMS Limitations: no limitations History of Present Illness: HPI Narrative: Eliza is a 49-year-old female who comes in after she was found confused, pale and cyanotic in the face by nursing custodial nurses. Patient states that she has been up and down most of the night and I cannot get a firm last known well time or onset time from anyone involved. As the patient was brought her to by the custodial nurses it was believed that she had left-sided facial droop and left-sided weakness. Here the patient states that she feels fine other than she just feels tired all over. She denies fevers, chills, headache or any other complaints. Of note the patient is on Xarelto as well. Associated symptoms: Deny chest pain, diaphoresis, headache(s), malaise, nausea, syncope, vertigo or vomiting Review of Systems Const: Denies: fever(s), chills, body aches, fatigue, malaise or diaphoresis Eyes: Denies: change in vision, blurry vision, blind spots, photophobia, eye discharge or eye redness ENMT: Denies: throat pain, odynophagia, hoarseness, swelling of lips/tongue, oral sores, ear or mastoid pain, ear discharge, change in hearing or nasal discharge Card: Denies: chest pain, palpitations, irregular heart rhythm, edema, lightheadedness, syncope, pre-syncope, dyspnea on exertion or orthopnea Resp: Denies: dyspnea, productive cough, non-productive cough, wheezing, hemoptysis or chest congestion GI: Denies: abdominal pain, nausea, vomiting, hematemesis, coffee ground emesis, heartburn, diarrhea, constipation, GI cramping, hematochezia or melena : Denies: flank pain, dysuria, urinary frequency, urinary urgency or hematuria Musc: Denies: neck pain, back pain, extremity pain, extremity swelling, joint pain, joint swelling, joint redness, joint warmth or joint stiffness Skin/Breast: Denies: rash, pruritus, erythema, skin tenderness or jaundice Neuro: Denies: headache(s), sensory changes, lack of coordination, difficulty walking, dizziness, vertigo, confusion, Slurred speech present or seizure-like activity Hayder/Lymph: Denies: easy bruising, easy bleeding, petechiae, purpura or enlarged lymph nodes All/Imm: Denies: urticaria, throat swelling, tongue swelling, facial swelling or acute wheezing PFSH ED PFSH: Medical History Chronic anticoagulation Chronic kidney disease, stage II (mild) History of DVT (deep vein thrombosis) Nonischemic cardiomyopathy Poorly controlled diabetes mellitus PVD (peripheral vascular disease) with claudication Urinary tract infection due to ESBL Klebsiella Surgical History History of back surgery History of History of shoulder surgery Hx of cholecystectomy Family History Father CAD (coronary artery disease) Chronic kidney disease (CKD) Hyperlipidemia Hypertension Grandmother Dementia Mother Stroke Other Diabetes Denies family history of Clotting disorder Psychiatric illness Suicide Anesthesia complication Bleeding disorder Family history of premature coronary artery disease Lung disease Cancer Social History Smoking and tobacco status: former smoker Quit status (tobacco): has quit using tobacco Year quit tobacco: 3 mo ago Alcohol intake: never Lives independently: Yes Household members: children Current occupational status: employed History of recent travel: No NIH stroke score NIHSS: Level Of Consciousness - 1a: 0 Level Of Consciousness Questions - 1b: Both Correct Level Of Consciousness Commands - 1c: Both Correct Best Gaze - 2: Normal Visual Steele - 3: No Visual Loss Facial Palsy - 4: Normal Motor Arm Right - 5: No Drift Motor Arm Left - 5: No Drift Motor Leg Right - 6: No Drift Motor Leg Left - 6: No Drift Limb Ataxia - 7: Absent Sensory - 8: Normal Best Language - 9: No Aphasia Dysarthia - 10: Normal Extinction And Inattention - 11: 0 Score: Total Score: 0 Physical Exam Const: COMMON NORMALS: no acute distress, patient oriented x3, no limitations, healthy appearing and well nourished GENERAL APPEARANCE: cooperative, well kempt and well developed HENMT: COMMON NORMALS: normocephalic, atraumatic, external ears normal, EAC's normal and Normal external nose present HEAD & SCALP: normal to inspection, normocephalic and atraumatic FACE & SINUS: normal facial exam and face symmetric NOSE: Normal external nose present and Normal nares present EXTERNAL EAR: Yes external ears normal EXTERNAL AUDITORY CANAL: EAC's normal MOUTH: Normal oral and palatal mucosa present, lip normal and tongue normal Eye: COMMON NORMALS: Equal, round and reactive pupils present and conjunctivae normal GENERAL EYE: appearance normal, both eyes and all related structures ALIGNMENT: Yes alignment normal PERIORBITAL: periorbital findings normal EYELID: eyelids normal CONJUNCTIVA: Yes conjunctivae normal SCLERA: sclerae normal PUPIL: Yes Equal, round and reactive pupils present Neck/C-Spine: COMMON NORMALS: full ROM, no lymphadenopathy, supple, no meningeal signs and no JVD GENERAL: Yes normal visual inspection and Yes trachea midline Chest: COMMONS NORMALS: normal inspection of the chest and normal palpation of entire chest wall Resp: COMMON NORMALS: normal respiratory effort, No retractions and No use of accessory muscles EFFORT & INSPECTION: Yes able to speak in complete sentences and Yes symmetric chest movement AUSCULTATION: no crackles, no rales, no rhonchi and no wheezes Cardio: COMMON NORMALS: no JVD, regular rate, regular rhythm, S1 normal heart sound present and S2 normal heart sound present RATE: regular rate RHYTHM: regular rhythm HEART SOUNDS: S1 normal heart sound present, S2 normal heart sound present, no click, no gallops, no murmurs, no rubs and abnormal split S2 GI: COMMON NORMALS: Soft to palpation and No hepatosplenomegaly present PALPATION: Yes Soft to palpation, No Tenderness to palpation present (GI), No Guarding due to palpation present (GI), No Rigid due to palpation, Yes No hepatosplenomegaly present, No Hernia present, No Palpable mass present and No Pulsatile mass present : COMMON NORMALS: Yes no CVA tenderness BLADDER/KIDNEY EXAM: Yes no CVA tenderness EXTERNAL FEMALE EXAM: No Hernia present Back/Pelvis: COMMON NORMALS: no CVA tenderness, thoracic and lumbar spine normal to inspection, no thoracic nor lumbar tenderness and thoraco-lumbar ROM normal Extremity: COMMON NORMALS: normal to inspection, full ROM, capillary refill normal, no joint enlargement, no clubbing, cyanosis or edema and no calf tenderness Neuro: COMMON NORMALS: patient oriented x3, CN's II-XII intact bilaterally, moves all extremities, no focal motor deficits and no sensory deficits noted MENINGEAL SIGNS: Yes no meningeal signs SPEECH: speech normal Psych: COMMON NORMALS: mental status grossly normal, Normal thought process present, cooperative, normal affect, speech normal and activity/motor behavior normal APPEARANCE: Yes well kempt SPEECH: Yes normal speech THOUGHT PROCESS: Normal thought process present Skin: COMMON NORMALS: no rashes or lesions noted, turgor normal, no jaundice, no petechiae and no mottling GENERAL SKIN EXAM: no rashes or lesions noted an d turgor normal Course Vital Signs: Vital signs: Vital Signs Temperature 97.9 F 10/25/19 11:49 Pulse Rate 68 10/25/19 17:18 Respiratory Rate 22 H 10/25/19 17:18 Blood Pressure 131/89 10/25/19 17:18 Pulse Oximetry 98 10/25/19 17:18 MDM - Neuro Symptoms/Deficit MDM Narrative: Medical decision making narrative: Eliza is a 49-year-old fem kristen who comes in with strokelike symptoms that have resolved. There is also report that she was cyanotic and pale and unresponsive with confusion. CTA head neck are unremarkable. Chest x-ray is unremarkable. There is question on her CTA of the head and neck of a pneumonia. I have reviewed all this with Dr. Serrano and he is agreeable to come admit the patient for further evaluation and care. Lab Data: Attestation: I reviewed the patient's lab results. Labs: Lab Results 10/25/19 10/25/19 10/25/19 Range/Units 12:21 12:30 12:30 WBC 8.3 (4.0-10.0) 10^3/ uL RBC 4.53 (4.1-5.3) 10^6/u L Hgb 9.1 L (11.5-15.3) g/dL Hct 35.6 L (37.0-47.0) % MCV 78.6 L (81-99) fL MCH 20.1 L (28.0-34.0) pg MCHC 25.6 L (30.0-36.0) g/dL RDW 22.5 H (12.1-15.1) % Plt Count 438 H (130-400) 10^3/c mm MPV 11.1 H (7.4-10.4) fL Neut % (Auto) 72.8 % Lymph % (Auto) 13.7 % [place] % (Auto) 11.5 % Eos % (Auto) 0.2 % Baso % (Auto) 1.6 % Neut # (Auto) 6.1 (1.8-7.7) 10^3/u L Lymph # (Auto) 1.1 (0.8-4.8) 10^3/u L [place] # (Auto) 1.0 H (0.2-0.9) 10^3/u L Eos # (Auto) 0.0 (0.0-0.8) 10^3/u L Baso # (Auto) 0.1 (0.0-0.1) 10^3/u L Nucleated RBC % (a uto) 0 % Nucleated RBCs # 0.0 /100WBC Sodium 128 L (136-145) mmol/L Potassium 6.1 H (3.5-5.1) mmol/L Chloride 94 L (98-107) mmol/L Carbon Dioxide 17 L (22-29) mmol/L Anion Gap 23.1 H (5-19) BUN 25 H (6-20) mg/dL Creatinine 1.2 H (0.5-0.9) mg/dL GFR Calculation 47.7 L (90-130) mL/min Glucose 483 H (65-115) mg/dL POC Glucose 464 (70-110) mg/dL Calculated Osmolal ity 284 L (285-295) mOsm/k g Lactic Acid (0.5-2.2) mmol/L Calcium 8.9 (8.5-10.5) mg/dL Magnesium 1.9 (1.7-2.3) mg/dL Total Bilirubin 0.9 (0.15-1.2) mg/dL AST 67 H (0-32) U/L ALT 24 (0-33) U/L Alkaline Phosphata se 174 H (35-105) IU/L Troponin T Baselin e (0-10) ng/L Troponin T 120 Min [place] (0-10) ng/L Delta Troponin T (0-10) ABS# Total Protein 6.6 (6.6-8.7) g/dL Albumin 2.7 L (3.5-5.2) g/dL Globulin 3.9 (1.3-4.6) g/dL Urine Color (Yellow) Urine Appearance (CLEAR) Urine pH (5-7) Ur Specific Gravit y (1.005-1.030) Urine Protein (Negative) Urine Glucose (UA) (Normal) Urine Ketones (Negative) Urine Blood (Negative) Urine Nitrate (Negative) Urine Bilirubin (NEGATIVE) Urine Urobilinogen (Negative) mg/dL Ur Leukocyte Ailin ase (Negative) Urine RBC (0-2) /hpf Urine WBC (0-5) /hpf Ur Squamous Epith Cells (0-5) Amorphous Sediment Urine Bacteria (NONE) Salicylates (3-10) mg/dL Urine Opiates Scre en (Negative) ng/mL Acetaminophen (10-30) ug/mL Ur Barbiturates Sc reen (Negative) ng/mL Ur Phencyclidine S crn (Negative) ng/mL Ur Amphetamines Sc reen (Negative) ng/mL U Benzodiazepines Scrn (Negative) ng/mL Urine Cocaine Scre en (Negative) ng/mL U Marijuana (THC) Screen (Negative) ng/mL Ethyl Alcohol (0-10) mg/dL Serum Ketones (Negative) 10/25/19 10/25/19 10/25/19 Range/Units 12:30 12:30 12:30 WBC (4.0-10.0) 10^3/ uL RBC (4.1-5.3) 10^6/u L Hgb (11.5-15.3) g/dL Hct (37.0-47.0) % MCV (81-99) fL MCH (28.0-34.0) pg MCHC (30.0-36.0) g/dL RDW (12.1-15.1) % Plt Count (130-400) 10^3/c mm MPV (7.4-10.4) fL Neut % (Auto) % Lymph % (Auto) % [place] % (Auto) % Eos % (Auto) % Baso % (Auto) % Neut # (Auto) (1.8-7.7) 10^3/u L Lymph # (Auto) (0.8-4.8) 10^3/u L [place] # (Auto) (0.2-0.9) 10^3/u L Eos # (Auto) (0.0-0.8) 10^3/u L Baso # (Auto) (0.0-0.1) 10^3/u L Nucleated RBC % (a uto) % Nucleated RBCs # /100WBC Sodium (136-145) mmol/L Potassium (3.5-5.1) mmol/L Chloride (98-107) mmol/L Carbon Dioxide (22-29) mmol/L Anion Gap (5-19) BUN (6-20) mg/dL Creatinine (0.5-0.9) mg/dL GFR Calculation (90-130) mL/min Glucose (65-115) mg/dL POC Glucose (70-110) mg/dL Calculated Osmolal ity (285-295) mOsm/k g Lactic Acid 5.9 H* (0.5-2.2) mmol/L Calcium (8.5-10.5) mg/dL Magnesium (1.7-2.3) mg/dL Total Bilirubin (0.15-1.2) mg/dL AST (0-32) U/L ALT (0-33) U/L Alkaline Phosphata se (35-105) IU/L Troponin T Baselin e 67 H (0-10) ng/L Troponin T 120 Min [place] (0-10) ng/L Delta Troponin T (0-10) ABS# Total Protein (6.6-8.7) g/dL Albumin (3.5-5.2) g/dL Globulin (1.3-4.6) g/dL Urine Color (Yellow) Urine Appearance (CLEAR) Urine pH (5-7) Ur Specific Gravit y (1.005-1.030) Urine Protein (Negative) Urine Glucose (UA) (Normal) Urine Ketones (Negative) Urine Blood (Negative) Urine Nitrate (Negative) Urine Bilirubin (NEGATIVE) Urine Urobilinogen (Negative) mg/dL Ur Leukocyte Ailin ase (Negative) Urine RBC (0-2) /hpf Urine WBC (0-5) /hpf Ur Squamous Epith Cells (0-5) Amorphous Sediment Urine Bacteria (NONE) Salicylates < 0.3 L (3-10) mg/dL Urine Opiates Scre en (Negative) ng/mL Acetaminophen 9.4 L (10-30) ug/mL Ur Barbiturates Sc reen (Negative) ng/mL Ur Phencyclidine S crn (Negative) ng/mL Ur Amphetamines Sc reen (Negative) ng/mL U Benzodiazepines Scrn (Negative) ng/mL Urine Cocaine Scre en (Negative) ng/mL U Marijuana (THC) Screen (Negative) ng/mL Ethyl Alcohol < 10 (0-10) mg/dL Serum Ketones (Negative) 10/25/19 10/25/19 10/25/19 Range/Units 12:30 13:40 13:40 WBC (4.0-10.0) 10^3/ uL RBC (4.1-5.3) 10^6/u L Hgb (11.5-15.3) g/dL Hct (37.0-47.0) % MCV (81-99) fL MCH (28.0-34.0) pg MCHC (30.0-36.0) g/dL RDW (12.1-15.1) % Plt Count (130-400) 10^3/c mm MPV (7.4-10.4) fL Neut % (Auto) % Lymph % (Auto) % [place] % (Auto) % Eos % (Auto) % Baso % (Auto) % Neut # (Auto) (1.8-7.7) 10^3/u L Lymph # (Auto) (0.8-4.8) 10^3/u L [place] # (Auto) (0.2-0.9) 10^3/u L Eos # (Auto) (0.0-0.8) 10^3/u L Baso # (Auto) (0.0-0.1) 10^3/u L Nucleated RBC % (a uto) % Nucleated RBCs # /100WBC Sodium (136-145) mmol/L Potassium (3.5-5.1) mmol/L Chloride (98-107) mmol/L Carbon Dioxide (22-29) mmol/L Anion Gap (5-19) BUN (6-20) mg/dL Creatinine (0.5-0.9) mg/dL GFR Calculation (90-130) mL/min Glucose (65-115) mg/dL POC Glucose (70-110) mg/dL Calculated Osmolal ity (285-295) mOsm/k g Lactic Acid (0.5-2.2) mmol/L Calcium (8.5-10.5) mg/dL Magnesium (1.7-2.3) mg/dL Total Bilirubin (0.15-1.2) mg/dL AST (0-32) U/L ALT (0-33) U/L Alkaline Phosphata se (35-105) IU/L Troponin T Baselin e (0-10) ng/L Troponin T 120 Min [place] (0-10) ng/L Delta Troponin T (0-10) ABS# Total Protein (6.6-8.7) g/dL Albumin (3.5-5.2) g/dL Globulin (1.3-4.6) g/dL Urine Color Yellow (Yellow) Urine Appearance Clear (CLEAR) Urine pH 5 (5-7) Ur Specific Gravit y 1.015 (1.005-1.030) Urine Protein 3+ H (Negative) Urine Glucose (UA) 2+ (Normal) Urine Ketones Negative (Negative) Urine Blood Neg (Negative) Urine Nitrate Negative (Negative) Urine Bilirubin Neg (NEGATIVE) Urine Urobilinogen Neg (Negative) mg/dL Ur Leukocyte Ailin ase Negative (Negative) Urine RBC None (0-2) /hpf Urine WBC 0-4 H (0-5) /hpf Ur Squamous Epith Cells 0-4 H (0-5) Amorphous Sediment 2+ Urine Bacteria 1+ H (NONE) Salicylates (3-10) mg/dL Urine Opiates Scre en Positive H (Negative) ng/mL Acetaminophen (10-30) ug/mL Ur Barbiturates Sc reen Negative (Negative) ng/mL Ur Phencyclidine S crn Positive H (Negative) ng/mL Ur Amphetamines Sc reen Negative (Negative) ng/mL U Benzodiazepines Scrn Negative (Negative) ng/mL Urine Cocaine Scre en Negative (Negative) ng/mL U Marijuana (THC) Screen Negative (Negative) ng/mL Ethyl Alcohol (0-10) mg/dL Serum Ketones Negative (Negative) 10/25/19 10/25/19 Range/Units 14:30 14:30 WBC (4.0-10.0) 10^3/ uL RBC (4.1-5.3) 10^6/u L Hgb (11.5-15.3) g/dL Hct (37.0-47.0) % MCV (81-99) fL MCH (28.0-34.0) pg MCHC (30.0-36.0) g/dL RDW (12.1-15.1) % Plt Count (130-400) 10^3/c mm MPV (7.4-10.4) fL Neut % (Auto) % Lymph % (Auto) % [place] % (Auto) % Eos % (Auto) % Baso % (Auto) % Neut # (Auto) (1.8-7.7) 10^3/u L Lymph # (Auto) (0.8-4.8) 10^3/u L [place] # (Auto) (0.2-0.9) 10^3/u L Eos # (Auto) (0.0-0.8) 10^3/u L Baso # (Auto) (0.0-0.1) 10^3/u L Nucleated RBC % (a uto) % Nucleated RBCs # /100WBC Sodium 128 L (136-145) mmol/L Potassium 5.9 H (3.5-5.1) mmol/L Chloride 94 L (98-107) mmol/L Carbon Dioxide 17 L (22-29) mmol/L Anion Gap 22.9 H (5-19) BUN 24 H (6-20) mg/dL Creatinine 1.1 H (0.5-0.9) mg/dL GFR Calculation 52.8 L (90-130) mL/min Glucose 449 H (65-115) mg/dL POC Glucose (70-110) mg/dL Calculated Osmolal ity 282 L (285-295) mOsm/k g Lactic Acid (0.5-2.2) mmol/L Calcium 8.7 (8.5-10.5) mg/dL Magnesium (1.7-2.3) mg/dL Total Bilirubin (0.15-1.2) mg/dL AST (0-32) U/L ALT (0-33) U/L Alkaline Phosphata se (35-105) IU/L Troponin T Baselin e (0-10) ng/L Troponin T 120 Min [place] 66.52 H (0-10) ng/L Delta Troponin T -0.48 L (0-10) ABS# Total Protein (6.6-8.7) g/dL Albumin (3.5-5.2) g/dL Globulin (1.3-4.6) g/dL Urine Color (Yellow) Urine Appearance (CLEAR) Urine pH (5-7) Ur Specific Gravit y (1.005-1.030) Urine Protein (Negative) Urine Glucose (UA) (Normal) Urine Ketones (Negative) Urine Blood (Negative) Urine Nitrate (Negative) Urine Bilirubin (NEGATIVE) Urine Urobilinogen (Negative) mg/dL Ur Leukocyte Ailin ase (Negative) Urine RBC (0-2) /hpf Urine WBC (0-5) /hpf Ur Squamous Epith Cells (0-5) Amorphous Sediment Urine Bacteria (NONE) Salicylates (3-10) mg/dL Urine Opiates Scre en (Negative) ng/mL Acetaminophen (10-30) ug/mL Ur Barbiturates Sc reen (Negative) ng/mL Ur Phencyclidine S crn (Negative) ng/mL Ur Amphetamines Sc reen (Negative) ng/mL U Benzodiazepines Scrn (Negative) ng/mL Urine Cocaine Scre en (Negative) ng/mL U Marijuana (THC) Screen (Negative) ng/mL Ethyl Alcohol (0-10) mg/dL Serum Ketones (Negative) Imaging Data^: CT Head: Radiologist's impression: [place] [address] CT Scan Report Signed Patient: Eliza Quinn Unit #: [id number] : 1970 Age/Sex: 49 / F ADM Date: 10/25/19 Loc: ER Room/Bed: Attending Dr: Ordering Provider/Ordering MD: Keeley Mcleod DO Date of Service: 10/25/19 Procedure(s): CT head wo con* [id number] Accession Number(s): [id number] Report Number: [id number] WS: [id number] CT HEAD NONCONTRAST HISTORY: POSS CVA TECHNIQUE: Contiguous axial imaging performed through the brain in 2.5 mm imaging. Bone and soft tissue windows. Sagittal and coronal reformats reviewed. All CT scans at [facility] use at least one of these dose optimization techniques: automated exposure control; mA and/or kV adjustment per patient size (includes targeted exams where dose is matched to clinical indication); or iterative reconstruction. DLP: 1456.75 mGy-cm. COMPARISON: 03/26/2019 No acute intracranial hemorrhage, midline shift or mass effect. No atrophy or prior infarcts or herniation. Minimal chronic microvascular ischemic disease. Ventricles: Normal size with no hydrocephalus. Paranasal sinuses: As visualized are clear. Mastoid air cells: Well pneumatized. Calvarium and scalp: Hyperostosis frontalis interna. No destructive lesions. Notified Keeley Mcleod at 10/25/2019 12:[address]/CT head wo con* [id number] IMPRESSION: Negative head CT. Dictated By: Marie Rodriguez DO Signed By: Marie Rodriguez DO Signed Date/Time: 10/25/19 1209 DD/ 1206 CTA Head and Neck: Radiologist's impression: [address] [address] [address] Scan Report Signed Patient: Eliza Quinn Unit #: [id number] : 1970 Age/Sex: 49 / F ADM Date: 10/25/19 Loc: ER Room/Bed: Attending Dr: Ordering Provider/Ordering MD: Keeley Mcleod DO Date of Service: 10/25/19 Procedure(s): CT angio headneck* [id number] Accession Number(s): [id number] Report Number: [id number] WS: [id number] CT ANGIOGRAM CEREBRAL AND CAROTID ARTERIES HISTORY: POSS CVA TECHNIQUE: CT angiogram is performed of the carotid and cerebral arteries. During arterial injection imaging is obtained from the skull vertex to the aortic arch in 1.25 mm imaging. Coronal and sagittal reformats are submitted. Additional multi planar reformats of the carotid and cerebral arteries are submitted, MIP imaging also reviewed. NASCET criteria utilized. All CT scans at [facility] use at least one of these dose optimization techniques: automated exposure control; mA and/or kV adjustment per patient size (includes targeted exams where dose is matched to clinical indication); or iterative reconstruction. CONTRAST: Omnipaque 350; 95 mL IV. DLP: 1532.62 mGy.cm COMPARISON: None available. Carotid Angiogram: Right carotid: Common carotid artery: Arises normally from the innominate artery. No significant plaque or stenosis. Internal carotid artery: Mild calcified plaque at the bifurcation with no significant obstruction. External carotid artery: Patent. Left carotid: Common carotid artery: Arises normally from the aorta. No significant plaque or stenosis. Internal carotid artery: Mild atherosclerosis and calcified plaque at the bifurcation without significant stenosis. External carotid artery: Patent. Right vertebral artery: Unremarkable. Left vertebral artery: Unremarkable. Arises normally from the subclavian artery. Subclavian arteries: RIGHT subclavian artery is poorly visualized. LEFT is negative. Upper thorax: Increased soft tissue noted in the posterior RIGHT upper lung. M ay be loculated effusion, pneumonia or atelectasis. Additional patchy consolidation in the anterior LEFT upper lobe. There is significant artifact obscuring detail in the upper thorax. Thyroid gland: Subcentimeter LEFT thyroid nodule. Osseous structures: Unremarkable. CEREBRAL ANGIOGRAM: Intracranial vertebral arteries: Normal with no significant atherosclerosis. Basilar artery: No significant stenosis or occlusion. No aneurysm. Intracranial Internal carotid arteries: Demonstrates no significant stenosis or plaque. Middle cerebral arteries: Normal. Anterior cerebral arteries and ACOM: Normal. Posterior cerebral arteries and PCOM's: Hypoplastic LEFT P-comm. Posterior cerebrals are normal. Normal RIGHT P-comm. Dural venous sinuses are normally enhancing. Mastoid air cells: Normal. Paranasal sinuses: Small mucous retention cyst RIGHT maxillary sinus. Calvarium: Hyperostosis frontalis interna. CT/CT angio headneck* [id number] IMPRESSION: 1. Mild atherosclerosis proximal internal carotid arteries. No significant stenosis. 2. No occlusions or aneurysms intracranial arteries. 3. Pleural fluid or pneumonia noted in the posterior RIGHT upper lobe and an area of pneumonitis or developing pneumonia LEFT upper lobe. Dictated By: Marie Rodriguez DO Signed By: Marie Rodriguez DO Signed Date/Time: 10/25/19 1228 DD/ 1220 Discharge Plan Discharge Patient Disposition: Admitted As Inpatient Admit Provider: Rufino Donovan Clinical Impression: Pneumonia Condition: Stable Coding Level of Care Code ED Display And Banner Designer for Chg Fwd Exam Comprehensive
[2019-10-25 12:43] LABS: Basophils # 0.1 10^3/uL (0.0-0.1); Basophils % 1.6 %; Eosinophils % 0.2 %; Hematocrit 35.6 % (37.0-47.0); Hemoglobin 9.1 g/dL (11.5-15.3); Lymphocytes # 1.1 10^3/uL (0.8-4.8); Lymphocytes % 13.7 %; Mean Corpuscular HGB Conc 25.6 g/dL (30.0-36.0); Mean Corpuscular Hemoglobin 20.1 pg (28.0-34.0); Mean Corpuscular Volume 78.6 fL (81-99); Mean Platelet Volume 11.1 fL (7.4-10.4); Monocytes % 11.5 %; Neutrophils # 6.1 10^3/uL (1.8-7.7); Neutrophils % 72.8 %; Nucleated Red Blood Cells % 0 %; Platelet Count 438 10^3/cmm (130-400); Red Blood Count 4.53 10^6/uL (4.1-5.3); Red Cell Distribution Width 22.5 % (12.1-15.1); White Blood Count 8.3 10^3/uL (4.0-10.0)
[2019-10-25 12:59] LABS: Alanine Aminotransferase 24 U/L (0-33); Albumin Level 2.7 g/dL (3.5-5.2); Alkaline Phosphatase 174 IU/L (35-105); Aspartate Amino Transferase 67 U/L (0-32); Chloride 94 mmol/L (98-107); Glucose 483 mg/dL (65-115); Potassium 6.1 mmol/L (3.5-5.1); Sodium 128 mmol/L (136-145)
[2019-10-25 13:04] LABS: Troponin(5th) Baseline 67 ng/L (0-10)
--- NOTE | 2019-10-25 13:55 | ECG_ITS ---
[facility] Test Date: 2019-10-25 Pat Name: Eliza Quinn Department: Room: Gender: Female [employer]er [employer]ing: : 1970 Requested By: Keeley Washburn Order Number: [id number] Kwan MD: Alexandra Mg M.D. Measurements Intervals Leonore Rate: 69 P: 34 CT: 172 QRS: -50 QRSD: 98 T: 37 QT: 409 QTc: 439 Interpretive Statements SINUS RHYTHM LEFT AXIS DEVIATION LOW QRS VOLTAGE IN EXTREMITY LEADS MINIMAL ST DEPRESSION Compared to ECG 10/25/2019 12:44:20 ST (T wave) deviation now present Electronically Signed On 10-25-2019 17:11:08 CDT by Alexandra Mg M.D. [id number]
[2019-10-25 14:17] LABS: Anion Gap 23.1 (5-19); Blood Urea Nitrogen 25 mg/dL (6-20); Calcium 8.9 mg/dL (8.5-10.5); Carbon Dioxide 17 mmol/L (22-29); Globulin 3.9 g/dL (1.3-4.6); Glomerular Filtration Rate 47.7 mL/min (90-130); Magnesium 1.9 mg/dL (1.7-2.3); Osmolality Calculated 284 mOsm/kg (285-295); Total Bilirubin 0.9 mg/dL (0.15-1.2); Total Protein 6.6 g/dL (6.6-8.7)
[2019-10-25 14:21] LABS: Amphetamines Screen Urine Negative (Negative); Barbiturates Screen Urine Negative (Negative); Benzodiazepines Screen Urine Negative (Negative); Cocaine Screen Urine Negative (Negative); Opiate Screen Urine Positive (Negative); PCP Screen Urine Positive (Negative); THC Screen Urine Negative (Negative)
[2019-10-25 14:25] LABS: Bilirubin Urine Neg (NEGATIVE); Blood Urine Neg (Negative); Glucose Urine UA 2+ (Normal); Ketones Urine Negative (Negative); Leukocyte Esterase Urine Negative (Negative); Nitrate Urine Negative (Negative); Protein Urine 3+ (Negative); Specific Gravity, Urine 1.015 (1.005-1.030); Urine Appearance Clear (CLEAR); Urine Color Yellow (Yellow); Urobilinogen Urine Neg (Negative); pH Urine 5 (5-7)
[2019-10-25 14:26] LABS: Add Urine Culture? No; Amorphous Sediment Urine 2+; Bacteria Urine 1+; Squamous Epithelial Cell Urine 0-4 (0-5); WBC Urine 0-4 /hpf (0-5)
[2019-10-25 14:52] LABS: Anion Gap 22.9 (5-19); Blood Urea Nitrogen 24 mg/dL (6-20); Calcium 8.7 mg/dL (8.5-10.5); Carbon Dioxide 17 mmol/L (22-29); Chloride 94 mmol/L (98-107); Glomerular Filtration Rate 52.8 mL/min (90-130); Glucose 449 mg/dL (65-115); Osmolality Calculated 282 mOsm/kg (285-295); Potassium 5.9 mmol/L (3.5-5.1); Sodium 128 mmol/L (136-145)
[2019-10-25 14:54] LABS: Troponin 5 2HR 66.52 ng/L (0-10)
[2019-10-25 15:02] LABS: Troponin 5 2HR Delta -0.48 ABS# (0-10)
[2019-10-25 16:01] LABS: Lactic Sepsis W/Reflex 5.9 mmol/L (0.5-2.2)
[2019-10-25 16:03] LABS: Ketone (Acetest) Serum Negative (Negative)
[2019-10-25 16:52] LABS: Acetaminophen 9.4 ug/mL (10-30); Alcohol Level < 10 mg/dL (0-10); Salicylate < 0.3 mg/dL (3-10)
--- NOTE | 2019-10-25 17:16 | PC.NURSE ---
multiple IV sticks attempted and deemed unsuccessful
[2019-10-25 17:22] LABS: Reflex Lactate Order REFLEX LACTIC ORDERD
--- NOTE | 2019-10-25 17:29 | P.HP_ITS ---
Providers/Chief Complaint Primary Care Provider: Hamilton Scott MD Chief Complaint: Stroke Alert History of Present Illness Eliza Quinn is a 49 year old female with a past medical history of poorly controlled type 2 diabetes mellitus, insulin-dependent, history of DVT, history of nonischemic cardiomyopathy, history of severe peripheral vascular disease, history of left above-knee amputation, with recent history of left above-knee a mputation stump infection status post debridement and antibiotic therapy, history of severe peripheral vascular disease in the right lower extremity status post angioplasty on Wednesday, history of nonobstructive coronary artery disease, chronic anticoagulation Eliquis, history of anxiety and depression, who presents to [facility] due to complaints of fall, concerns for hypoxia, appearing blue and pale, concerns for left facial droop and slurring of her speech, fatigue, malaise. Patient states that since her above-knee amputation, she has suffered a stump infection, status post debridement in the last 2 weeks, has been on antibiotics for the last 2 weeks, has finished antibiotic course. She stated that on Wednesday she had an angiogram with what sounds like angioplasty of right lower extremity, was found to have severe peripheral arterial disease in the right lower extremity in [place] with her cardiothoracic and vascular surgeon. Patient states that for the last few weeks she just not has not been feeling well, fatigue, malaise, she has been fairly anxious, feeling down or depressed after her above-knee amputation. Patient states that this morning, she was ambulating, she thought she might of turned too quickly, felt imbalance, and she fell, no syncope, no loss of consciousness, no seizure-like episodes she was on the floor, when her son came and helped her he said that she just did not look right, she looked pale, looked diaphoretic, he thought she had left facial droop, slurring of her speech, so EMS were called. Patient's NIH stroke scale was 2, her CT head was negative for intracranial hemorrhage, CTA head and neck was negative for intracranial hemorrh age or acute stroke, she is on Eliquis she is on aspirin, was not a TPA candidate, currently no facial droop, no significant slurring of her speech. Patient denies cough, denies fevers, denies chills, denies exposure to Covid 19, but was hospitalized for 3 days last week in preparation for angioplasty of right lower extremity. She is taking all her medications as prescribed, has been eating and drinking appropriately, no diarrhea. No dysuria, no hematuria. Currently denying slurring of her speech, facial droop, no paralysis, no paresthesias. Currently saturating in the high 90s on room air, blood pressure within normal limits. Review of Systems Const: Reports: fatigue and malaise; Denies: fever(s) or chills Eyes: Denies: change in vision or blurry vision ENMT: Denies: nasal congestion Card: Denies: chest pain, palpitations, irregular heart rhythm, edema, lightheadedness, pre-syncope or dyspnea on exertion Resp: Denies: dyspnea, productive cough, non-productive cough or wheezing GI: Denies: abdominal pain, nausea, vomiting, hematemesis, diarrhea, constipation, hematochezia or melena : Denies: flank pain, dysuria or urinary frequency Musc: Denies: neck pain or back pain Skin/Breast: Denies: rash Neuro: Denies: headache(s), dizziness or vertigo Psych: Denies: anxiety or depression Endo: Denies: polyuria or polydipsia Medications/Allergies Home Medications Medication Instructions Recorded Confirmed Last Taken Type acetaminophen [Tylenol Extra 1,000 mg PO Q4H PRN 06/04/19 10/25/19 07/05/19 History Strength] aspirin [Aspir-Low] 81 mg PO DAILY 06/04/19 10/25/19 10/25/19 History atorvastatin 40 mg PO BEDTIME 06/04/19 10/25/19 10/24/19 History furosemide [Lasix] 40 mg PO DAILY 06/04/19 10/25/19 10/25/19 History 40 mg gabapentin 100 mg PO Q8H PRN 06/04/19 10/25/19 10/25/19 History hydralazine 10 mg PO TID 06/04/19 10/25/19 10/25/19 History pantoprazole 40 mg PO DAILY #30 tab 06/24/19 10/25/19 10/25/19 Rx potassium chloride 10 meq PO DAILY #30 cap 06/24/19 10/25/19 10/25/19 Rx Eliquis 5 mg PO BID 07/06/19 10/25/19 10/25/19 History trazodone 100 mg PO BEDTIME 07/06/19 10/25/1920 History insulin glargine 100 unit/mL (3 60 unit SUBCUT BID #15 ml 10/04/19 10/25/19 10/24/19 Rx mL) subcutaneous pen duloxetine 30 mg capsule,delayed 30 mg PO DAILY #90 cap 10/24/19 10/25/19 10/25/19 Rx release albuterol sulfate [ProAir HFA] 2 puff INHALATION Q4H PRN 10/25/19 10/25/19 Unknown History alprazolam [Xanax] 0.25 mg PO TID PRN 10/25/19 10/25/19 10/25/19 History amiodarone 200 mg PO BID 10/25/19 10/25/19 Unknown History cyclobenzaprine 10 mg PO TID PRN 10/25/19 10/25/19 10/25/19 History glucagon (human recombinant) See Rx Instructions .ROUTE .COMPLEX 10/25/19 10/25/19 Unknown History [Glucagon Emergency Kit (human)] hydrocodone-acetaminophen [[place]] 1 tab PO Q6H PRN 10/25/19 10/25/19 10/23/19 Hi story insulin lispro [Humalog U-100 See Rx Instructions .ROUTE .COMPLEX 10/25/19 10/25/19 10/24/19 History Insulin] iron 325 mg PO BID 10/25/19 10/25/19 10/25/19 History lisinopril 2.5 mg PO DAILY 10/25/19 10/25/19 10/25/19 History metoprolol succinate 50 mg PO DAILY 10/25/19 10/25/19 Unknown History prochlorperazine maleate 10 mg PO Q6H PRN 10/25/19 10/25/19 10/24/19 History sacubitril-valsartan [Entresto] 1 tab PO BID 10/25/19 10/25/19 10/25/19 History Allergies Allergy/AdvReac Type Severity Reaction Status Date / Time NONE Allergy Unknown Unknown Uncoded 10/24/19 15:03 PFSH Acute PFSH: Medical History Chronic anticoagulation Chronic kidney disease, stage II (mild) History of DVT (deep vein thrombosis) Nonischemic cardiomyopathy Poorly controlled diabetes mellitus PVD (peripheral vascular disease) with claudication Urinary tract infection due to ESBL Klebsiella Surgical History History of back surgery History of History of shoulder surgery Hx of cholecystectomy Family History Father CAD (coronary artery disease) Chronic kidney disease (CKD) Hyperlipidemia Hypertension Grandmother Dementia Mother Stroke Other Diabetes Denies family history of Clotting disorder Psychiatric illness Suicide Anesthesia complication Bleeding disorder Family history of premature coronary artery disease Lung disease Cancer Social History Smoking and tobacco status: former smoker Quit status (tobacco): has quit using tobacco Year quit tobacco: 3 mo ago Alcohol intake: never Lives independently: Yes Household members: children Current occupational status: employed History of recent travel: No Vitals/I&O/Wt Last Vital Signs Temp 97.9 F 10/25/19 11:49 Pulse 68 10/25/19 17:18 Resp 22 H 10/25/19 17:18 BP 131/89 10/25/19 17:18 Pulse Ox 98 10/25/19 17:18 Weight last 48 hrs Weight 132.222 kg Physical Exam Const: COMMON NORMALS: no acute distress and patient oriented x3 GENERAL APPEARANCE: cooperative and comfortable HENMT: COMMON NORMALS: normocephalic HEAD & SCALP: normocephalic Eye: COMMON NORMALS: Equal, round and reactive pupils present, EOMs intact bilaterally and no papilledema GENERAL EYE: appearance normal, both eyes and all related structures PUPIL: Yes Equal, round and reactive pupils present DIRECT OPHTHALMOSCOPY: Yes no papilledema Neck/C-Spine: COMMON NORMALS: full ROM, no lymphadenopathy, no JVD and Thyroid normal THYROID: Thyroid normal Lymph: LYMPHATIC: no lymphadenopathy noted Resp: COMMON NORMALS: normal respiratory effort, No retractions, No use of accessory muscles and clear to auscultation bilaterally AUSCULTATION: clear to auscultation bilaterally Cardio: COMMON NORMALS: no JVD, regular rate, regular rhythm, S1 normal heart sound present, S2 normal heart sound present, No gallops present (Cardio), No clicks present (Cardio) and No murmurs present (Cardio) RATE: regular rate RHYTHM: regular rhythm HEART SOUNDS: S1 normal heart sound present and S2 normal heart sound present GI: COMMON NORMALS: Normal to inspection, nondistended, normoactive bowel sounds present, Soft to palpation, non-tender and No hepatosplenomegaly present PALPATION: Yes Soft to palpation and Yes No hepatosplenomegaly present Extremity: COMMON NORMALS: normal to inspection, full ROM and no pedal edema NARRATIVE EXTREMITY EXAM: Left above-knee amputation, above-knee amputation site, stump breakdown site, is packed, good granulation tissue, no significant drainage, no significant bleeding Right lower extremity, DP PT pulses, barely palpable, skin is flushed and pink, Neuro: COMMON NORMALS: patient oriented x3, CN's II-XII intact bilaterally, moves all extremities, no focal motor deficits and no sensory deficits noted COORDINATION/BALANCE: [id number] test normal SPEECH: speech normal MOTOR EXAM: 5/5 motor strength present throughout Psych: COMMON NORMALS: mental status grossly normal, Normal thought process present and cooperative THOUGHT PROCESS: Normal thought process present Data : 10/25/19 12:30 10/25/19 14:30 Micro: Microbiology 10/25/19 12:30 Blood Culture - Preliminary Blood SPECIMEN COLLECTED 10/25/19 12:20 Blood Culture - Preliminary Blood SPECIMEN COLLECTED A&P Assessment and plan (1) Hypoxia: -Likely related to bilateral upper lobe pneumonia -Currently saturating high 90s on room air, no shortness of breath complaints, lungs clear to auscultation, no wheezing -ABG patient is a hard stick, unable to obtain -We will continue to monitor Status: Acute (2) Pneumonia: -Bilateral upper lobe pneumonia seen on CT angios of the neck -White blood cell count 8.3, lactic acid 5.9 -Has complaints of fatigue, malaise, was found to be blue and pale by family members -Recently hospitalized at [facility] for angioplasty for 3 days, has risk factors for healthcare associated pneumonia -Possibly patient could be developing early signs of pneumonia, and has been caught early Plan: -Admit to general medical floors -Trend lactic acids -Continue vancomycin and Zosyn - sputum culture, MRSA -Likely de-escalate antibiotics in the next 24 hours depending on respiratory status -We will consider repeat imaging of the chest Status: Acute (3) Transient ischemic attack: -NIH stroke scale 2, not a TPA candidate as on Eliquis, CT head negative for intracranial hemorrhage, CT angios of the head and neck no acute findings to stroke -Is on Eliquis, statin, aspirin -Currently asymptomatic -No focal neurologic deficits -Patient denies any facial droop, slurring of her speech, but she said that that is what her son said had happened Plan: -Neurochecks -IV fluids -PT OT -Aspirin, statin, Eliquis as above Status: Acute (4) Clinical depression: Continue home medications Status: Acute (5) Ulceration of stump of above knee amputation of right lower extremity, limited to breakdown of skin: -Stump breakdown site looks clean and dry, good granulation tissue Status: Acute (6) Right above-knee amputee: Status: Acute (7) PVD (peripheral vascular disease) with claudication: -Status post balloon angioplasty on Wednesday -Continue to monitor right lower extremity, serial Dopplers Status: Acute (8) Lactic acidosis: -Multifactorial related to fall, dehydration, pneumonia -Trend lactic acids, continue IV hydration,, continue antibiotics Status: Acute (9) History of DVT (deep vein thrombosis): Continue Eliquis Status: Acute (10) Nonischemic cardiomyopathy: Status: Acute (11) Chronic anticoagulation: Status: Acute (12) Poorly controlled diabetes mellitus: -Continue Lantus 60 units twice daily, low-dose sliding scale -Check hemoglobin A1c Status: Acute (13) Acute hyperglycemia: Status: Acute (14) Hyponatremia: Status: Acute Additional A&P Information -Acidemia likely related to hypercapnia, dehydration, early DKA, continue IV hydration, home insulin -Patient is a full code, Eliquis for DVT prophylaxis Attestations Medical Necessity Statement*: Requires hospitalization, outpatient with observation, for pneumonia, transient ischemic attack, lactic acidosis Coding Level of Care Code Acute Tin Flipper for [facility] Fwd Diagnoses Hypoxia R09.02 Pneumonia J18.9 Transient ischemic attack G45.9 Clinical depression F32.9 Ulceration of stump of above knee amputation of right lower extremity, limited to breakdown of skin T87.89; L97.111 Right above-knee amputee Z89.611 PVD (peripheral vascular disease) with claudication I73.9 Lactic acidosis E87.2 History of DVT (deep vein thrombosis) Z86.718 Nonischemic cardiomyopathy I42.8 Chronic anticoagulation Z79.01 Poorly controlled diabetes mellitus E11.65 Acute hyperglycemia R73.9 Hyponatremia E87.1
[2019-10-25] MEDS: piperacillin-tazobactam 3.375 GM in sodium chloride 0.9% (plus) 50 ML IV (17:57)
[2019-10-25 18:25] LABS: Troponin 5 6HR 64.37 ng/L (0-10)
[2019-10-25 18:29] LABS: Troponin 5 6HR Delta -2.63 ng/L (0-12)
[2019-10-25] MEDS: ferrous sulfate EC 325 mg Tablet PO (19:26)
[2019-10-25] MEDS: HYDROcodone-acetaminophen 7.5-325 mg Tablet 1 TAB PO (19:26)
[2019-10-25] MEDS: apixaban 5 mg Tablet PO (19:26)
[2019-10-25 19:47] LABS: Glucose Point of Care 409 mg/dL (70-110)
[2019-10-25 19:59] LABS: Erythrocyte Sedimentation Rate 34 mm/hr (0-15)
[2019-10-25 20:23] LABS: Estmated Average Glucose 301; Hemoglobin A1C 12.1 % (4.0-6.0)
[2019-10-25] MEDS: trazodone 100 mg Tablet PO (20:44)
[2019-10-25] MEDS: atorvastatin 40 mg Tablet PO (20:44)
[2019-10-25] MEDS: hyDRALAzine 10 mg Tablet PO (20:48)
[2019-10-25] MEDS: insulin glargine 100 units/1 mL 60 UNIT SUBCUT (21:26)
[2019-10-25 21:28] LABS: Procalcitonin 0.08 ng/mL (0-0.5)
[2019-10-25 21:41] LABS: NT Pro B Type Natriuretic Pept 11022 pg/mL (0-125)
[2019-10-26] VITALS (10 sets, daily range): BP systolic 106–143; BP diastolic 67–79; PULSE 72–79; RESP 16–20; TEMP 36.1–36.8; O2SAT 92–99
[2019-10-26] MEDS: sodium chloride 0.9% 1,000 ML 75 ML IV (01:35)
[2019-10-26] MEDS: piperacillin-tazobactam 3.375 GM in sodium chloride 0.9% (plus) 50 ML IV ×3 (01:35→21:28)
[2019-10-26] MEDS: HYDROcodone-acetaminophen 7.5-325 mg Tablet 1 TAB PO ×2 (01:41→19:45)
[2019-10-26 05:05] LABS: Basophils # 0.1 10^3/uL (0.0-0.1); Basophils % 1.2 %; Eosinophils # 0.1 10^3/uL (0.0-0.8); Eosinophils % 0.8 %; Hematocrit 35.3 % (37.0-47.0); Hemoglobin 8.9 g/dL (11.5-15.3); Lymphocytes # 2.3 10^3/uL (0.8-4.8); Lymphocytes % 21.2 %; Mean Corpuscular HGB Conc 25.2 g/dL (30.0-36.0); Mean Corpuscular Volume 79.5 fL (81-99); Mean Platelet Volume 10.8 fL (7.4-10.4); Monocytes # 1.1 10^3/uL (0.2-0.9); Monocytes % 10.3 %; Neutrophils # 7.1 10^3/uL (1.8-7.7); Neutrophils % 66.2 %; Nucleated Red Blood Cells # 0.1 /100WBC; Nucleated Red Blood Cells % 0.6 %; Platelet Count 442 10^3/cmm (130-400); Red Blood Count 4.44 10^6/uL (4.1-5.3); Red Cell Distribution Width 22.8 % (12.1-15.1); White Blood Count 10.7 10^3/uL (4.0-10.0)
[2019-10-26 05:29] LABS: Alanine Aminotransferase 316 U/L (0-33); Albumin Level 2.7 g/dL (3.5-5.2); Alkaline Phosphatase 169 IU/L (35-105); Anion Gap 21.3 (5-19); Blood Urea Nitrogen 27 mg/dL (6-20); C Reactive Protein 44.3 mg/L (0.0-4.9); Calcium 8.4 mg/dL (8.5-10.5); Carbon Dioxide 19 mmol/L (22-29); Chloride 98 mmol/L (98-107); Globulin 3.6 g/dL (1.3-4.6); Glomerular Filtration Rate 47.7 mL/min (90-130); Glucose 300 mg/dL (65-115); Magnesium 1.9 mg/dL (1.7-2.3); Osmolality Calculated 284 mOsm/kg (285-295); Phosphorus 4.7 mg/dL (2.5-4.5); Potassium 5.3 mmol/L (3.5-5.1); Sodium 133 mmol/L (136-145); Total Bilirubin 0.9 mg/dL (0.15-1.2); Total Protein 6.3 g/dL (6.6-8.7)
[2019-10-26 05:37] LABS: Lactic Sepsis W/Reflex 3.8 mmol/L (0.5-2.2)
[2019-10-26 05:41] LABS: Procalcitonin 0.11 ng/mL (0-0.5)
[2019-10-26 05:53] LABS: Aspartate Amino Transferase 790 U/L (0-32)
[2019-10-26 06:09] LABS: Glucose Point of Care 273 mg/dL (70-110)
--- NOTE | 2019-10-26 06:21 | PC.NURSE ---
Patient lost IV access at EJ site, multiple attempts to regain access at other sites but failed, Dr. Echeverria notified and PICC line placement ordered due to patient losing iv access van. IV was retimed. Notified Osvaldo in Pharmacy, patient was unable to have her labs drawn throughout the night due to poor veins, am labs were obtained. Dr. Echeverria aware as well.
[2019-10-26 07:09] LABS: Reflex Lactate Order REFLEX LACTIC ORDERD
[2019-10-26 07:56] LABS: Lactic Acid level (Lactate) 3.3 mmol/L (0.5-2.2)
--- NOTE | 2019-10-26 08:02 | US_ITS ---
WS: [id number] RIGHT UPPER QUADRANT ULTRASOUND HISTORY: RUQ us, transaminitis, look at liver and gallbladder COMPARISON: 05/31/2019 and 03/28/2019 Liver: 20.9 cm in length. Moderately enlarged liver with coarsened echotexture. No bile duct dilatati on or mass. Gallbladder: Prior cholecystectomy. CBD: 0.5 cm Pancreas: Not well visualized. Right kidney: 11.5 cm in length. Normal echogenicity with no mass or hydronephrosis. Aorta and IVC: Poorly visualized. Small amount of perihepatic fluid and a small RIGHT pleural effusion. US/US abdomen limited [id number] IMPRESSION: 1. Moderate hepatomegaly and mild hepatic steatosis. 2. Status post cholecystectomy. 3. Small amount of perihepatic ascites and small RIGHT pleural effusion.
[2019-10-26 09:00] LABS: Ferritin 49 ng/mL (15-150)
[2019-10-26] MEDS: FUROsemide 40 mg Tablet PO (09:14)
[2019-10-26 09:15] LABS: Hepatitis A Antibody IgM Non-Reactive (Nonreactive); Hepatitis B Core IgM Non-Reactive (Nonreactive); Hepatitis B Surface Antigen Non-Reactive (Nonreactive); Hepatitis C Virus Antibody Non-Reactive (Nonreactive)
[2019-10-26] MEDS: metoprolol succinate ER (24 HR) 50 mg Tablet PO (09:15)
[2019-10-26] MEDS: ferrous sulfate EC 325 mg Tablet PO ×2 (09:15→17:38)
[2019-10-26] MEDS: apixaban 5 mg Tablet PO ×2 (09:15→17:38)
[2019-10-26] MEDS: pantoprazole DR 40 mg Tablet PO (09:15)
[2019-10-26] MEDS: aspirin 81 mg EC Tablet PO (09:15)
[2019-10-26] MEDS: hyDRALAzine 10 mg Tablet PO ×3 (09:15→21:10)
[2019-10-26] MEDS: duloxetine 30 mg Capsule PO (09:15)
[2019-10-26 09:24] LABS: Gamma Glutamyl Transferase 114 U/L (5-36)
--- NOTE | 2019-10-26 09:50 | CTR_ITS ---
PROCEDURE INFORMATION: Exam: CT Chest Without Contrast Exam date and time: 10/26/2019 8:04 PM Age: 49 years old Clinical indication: Shortness of breath; Additional info: Bilateral upper lobe pna TECHNIQUE: Imaging protocol: Computed tomography of the chest without contrast. Radiation optimization: All CT scans at this facility use at least one of these dose optimization techniques: automated exposure control; mA and/or kV adjustment per patient size (includes targeted exams where dose is matched to clinical indication); or iterative reconstruction. COMPARISON: CTA Chest-Pulmonary Emb [id number] 07/26/2018 2:08 PM FINDINGS: Tubes, catheters and devices: Catheter is placed via the right internal jugular vein with its tip at the level of the right atrium. Lungs: Minimal strandy opacities are present within the lower lobes bilaterally compatible with atelectasis versus parenchymal and/or pleural scarring. There is a 12.7 mm pulmonary nodularity seen in the left posterior costophrenic recess and a 2nd mildly irregular peripheral pulmonary nodularity seen adjacent to the major fissure in the left lung base laterally measuring 13.6 mm. Pleural space: There are small bilateral pleural effusions, right larger than left. Heart: A tiny pericardial effusion is seen. Calcifications are seen within the coronary arteries. Aorta: Unremarkable. No aortic aneurysm. Lymph nodes: Unremarkable. No enlarged lymph nodes. Gallbladder and bile ducts: Status post cholecystectomy. Kidneys and ureters: Some patchy hypo attenuation is seen in the left kidney. Pyelonephritis cannot be entirely excluded in the appropriate clinical setting. There is a hypoattenuation cystic lesions seen in the right kidney measuring 1.5 cm compatible with a simple cyst. Intraperitoneal space: A small amount of fluid is seen adjacent to the liver. Bones/joints: Unremarkable. No acute fracture. Soft tissues: There are diffuse subcutaneous edematous changes present. CT/CT chest wo con [id number] IMPRESSION: 1. Bilateral pleural effusions, right larger than left. 2. Some strandy opacities present in the lung bases bilaterally likely represents atelectasis. 3. A 12.7 mm and 13.6 mm pulmonary nodularity is seen in the left hemithorax. TheFor patients at low risk (minimal or absent history of smoking and of other known risk factors), recommend CT at 3-6 months, then consider CT at 18-24 months. For patients at high risk (history of smoking or of other known risk factors), recommend CT at 3-6 months, then CT at 18-24 months. (Nori et al., Fleischner Society, 2017) 4. Patchy hypoattenuation seen within the left renal parenchyma raises some suspicion for pyelonephritis in the appropriate clinical setting. 5. Diffuse subcutaneous edema 6. Small amount of ascites adjacent to the liver. Total DLP (mGy-cm): 1299.04 COMMENTS: Consistent with the [employer]'s Incidental Findings Committee white paper (J Am Jeff Radiol 2018): Any incidental renal lesion less than 1.0 cm or classified as too small to characterize, or any incidental cystic renal lesion characterized as simple-appearing, is likely benign. No follow-up imaging is recommended for these lesions per consensus recommendations based on imaging criteria. Radiation Dose CTDIVOL = (mGy): DLP = 1299.04 (mGy-cm)
--- NOTE | 2019-10-26 10:22 | XR_ITS ---
WS: [id number] PORTABLE CHEST HISTORY: PICC LINE PLACEMENT COMPARISON: 10/25/2019 RIGHT PICC line in good position with tip in the mid SVC. No complication. Lungs are clear and well expanded. No pleural effusion or pneumothorax. Cardiac size: Mildly enlarged cardiac silhouette. Mediastinum/Aorta: Normal mediastinum. Prior single anchor placement LEFT humeral head. XR/XR chest 1V portable [id number] IMPRESSION: Satisfactory position RIGHT PICC line.
[2019-10-26 11:27] LABS: Glucose Point of Care 327 mg/dL (70-110)
--- NOTE | 2019-10-26 11:40 | PC.NURSE ---
Insulin 0800 dose of Novolog and Lantus held d/t pt being NPO. Verbally okayed with Dr. Donovan.
--- NOTE | 2019-10-26 11:49 | PC.NURSE ---
Insulin 1200 dose of Novolog held d/t pt being NPO. Blood glucose currently 327. Per Dr. Donovan, hold dose and check blood glucose in one hour.
[2019-10-26 13:10] LABS: Glucose Point of Care 249 mg/dL (70-110)
[2019-10-26 13:58] LABS: Lactic Sepsis W/Reflex 2.1 mmol/L (0.5-2.2)
--- NOTE | 2019-10-26 14:01 | P.PN_ITS ---
Subjective Subjective: Interval history: This morning patient sitting up into a chair, has no significant complaints, no fevers, no chills, no nausea, no vomiting, no fevers, no cough, no shortness of breath, denies right upper quadrant pain, denies drug use, denies drinking alcohol Vitals/I&O/Wt Last Vital Signs Temp 97.5 F L 10/26/19 12:00 Pulse 79 10/26/19 12:00 Resp 16 10/26/19 12:00 BP 106/67 10/26/19 12:00 Pulse Ox 95 10/26/19 12:00 10/25/19 10/26/19 10/26/19 22:59 06:59 14:59 Intake Total 250 / 250 350.00 / 600.00 4016.66 / 4016.66 Output Total 0 / 0 450 / 450 Balance 250 / 250 -100.00 / 150.00 4016.66 / 4016.66 Weight last 48 hrs Weight 132.222 kg Physical Exam Const: COMMON NORMALS: no acute distress and patient oriented x3 HENMT: COMMON NORMALS: normocephalic HEAD & SCALP: normocephalic Neck/C-Spine: COMMON NORMALS: no JVD Resp: COMMON NORMALS: normal respiratory effort, No retractions, No use of accessory muscles and clear to auscultation bilaterally AUSCULTATION: clear to auscultation bilaterally Cardio: COMMON NORMALS: no JVD, regular rate, regular rhythm, S1 normal heart sound present and S2 normal heart sound present RATE: regular rate RHYTHM: regular rhythm HEART SOUNDS: S1 normal heart sound present and S2 normal heart sound present GI: COMMON NORMALS: Normal to inspection, nondistended, normoactive bowel sounds present, Soft to palpation, non-tender, No hepatosplenomegaly present, no masses and no bruits PALPATION: Yes Soft to palpation and Yes No hepatosplenomegaly present Extremity: COMMON NORMALS: capillary refill normal, no clubbing, cyanosis or edema and no pedal edema NARRATIVE EXTREMITY EXAM: Right left above-knee amputation site, wrapped and bandaged Neuro: COMMON NORMALS: patient oriented x3 Psych: COMMON NORMALS: mental status grossly normal Data : 10/26/19 04:40 10/26/19 04:40 Micro: Microbiology 10/25/19 18:44 MRSA Culture - Final Nose 10/25/19 12:30 Blood Culture - Preliminary Blood SPECIMEN COLLECTED 10/25/19 12:20 Blood Culture - Preliminary Blood SPECIMEN COLLECTED A&P Assessment and plan (1) Hypoxia: -Likely related to bilateral upper lobe pneumonia -Currently saturating high 90s on room air, no shortness of breath complaints, lungs clear to auscultation, no wheezing -ABG patient is a hard stick, unable to obtain -We will continue to monitor, continue broad-spectrum antibiotics, will do CT of the chest today Status: Acute (2) Pneumonia: -Bilateral upper lobe pneumonia seen on CT angios of the neck -White blood cell count 10.7, down to 2.1 -Has complaints of fatigue, malaise, was found to be blue and pale by family members -Recently hospitalized at [facility] for angioplasty for 3 days, has risk factors for healthcare associated pneumonia -Possibly patient could be developing early signs of pneumonia, and has been caught early Plan: -Admit to general medical floors -Trend lactic acids, last one 2.1 -Continue vancomycin and Zosyn - sputum culture, MRSA positive -Likely de-escalate antibiotics in the next 24 hours depending on respiratory status -CT of the chest this morning Status: Acute (3) Transient ischemic attack: -NIH stroke scale 2, not a TPA candidate as on Eliquis, CT head negative for intracranial hemorrhage, CT angios of the head and neck no acute findings to stroke -Is on Eliquis, statin, aspirin -Currently asymptomatic -No focal neurologic deficits -Patient denies any facial droop, slurring of her speech, but she said that that is what her son said had happened Plan: -Neurochecks -IV fluids -PT OT -Aspirin, statin, Eliquis as above Status: Acute (4) Clinical depression: Continue home medications Status: Acute (5) Ulceration of stump of above knee amputation of right lower extremity, limited to breakdown of skin: -Stump breakdown site looks clean and dry, good granulation tissue Status: Acute (6) Right above-knee amputee: Status: Acute (7) PVD (peripheral vascular disease) with claudication: -Status post balloon angioplasty on Wednesday -Continue to monitor right lower extremity, serial Dopplers Status: Acute (8) Lactic acidosis: -Multifactorial related to fall, dehydration, pneumonia -Trend lactic acids, continue IV hydration,, continue antibiotics Status: Acute (9) History of DVT (deep vein thrombosis): Continue Eliquis Status: Acute (10) Nonischemic cardiomyopathy: Status: Acute (11) Chronic anticoagulation: Status: Acute (12) Poorly controlled diabetes mellitus: -Continue Lantus 60 units twice daily, low-dose sliding scale -Check hemoglobin A1c 12.1 Status: Acute (13) Acute hyperglycemia: Status: Acute (14) Hyponatremia: Resolved Status: Acute (15) Transaminitis: -GGT 114 -Hepatitis screen within normal limits -AST 790, ALT 316, alk phos 169, CRP 44.3 -We will do a right upper quadrant ultrasound -Trend lactic acids, monitor blood pressure, -Denies drug use, denies alcohol use, salicylate levels within normal limits, acetaminophen levels within normal limits, alcohol level is negative -Patient's urine toxicology screen was positive for phencyclidine, denies drug use, possible false positive Status: Acute Additional A&P Information -Acidemia likely related to hypercapnia, dehydration, early DKA, continue IV hydration, home insulin -Patient is a full code, Eliquis for DVT prophylaxis Attestations Medical Necessity Statement*: Patient requires hospitalization for pneumonia Coding Level of Care Code Acute Home Day Care Provider for [facility] Fwd Diagnoses Hypoxia R09.02 Pneumonia J18.9 Transient ischemic attack G45.9 Clinical depression F32.9 Ulceration of stump of above knee amputation of right lower extremity, limited to breakdown of skin T87.89; L97.111 Right above-knee amputee Z89.611 PVD (peripheral vascular disease) with claudication I73.9 Lactic acidosis E87.2 History of DVT (deep vein thrombosis) Z86.718 Nonischemic cardiomyopathy I42.8 Chronic anticoagulation Z79.01 Poorly controlled diabetes mellitus E11.65 Acute hyperglycemia R73.9 Hyponatremia E87.1 Transaminitis R74.0
[2019-10-26 14:08] LABS: INR 2.09 (0.8-1.2)
[2019-10-26 15:16] LABS: Reflex Lactate Order REFLEX LACTIC ORDERD
[2019-10-26 17:04] LABS: Glucose Point of Care 246 mg/dL (70-110)
[2019-10-26 20:37] LABS: Glucose Point of Care 355 mg/dL (70-110)
[2019-10-26] MEDS: trazodone 100 mg Tablet PO (21:10)
[2019-10-26] MEDS: atorvastatin 40 mg Tablet PO (21:10)
[2019-10-26] MEDS: insulin glargine 100 units/1 mL 60 UNIT SUBCUT (21:10)
[2019-10-26] MEDS: HYDROmorphone 1 mg/mL INJ 1 mL 2 MG IVP (23:18)
[2019-10-27] VITALS (8 sets, daily range): BP systolic 98–124; BP diastolic 68–79; PULSE 72–79; RESP 16–20; TEMP 36.3–36.9; O2SAT 95–100
[2019-10-27] MEDS: sodium chloride 0.9% 1,000 ML 75 ML IV (00:13)
[2019-10-27] MEDS: piperacillin-tazobactam 3.375 GM in sodium chloride 0.9% (plus) 50 ML IV ×3 (05:10→20:53)
[2019-10-27 06:50] LABS: Basophils # 0.1 10^3/uL (0.0-0.1); Basophils % 1.6 %; Eosinophils # 0.2 10^3/uL (0.0-0.8); Eosinophils % 2.6 %; Hemoglobin 8.4 g/dL (11.5-15.3); Lymphocytes # 1.8 10^3/uL (0.8-4.8); Lymphocytes % 23.4 %; Mean Corpuscular HGB Conc 25.5 g/dL (30.0-36.0); Mean Corpuscular Volume 78.6 fL (81-99); Mean Platelet Volume 10.4 fL (7.4-10.4); Monocytes # 0.9 10^3/uL (0.2-0.9); Monocytes % 11.5 %; Neutrophils # 4.6 10^3/uL (1.8-7.7); Neutrophils % 60.4 %; Nucleated Red Blood Cells % 0.4 %; Platelet Count 375 10^3/cmm (130-400); White Blood Count 7.6 10^3/uL (4.0-10.0)
[2019-10-27 07:00] LABS: Glucose Point of Care 240 mg/dL (70-110)
[2019-10-27 07:10] LABS: Alanine Aminotransferase 268 U/L (0-33); Albumin Level 2.4 g/dL (3.5-5.2); Alkaline Phosphatase 157 IU/L (35-105); Anion Gap 13.9 (5-19); Aspartate Amino Transferase 243 U/L (0-32); Blood Urea Nitrogen 28 mg/dL (6-20); C Reactive Protein 35.4 mg/L (0.0-4.9); Calcium 8.2 mg/dL (8.5-10.5); Carbon Dioxide 23 mmol/L (22-29); Chloride 100 mmol/L (98-107); Globulin 3.4 g/dL (1.3-4.6); Glomerular Filtration Rate 58.9 mL/min (90-130); Glucose 257 mg/dL (65-115); Magnesium 1.9 mg/dL (1.7-2.3); Osmolality Calculated 280 mOsm/kg (285-295); Phosphorus 3.8 mg/dL (2.5-4.5); Potassium 4.9 mmol/L (3.5-5.1); Sodium 132 mmol/L (136-145); Total Bilirubin 0.5 mg/dL (0.15-1.2); Total Protein 5.8 g/dL (6.6-8.7)
[2019-10-27 07:19] LABS: Procalcitonin 0.13 ng/mL (0-0.5)
[2019-10-27] MEDS: insulin glargine 100 units/1 mL 60 UNIT SUBCUT ×2 (08:45→20:52)
[2019-10-27] MEDS: metoprolol succinate ER (24 HR) 50 mg Tablet PO (08:45)
[2019-10-27] MEDS: apixaban 5 mg Tablet PO ×2 (08:45→18:10)
[2019-10-27] MEDS: pantoprazole DR 40 mg Tablet PO (08:45)
[2019-10-27] MEDS: ferrous sulfate EC 325 mg Tablet PO ×2 (08:45→18:10)
[2019-10-27] MEDS: potassium chloride ER 10 mEq Tablet PO (08:46)
[2019-10-27] MEDS: aspirin 81 mg EC Tablet PO (08:46)
[2019-10-27] MEDS: HYDROcodone-acetaminophen 7.5-325 mg Tablet 1 TAB PO ×2 (08:46→18:13)
[2019-10-27] MEDS: duloxetine 30 mg Capsule PO (08:46)
[2019-10-27] MEDS: FUROsemide 40 mg Tablet PO ×2 (08:46→18:09)
[2019-10-27] MEDS: hyDRALAzine 10 mg Tablet PO ×3 (08:46→20:52)
[2019-10-27 11:12] LABS: Glucose Point of Care 250 mg/dL (70-110)
--- NOTE | 2019-10-27 11:13 | PC.CHAP ---
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 visit [] Patient/Family/Request visit [] Outpatient visit [] Follow-up visit [] Physician referral [] Code/Alert [x] Routine visit [] Staff referral [] Actively dying [] Patient sleeping [] Family support [] [] Out of room [] Palliative care [] [] Receiving care in room [] Pre-surgical visit [] Trauma [] Long length of stay [] ICU visit [] Other: Relational/Emotional Strength [] Patient feels connected with others/family/visitors/staff [] Distress [] Loneliness/isolation [] Abandonment Spirituality of Patient [] Person of Crystal [] Attends [facility] of their [place] [] Believes in Prayer [] Reads Bible or Presybeterian materials [] There are Spiritual issues to be addressed 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 Interventions [x] Prayer [x] Active listening [x] Non-anxious presence [x] Spiritual/emotional support [] Crisis/trauma care [] Spiritual counseling [] Bereavement support [] Provided bereavement packet [] Provided Bible/devotional materials [] Provided toy/stuffed animal, coloring book to patient or family member [] Provided Communion [] Anointing/[place] [] Salvation [x] Completed spiritual assessment [] Other: Impact on Illness or Injury [] Angry [] Fearful [] Anxious [] Often cries [] Exhaustion [] Unable to work [] Unable to attend sabianism [] Unable to walk/stand [] Unable to read [] Unable to drive [] Unable to eat/drink [] Unable to sleep [] Unable to be with family [] Patient intubated [] Other: Summary Patient feeling better. Time spent with patient 10 min
[2019-10-27 12:04] LABS: COMPLEMENT COMPONENT C3C 124 mg/dL (83-193); COMPLEMENT COMPONENT C4C 17 mg/dL (15-57)
[2019-10-27 12:35] LABS: COMPLEMENT, TOTAL (CH50) >60 U/mL (31-60)
--- NOTE | 2019-10-27 13:43 | P.PN_ITS ---
Subjective Subjective: Interval history: This morning patient is seen working with physical therapy, states that she is just generally weak, and tired, some shortness of breath with exertion, no fevers, no chills, no nausea, no vomiting, is worried about her MRSA infection Vitals/I&O/Wt Last Vital Signs Temp 98.3 F 10/27/19 12:00 Pulse 74 10/27/19 12:00 Resp 16 10/27/19 12:00 BP 114/77 10/27/19 12:00 Pulse Ox 97 10/27/19 12:00 10/26/19 10/27/19 10/27/19 22:59 06:59 14:59 Intake Total 1450 / 5716.66 300 / 6016.66 650 / 650 Output Total 850 / 850 Balance 1450 / 5716.66 -550 / 5166.66 650 / 650 Physical Exam Const: COMMON NORMALS: no acute distress and patient oriented x3 GENERAL APPEARANCE: cooperative and comfortable HENMT: COMMON NORMALS: normocephalic HEAD & SCALP: normocephalic Neck/C-Spine: COMMON NORMALS: full ROM, no lymphadenopathy, no JVD and Thyroid normal THYROID: Thyroid normal Lymph: LYMPHATIC: no lymphadenopathy noted Resp: COMMON NORMALS: normal respiratory effort, No retractions, No use of accessory muscles and clear to auscultation bilaterally AUSCULTATION: clear to auscultation bilaterally Cardio: COMMON NORMALS: no JVD, regular rate, regular rhythm, S1 normal heart sound present, S2 normal heart sound present, No gallops present (Cardio), No clicks present (Cardio) and No murmurs present (Cardio) RATE: regular rate RHYTHM: regular rhythm HEART SOUNDS: S1 normal heart sound present and S2 normal heart sound present GI: COMMON NORMALS: Normal to inspection, nondistended, normoactive bowel sounds present, Soft to palpation, non-tender, No hepatosplenomegaly present, no masses and no bruits PALPATION: Yes Soft to palpation and Yes No hepatosplenomegaly present Extremity: NARRATIVE EXTREMITY EXAM: Right left above-knee amputation site, wrapped and bandaged Neuro: COMMON NORMALS: patient oriented x3 Psych: COMMON NORMALS: mental status grossly normal, Normal thought process present and cooperative THOUGHT PROCESS: Normal thought process present Urinary Catheter Management^: Pierre: Cath Placed During This Visit: yes Urinary Catheter Date of Insertion: 10/27/19 Urinary Catheter Time of Insertion: 00:32 Data : 10/27/19 06:41 10/27/19 06:41 Micro: Microbiology 10/25/19 12:30 Blood Culture - Preliminary Blood NEGATIVE TO DATE 10/25/19 12:20 Blood Culture - Preliminary Blood NEGATIVE TO DATE 10/25/19 18:44 MRSA Culture - Final Nose A&P Assessment and plan (1) Hypoxia: -Likely related to bilateral upper lobe pneumonia -Currently saturating high 90s on room air, no shortness of breath complaints, lungs clear to auscultation, no wheezing -ABG patient is a hard stick, unable to obtain -We will continue to monitor, continue broad-spectrum antibiotics, vancomycin, Zosyn Status: Acute (2) Pneumonia: -Bilateral upper lobe pneumonia seen on CT angios of the neck -White blood cell count 10.7, down to 7.6 -Has complaints of fatigue, malaise, was found to be blue and pale by family members -Recently hospitalized at [facility] for angioplasty for 3 days, has risk factors for healthcare associated pneumonia -Possibly patient could be developing early signs of pneumonia, and has been caught early -MRSA nares positive -CT of the chest1. Bilateral pleural effusions, right larger than left. 2. Some strandy opacities present in the lung bases bilaterally likely represents atelectasis. 3. A 12.7 mm and 13.6 mm pulmonary nodularity is seen in the left hemithorax. TheFor patients at low risk (minimal or absent history of smoking and of other known risk factors), recommend CT at 3-6 months, then consider CT at 18-24 months. For patients at high risk (history of smoking or of other known risk factors), recommend CT at 3-6 months, then CT at 18-24 months. (Nori et al., Fleischner Society, 2017) 4. Patchy hypoattenuation seen within the left renal parenchyma raises some suspicion for pyelonephritis in the appropriate clinical setting. 5. Diffuse subcutaneous edema 6. Small amount of ascites adjacent to the liver. Plan: -Admit to general medical floors -Continue vancomycin and Zosyn, de-escalate to Levaquin on discharge - sputum culture, blood cultures -Increase Lasix to 40 twice daily -CT of the chest this morning Status: Acute (3) Transient ischemic attack: -NIH stroke scale 2, not a TPA candidate as on Eliquis, CT head negative for intracranial hemorrhage, CT angios of the head and neck no acute findings to stroke -Is on Eliquis, statin, aspirin -Currently asymptomatic -No focal neurologic deficits -Patient denies any facial droop, slurring of her speech, but she said that that is what her son said had happened Plan: -Neurochecks Stop fluids -PT OT -Aspirin, statin, Eliquis as above Status: Acute (4) Clinical depression: Continue home medications Status: Acute (5) Ulceration of stump of above knee amputation of right lower extremity, limited to breakdown of skin: -Stump breakdown site looks clean and dry, good granulation tissue Status: Acute (6) Right above-knee amputee: Status: Acute (7) PVD (peripheral vascular disease) with claudication: -Status post balloon angioplasty on Wednesday -Continue to monitor right lower extremity, serial Dopplers Status: Acute (8) Lactic acidosis: -Multifactorial related to fall, dehydration, pneumonia -Trend lactic acids, continue IV hydration,, continue antibiotics Status: Acute (9) History of DVT (deep vein thrombosis): Continue Eliquis Status: Acute (10) Nonischemic cardiomyopathy: Status: Acute (11) Chronic anticoagulation: Status: Acute (12) Poorly controlled diabetes mellitus: -Continue Lantus 60 units twice daily, low-dose sliding scale -Check hemoglobin A1c 12.1 Status: Acute (13) Acute hyperglycemia: Status: Acute (14) Hyponatremia: Resolved Status: Acute (15) Transaminitis: -GGT 114 -Hepatitis screen within normal limits -AST 243, ALT 268, alk phos 157, CRP 44.3 -Ultrasound of the liver shows moderate hepatomegaly, mild hepatic steatosis, small amount of perihepatic ascites -Trend lactic acids, monitor blood pressure, -Denies drug use, denies alcohol use, salicylate levels within normal limits, acetaminophen levels within normal limits, alcohol level is negative -Patient's urine toxicology screen was positive for phencyclidine, denies drug use, possible false positive Status: Acute Additional A&P Information -Acidemia likely related to hypercapnia, dehydration, early DKA, continue IV hydration, home insulin -Patient is a full code, Eliquis for DVT prophylaxis Attestations Medical Necessity Statement*: Patient requires continued hospitalization for pneumonia Coding Level of Care Code Acute Senior Environmental Technician for Chg Fwd Diagnoses Hypoxia R09.02 Pneumonia J18.9 Transient ischemic attack G45.9 Clinical depression F32.9 Ulceration of stump of above knee amputation of right lower extremity, limited to breakdown of skin T87.89; L97.111 Right above-knee amputee Z89.611 PVD (peripheral vascular disease) with claudication I73.9 Lactic acidosis E87.2 History of DVT (deep vein thrombosis) Z86.718 Nonischemic cardiomyopathy I42.8 Chronic anticoagulation Z79.01 Poorly controlled diabetes mellitus E11.65 Acute hyperglycemia R73.9 Hyponatremia E87.1 Transaminitis R74.0
--- NOTE | 2019-10-27 15:54 | PC.OT ---
OT tx attempted at this time. Pt lying in bed and declines tx attempts secondary to complaints of 6/10 pain from urinary catheter burning . Nurse was notified of pt's complaints. Therapist to attempt tx again tomorrow.
[2019-10-27 17:30] LABS: Glucose Point of Care 255 mg/dL (70-110)
[2019-10-27] MEDS: atorvastatin 40 mg Tablet PO (20:51)
[2019-10-27] MEDS: trazodone 100 mg Tablet PO (20:52)
[2019-10-27] MEDS: sodium chloride 0.9% 1,000 ML 50 ML IV (20:52)
[2019-10-27 21:24] LABS: Glucose Point of Care 267 mg/dL (70-110)
[2019-10-27 22:47] LABS: Vancomycin Trough 29.4 ug/mL (10-15)
--- NOTE | 2019-10-27 22:53 | PC.NURSE ---
Vanc Trough Pt. vanc trough reported critical high, pharmacy notified to adjust vanc. Pharmacy stated to hold current dose of Vanc, patient care nurse Nuvia Alvarez LPN notified.
--- NOTE | 2019-10-27 22:59 | PC.PHAR ---
Vancomycin trough at dosage of 1500mg IVPB every 12 hours is 29.4. Hold the next two doses and then resume at 1000mg IVPB every 12 hours with a trough to be obtained before the fourth 1000mg dosge.
[2019-10-28] VITALS (8 sets, daily range): BP systolic 115–138; BP diastolic 69–84; PULSE 74–81; RESP 18–22; TEMP 36.6–36.7; O2SAT 83–98
[2019-10-28] MEDS: HYDROmorphone 1 mg/mL INJ 1 mL 2 MG IVP (00:25)
[2019-10-28 03:36] LABS: Basophils # 0.1 10^3/uL (0.0-0.1); Basophils % 1.6 %; Eosinophils # 0.3 10^3/uL (0.0-0.8); Eosinophils % 3.1 %; Hematocrit 32.8 % (37.0-47.0); Hemoglobin 8.5 g/dL (11.5-15.3); Lymphocytes # 1.7 10^3/uL (0.8-4.8); Lymphocytes % 19.3 %; Mean Corpuscular HGB Conc 25.9 g/dL (30.0-36.0); Mean Corpuscular Volume 77.4 fL (81-99); Mean Platelet Volume 10.5 fL (7.4-10.4); Monocytes # 0.9 10^3/uL (0.2-0.9); Monocytes % 9.6 %; Neutrophils # 5.8 10^3/uL (1.8-7.7); Neutrophils % 66.1 %; Nucleated Red Blood Cells # 0.1 /100WBC; Nucleated Red Blood Cells % 0.6 %; Platelet Count 371 10^3/cmm (130-400); Red Blood Count 4.24 10^6/uL (4.1-5.3); Red Cell Distribution Width 22.2 % (12.1-15.1); White Blood Count 8.8 10^3/uL (4.0-10.0)
[2019-10-28 04:07] LABS: Albumin Level 2.3 g/dL (3.5-5.2); Alkaline Phosphatase 158 IU/L (35-105); Anion Gap 16.7 (5-19); Aspartate Amino Transferase 170 U/L (0-32); Blood Urea Nitrogen 24 mg/dL (6-20); C Reactive Protein 23.5 mg/L (0.0-4.9); Calcium 8.1 mg/dL (8.5-10.5); Carbon Dioxide 22 mmol/L (22-29); Chloride 101 mmol/L (98-107); Globulin 3.4 g/dL (1.3-4.6); Glomerular Filtration Rate 66.5 mL/min (90-130); Glucose 162 mg/dL (65-115); Magnesium 1.8 mg/dL (1.7-2.3); Osmolality Calculated 280 mOsm/kg (285-295); Phosphorus 3.4 mg/dL (2.5-4.5); Potassium 4.7 mmol/L (3.5-5.1); Sodium 135 mmol/L (136-145); Total Bilirubin 0.3 mg/dL (0.15-1.2); Total Protein 5.7 g/dL (6.6-8.7)
[2019-10-28 04:20] LABS: Alanine Aminotransferase 234 U/L (0-33)
[2019-10-28] MEDS: piperacillin-tazobactam 3.375 GM in sodium chloride 0.9% (plus) 50 ML IV (04:28)
[2019-10-28 07:15] LABS: Glucose Point of Care 149 mg/dL (70-110)
[2019-10-28] MEDS: potassium chloride ER 10 mEq Tablet PO (08:53)
[2019-10-28] MEDS: apixaban 5 mg Tablet PO (08:53)
[2019-10-28] MEDS: hyDRALAzine 10 mg Tablet PO ×2 (08:53→14:11)
[2019-10-28] MEDS: metoprolol succinate ER (24 HR) 50 mg Tablet PO (08:53)
[2019-10-28] MEDS: insulin glargine 100 units/1 mL 60 UNIT SUBCUT (08:53)
[2019-10-28] MEDS: duloxetine 30 mg Capsule PO (08:53)
[2019-10-28] MEDS: ferrous sulfate EC 325 mg Tablet PO (08:53)
[2019-10-28] MEDS: aspirin 81 mg EC Tablet PO (08:53)
[2019-10-28] MEDS: FUROsemide 40 mg Tablet PO (08:53)
[2019-10-28] MEDS: pantoprazole DR 40 mg Tablet PO (08:53)
[2019-10-28 10:41] LABS: Glucose Point of Care 119 mg/dL (70-110)
--- NOTE | 2019-10-28 10:52 | P.DS_ITS ---
Discharge Providers Date of Admission: 10/26/19 18:13 Date of Discharge: October 28, 2019 Attending Provider at Admission: Rufino Donovan MD Attending Provider at Discharge: Rufino Donovan MD Primary Care Provider: Hamilton Scott MD Diagnoses at Discharge Discharge Diagnosis (1) Hypoxia: Status: Acute (2) Pneumonia: Status: Acute (3) Transient ischemic attack: Status: Acute (4) Clinical depression: Status: Acute (5) Ulceration of stump of above knee amputation of right lower extremity, limited to breakdown of skin: Status: Acute (6) Right above-knee amputee: Status: Acute (7) PVD (peripheral vascular disease) with claudication: Status: Acute (8) Lactic acidosis: Status: Acute (9) History of DVT (deep vein thrombosis): Status: Acute (10) Nonischemic cardiomyopathy: Status: Acute (11) Chronic anticoagulation: Status: Acute (12) Poorly controlled diabetes mellitus: Status: Acute (13) Acute hyperglycemia: Status: Acute (14) Hyponatremia: Status: Acute (15) Transaminitis: Status: Acute Reason for Visit Reason for Visit: Stroke Alert Hospital Course Discharge Summary: Eliza Quinn is a 49 year old female with a past medical history of poorly controlled type 2 diabetes mellitus, insulin-dependent, history of DVT, history of nonischemic cardiomyopathy, history of severe peripheral vascular disease, history of left above-knee amputation, with recent history of left above-knee amputation stump infection status post debridement and antibiotic therapy, history of severe peripheral vascular disease in the right lower extremity status post angioplasty on Wednesday, history of nonobstructive coronary artery disease, chronic anticoagulation Eliquis, history of anxiety and depression, who presents to [facility] due to complaints of fall, concerns for hypoxia, appearing blue and pale, concerns for left facial droop and slurring of her speech, fatigue, malaise. Patient was admitted for hypoxia secondary to pneumonia, transient ischemic attack For her hypoxia secondary to pneumonia, patient had mild leukocytosis, no oxygen requirements, no signs of sepsis patient had a CT Angio of the head and neck which showed pneumonia in the posterior right upper lobe and area of pneumonitis or developing pneumonia in the left upper lobe. Patient was admitted to [facility] received IV fluids, broad-spectrum antibiotics, blood cultures negative so far. Patient clinically improved, worked with physical therapy, discharged on 4 remaining days of Levaquin. For her transient ischemic attack, I was not really convinced that her symptoms were really TIA related, she was already on aspirin, statin, Eliquis, was not a TPA candidate, CT of the head was negative for intracranial bleed, CTA head no acute findings in the brain. Patient was discharged on her home aspirin, statin, Eliquis, with close follow-up with her primary care provider as outpatient. Patient also has a right BKA stump breakdown, monitored through wound care, stump site looks clean and dry, patient is to follow-up with wound care as outpatient. During patient's hospitalization, she did develop transaminitis, was asymptomatic, transaminitis trended down AST 170, ALT 234, right upper quadrant ultrasound showed moderate hepatomegaly with mild hepatic steatosis, small amount of perihepatic ascites. Patient's hepatitis screen was within normal limits, CHELSEY profile is pending. Patient was advised to repeat CMP in 1 week, with close follow-up with her primary care provider as outpatient. Physical Exam Const: COMMON NORMALS: no acute distress and patient oriented x3 HENMT: COMMON NORMALS: normocephalic HEAD & SCALP: normocephalic Neck/C-Spine: COMMON NORMALS: no JVD Resp: COMMON NORMALS: normal respiratory effort, No retractions, No use of accessory muscles and clear to auscultation bilaterally AUSCULTATION: clear to auscultation bilaterally Cardio: COMMON NORMALS: no JVD, regular rate, regular rhythm, S1 normal heart sound present and S2 normal heart sound present RATE: regular rate RHYTHM: regular rhythm HEART SOUNDS: S1 normal heart sound present and S2 normal heart sound present GI: COMMON NORMALS: Normal to inspection, nondistended, normoactive bowel sounds present, Soft to palpation, non-tender, No hepatosplenomegaly present, no masses and no bruits PALPATION: Yes Soft to palpation and Yes No hepatosplenomegaly present Extremity: COMMON NORMALS: capillary refill normal, no clubbing, cyanosis or edema, no calf tenderness and no pedal edema Neuro: COMMON NORMALS: patient oriented x3 Psych: COMMON NORMALS: mental status grossly normal Urinary Catheter Management^: Pierre: Cath Placed During This Visit: yes Reason for Continuing Indwelling Catheter: Other Urinary Catheter Date of Insertion: 10/27/19 Urinary Catheter Time of Insertion: 00:32 Discharge Data Data Completed and Pending: Completed Studies During Hospitalization Category Date Time Status CT angio headneck * 21886/13869 Urge nt Cat Scan 10/25/19 11:[address] chest wo con 7 1250 Routine Cat Scan 10/26/19 09:[address] head wo con* 7 0450 Urgent Cat Scan 10/25/19 11:53 Completed CXRP [XR chest 1V portable 39954] R outine Exams 10/26/19 10:22 Completed XR chest 1V zafar ble 20572 Stat Exams 10/25/19 11:54 Completed US abdomen limite d 99344 Routine Ultrasound 10/26/19 08:02 Completed Pending at discharge Category Date Time Status CHELSEY Profile Rheum atology Stat Lab 10/26/19 13:24 Results Blood Culture Sta t Lab 10/25/19 12:30 Results Sputum Culture an d Gram Stain Stat Lab 10/25/19 18:44 Uncollected VBG [Venous Blood Gas] Routine Lab 10/25/19 17:45 Received Vancomycin Trough Timed Lab 10/30/19 09:00 Ordered Labs from last 24 hours 10/28/19 10/28/19 10/28/19 10:36 06:58 02:58 WBC RBC Hgb Hct MCV MCH MCHC RDW Plt Count MPV Neut % (Auto) Lymph % (Auto) [place] % (Auto) Eos % (Auto) Baso % (Auto) Neut # (Auto) Lymph # (Auto) [place] # (Auto) Eos # (Auto) Baso # (Auto) Nucleated RBC % (a uto) Nucleated RBCs # Sodium Potassium Chloride Carbon Dioxide Anion Gap BUN Creatinine GFR Calculation Glucose POC Glucose 119 149 Calculated Osmolal ity Calcium Phosphorus Magnesium Total Bilirubin AST ALT Alkaline Phosphata se C-Reactive Protein Total Protein Albumin Globulin Procalcitonin 0.10 Vancomycin Trough CHELSEY IFA Animal Tis Res MATHEW-1 Antibody SS-A Antibody Sm ([place]) Antibod y GOLF CADDY Antibody Scl-70 Antibody Anti-ds DNA IgG (C rith) Centromere B Antib brooklynn Thyroid Peroxidase Ab Complement C3c Complement C4c CH50 Classical Pat hway 10/28/19 10/28/19 10/27/19 02:58 02:58 21:55 WBC 8.8 RBC 4.24 Hgb 8.5 L Hct 32.8 L MCV 77.4 L MCH 20.0 L MCHC 25.9 L RDW 22.2 H Plt Count 371 MPV 10.5 H Neut % (Auto) 66.1 Lymph % (Auto) 19.3 [place] % (Auto) 9.6 Eos % (Auto) 3.1 Baso % (Auto) 1.6 Neut # (Auto) 5.8 Lymph # (Auto) 1.7 [place] # (Auto) 0.9 Eos # (Auto) 0.3 Baso # (Auto) 0.1 Nucleated RBC % (a uto) 0.6 Nucleated RBCs # 0.1 Sodium 135 L Potassium 4.7 Chloride 101 Carbon Dioxide 22 Anion Gap 16.7 BUN 24 H Creatinine 0.9 GFR Calculation 66.5 L Glucose 162 H POC Glucose Calculated Osmolal ity 280 L Calcium 8.1 L Phosphorus 3.4 Magnesium 1.8 Total Bilirubin 0.3 AST 170 H ALT 234 H Alkaline Phosphata se 158 H C-Reactive Protein 23.5 H Total Protein 5.7 L Albumin 2.3 L Globulin 3.4 Procalcitonin Vancomycin Trough 29.4 H* CHELSEY IFA Animal Tis Res MATHEW-1 Antibody SS-A Antibody Sm ([place]) Antibod y GOLF CADDY Antibody Scl-70 Antibody Anti-ds DNA IgG (C rith) Centromere B Antib brooklynn Thyroid Peroxidase Ab Complement C3c Complement C4c CH50 Classical Pat [place]way 10/27/19 10/27/19 10/27/19 21:03 17:21 11:03 WBC RBC Hgb Hct MCV MCH MCHC RDW Plt Count MPV Neut % (Auto) Lymph % (Auto) [place] % (Auto) Eos % (Auto) Baso % (Auto) Neut # (Auto) Lymph # (Auto) [place] # (Auto) Eos # (Auto) Baso # (Auto) Nucleated RBC % (a uto) Nucleated RBCs # Sodium Potassium Chloride Carbon Dioxide Anion Gap BUN Creatinine GFR Calculation Glucose POC Glucose 267 255 250 Calculated Osmolal ity Calcium Phosphorus Magnesium Total Bilirubin AST ALT Alkaline Phosphata se C-Reactive Protein Total Protein Albumin Globulin Procalcitonin Vancomycin Trough CHELSEY IFA Animal Tis Res MATHEW-1 Antibody SS-A Antibody Sm ([place]) Antibod y GOLF CADDY Antibody Scl-70 Antibody Anti-ds DNA IgG (C rith) Centromere B Antib brooklynn Thyroid Peroxidase Ab Complement C3c Complement C4c CH50 Classical Pat [place] 10/26/19 13:24 WBC RBC Hgb Hct MCV MCH MCHC RDW Plt Count MPV Neut % (Auto) Lymph % (Auto) [place] % (Auto) Eos % (Auto) Baso % (Auto) Neut # (Auto) Lymph # (Auto) [place] # (Auto) Eos # (Auto) Baso # (Auto) Nucleated RBC % (a uto) Nucleated RBCs # Sodium Potassium Chloride Carbon Dioxide Anion Gap BUN Creatinine GFR Calculation Glucose POC Glucose Calculated Osmolal ity Calcium Phosphorus Magnesium Total Bilirubin AST ALT Alkaline Phosphata se C-Reactive Protein Total Protein Albumin Globulin Procalcitonin Vancomycin Trough CHELSEY IFA Animal Tis Res Pending MATHEW-1 Antibody Pending SS-A Antibody Pending Sm ([place]) Antibod y Pending GOLF CADDY Antibody Pending Scl-70 Antibody Pending Anti-ds DNA IgG (C rith) Pending Centromere B Antib brooklynn Pending Thyroid Peroxidase Ab Pending Complement C3c 124 Complement C4c 17 CH50 Classical Pat [place] >60 H Vitals: Last Vital Signs Temp 98.1 F 10/28/19 07:49 Pulse 76 10/28/19 07:49 Resp 20 H 10/28/19 07:49 BP 125/83 10/28/19 07:49 Pulse Ox 83 L 10/28/19 07:49 Discharge Plan Discharge Patient Disposition: Home, Self-Care Condition: Stable Prescriptions: New levofloxacin 750 mg Tablet 750 mg PO DAILY 4 Days Qty: 4 RF: 0 Continued Lantus Solostar U-100 Insulin 100 unit/mL (3 mL) insulin pen 60 unit SUBCUT BID Qty: 15 RF: 6 duloxetine 30 mg capsule,delayed release(DR/EC) 30 mg PO DAILY Qty: 90 RF: 3 pantoprazole 40 mg tablet,delayed release (DR/EC) 40 mg PO DAILY Qty: 30 RF: 4 potassium chloride 10 mEq capsule, extended release 10 meq PO DAILY Qty: 30 RF: 3 furosemide [Lasix] 40 mg Tablet 40 mg PO DAILY RF: 0 atorvastatin 40 mg Tablet 40 mg PO BEDTIME RF: 0 hydralazine 10 mg Tablet 10 mg PO TID RF: 0 aspirin [Aspir-Low] 81 mg Tablet,Delayed Release (Dr/Ec) 81 mg PO DAILY RF: 0 acetaminophen [Tylenol Extra Strength] 500 mg Tablet 1,000 mg PO Q4H PRN (Reason: Pain) RF: 0 gabapentin 100 mg Capsule 100 mg PO Q8H PRN (Reason: Pain) RF: 0 trazodone 100 mg Tablet 100 mg PO BEDTIME RF: 0 Eliquis 5 mg Tablet 5 mg PO BID RF: 0 cyclobenzaprine 10 mg Tablet 10 mg PO TID PRN (Reason: unknown) RF: 0 metoprolol succinate 50 mg Tablet Extended Release 24 Hr 50 mg PO DAILY RF: 0 prochlorperazine maleate 10 mg tablet 10 mg PO Q6H PRN (Reason: Nausea) RF: 0 Xanax 0.25 mg Tablet 0.25 mg PO TID PRN (Reason: unknown) RF: 0 [place] 7.5-325 mg tablet 1 tab PO Q6H PRN (Reason: Pain) RF: 0 iron 325 mg (65 mg iron) Tablet 325 mg PO BID RF: 0 Glucagon Emergency Kit (human) 1 mg recon soln See Rx Instructions .ROUTE .COMPLEX RF: 0 Humalog U-100 Insulin 100 unit/mL solution See Rx Instructions .ROUTE .COMPLEX RF: 0 ProAir HFA 90 mcg/actuation Hfa Aerosol Inhaler 2 puff INHALATION Q4H PRN (Reason: Shortness Of Breath) RF: 0 lisinopril 2.5 mg Tablet 2.5 mg PO DAILY RF: 0 Entresto 24-26 mg tablet 1 tab PO BID RF: 0 Discontinued amiodarone 200 mg tablet 200 mg PO BID RF: 0 Discharge Orders: Discharge Order (Routine); Ordered 10/28/19 Ordered By: Rufino Donovan Other Ambulatory Orders: Complete Blood Count w/Auto (Routine) Timeframe: 1 Week Location: Determined by Patient Ordered By: Rufino Donovan Comprehensive Metabolic Panel (Routine) Timeframe: 1 Week Facility: [facility] - Location: Lab - Main Lab Ordered By: Rufino Donovan Referrals: [facility] Home Care ([facility]) [Outside] (Letting you know that patient has been discharge today 10/28/2019. Faxed this information to [facility].) Hamilton Scott MD [Primary Care Provider] - 1 week (Faxed a face sheet to the clinic and they will call you at home with an appointment.) Discharge Diet: Cardiac and Diabetic Discharge Activity: Resume usual activity Patient Instructions: Levofloxacin (By mouth), Community-acquired Pneumonia (DC), Pneumonia Stoplight, TIA Activity Restrictions/Additional Instructions: -If you have repeat strokelike symptoms please, note 1 -Please follow-up with wound care in 1 week -Please follow-up with surgeon at [facility] as scheduled -Continue physical therapy -Repeat blood work in 1 week to monitor liver function Discharge Attestations Time Spent in Discharge Care*: less than 30 min Quality Metrics Clinical Quality Measures During this hospital stay, did patient experience: None Coding Level of Care Code Acute Robotics Application Engineer for Chg Fwd Diagnoses Hypoxia R09.02 Pneumonia J18.9 Transient ischemic attack G45.9 Clinical depression F32.9 Ulceration of stump of above knee amputation of right lower extremity, limited to breakdown of skin T87.89; L97.111 Right above-knee amputee Z89.611 PVD (peripheral vascular disease) with claudication I73.9 Lactic acidosis E87.2 History of DVT (deep vein thrombosis) Z86.718 Nonischemic cardiomyopathy I42.8 Chronic anticoagulation Z79.01 Poorly controlled diabetes mellitus E11.65 Acute hyperglycemia R73.9 Hyponatremia E87.1 Transaminitis R74.0
[2019-10-28] MEDS: prochlorperazine 10 mg Tablet PO (11:56)
[2019-10-28] MEDS: HYDROcodone-acetaminophen 7.5-325 mg Tablet 1 TAB PO (14:11)
--- NOTE | 2019-10-28 14:51 | PC.NURSE ---
Discharge instructions given,voiced full understanding, PICC in upper right arm DC'ernestine Gomez RN cath intact bleeding controlled with 4x4's and tape. To main entrance via wheelchair to sons vehicle with zero difficulties.
[2019-10-28 16:23] LABS: Blood Gas Allen Test Pos; Blood Gas Operator Identificat amh; Blood Gas Sample Type Venous
[2019-10-28 16:24] LABS: Base Excess VBG -6.5 mmol/L (-3.0-3.0); PCO2 VBG 36.9 mmHg (41-51); PO2 VBG 26.7 mmHg (25-40); pH VBG 7.32 (7.32-7.42)
[2019-10-30 13:46] LABS: ANA SCREEN, IFA NEGATIVE (NEGATIVE)
[2019-10-30 14:16] LABS: THYROID PEROXIDASE ANTIBODIES 2 IU/mL (<9)
[2019-10-31 13:55] LABS: CENTROMERE B ANTIBODY <1.0 NEG AI (<1.0 NEG); JO-1 ANTIBODY <1.0 NEG AI (<1.0 NEG); RNP ANTIBODY <1.0 NEG AI (<1.0 NEG); SCL-70 ANTIBODY <1.0 NEG AI (<1.0 NEG); SJOGREN'S ANTIBODY (SS-A) <1.0 NEG AI (<1.0 NEG); SM ANTIBODY <1.0 NEG AI (<1.0 NEG)
[2019-11-02 01:21] LABS: DNA AB (DS) CRITHIDIA,IFA NEGATIVE (NEGATIVE)
== END 2019-10-28 14:30 | disposition home or self-care (01) | DRG 194 ==
LOC: ER 13:45 → MEDSURG 17:36
PROVIDERS: Emergency Medicine; Admitting Provider Family Medicine; PCP Internal Medicine; Visit Provider Family Medicine
DX: J18.9 Pneumonia, unspecified organism (principal); G45.9 Transient cerebral ischemic attack, unspecified; L97.111 Non-pressure chronic ulcer of right thigh limited to breakdown of skin; E87.2 Acidosis; I42.8 Other cardiomyopathies; E87.1 Hypo-osmolality and hyponatremia; R09.02 Hypoxemia; Z79.01 Long term (current) use of anticoagulants; E11.65 Type 2 diabetes mellitus with hyperglycemia; Z86.718 Personal history of other venous thrombosis and embolism; E11.51 Type 2 diabetes mellitus with diabetic peripheral angiopathy without gangrene; Z89.611 Acquired absence of right leg above knee; T87.89 Other complications of amputation stump; Y84.9 Medical procedure, unspecified as the cause of abnormal reaction of the patient, or of later complication, without mention of misadventure at the time of the procedure; Z79.4 Long term (current) use of insulin; I25.10 Atherosclerotic heart disease of native coronary artery without angina pectoris; F41.8 Other specified anxiety disorders; Z91.81 History of falling; Z79.82 Long term (current) use of aspirin; E11.22 Type 2 diabetes mellitus with diabetic chronic kidney disease; N18.2 Chronic kidney disease, stage 2 (mild); Z87.891 Personal history of nicotine dependence; R29.702 NIHSS score 2
CPT/HCPCS: 12345; 36415; 36416; 36569; 36592; 51702; 70450; 70496; 70498; 71045; 71250; 76705; 80048; 80053; 80074; 80202; 80306; 80307; 81001; 82009; 82728; 82803; 82962; 82977; 83036; 83605; 83735; 83880; 84100; 84145; 84484; 85025; 85610; 85651; 86140; 87040; 87641; 93005; 94664; 96372; 96375; 97110; 97162; 97165; 97530; 97535; 99284; G0378; J1170; J1815; J2543; J3370; J7030; J7050; Q0164; Q9967

== ENCOUNTER 2019-11-10 15:13 | Outpatient (CLI) | payer MEDICAID, SELFPAY | END 2019-11-10 15:14 | disposition home or self-care (01) | LOC: WOUND 15:14 | PROVIDERS: PCP Internal Medicine; Visit Provider Surgery | DX: T81.89XA Other complications of procedures, not elsewhere classified, initial encounter (principal); Y83.8 Other surgical procedures as the cause of abnormal reaction of the patient, or of later complication, without mention of misadventure at the time of the procedure; Z89.611 Acquired absence of right leg above knee | CPT/HCPCS: 11042; 11045 ==

== ENCOUNTER 2019-11-22 08:08 | Outpatient (CLI) | payer MEDICAID, SELFPAY | END 2019-11-22 08:09 | disposition home or self-care (01) | PROVIDERS: PCP Internal Medicine; Visit Provider Emergency Medicine | DX: E11.622 Type 2 diabetes mellitus with other skin ulcer (principal); L97.812 Non-pressure chronic ulcer of other part of right lower leg with fat layer exposed; Z89.611 Acquired absence of right leg above knee | CPT/HCPCS: 11042; 11045; L4397 ==

== ENCOUNTER 2019-11-30 10:21 | Outpatient (CLI) | payer MEDICAID, SELFPAY | END 2019-11-30 10:22 | disposition home or self-care (01) | LOC: WOUND 10:27 | PROVIDERS: PCP Internal Medicine; Visit Provider Emergency Medicine | DX: E11.622 Type 2 diabetes mellitus with other skin ulcer (principal); L97.812 Non-pressure chronic ulcer of other part of right lower leg with fat layer exposed; Z89.511 Acquired absence of right leg below knee; S50.812A Abrasion of left forearm, initial encounter; S50.811A Abrasion of right forearm, initial encounter; X58.XXXA Exposure to other specified factors, initial encounter | CPT/HCPCS: 11042; 11045 ==

== ENCOUNTER 2019-12-13 13:31 | Emergency (ER) | payer MEDICAID, SELFPAY ==
[2019-12-13] VITALS (9 sets, daily range): BP systolic 101–152; BP diastolic 64–88; PULSE 82–115; RESP 12–24; TEMP 37.7; O2SAT 95–100; BMI 48.7
--- NOTE | 2019-12-13 13:34 | PC.NURSE ---
Left lower leg discolored with redness, dried circular wounds, noted ulcerated black draining wounds on top of all toes. Noted brusing to back lower side , any and all movement causes severe pain.
--- NOTE | 2019-12-13 13:34 | W.ED.EXTPRO ---
Documented by User: CONI Donovan 12/13/19 13:37 HPI - Extremity Problem General: Chief complaint: Extremity Problem,Nontraumatic Stated complaint: LEFT LEG PAIN History of Present Illness: HPI Narrative: [facility] with complaint of leg pain. Patient says her whole legs been hurting for quite a while. Patient did receive pain medication while in route. MD Complaint: extremity pain Onset (ago): month(s) Pain Consistency: constant Location: left and lower extremity Severity scale (1-10): 10 Quality: aching Relieving factors: nothing Exacerbating factors: range of motion Associated symptoms: Deny chest pain, fever(s) or rash Review of Systems Narrative: Patient is a recent AKA right side and has wounds on the left lower extremity which she does go to the pain clinic for and she is complain about left lower extremity pain Const: Denies: fever(s), chills or body aches Eyes: Denies: change in vision or blurry vision ENMT: Denies: throat pain or nasal congestion Card: Denies: chest pain or dyspnea on exertion Resp: Denies: dyspnea, productive cough or non-productive cough GI: Denies: abdominal pain, nausea or vomiting Musc: Denies: extremity pain Skin/Breast: Denies: rash Neuro: Denies: headache(s) Psych: Denies: anxiety or depression Hayder/Lymph: Denies: easy bruising PFSH ED PFSH: Medical History (Updated 12/13/19 @ 16:32 by CONI Donovan) Chronic anticoagulation Chronic kidney disease, stage II (mild) History of DVT (deep vein thrombosis) Nonischemic cardiomyopathy Poorly controlled diabetes mellitus PVD (peripheral vascular disease) with claudication Urinary tract infection due to ESBL Klebsiella Surgical History History of back surgery History of History of shoulder surgery Hx of cholecystectomy Family History Father CAD (coronary artery disease) Chronic kidney disease (CKD) Hyperlipidemia Hypertension Grandmother Dementia Mother Stroke Other Diabetes Denies family history of Clotting disorder Psychiatric illness Suicide Anesthesia complication Bleeding disorder Family history of premature coronary artery disease Lung disease Cancer Social History Smoking and tobacco status: former smoker Quit status (tobacco): has quit using tobacco Year quit tobacco: 3 mo ago Alcohol intake: never Lives independently: Yes Household members: children Current occupational status: employed History of recent travel: No Physical Exam Narrative: EXAM NARRATIVE: Patient is very obese Const: COMMON NORMALS: no acute distress, average body habitus and patient oriented x3 HENMT: COMMON NORMALS: normocephalic HEAD & SCALP: normal to inspection and normocephalic FACE & SINUS: normal facial exam Eye: COMMON NORMALS: conjunctivae normal GENERAL EYE: appearance normal, both eyes and all related structures CONJUNCTIVA: Yes conjunctivae normal Neck/C-Spine: COMMON NORMALS: no JVD Chest: COMMONS NORMALS: normal inspection of the chest Resp: COMMON NORMALS: normal respiratory effort and clear to auscultation bilaterally AUSCULTATION: clear to auscultation bilaterally Cardio: COMMON NORMALS: no JVD, regular rate and regular rhythm RATE: regular rate RHYTHM: regular rhythm GI: COMMON NORMALS: Normal to inspection, nondistended, normoactive bowel sounds present Extremity: NARRATIVE EXTREMITY EXAM: Right lower extremity has an AKA with dressing in place left leg does have swelling redness does have some necrotic tissue on top of the foot. Does have some blistering and wounds in various stages of healing in the lower extremity. Leg is tender to the touch. There is no redness swelling above the knee. Neuro: COMMON NORMALS: patient oriented x3 Course Vital Signs: Vital signs: Vital Signs Temperature 99.9 F H 12/13/19 13:20 Pulse Rate 82 12/13/19 22:52 Respiratory Rate 18 12/13/19 22:52 Blood Pressure 146/88 12/13/19 22:52 Pulse Oximetry 96 12/13/19 22:52 MDM - Extremity (Nontraumatic) Lab Data: Labs: Lab Results 12/13/19 12/13/19 12/13/19 Range/Units 13:47 13:47 13:47 WBC 16.6 H (4.0-10.0) 10^3/ uL RBC 4.11 (4.1-5.3) 10^6/u L Hgb 8.6 L (11.5-15.3) g/dL Hct 32.4 L (37.0-47.0) % MCV 78.8 L (81-99) fL MCH 20.9 L (28.0-34.0) pg MCHC 26.5 L (30.0-36.0) g/dL RDW 23.5 H (12.1-15.1) % Plt Count 278 (130-400) 10^3/c mm MPV 10.8 H (7.4-10.4) fL Neut % (Auto) 91.4 % Lymph % (Auto) 3.5 % [place] % (Auto) 4.3 % Eos % (Auto) 0.1 % Baso % (Auto) 0.2 % Neut # (Auto) 15.15 H (1.8-7.7) 10^3/u L Lymph # (Auto) 0.6 L (0.8-4.8) 10^3/u L [place] # (Auto) 0.7 (0.2-0.9) 10^3/u L Eos # (Auto) 0.0 (0.0-0.8) 10^3/u L Baso # (Auto) 0.0 (0.0-0.1) 10^3/u L Nucleated RBC % (a uto) 0 % Nucleated RBCs # 0.0 /100WBC Sodium 129 L (136-145) mmol/L Potassium 5.0 (3.5-5.1) mmol/L Chloride 97 L (98-107) mmol/L Carbon Dioxide 23 (22-29) mmol/L Anion Gap 14.0 (5-19) BUN 38 H (6-20) mg/dL Creatinine 1.0 H (0.5-0.9) mg/dL GFR Calculation 58.9 L (90-130) mL/min Glucose 131 H (65-115) mg/dL Calculated Osmolal ity 267 L (285-295) mOsm/k g Lactate 1.9 (0.5-2.2) mmol/L Calcium 8.3 L (8.5-10.5) mg/dL Total Bilirubin 1.2 (0.15-1.2) mg/dL AST 31 (0-32) U/L ALT 12 (0-33) U/L Alkaline Phosphata se 248 H (35-105) IU/L Total Protein 6.3 L (6.6-8.7) g/dL Albumin 2.1 L (3.5-5.2) g/dL Globulin 4.2 (1.3-4.6) g/dL Discharge Plan Discharge Patient Disposition: [facility] Clinical Impression: Right above-knee amputee, Skin breakdown, Chronic hyponatremia Condition: Stable Discharge Orders: Discharge Order (Routine); Ordered 12/13/19 Ordered By: Jose G Prince Referrals: Hamilton Scott MD [Primary Care Provider] - Discharge Diet: Usual diet Discharge Activity: Increase activity as tolerated Patient Instructions: Cellulitis (ED) Activity Restrictions/Additional Instructions: Make sure patient gets pain medicine as scheduled and given on a timely basis. Monitor left lower extremity for worsening signs of infection. Keep dressings in place. Follow-up no significant improvement. Discharge Date/Time: 12/13/19 22:54 Coding Level of Care Code ED Loan Supervisor for Chg Fwd Exam Comprehensive Documented by User: CONI Power 12/14/19 00:27 HPI - Extremity Problem General: Chief complaint: Extremity Problem,Nontraumatic Stated complaint: LEFT LEG PAIN [facility] PFSH: Medical History (Updated 12/13/19 @ 16:32 by CONI Donovan) Chronic anticoagulation Chronic kidney disease, stage II (mild) History of DVT (deep vein thrombosis) Nonischemic cardiomyopathy Poorly controlled diabetes mellitus PVD (peripheral vascular disease) with claudication Urinary tract infection due to ESBL Klebsiella Surgical History History of back surgery History of History of shoulder surgery Hx of cholecystectomy Family History Father CAD (coronary artery disease) Chronic kidney disease (CKD) Hyperlipidemia Hypertension Grandmother Dementia Mother Stroke Other Diabetes Denies family history of Clotting disorder Psychiatric illness Suicide Anesthesia complication Bleeding disorder Family history of premature coronary artery disease Lung disease Cancer Social History (Reviewed 11/07/19 @ 14:07 by LEN Herzog Smoking and tobacco status: former smoker Quit status (tobacco): has quit using tobacco Year quit tobacco: 3 mo ago Alcohol intake: never Lives independently: Yes Household members: children Current occupational status: employed History of recent travel: No Course ED course: 1749, nursing talk to me regarding patient pain control. Patient is bowling and reports severe pain in her extremity. Patient has necrosis to the left extremity and is having uncontrolled pain at this time. Patient had been given 1 hydrocodone 10 mg 2 hours ago with minimal relief, and was given fentanyl in route to the ER with some improved relief. I agreed to give patient 10 mg oxycodone for trial for improved pain relief. If it does seem to be better I would recommend that [facility] would seek further medication pain control with oxycodone. franck Vital Signs: Vital signs: Vital Signs Temperature 99.9 F H 12/13/19 13:20 Pulse Rate 82 12/13/19 22:52 Respiratory Rate 18 12/13/19 22:52 Blood Pressure 146/88 12/13/19 22:52 Pulse Oximetry 96 12/13/19 22:52 MDM - Extremity (Nontraumatic) Lab Data: Labs: Lab Results 12/13/19 12/13/19 12/13/19 Range/Units 13:47 13:47 13:47 WBC 16.6 H (4.0-10.0) 10^3/ uL RBC 4.11 (4.1-5.3) 10^6/u L Hgb 8.6 L (11.5-15.3) g/dL Hct 32.4 L (37.0-47.0) % MCV 78.8 L (81-99) fL MCH 20.9 L (28.0-34.0) pg MCHC 26.5 L (30.0-36.0) g/dL RDW 23.5 H (12.1-15.1) % Plt Count 278 (130-400) 10^3/c mm MPV 10.8 H (7.4-10.4) fL Neut % (Auto) 91.4 % Lymph % (Auto) 3.5 % [place] % (Auto) 4.3 % Eos % (Auto) 0.1 % Baso % (Auto) 0.2 % Neut # (Auto) 15.15 H (1.8-7.7) 10^3/u L Lymph # (Auto) 0.6 L (0.8-4.8) 10^3/u L [place] # (Auto) 0.7 (0.2-0.9) 10^3/u L Eos # (Auto) 0.0 (0.0-0.8) 10^3/u L Baso # (Auto) 0.0 (0.0-0.1) 10^3/u L Nucleated RBC % (a uto) 0 % Nucleated RBCs # 0.0 /100WBC Sodium 129 L (136-145) mmol/L Potassium 5.0 (3.5-5.1) mmol/L Chloride 97 L (98-107) mmol/L Carbon Dioxide 23 (22-29) mmol/L Anion Gap 14.0 (5-19) BUN 38 H (6-20) mg/dL Creatinine 1.0 H (0.5-0.9) mg/dL GFR Calculation 58.9 L (90-130) mL/min Glucose 131 H (65-115) mg/dL Calculated Osmolal ity 267 L (285-295) mOsm/k g Lactate 1.9 (0.5-2.2) mmol/L Calcium 8.3 L (8.5-10.5) mg/dL Total Bilirubin 1.2 (0.15-1.2) mg/dL AST 31 (0-32) U/L ALT 12 (0-33) U/L Alkaline Phosphata se 248 H (35-105) IU/L Total Protein 6.3 L (6.6-8.7) g/dL Albumin 2.1 L (3.5-5.2) g/dL Globulin 4.2 (1.3-4.6) g/dL Discharge Plan Discharge Patient Disposition: [facility] Clinical Impression: Right above-knee amputee, Skin breakdown, Chronic hyponatremia Condition: Stable Discharge Orders: Discharge Order (Routine); Ordered 12/13/19 Ordered By: Jose G Prince Referrals: Hamilton Scott MD [Primary Care Provider] - Discharge Diet: Usual diet Discharge Activity: Increase activity as tolerated Patient Instructions: Cellulitis (ED) Activity Restrictions/Additional Instructions: Make sure patient gets pain medicine as scheduled and given on a timely basis. Monitor left lower extremity for worsening signs of infection. Keep dressings in place. Follow-up no significant improvement. Discharge Date/Time: 12/13/19 22:54 Coding Level of Care Code ED Loan Supervisor for Mundog Fwd Exam Comprehensive
[2019-12-13 13:53] LABS: Basophils % 0.2 %; Eosinophils % 0.1 %; Hematocrit 32.4 % (37.0-47.0); Hemoglobin 8.6 g/dL (11.5-15.3); Lymphocytes # 0.6 10^3/uL (0.8-4.8); Lymphocytes % 3.5 %; Mean Corpuscular HGB Conc 26.5 g/dL (30.0-36.0); Mean Corpuscular Hemoglobin 20.9 pg (28.0-34.0); Mean Corpuscular Volume 78.8 fL (81-99); Mean Platelet Volume 10.8 fL (7.4-10.4); Monocytes # 0.7 10^3/uL (0.2-0.9); Monocytes % 4.3 %; Neutrophils # 15.15 10^3/uL (1.8-7.7); Neutrophils % 91.4 %; Nucleated Red Blood Cells % 0 %; Platelet Count 278 10^3/cmm (130-400); Red Blood Count 4.11 10^6/uL (4.1-5.3); Red Cell Distribution Width 23.5 % (12.1-15.1); White Blood Count 16.6 10^3/uL (4.0-10.0)
[2019-12-13 14:31] LABS: Lactate (Lactic Acid level) 1.9 mmol/L (0.5-2.2)
[2019-12-13 14:33] LABS: Alanine Aminotransferase 12 U/L (0-33); Alkaline Phosphatase 248 IU/L (35-105); Blood Urea Nitrogen 38 mg/dL (6-20); Calcium 8.3 mg/dL (8.5-10.5); Carbon Dioxide 23 mmol/L (22-29); Chloride 97 mmol/L (98-107); Globulin 4.2 g/dL (1.3-4.6); Glomerular Filtration Rate 58.9 mL/min (90-130); Glucose 131 mg/dL (65-115); Osmolality Calculated 267 mOsm/kg (285-295); Sodium 129 mmol/L (136-145); Total Bilirubin 1.2 mg/dL (0.15-1.2); Total Protein 6.3 g/dL (6.6-8.7)
[2019-12-13 14:54] LABS: Albumin Level 2.1 g/dL (3.5-5.2); Aspartate Amino Transferase 31 U/L (0-32)
[2019-12-13] MEDS: sodium chloride 0.9% 1,000 ML 999 ML IV (15:48)
[2019-12-13] MEDS: piperacillin-tazobactam 4.5 GM in sodium chloride 0.9% (plus) 50 ML IV (15:51)
[2019-12-13] MEDS: gabapentin 300 mg Capsule PO (16:02)
[2019-12-13] MEDS: HYDROcodone-acetaminophen 10-325 mg Tablet 1 TAB PO (16:02)
--- NOTE | 2019-12-13 16:31 | PC.NURSE ---
Changed soiled linens, cleaned mitchell area. placed clean dry linens and diaper. repositioned for comfort.
[2019-12-13] MEDS: oxyCODONE-APAP 5-325 mg Tablet 2 TAB PO (17:56)
== END 2019-12-13 22:54 ==
PROVIDERS: Emergency Provider Nurse Practitioner Family; PCP Internal Medicine
DX: I96 Gangrene, not elsewhere classified (principal); E87.1 Hypo-osmolality and hyponatremia; Z89.611 Acquired absence of right leg above knee; E11.22 Type 2 diabetes mellitus with diabetic chronic kidney disease; N18.2 Chronic kidney disease, stage 2 (mild); Z87.891 Personal history of nicotine dependence
CPT/HCPCS: 12345; 36415; 80053; 83605; 85025; 87040; 96365; 99283; 99285; J2543; J7030

== ENCOUNTER 2019-12-15 08:27 | Inpatient (IN) | payer MEDICAID, SELFPAY ==
[2019-12-15] VITALS (51 sets, daily range): BP systolic 77–138; BP diastolic 53–93; PULSE 69–112; RESP 8–27; TEMP 36.4–37.3; O2SAT 90–100; BMI 48.4
--- NOTE | 2019-12-15 08:38 | XR_ITS ---
WS: [id number] Portable AP upright chest, 12/15/2019 Clinical Data: sob Comparison: Portable chest, 10/26/2019 Findings: No nodules, masses or effusions are seen. The heart is enlarged. The pulmonary vascularity is not increased. No pneumonia or pneumothorax is seen. Monitor leads are on the chest wall. There is an orthopedic anchor in the left humeral head. XR/XR chest 1V portable [id number] Impression: Cardiomegaly.
--- NOTE | 2019-12-15 08:38 | CT_ITS ---
WS: [id number] CT HEAD TECHNIQUE: Noncontrast CT of the head obtained from the skullbase to the vertex. CLINICAL INFORMATION: ams COMPARISON: October 25, 2019 DLP: 728.[address] scans at [facility] use at least one of these dose optimization techniques: automat ed exposure control; mA and/or kV adjustment per patient size (includes targeted exams where dose is matched to clinical indication); or iterative reconstruction. FINDINGS: No evidence of intracranial hemorrhage or mass effect. Ventricular system and basal cisterns are dawson nt. Mild small vessel changes with mild parenchymal volume loss. Chronic infarct left cerebellum. No extra-axial fluid collections. No evidence of mass or mass effect. Normal murrell-white differentiation. Retention cyst right maxillary sinus. Mastoid air cells well aerated. CT/CT head wo con* [id number] IMPRESSION: 1. No evidence of intracranial hemorrhage or mass effect. 2. No acute intracranial findings.
--- NOTE | 2019-12-15 08:39 | ECG_ITS ---
[facility] Test Date: 2019-12-15 Pat Name: Eliza Quinn Department: Room: Gender: Female Glass Smoother: : 1970 Requested By: Yordy Mead Order Number: [id number] Aquiles MD: David Rick M.D. Measurements Intervals [place] Rate: 76 P: 48 NE: 157 QRS: -46 QRSD: 87 T: 0 QT: 391 QTc: 442 Interpretive Statements SINUS RHYTHM INDETERMINATE AXIS LOW QRS VOLTAGE IN EXTREMITY LEADS [QRS DEFLECTION < 0.5 mV IN LIMB LEADS] Compared to ECG 10/25/2019 14:08:46 Indeterminate axis now present Myocardial infarct finding now present Left-axis deviation no longer present ST (T wave) deviation no longer present Electronically Signed On 12-15-2019 13:31:30 CDT by David Rick M.D. [email or web address]
--- NOTE | 2019-12-15 08:41 | ED_ITS ---
HPI - Altered Mental Status General: Chief Complaint: Altered Mental Status Stated Complaint: AMS/ LOW BS Time Seen by Provider: 12/15/19 08:35 Source: EMS Mode of arrival: EMS Limitations: altered mental status History of Present Illness: HPI narrative: 49-year-old female who is well- known to the ER. Patient presents here from residential and has a history of multiple medical problems. Patient this morning at residential is been altered and had a low glucose. Patient given D50 in route and blood sugar now is 150s but patient still is altered. She will respond to painful stimuli and at it. She is not been able to speak at all. She is hypotensive as well. She has had no fever. Patient has chronic wounds to her feet due to peripheral vascular disease. Review of Systems General: Reports: ROS unobtainable due to mental status PFSH ED PFSH: Medical History Chronic anticoagulation Chronic kidney disease, stage II (mild) History of DVT (deep vein thrombosis) Nonischemic cardiomyopathy Poorly controlled diabetes mellitus PVD (peripheral vascular disease) with claudication Urinary tract infection due to ESBL Klebsiella Surgical History History of back surgery History of History of shoulder surgery Hx of cholecystectomy Family History Father CAD (coronary artery disease) Chronic kidney disease (CKD) Hyperlipidemia Hypertension Grandmother Dementia Mother Stroke Other Diabetes Denies family history of Clotting disorder Psychiatric illness Suicide Anesthesia complication Bleeding disorder Family history of premature coronary artery disease Lung disease Cancer Social History Smoking and tobacco status: former smoker Quit status (tobacco): has quit using tobacco Year quit tobacco: 3 mo ago Alcohol intake: never Lives independently: Yes Household members: children Current occupational status: employed History of recent travel: No Physical Exam Const: EXAM LIMITATIONS: altered mental status GENERAL APPEARANCE: in distress, lethargic and ill appearing ORIENTATION/CONSCIOUSNESS: Yes lethargic HENMT: COMMON NORMALS: normocephalic and atraumatic HEAD & SCALP: normocephalic and atraumatic Eye: COMMON NORMALS: Equal, round and reactive pupils present and EOMs intact bilaterally PUPIL: Yes Equal, round and reactive pupils present Neck/C-Spine: COMMON NORMALS: full ROM and supple Chest: COMMONS NORMALS: normal inspection of the chest and normal palpation of entire chest wall Resp: COMMON NORMALS: normal respiratory effort, No retractions, No use of accessory muscles and clear to auscultation bilaterally AUSCULTATION: clear to auscultation bilaterally Cardio: COMMON NORMALS: regular rate, regular rhythm and No murmurs present (Cardio) RATE: regular rate RHYTHM: regular rhythm GI: COMMON NORMALS: Normal to inspection, nondistended, normoactive bowel sounds present, Soft to palpation, non-tender and no masses PALPATION: Yes Soft to palpation Extremity: NARRATIVE EXTREMITY EXAM: chronic wound to left leg Neuro: SENSORIUM/ORIENTATION: Yes lethargic and Yes somnolent Psych: COMMON NORMALS: negative for mental status grossly normal Skin: COMMON NORMALS: no rashes or lesions noted and no wounds GENERAL SKIN EXAM: no rashes or lesions noted Course Vital Signs: Vital signs: Vital Signs Pulse Rate 78 12/15/19 11:38 Respiratory Rate 21 H 12/15/19 11:38 Blood Pressure 119/53 12/15/19 11:38 Pulse Oximetry 98 12/15/19 11:38 MDM - Altered Mental Status MDM Narrative: Medical decision making narrative: Eliza presents here with altered mental status along with sepsis. Patient has been receiving high doses of morphine at residential. Patient given Narcan here and is now awake and alert. Patient does have an elevated white count with a urinary tract inf ection. Patient also has poor flow to her lower extremity. I spoke to hospitalist and will admit to ICU. Patient started on IV antibiotics. Lab Data: Labs: Lab Results 12/15/19 12/15/19 12/15/19 Range/Units 08:43 09:04 09:15 WBC 23.7 H (4.0-10.0) 10^3/ uL RBC 4.03 L (4.1-5.3) 10^6/u L Hgb 8.4 L (11.5-15.3) g/dL Hct 31.9 L (37.0-47.0) % MCV 79.2 L (81-99) fL MCH 20.8 L (28.0-34.0) pg MCHC 26.3 L (30.0-36.0) g/dL RDW 23.9 H (12.1-15.1) % Plt Count 271 (130-400) 10^3/c mm MPV 11.1 H (7.4-10.4) fL Neut % (Auto) 92.5 % Lymph % (Auto) 2.6 % [place] % (Auto) 3.3 % Eos % (Auto) 0.2 % Baso % (Auto) 0.3 % Neut # (Auto) 21.87 H (1.8-7.7) 10^3/u L Lymph # (Auto) 0.6 L (0.8-4.8) 10^3/u L [place] # (Auto) 0.8 (0.2-0.9) 10^3/u L Eos # (Auto) 0.1 (0.0-0.8) 10^3/u L Baso # (Auto) 0.1 (0.0-0.1) 10^3/u L Nucleated RBC % (a uto) 0.2 % Nucleated RBCs # 0.0 /100WBC PT (12.1-14.9) SECO NDS INR (0.8-1.2) Specimen Type Arterial Sample Site Femoral, right ABG pH 7.36 (7.35-7.45) ABG pCO2 44.1 (35-45) mmHg ABG pO2 166.0 H (80.0-100.0) mmH g ABG HCO3 24.6 (22-26) mmol/L ABG Base Excess -1.0 (-2.0-2.0) mmol/ L Hector Test N/a Hematocrit 27.3 L (37-47) % O2 Delivery Device Nc O2 Liters/Min 2.0 % FiO2 28.0 % [employer] ID Gd Sodium (136-145) mmol/L Potassium (3.5-5.1) mmol/L Chloride (98-107) mmol/L Carbon Dioxide (22-29) mmol/L Anion Gap (5-19) BUN (6-20) mg/dL Creatinine (0.5-0.9) mg/dL GFR Calculation (90-130) mL/min Glucose (65-115) mg/dL Calculated Osmolal ity (285-295) mOsm/k g Lactate (0.5-2.2) mmol/L Calcium (8.5-10.5) mg/dL Total Bilirubin (0.15-1.2) mg/dL AST (0-32) U/L ALT (0-33) U/L Alkaline Phosphata se (35-105) IU/L Ammonia (11-51) umol/L Troponin T Baselin e (0-10) ng/L NT-Pro-B Natriuret Pep (0-125) pg/mL Total Protein (6.6-8.7) g/dL Albumin (3.5-5.2) g/dL Globulin (1.3-4.6) g/dL Urine Color Yellow (Yellow) Urine Appearance Cloudy (CLEAR) Urine pH 5.0 (5-7) Ur Specific Gravit y 1.010 (1.005-1.030) Urine Protein 1+ H (Negative) Urine Glucose (UA) Norm (Normal) Urine Ketones 1+ H (Negative) Urine Blood 3+ H (Negative) Urine Nitrate Negative (Negative) Urine Bilirubin 1+ H (NEGATIVE) Urine Urobilinogen 8 H (Negative) mg/dL Ur Leukocyte Ailin ase 1+ H (Negative) Urine RBC 15-25 H (0-2) /hpf Urine WBC 80-100 H (0-5) /hpf Ur Squamous Epith Cells 5-10 H (0-5) Amorphous Sediment Not Reportable Urine Bacteria 2+ H (NONE) Other Casts Wbc cast /lpf Urine Mucus 1+ 12/15/19 12/15/19 12/15/19 Range/Units 09:15 09:15 09:15 WBC (4.0-10.0) 10^3/ uL RBC (4.1-5.3) 10^6/u L Hgb (11.5-15.3) g/dL Hct (37.0-47.0) % MCV (81-99) fL MCH (28.0-34.0) pg MCHC (30.0-36.0) g/dL RDW (12.1-15.1) % Plt Count (130-400) 10^3/c mm MPV (7.4-10.4) fL Neut % (Auto) % Lymph % (Auto) % [place] % (Auto) % Eos % (Auto) % Baso % (Auto) % Neut # (Auto) (1.8-7.7) 10^3/u L Lymph # (Auto) (0.8-4.8) 10^3/u L [place] # (Auto) (0.2-0.9) 10^3/u L Eos # (Auto) (0.0-0.8) 10^3/u L Baso # (Auto) (0.0-0.1) 10^3/u L Nucleated RBC % (a uto) % Nucleated RBCs # /100WBC PT 23.10 H (12.1-14.9) SECO NDS INR 1.97 H (0.8-1.2) Specimen Type Sample Site ABG pH (7.35-7.45) ABG pCO2 (35-45) mmHg ABG pO2 (80.0-100.0) mmH g ABG HCO3 (22-26) mmol/L ABG Base Excess (-2.0-2.0) mmol/ L Hector Test Hematocrit (37-47) % O2 Delivery Device O2 Liters/Min % FiO2 % [employer] ID Sodium 134 L (136-145) mmol/L Potassium 4.8 (3.5-5.1) mmol/L Chloride 102 (98-107) mmol/L Carbon Dioxide 25 (22-29) mmol/L Anion Gap 11.8 (5-19) BUN 49 H (6-20) mg/dL Creatinine 1.1 H (0.5-0.9) mg/dL GFR Calculation 52.8 L (90-130) mL/min Glucose 78 (65-115) mg/dL Calculated Osmolal ity 275 L (285-295) mOsm/k g Lactate 1.1 (0.5-2.2) mmol/L Calcium 7.6 L (8.5-10.5) mg/dL Total Bilirubin 1.2 (0.15-1.2) mg/dL AST 18 (0-32) U/L ALT 11 (0-33) U/L Alkaline Phosphata se 290 H (35-105) IU/L Ammonia (11-51) umol/L Troponin T Baselin e (0-10) ng/L NT-Pro-B Natriuret Pep 6260 H (0-125) pg/mL Total Protein 5.4 L (6.6-8.7) g/dL Albumin 2.1 L (3.5-5.2) g/dL Globulin 3.3 (1.3-4.6) g/dL Urine Color (Yellow) Urine Appearance (CLEAR) Urine pH (5-7) Ur Specific Gravit y (1.005-1.030) Urine Protein (Negative) Urine Glucose (UA) (Normal) Urine Ketones (Negative) Urine Blood (Negative) Urine Nitrate (Negative) Urine Bilirubin (NEGATIVE) Urine Urobilinogen (Negative) mg/dL Ur Leukocyte Ailin ase (Negative) Urine RBC (0-2) /hpf Urine WBC (0-5) /hpf Ur Squamous Epith Cells (0-5) Amorphous Sediment Urine Bacteria (NONE) Other Casts /lpf Urine Mucus 12/15/19 12/15/19 Range/Units 09:15 09:15 WBC (4.0-10.0) 10^3/ uL RBC (4.1-5.3) 10^6/u L Hgb (11.5-15.3) g/dL Hct (37.0-47.0) % MCV (81-99) fL MCH (28.0-34.0) pg MCHC (30.0-36.0) g/dL RDW (12.1-15.1) % Plt Count (130-400) 10^3/c mm MPV (7.4-10.4) fL Neut % (Auto) % Lymph % (Auto) % [place] % (Auto) % Eos % (Auto) % Baso % (Auto) % Neut # (Auto) (1.8-7.7) 10^3/u L Lymph # (Auto) (0.8-4.8) 10^3/u L [place] # (Auto) (0.2-0.9) 10^3/u L Eos # (Auto) (0.0-0.8) 10^3/u L Baso # (Auto) (0.0-0.1) 10^3/u L Nucleated RBC % (a uto) % Nucleated RBCs # /100WBC PT (12.1-14.9) SECO NDS INR (0.8-1.2) Specimen Type Sample Site ABG pH (7.35-7.45) ABG pCO2 (35-45) mmHg ABG pO2 (80.0-100.0) mmH g ABG HCO3 (22-26) mmol/L ABG Base Excess (-2.0-2.0) mmol/ L Hector Test Hematocrit (37-47) % O2 Delivery Device O2 Liters/Min % FiO2 % [employer] ID Sodium (136-145) mmol/L Potassium (3.5-5.1) mmol/L Chloride (98-107) mmol/L Carbon Dioxide (22-29) mmol/L Anion Gap (5-19) BUN (6-20) mg/dL Creatinine (0.5-0.9) mg/dL GFR Calculation (90-130) mL/min Glucose (65-115) mg/dL Calculated Osmolal ity (285-295) mOsm/k g Lactate (0.5-2.2) mmol/L Calcium (8.5-10.5) mg/dL Total Bilirubin (0.15-1.2) mg/dL AST (0-32) U/L ALT (0-33) U/L Alkaline Phosphata se (35-105) IU/L Ammonia 83 H (11-51) umol/L Troponin T Baselin e 36 H (0-10) ng/L NT-Pro-B Natriuret Pep (0-125) pg/mL Total Protein (6.6-8.7) g/dL Albumin (3.5-5.2) g/dL Globulin (1.3-4.6) g/dL Urine Color (Yellow) Urine Appearance (CLEAR) Urine pH (5-7) Ur Specific Gravit y (1.005-1.030) Urine Protein (Negative) Urine Glucose (UA) (Normal) Urine Ketones (Negative) Urine Blood (Negative) Urine Nitrate (Negative) Urine Bilirubin (NEGATIVE) Urine Urobilinogen (Negative) mg/dL Ur Leukocyte Ailin ase (Negative) Urine RBC (0-2) /hpf Urine WBC (0-5) /hpf Ur Squamous Epith Cells (0-5) Amorphous Sediment Urine Bacteria (NONE) Other Casts /lpf Urine Mucus Imaging Data^: CXR: Radiologist's impression: [place] [address] [place] [address] XRay Report Signed Patient: Eliza Quinn Unit #: [id number] : 1970 Age/Sex: 49 / F ADM Date: 12/15/19 Loc: ER Room/Bed: Attending Dr: Ordering Provider/Ordering MD: Yordy Mead MD Date of Service: 12/15/19 Procedure(s): XR chest 1V portable [id number] Accession Number(s): [id number] Report Number: [id number] WS: [id number] Portable AP upright chest, 12/15/2019 Clinical Data: sob Comparison: Portable chest, 10/26/2019 Findings: No nodules, masses or effusions are seen. The heart is enlarged. The pulmonary vascularity is not increased. No pneumonia or pneumothorax is seen. Monitor leads are on the chest wall. There is an orthopedic anchor in the left humeral head. XR/XR chest 1V portable [id number] Impression: Cardiomegaly. CT Head: Radiologist's impression: [place] [address] CT Scan Report Signed Patient: Eliza Quinn Unit #: [id number] : 1970 Age/Sex: 49 / F ADM Date: 12/15/19 Loc: ER Room/Bed: Attending Dr: Ordering Provider/Ordering MD: Yordy Mead MD Date of Service: 12/15/19 Procedure(s): CT head wo con* [id number] Accession Number(s): [id number] Report Number: [id number] WS: [id number] CT HEAD TECHNIQUE: Noncontrast CT of the head obtained from the skullbase to the vertex. CLINICAL INFORMATION: ams COMPARISON: October 25, 2019 DLP: 728.[address] scans at [facility] use at least one of these dose optimization techniques: automated exposure control; mA and/or kV adjustment per patient size (includes targeted exams where dose is matched to clinical indication); or iterative reconstruction. FINDINGS: No evidence of intracranial hemorrhage or mass effect. Ventricular system and basal cisterns are patent. Mild small vessel changes with mild parenchymal volume loss. Chronic infarct left cerebellum. No extra-axial fluid collections. No evidence of mass or mass effect. Normal murrell-white differentiation. Retention cyst right maxillary sinus. Mastoid air cells well aerated. CT/CT head wo con* [id number] IMPRESSION: 1. No evidence of intracranial hemorrhage or mass effect. 2. No acute intracranial findings. Critical Care Time Critical Care Time: Critical Care Time: Yes Total Critical Care Time: 36 Attestation: This case had a high probability of a clinically significant, sudden, or life threatening deterioration of this patient's condition which required my full and direct attention, intervention and personal management. Discharge Plan Discharge Patient Disposition: Admitted As Inpatient Admit Provider: Megan Lala Clinical Impression: Altered mental status, Acute cystitis, Poorly controlled diabetes mellitus, Lower limb ischemia, PVD (peripheral vascular disease) with claudication Condition: Stable Interventions: ED Discharge Assessment Last Done: 12/15/19 11:38 ED Charges Last Done: 12/15/19 11:38 Discharge Date/Time: 12/15/19 11:40 Coding Level of Care Code ED Mumps Developer for Chg Fwd Exam Comprehensive
[2019-12-15] MEDS: sodium chloride 0.9% 1,000 ML 999 ML IV (08:52)
[2019-12-15 08:57] LABS: Blood Gas Sample Type Arterial
[2019-12-15 09:25] LABS: Basophils # 0.1 10^3/uL (0.0-0.1); Basophils % 0.3 %; Eosinophils # 0.1 10^3/uL (0.0-0.8); Eosinophils % 0.2 %; Hematocrit 31.9 % (37.0-47.0); Hemoglobin 8.4 g/dL (11.5-15.3); Lymphocytes # 0.6 10^3/uL (0.8-4.8); Lymphocytes % 2.6 %; Mean Corpuscular HGB Conc 26.3 g/dL (30.0-36.0); Mean Corpuscular Hemoglobin 20.8 pg (28.0-34.0); Mean Corpuscular Volume 79.2 fL (81-99); Mean Platelet Volume 11.1 fL (7.4-10.4); Monocytes # 0.8 10^3/uL (0.2-0.9); Monocytes % 3.3 %; Neutrophils # 21.87 10^3/uL (1.8-7.7); Neutrophils % 92.5 %; Nucleated Red Blood Cells % 0.2 %; Platelet Count 271 10^3/cmm (130-400); Red Blood Count 4.03 10^6/uL (4.1-5.3); Red Cell Distribution Width 23.9 % (12.1-15.1); White Blood Count 23.7 10^3/uL (4.0-10.0)
[2019-12-15 09:27] LABS: ABG PCO2 44.1 mmHg (35-45); ABG PH Result 7.36 (7.35-7.45); Arterial Blood Gas Hematocrit 27.3 % (37-47); Blood Gas Sample Site Femoral, right; HCO3 ABG 24.6 mmol/L (22-26)
[2019-12-15 09:28] LABS: Blood Gas Operator Identificat GD; Oxygen Device NC
--- NOTE | 2019-12-15 09:39 | USCV_ITS ---
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 COULD NOT DETECT FLOW IN THE LT PT. No Doppler flow signals in the distal superficial femoral artery and the posterior artery Velocity continuous waveform in the dorsalis pedis artery on the left side CONCLUSIONS 1. Normal resting USSANNAH on the left side. 2. Abnormal Doppler waveforms suggestive of collateral filling in the dorsalis pedis artery. 3. Possible occlusion of the distal SFA and posterior tibial artery Consider CTA or peripheral angiogram, to better evaluate the distal SFA/infrapopliteal vessels, if clinically indicated Dr Robert Larios MD [facility] (Electronically Signed) Final Date: 15 December 2019 17:17 S
[2019-12-15 09:40] LABS: INR 1.97 (0.8-1.2)
[2019-12-15 09:44] LABS: Ammonia 83 umol/L (11-51); Lactate (Lactic Acid level) 1.1 mmol/L (0.5-2.2)
[2019-12-15] MEDS: dextrose 50% syringe 50 mL IVP ×4 (09:44→20:40)
[2019-12-15] MEDS: piperacillin-tazobactam 3.375 GM in sodium chloride 0.9% (plus) 50 ML IV ×3 (09:44→23:24)
[2019-12-15 09:45] LABS: Add Urine Culture? Yes; Add Urine Microscopic? YES; Bacteria Urine 2+; Bilirubin Urine 1+ (NEGATIVE); Blood Urine 3+ (Negative); Glucose Urine UA Norm (Normal); Ketones Urine 1+ (Negative); Leukocyte Esterase Urine 1+ (Negative); Mucus Urine 1+; Nitrate Urine Negative (Negative); Other Casts Urine WBC CAST /lpf; Protein Urine 1+ (Negative); RBC Urine 15-25 /hpf (0-2); Urine Appearance Cloudy (CLEAR); Urine Color Yellow (Yellow); Urobilinogen Urine 8 mg/dL (Negative); WBC Urine 80-100 /hpf (0-5)
[2019-12-15 09:47] LABS: Troponin(5th) Baseline 36 ng/L (0-10)
[2019-12-15 09:54] LABS: Alanine Aminotransferase 11 U/L (0-33); Albumin Level 2.1 g/dL (3.5-5.2); Alkaline Phosphatase 290 IU/L (35-105); Anion Gap 11.8 (5-19); Aspartate Amino Transferase 18 U/L (0-32); Blood Urea Nitrogen 49 mg/dL (6-20); Calcium 7.6 mg/dL (8.5-10.5); Carbon Dioxide 25 mmol/L (22-29); Chloride 102 mmol/L (98-107); Globulin 3.3 g/dL (1.3-4.6); Glomerular Filtration Rate 52.8 mL/min (90-130); Glucose 78 mg/dL (65-115); NT Pro B Type Natriuretic Pept 6260 pg/mL (0-125); Osmolality Calculated 275 mOsm/kg (285-295); Potassium 4.8 mmol/L (3.5-5.1); Sodium 134 mmol/L (136-145); Total Bilirubin 1.2 mg/dL (0.15-1.2); Total Protein 5.4 g/dL (6.6-8.7)
[2019-12-15] MEDS: vancomycin 1,000 MG in sodium chloride 0.9% 250 ML 250 MG IV (10:01)
--- NOTE | 2019-12-15 10:39 | ECG_ITS ---
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 Measurements Intervals [place] Rate: 75 P: 62 TN: 161 QRS: 109 QRSD: 90 T: 0 QT: 391 QTc: 437 Interpretive Statements SINUS RHYTHM INDETERMINATE AXIS LOW QRS VOLTAGE [QRS DEFLECTION < 0.5/1.0 mV IN LIMB/CHEST LEADS] Compared to ECG 12/15/2019 08:54:31 No significant changes Electronically Signed On 12-15-2019 14:15:37 CDT by David Rick M.D. [email or web address]
--- NOTE | 2019-12-15 11:15 | PM.HP ---
Providers/Chief Complaint Admitting Physician: Megan Lala DO Primary Care Provider: Hamilton Scott MD Chief Complaint: AMS/ LOW BS History of Present Illness Eliza Quinn is a 49 year old female with a past medical history of poorly controlled diabetes, nonischemic cardiomyopathy, history of DVT, lower limb ischemia and severe peripheral vascular disease that presented to the emergency department today for altered mental status from [facility]. Unable to information from patient due to altered mental status. She was seen and evaluated in the emergency department and admitted for further evaluation and treatment due to concern for altered mental status. Patient was noted to be hypoglycemic while in the ER given D50. Called and discussed with [facility], nurse Sadaf, she reported that she could not tell me when patient's last known well was, sometime yesterday. She stated that patient had been having pain in her left lower extremity and she had been started on Roxanol yesterday. She stated that she received a dose of 10 mg at 1623, 20 mg at 1842, 20 mg at 2045, 20 mg at 2245 and then received a dose of [place] 10 mg at 5 AM this morning. Reported that patient did not eat dinner last night due to being sleepy. She reported the patient did not receive her dose of Lantus last night she is on 60 units twice daily. Due to patient being lethargic this morning she was brought to the ER for further evaluation. Immediately after receiving this information patient was administered Narcan. Review of Systems General: Reports: ROS unobtainable due to medical condition and ROS unobtainable due to mental status Medications/Allergies Home Medications Medication Instructions Recorded Confirmed Last Taken Type aspirin [Aspir-Low] 81 mg PO DAILY 06/04/19 12/15/19 12/15/19 History atorvastatin 20 mg PO BEDTIME 06/04/19 12/15/19 12/14/19 History furosemide [Lasix] 40 mg PO DAILY 06/04/19 12/15/19 12/15/19 History hydralazine 10 mg PO TID 06/04/19 12/15/19 12/15/19 History pantoprazole 40 mg PO DAILY #30 tab 06/24/19 12/15/19 12/15/19 Rx trazodone 100 mg PO BEDTIME 07/06/19 12/15/19 12/14/19 History insulin glargine 100 unit/mL (3 60 unit SUBCUT BID #15 ml 10/04/19 12/15/19 12/15/19 Rx mL) subcutaneous pen duloxetine 30 mg capsule,delayed 30 mg PO DAILY #90 cap 10/24/19 12/15/19 12/15/19 Rx release Entresto 1 tab PO BID 10/25/19 12/15/19 12/15/19 History Glucagon Emergency Kit (human) See Rx Instructions .ROUTE .COMPLEX 10/25/19 12/15/19 Unknown History albuterol sulfate [ProAir HFA] 2 puff INHALATION Q4H PRN 10/25/19 12/15/19 Unknown History cyclobenzaprine 10 mg PO TID PRN 10/25/19 12/15/19 12/13/19 History ferrous sulfate [iron] 325 mg PO BID 10/25/19 12/15/19 12/15/19 History lisinopril 2.5 mg PO DAILY 10/25/19 12/15/19 12/15/19 History metoprolol succinate 50 mg PO DAILY 10/25/19 12/15/19 12/15/19 History pregabalin 150 mg capsule 150 mg PO BID #60 cap 11/07/19 12/15/19 12/15/19 Rx Prostat Oral 15 ml PO BID 12/13/19 12/15/19 12/15/19 History acetaminophen [Tylenol] 650 mg PO Q4H PRN MDD 4000 mg 12/13/19 12/15/19 Unknown History apixaban [Eliquis] 5 mg PO BID 12/13/19 12/15/19 12/15/19 History bisacodyl 10 mg ID DAILY PRN 12/13/19 12/15/19 Unknown History hydrocodone-acetaminophen [[place]] 1 tab PO Q6H PRN 12/13/19 12/15/19 12/13/19 11:14 History lidocaine HCl [Lidocaine Viscous] See Rx Instructions .ROUTE .COMPLEX 12/13/19 12/15/19 12/13/19 History lorazepam [Ativan] 0.5 mg PO TID PRN 12/13/19 12/15/19 12/13/19 08:59 History magnesium hydroxide [Milk of 30 ml PO DAILY PRN 12/13/19 12/15/19 Unknown History Magnesia] nitrofurantoin monohyd/m-cryst 100 mg PO BID 12/13/19 12/15/19 12/15/19 History [Macrobid] nystatin 1 applic TOPICAL BID 12/13/19 12/15/19 Unknown History ondansetron HCl [Zofran] 4 mg PO Q4H PRN 12/13/19 12/15/19 Unknown History sodium phosphates [Enema 118 ml ID DAILY PRN 12/13/19 12/15/19 Unknown History Disposable] morphine concentrate 10 mg PO Q2H PRN 12/15/19 12/15/19 Unknown History morphine concentrate 20 mg PO Q2H PRN 12/15/19 12/15/19 Unknown History Allergies Allergy/AdvReac Type Severity Reaction Status Date / Time NONE Allergy Unknown Unknown Uncoded 12/13/19 13:25 PFSH Acute PFSH: Medical History Chronic anticoagulation Chronic kidney disease, stage II (mild) History of DVT (deep vein thrombosis) Nonischemic cardiomyopathy Poorly controlled diabetes mellitus PVD (peripheral vascular disease) with claudication Urinary tract infection due to ESBL Klebsiella Surgical History History of back surgery History of History of shoulder surgery Hx of cholecystectomy Family History Father CAD (coronary artery disease) Chronic kidney disease (CKD) Hyperlipidemia Hypertension Grandmother Dementia Mother Stroke Other Diabetes Denies family history of Clotting disorder Psychiatric illness Suicide Anesthesia complication Bleeding disorder Family history of premature coronary artery disease Lung disease Cancer Social History Smoking and tobacco status: former smoker Quit status (tobacco): has quit using tobacco Year quit tobacco: 3 mo ago Alcohol intake: never Lives independently: Yes Household members: children Current occupational status: employed History of recent travel: No Supplemental PFSH Information: Past medical history, surgical history and family history was reviewed, unable to obtain further information from patient due to her clinical condition Vitals/I&O/Wt Last Vital Signs Pulse 76 12/15/19 10:40 Resp 10 L 12/15/19 10:40 BP 97/68 12/15/19 10:40 Pulse Ox 100 12/15/19 10:40 12/14/19 12/15/19 12/15/19 22:59 06:59 14:59 Intake Total 1050 / 1050 Balance 1050 / 1050 Weight last 48 hrs Weight 136.078 kg Physical Exam Const: GENERAL APPEARANCE: lethargic NUTRITIONAL APPEARANCE: obese ORIENTATION/CONSCIOUSNESS: Yes lethargic HENMT: COMMON NORMALS: normocephalic and atraumatic Chest: COMMONS NORMALS: normal inspection of the chest Resp: OTHER: No appreciable wheezing or rhonchi, decreased inspiratory effort Cardio: COMMON NORMALS: regular rate, regular rhythm and No murmurs present (Cardio) OTHER: Unable to palpate peripheral pulses in the left lower extremity, right lower extremity surgically absent GI: COMMON NORMALS: Soft to palpation INSPECTION: Yes normal to inspection OTHER: Foul smell when lifting the pannus, no appreciable erythema or excoriation, normal bowel sounds, no appreciable tenderness to palpation, morbidly obese therefore difficult to palpate for any hepatosplenomegaly : OTHER: Pierre catheter in place with dark urine, large amount of sediment in urine Extremity: OTHER: Status post right lower extremity AKA Left lower extremity, unable to palpate lower extremity pulses in the posterior tibial, ulceration over the foot with maceration between the toes Neuro: OTHER: Lethargic, minimal response to sternal rub, GCS 7 Urinary Catheter Management^: Pierre: Cath Placed During This Visit: yes Urinary Catheter Date of Insertion: 12/15/19 Urinary Catheter Time of Insertion: 08:45 Data : 12/15/19 09:15 12/15/19 09:15 Micro: Microbiology 12/15/19 09:05 Blood Culture - Preliminary Blood SPECIMEN COLLECTED 12/15/19 09:15 Blood Culture - Preliminary Blood SPECIMEN COLLECTED CT Head: I personally reviewed and interpreted this imaging study as follows: Radiologist's impression: FINDINGS: No evidence of intracranial hemorrhage or mass effect. Ventricular system and basal cisterns are patent. Mild small vessel changes with mild parenchymal volume loss. Chronic infarct left cerebellum. No extra-axial fluid collections. No evidence of mass or mass effect. Normal murrell-white differentiation. Retention cyst right maxillary sinus. Mastoid air cells well aerated. CT/CT head wo con* [id number] IMPRESSION: 1. No evidence of intracranial hemorrhage or mass effect. 2. No acute intracranial findings. CXR: I personally reviewed and interpreted this imaging study as follows: Radiologist's impression: Findings: No nodules, masses or effusions are seen. The heart is enlarged. The pulmonary vascularity is not increased. No pneumonia or pneumothorax is seen. Monitor leads are on the chest wall. There is an orthopedic anchor in the left humeral head. XR/XR chest 1V portable [id number] Impression: Cardiomegaly. A&P Assessment and plan (1) Acute encephalopathy: multifactorial secondary to sedating medications as well as hypoglycemia Status: Acute (2) Lower limb ischemia: Consulted Dr. Dorsey Stat arterial duplex on the Left performed in the ED, pending Patient is followed by vascular surgery at [facility] in [facility]. It sounds as if she had previously been recommended to have an amputation of the left lower extremity, they have been following with her closely. Status: Acute (3) Nonischemic cardiomyopathy: Repeat ECHO Last reviewed from 2018 showed LVEF around 35% Holding lisinopril due to hypotension, holding Lasix at this time due to hypotension and hydralazine, will restart when blood pressure improved Patient appears to be on Entresto, will then discontinue lisinopril at time of discharge if felt appropriate by cardiology Status: Acute (4) Hypoglycemia: Given glucagon at [facility] and given D50 in the ED with initiation of D5NS at 50ml/hr with close monitoring of fluid status Hold home lantus, typically on 60units twice daily Did not eat last night according to [facility] staff Status: Acute (5) Poorly controlled diabetes mellitus: Will check A1c Holding Lantus at this time due to concern for hypoglycemia Placed on moderate dose sliding scale insulin as needed with close Accu-Cheks Status: Acute (6) History of DVT (deep vein thrombosis): On Eliquis, hold and transition to short acting anticoagulation while hospitalized Placed on treatment dose Lovenox Status: Acute (7) PVD (peripheral vascular disease) with claudication: Continue on aspirin and atorvastatin Discussion with environmental auditor, Dr. Dorsey for consultation. Status: Acute (8) Sepsis: With concern for left lower extremity ischemia and cellulitis as well as cystitis Continue on broad-spectrum antibiotics with vancomycin and Zosyn patient has a history of ESBL E. coli and prior UTI Continue close monitoring in the ICU Gentle IV fluids due to concern for underlying systolic congestive heart failure Status: Acute (9) Acute cystitis: History of ESBL e coli, continue broad spectrum antibiotics/ zosyn Status: Acute Additional A&P Information Hypotension: Believed to be multifactorial related to sepsis from lower extremity cellulitis and cystitis as well as from medication overdose, unintentional opioid overdose. Holding ROSETTA inhibitor, Lasix and hydralazine Anemia: History of iron deficiency, further iron studies ordered On chronic anticoagulation: Eliquis, transition to short acting while hospitalized we will continue on treatment dose Lovenox at this time Chronic kidney disease: Appears to be at baseline Systolic congestive heart failure with an LVEF of approximately 37%, continue close monitoring of intake and output Disposition plan: Back to [facility] DVT prophylaxis: Treatment dose Lovenox due to history of DVT Diet: N.p.o. at this time until patient remains more alert CODE STATUS: Full code Called and discussed with patient's mother, Keara Palomares, on 12/14 at approx 1500 and made her aware of admission and current status and treatments. She verbalized understanding and appreciated phone conversation. Attestations Medical Necessity Statement*: Patient requires hospitalization due to acute encephalopathy, sepsis with lower extremity cellulitis and acute cystitis, hypoglycemia. Expected stay rater than 2 midnights. Coding Level of Care Code Acute Pmp Certified Project Manager for g Fwd Exam Detailed Diagnoses Acute encephalopathy G93.40 Lower limb ischemia I99.8 Nonischemic cardiomyopathy I42.8 Hypoglycemia E16.2 Poorly controlled diabetes mellitus E11.65 History of DVT (deep vein thrombosis) Z86.718 PVD (peripheral vascular disease) with claudication I73.9 Sepsis A41.9 Acute cystitis N30.00
[2019-12-15] MEDS: dextrose 5%-sod chloride 0.9% 1,000 ML 50 ML IV (11:19)
[2019-12-15] MEDS: naloxone 0.4 mg/ml SDV 0.1 MG IVP ×3 (11:21→11:27)
[2019-12-15] MEDS: naloxone 0.4 mg/ml SDV IVP (11:28)
--- NOTE | 2019-12-15 11:34 | PC.NURSE ---
Emptied catheter bag. 1150 out.
[2019-12-15 12:34] LABS: Troponin 5 2HR 33.91 ng/L (0-10); Troponin 5 2HR Delta -2.09 ABS# (0-10)
[2019-12-15 12:45] LABS: Glucose Point of Care 89 mg/dL (70-110)
[2019-12-15 13:00] LABS: Glucose Point of Care 90 mg/dL (70-110)
[2019-12-15 13:00] LABS: Glucose Point of Care 143 mg/dL (70-110)
[2019-12-15 13:00] LABS: Glucose Point of Care 56 mg/dL (70-110)
[2019-12-15] MEDS: pantoprazole 40 mg SDV IVP (13:51)
[2019-12-15 13:56] LABS: Iron 15 ug/dL (37-145); Percent Saturation 8.7 % (20-50); Total Iron Binding Capacity 171 mcg/dl; Unsaturated Iron Binding 156 ug/dL (112-347)
--- NOTE | 2019-12-15 14:39 | ECG_ITS ---
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 Measurements Intervals [place] Rate: 80 P: 7 DC: 154 QRS: 265 QRSD: 88 T: 0 QT: 392 QTc: 454 Interpretive Statements SINUS RHYTHM LOW QRS VOLTAGE IN EXTREMITY LEADS [QRS DEFLECTION < 0.5 mV IN LIMB LEADS] Compared to ECG 12/15/2019 10:42:12 Right-axis deviation now present Indeterminate axis no longer present Myocardial infarct finding no longer present Electronically Signed On 12-15-2019 14:15:10 CDT by David Rick M.D. [id number]
--- NOTE | 2019-12-15 15:15 | USCV_ITS ---
Eliza Quinn Age: 49 Gender: F : 1970 Exam Date: 12/15/2019 15:42 Ordering Phys: Megan Lala DO Technologist: Ed Kelley Exam Location: [facility] [place] Indication: CHF BP: 104 / 63 HR: 92 Rhythm: Sinus Technical Quality: Poor MEASUREMENTS (Male / Female) Normal Values 2D ECHO LV Diastolic Diameter PLAX 6.0 cm 4.2 - 5.9 / 3.9 - 5.3 cm LV Systolic Diameter PLAX 4.6 cm IVS Diastolic Thickness 1.0 cm 0.6 - 1.0 / 0.6 - 0.9 cm IVS Systolic Thickness 1.5 cm LVPW Diastolic Thickness 1.2 cm 0.6 - 1.0 / 0.6 - 0.9 cm LVPW Systolic Thickness 1.7 cm LVOT Diameter 2.1 cm LV Ejection Fraction MOD 2C 44.6 % LV Ejection Fraction 2C AL 43.6 % LA Diameter 3.7 cm LA Width 4.9 cm LA Height 6.6 cm RA Width 4.1 cm RA Height 5.1 cm Aorta at Sinotubular Diameter 2.6 cm M-MODE LV Diastolic Diameter MM 6.1 cm 4.2 - 5.9 / 3.9 - 5.3 cm LV Systolic Diameter MM 4.3 cm LV Ejection Fraction MM Teich 57.4 % IVS Diastolic Thickness MM 1.1 cm 0.6 - 1.0 / 0.6 - 0.9 cm IVS Systolic Thickness MM 1.3 cm LVPW Diastolic Thickness MM 1.3 cm 0.6 - 1.0 / 0.6 - 0.9 cm LVPW Systolic Thickness MM 2.1 cm RV Diastolic Diameter MM 2.9 cm Aortic Annulus Diameter 3.5 cm LA Ao Ratio MM 1.1 MV E Point Septal Separation 1.8 cm DOPPLER LVOT Peak Velocity 126.0 cm/s MV Area PHT 5.0 cm squared Mitral E to A Ratio 6.2 MV E' Velocity 7.0 cm/s Mitral E to MV E' Ratio 14.4 Mitral E to LV E' Lateral Ratio 16.7 Mitral E to LV E' Septal Ratio 12.6 TR Peak Velocity 184.0 cm/s TR Peak Gradient 13.6 mmHg TV Peak E Velocity 76.0 cm/s Right Atrial Pressure 3.0 mmHg Pulmonary Artery Systolic Pressu 16.5 mmHg FINDINGS Left Ventricle Severely increased left ventricular cavity size. Severely decreased left ventricular systolic function. Global left ventricular hypokinesis. Left ventricular ejection fraction is estimated at 30 %. Grade III/IV diastolic dysfunction (restrictive filling pattern), severely elevated filling pressures. Right Ventricle The right ventricle is normal in size and function. Right Atrium The right atrium is normal in size. Left Atrium The left atrium is normal in size. Mitral Valve Structurally normal mitral valve without significant stenosis or prolapse. There is no mitral regurgitation. Aortic Valve Structurally normal aortic valve without significant sclerosis or stenosis. There is no aortic regurgitation. Tricuspid Valve Trace tricuspid valve regurgitation. Pulmonic Valve Structurally normal pulmonic valve without significant stenosis. There is no pulmonic regurgitation. Pericardium Normal pericardium without effusion. Aorta Normal ascending aorta dimension. CONCLUSIONS 1-Severely increased left ventricular cavity size. Severely decreased left ventricular systolic function. Global left ventricular hypokinesis. Left ventricular ejection fraction is estimated at 30 %. Grade III/IV diastolic dysfunction (restrictive filling pattern), severely elevated filling pressures. 2-There is no pericardial effusion. 3-Pulmonary artery systolic pressure is within normal limits. 4-Right atrial pressure is around 5 mm of mercury. 5-No significant change since the prior echocardiogram study of 03/24/2019. Sofi Dorsey MD (Electronically Signed) Final Date: 15 December 2019 18:02 S
[2019-12-15 16:18] LABS: Thyroid Stimulating Hormone 3.34 uIU/mL (0.27-4.20)
[2019-12-15] MEDS: pregabalin 150 mg Capsule PO (17:18)
[2019-12-15] MEDS: ferrous sulfate EC 325 mg Tablet PO (17:18)
[2019-12-15] MEDS: sacubitril/valsartan 24-26 mg Tablet 1 EACH PO (17:18)
[2019-12-15] MEDS: enoxaparin 30 mg/0.3 mL Syringe SUBCUT (17:18)
[2019-12-15] MEDS: enoxaparin 100 mg/mL Syringe SUBCUT (17:19)
[2019-12-15] MEDS: nystatin powder 15 gm Btl 1 APPLIC TOPICAL (17:20)
[2019-12-15 17:29] LABS: Glucose Point of Care 85 mg/dL (70-110)
--- NOTE | 2019-12-15 18:39 | P.CONIM_ITS ---
Providers/Reason For Consult Consulting Physican/Specialty*: Cardiology Reason for Consult*: Critical limb ischemia, severely depressed LV function with nonischemic cardiomyopathy Attending Physician: Megan Lala DO Primary Care Provider: Hamilton Scott MD History of Present Illness History of Present Illness Eliza Quinn is a 49 year old female past medical history significant for obesity, uncontrolled hypertension controlled diabetes mellitus, severe peripheral vascular disease status post right leg BKA with unhealed stump, nonischemic cardiomyopathy with severely depressed LV function at 30% severe below the knee left side disease as per last angiogram in July of this year. She is also following up with vascular surgery at [facility], came to know that she was also suggested left leg amputation. She presented with confusion and altered mental status, she was given Narcan thinking of possible analgesic overdose which improved her consciousness still very confused and sleepy. I been asked to assess her from vascular perspective as she has nonhealing left leg and foot ulcers suggestive of ongoing critical limb ischemia though poor appear to be a body temperature. She also has nonhealing stump of the right leg. ABIs on the left side shows possible occlusion in the distal SFA and posterior tibial artery, abnormal Doppler waveform suggestive of collateral filling in the dorsalis pedis FINDINGS COULD NOT VISUALIZE LT SFA DISTALLY. COULD NOT DETECT FLOW IN THE LT PT. No Doppler flow signals in the distal superficial femoral artery and the posterior artery Velocity continuous waveform in the dorsalis pedis artery on the left side CONCLUSIONS 1. Normal resting SUSANNAH on the left side. 2. Abnormal Doppler waveforms suggestive of collateral filling in the dorsalis pedis artery. 3. Possible occlusion of the distal SFA and posterior tibial artery Consider CTA or peripheral angiogram, to better evaluate the distal SFA/infrapopliteal vessels, if clinically indicated Dr Robert Larios MD [facility] (Electronically Signed) Final Date: 15 December 2019 17:17 Review of Systems General: Reports: ROS unobtainable due to medical condition and ROS unobtainable due to mental status Eyes: Denies: photophobia Musc: Denies: joint warmth All/Imm: Denies: acute wheezing Meds/Allergies Home Medications and Allergies Home Medications Medication Instructions Recorded Confirmed Last Taken Type aspirin [Aspir-Low] 81 mg PO DAILY 06/04/19 12/15/19 12/15/19 History atorvastatin 20 mg PO BEDTIME 06/04/19 12/15/19 12/14/19 History furosemide [Lasix] 40 mg PO DAILY 06/04/19 12/15/19 12/15/19 History hydralazine 10 mg PO TID 06/04/19 12/15/19 12/15/19 History pantoprazole 40 mg PO DAILY #30 tab 06/24/19 12/15/19 12/15/19 Rx trazodone 100 mg PO BEDTIME 07/06/19 12/15/19 12/14/19 History insulin glargine 100 unit/mL (3 60 unit SUBCUT BID #15 ml 10/04/19 12/15/19 12/15/19 Rx mL) subcutaneous pen duloxetine 30 mg capsule,delayed 30 mg PO DAILY #90 cap 10/24/19 12/15/19 12/15/19 Rx release Entresto 1 tab PO BID 10/25/19 12/15/19 12/15/19 History Glucagon Emergency Kit (human) See Rx Instructions .ROUTE .COMPLEX 10/25/19 12/15/19 Unknown History albuterol sulfate [ProAir HFA] 2 puff INHALATION Q4H PRN 10/25/19 12/15/19 Unknown History cyclobenzaprine 10 mg PO TID PRN 10/25/19 12/15/19 12/13/19 History ferrous sulfate [iron] 325 mg PO BID 10/25/19 12/15/19 12/15/19 History lisinopril 2.5 mg PO DAILY 10/25/19 12/15/19 12/15/19 History metoprolol succinate 50 mg PO DAILY 10/25/19 12/15/19 12/15/19 History pregabalin 150 mg capsule 150 mg PO BID #60 cap 11/07/19 12/15/19 12/15/19 Rx Prostat Oral 15 ml PO BID 12/13/19 12/15/19 12/15/19 History acetaminophen [Tylenol] 650 mg PO Q4H PRN MDD 4000 mg 12/13/19 12/15/19 Unknown History apixaban [Eliquis] 5 mg PO BID 12/13/19 12/15/19 12/15/19 History bisacodyl 10 mg [place] DAILY PRN 12/13/19 12/15/19 Unknown History hydrocodone-acetaminophen [Nye] 1 tab PO Q6H PRN 12/13/19 12/15/19 12/13/19 11:14 History lidocaine HCl [Lidocaine Viscous] See Rx Instructions .ROUTE .COMPLEX 12/13/19 12/15/19 12/13/19 History lorazepam [Ativan] 0.5 mg PO TID PRN 12/13/19 12/15/19 12/13/19 08:59 History magnesium hydroxide [Milk of 30 ml PO DAILY PRN 12/13/19 12/15/19 Unknown History Magnesia] nitrofurantoin monohyd/m-cryst 100 mg PO BID 12/13/19 12/15/19 12/15/19 History [Macrobid] nystatin 1 applic TOPICAL BID 12/13/19 12/15/19 Unknown History ondansetron HCl [Zofran] 4 mg PO Q4H PRN 12/13/19 12/15/19 Unknown History sodium phosphates [Enema 118 ml NH DAILY PRN 12/13/19 12/15/19 Unknown History Disposable] morphine concentrate 10 mg PO Q2H PRN 12/15/19 12/15/19 Unknown History morphine concentrate 20 mg PO Q2H PRN 12/15/19 12/15/19 Unknown History Allergies Allergy/AdvReac Type Severity Reaction Status Date / Time NONE Allergy Unknown Unknown Uncoded 12/13/19 13:25 Current Medications Current Medications Generic Name Dose Route Start Last Admin Trade Name Freq PRN Reason Stop Dose Admin Enoxaparin Sodium 100 mg 12/15/19 16:00 12/15/19 17:19 Lovenox SUBCUT 100 mg Q12H HI Administration Enoxaparin Sodium 30 mg 12/15/19 16:00 12/15/19 17:18 Lovenox SUBCUT 30 mg Q12H HI Administration Ferrous Sulfate 325 mg 12/15/19 18:00 12/15/19 17:18 Ferrous Sulfate PO 325 mg BID HI Administration Dextrose/Sodium Chloride 1,000 mls @ 50 mls/hr 12/15/19 11:11 12/15/19 11:19 Dextrose 5%-Sod Chloride 0.9% IV 12/16/19 07:10 50 mls/hr .Q20H STA Administration Piperacillin Sod/Tazobactam 50 mls @ 12.5 mls/hr 12/15/19 15:30 12/15/19 16:24 Sod 3.375 gm/ Sodium Chloride IV 12.5 mls/hr Q8H HI Administration Protocol Vancomycin HCl 1,500 mg/ 250 mls @ 166.667 mls/hr 12/15/19 14:30 12/15/19 14:49 Sodium Chloride IV 166.7 mls/hr Q12H HI Administration Protocol Insulin Aspart 0 unit 12/15/19 18:00 12/15/19 17:35 Novolog SUBCUT Not Given TIDWM HI Protocol Naloxone HCl 0.1 mg 12/15/19 11:10 12/15/19 11:27 Narcan IVP 0.1 mg Q2M PRN Administration RESPIRATORY RATE < 8/MIN Nystatin 1 applic 12/15/19 18:00 12/15/19 17:20 Nystatin Powder TOPICAL 1 applic BID HI Administration Pantoprazole Sodium 40 mg 12/15/19 13:00 12/15/19 13:51 Protonix IVP 40 mg DAILY HI Administration Pregabalin 150 mg 12/15/19 18:00 12/15/19 17:18 Lyrica PO 150 mg BID HI Administration Sacubitril/Valsartan 1 each 12/15/19 18:00 12/15/19 17:18 Entresto 24-26 Mg PO 1 each BID HI Administration PFSH Acute PFSH: Medical History Chronic anticoagulation Chronic kidney disease, stage II (mild) History of DVT (deep vein thrombosis) Nonischemic cardiomyopathy Poorly controlled diabetes mellitus PVD (peripheral vascular disease) with claudication Urinary tract infection due to ESBL Klebsiella Surgical History History of back surgery History of History of shoulder surgery Hx of cholecystectomy Family History Father CAD (coronary artery disease) Chronic kidney disease (CKD) Hyperlipidemia Hypertension Grandmother Dementia Mother Stroke Other Diabetes Denies family history of Clotting disorder Psychiatric illness Suicide Anesthesia complication Bleeding disorder Family history of premature coronary artery disease Lung disease Cancer Social History Smoking and tobacco status: former smoker Quit status (tobacco): has quit using tobacco Year quit tobacco: 3 mo ago Alcohol intake: never Lives independently: Yes Household members: children Current occupational status: employed History of recent travel: No Supplemental [facility] Information: Past medical history, surgical history and family history was reviewed, unable to obtain further information from patient due to her clinical condition Dietary Habits: Current diet type/program: regular Caffeine: Yes Exercise: What type of physical activity do you participate in?: none Safety: Seatbelt use: never Home Safety: Working smoke detector in home: Yes Fire extinguisher in home: No Carbon monoxide detector in home: No Personal Safety: Do you feel safe at home: Yes Vitals/I&O/Wt Last Vital Signs Temp 97.5 F L 12/15/19 14:00 Pulse 88 12/15/19 18:00 Resp 27 H 12/15/19 18:00 BP 90/54 12/15/19 18:00 Pulse Ox 95 12/15/19 18:00 12/15/19 12/15/19 12/15/19 06:59 14:59 22:59 Intake Total 1300 / 1300 Output Total 650 / 650 Balance 1300 / 1300 -650 / 650 Weight last 48 hrs Weight 300 lb Physical Exam Narrative: EXAM NARRATIVE: GENERAL: Patient is confused somnolent NECK: No jugular vein distension. HEENT: No cyanosis. No icterus. No pallor. HEART: Regular S1 and S2. No murmur, rub or gallop. LUNGS: Clear to auscultate bilaterally. ABDOMEN: Soft, nontender and nondistended. Positive bowel sounds. No guarding, rebound or tenderness. CENTRAL NERVOUS SYSTEM: Grossly nonfocal. EXTREMITIES: Left side nonhealing leg and foot ulcer, right BKA with nonhealing stump Urinary Catheter Management^: Pierre: Cath Placed During This Visit: yes Reason for Continuing Indwelling Catheter: Accurate Measurement of Urinary Output in Critically Ill Patients Urinary Catheter Date of Insertion: 12/15/19 Urinary Catheter Time of Insertion: 08:45 Data Micro: Micro: Microbiology 12/15/19 09:05 Blood Culture - Pr eliminary Blood SPECIMEN SHARYN SANTO 12/15/19 09:15 Blood Culture - Pr eliminary Blood SPECIMEN [facility] A&P Assessment and plan (1) Critical lower limb ischemia: Patient has advanced vascular pathology secondary to uncontrolled diabetes mellitus with underlying severe peripheral vascular disease in both legs. She is status post amputation of the right leg. She has been to [facility] in the past year where she underwent right below the knee amputation, as per prior peripheral angiogram from July of this year patient did not have any vessel visualized below the knee however she had some collaterals. I have been told that patient was suggested with left below the knee amputation at [facility]. I do not have evidence for that it is also possible that she may underwent an intervention and peripheral angiogram there recently. We will ask for medical record from them. ABIs are consistent with possible occlusion at the distal SFA and collaterals in the foot. After reviewing records from the [facility] requires we will proceed with CTA to compare and decide whether she may will be of candidate for revascularization or may need amputation. For now I will gently rehydrate her. Continue wound management with wound care. Continue IV antibiotics. Status: Acute (2) Sepsis: Possibility of sepsis is pretty much there due to nonhealing chronic wound and ulcers secondary critical limb ischemia in this unfortunate complex diabetic and vascular pathologic patient. Medicine has already started patient on IV antibiotics. Status: Acute Qualifiers: Sepsis acute organ dysfunction status: unspecified (3) Acute encephalopathy: Could be multifactorial including drugs metabolic and sepsis. Medicine is holding her analgesics she was started on antibiotics and will be rehydrated gently Status: Acute (4) Nonischemic cardiomyopathy: Patient has severely depressed LV function with nonischemic cardiomyopathy 30% she appear to be stable and euvolemic. Continue current regimen Status: Acute (5) Diabetes mellitus: Continue as per medicine Status: Acute Consult Attestations Medical Necessity Statement: Patient require continuation hospitalization due to above defined care. I am expecting her stay to cross more than 2 midnights. Coding Level of Care Code New Pt Acute Salt Lifter for Mundog Fwd Patient Type New History Comprehensive Exam Comprehensive Medical Decision Making High Complexity Diagnoses Critical lower limb ischemia I99.8 Sepsis A41.9 Sepsis acute organ dysfunction status: unspecified Acute encephalopathy G93.40 Nonischemic cardiomyopathy I42.8 Diabetes mellitus E11.9
--- NOTE | 2019-12-15 20:24 | PC.NURSE ---
Hypoglycemia During assessment, pt observed to be lethargic. Minimally responsive. Responds to painful stimuli and does not stay aroused. pupils equal sluggish size 2. Moist skin. Glucose checked and 34 at this time. Amp D50 given per hypoglycemic protocol. Physician notified and received orders for ABG and increase D5 fluids to 100ml/hr.
--- NOTE | 2019-12-15 20:36 | PC.NURSE ---
Hypoglycemia Dr. Cottrell at bedside, glucose rechecked and 37 after amp D50. Verbal orders given for another amp D50 and change fluids to D10 at 75ml/hr.
[2019-12-15] MEDS: dextrose 10% 1,000 ML 75 ML IV (20:45)
[2019-12-15 20:46] LABS: ABG PCO2 41.8 mmHg (35-45); ABG PH Result 7.39 (7.35-7.45); Alveolar-Arterial Oxygen Gradi 0.3 mmHg (5-10); Arterial Blood Gas Hematocrit 28.7 % (37-47); Base Excess ABG 0.5 mmol/L (-2.0-2.0); Blood Gas Allen Test Pos; Blood Gas Sample Site Radial, left; Blood Gas Sample Type Arterial; Carboxyhemoglobin 1.4 %THgb (0.4-20.1); HCO3 ABG 25.5 mmol/L (22-26); Ionized Calcium Level - ABG 1.2 mmol/L (1.1-1.4); Methemoglobin 0.2 % (0.4-1.5); Oxygen Device NC; Oxygen Saturation ABG 97.6; PO2 ABG 94.5 mmHg (80.0-100.0); Potassium Level - ABG 4.3 mmol/L (3.5-5.0); Total Hemoglobin 9.4 g/dL (12-16)
--- NOTE | 2019-12-15 21:05 | PC.NURSE ---
Hypoglycemia Dr. Cottrell notified after 2 amps D50 and D10 at 75ml/hr glucose still 51. Pt continues to be altered and drowsy but does arouse to verbal stimuli and able to answer few questions appropriately. RBTO 1mg glucagon IM and titrate D10W fluids to 100ml/hr.
--- NOTE | 2019-12-15 21:48 | PC.NURSE ---
Left leg assessment Patient's left leg is red in color, edematous and with a foul odor. Multiple skin ulcers with blisters, drainage, necrosis, and pain.
[2019-12-15 21:54] LABS: Glucose Point of Care 46 mg/dL (70-110)
[2019-12-15 21:54] LABS: Glucose Point of Care 98 mg/dL (70-110)
[2019-12-15 21:54] LABS: Glucose Point of Care 34 mg/dL (70-110)
[2019-12-15 21:54] LABS: Glucose Point of Care 51 mg/dL (70-110)
[2019-12-15 21:54] LABS: Glucose Point of Care 76 mg/dL (70-110)
[2019-12-15 21:54] LABS: Glucose Point of Care 68 mg/dL (70-110)
[2019-12-15 21:54] LABS: Glucose Point of Care 37 mg/dL (70-110)
--- NOTE | 2019-12-15 22:36 | PC.NURSE ---
Lethargy Physician notified of continued lethargy and ams. Blood glucose now 119, Dr. Cottrell believes mental status partly due to infectious process and to keep monitoring. Orders received to decrease D10W fluids to 50ml/hr.
[2019-12-16] VITALS (27 sets, daily range): BP systolic 96–140; BP diastolic 54–82; PULSE 87–122; RESP 14–23; TEMP 36.6–37.7; O2SAT 92–100
[2019-12-16 01:41] LABS: Glucose Point of Care 91 mg/dL (70-110)
[2019-12-16] MEDS: lactulose oral liq 20 gm/30 mL UDC 30 GM PO (02:22)
[2019-12-16] MEDS: enoxaparin 30 mg/0.3 mL Syringe SUBCUT ×2 (04:25→18:13)
[2019-12-16] MEDS: enoxaparin 100 mg/mL Syringe SUBCUT ×2 (04:26→18:13)
[2019-12-16 04:39] LABS: Alanine Aminotransferase 12 U/L (0-33); Albumin Level 1.4 g/dL (3.5-5.2); Alkaline Phosphatase 371 IU/L (35-105); Blood Urea Nitrogen 43 mg/dL (6-20); Calcium 8.3 mg/dL (8.5-10.5); Carbon Dioxide 22 mmol/L (22-29); Chloride 104 mmol/L (98-107); Globulin 4.6 g/dL (1.3-4.6); Glomerular Filtration Rate 66.5 mL/min (90-130); Glucose 71 mg/dL (65-115); Osmolality Calculated 276 mOsm/kg (285-295); Sodium 135 mmol/L (136-145); Total Bilirubin 1.4 mg/dL (0.15-1.2)
[2019-12-16 04:42] LABS: Anion Gap 14.1 (5-19); Aspartate Amino Transferase 28 U/L (0-32); Potassium 5.1 mmol/L (3.5-5.1)
[2019-12-16 04:55] LABS: Basophils # 0.1 10^3/uL (0.0-0.1); Basophils % 0.4 %; Eosinophils # 0.2 10^3/uL (0.0-0.8); Eosinophils % 0.8 %; Hematocrit 35.3 % (37.0-47.0); Hemoglobin 9.3 g/dL (11.5-15.3); Lymphocytes # 0.9 10^3/uL (0.8-4.8); Lymphocytes % 4.2 %; Mean Corpuscular HGB Conc 26.3 g/dL (30.0-36.0); Mean Corpuscular Volume 79.7 fL (81-99); Mean Platelet Volume 11.7 fL (7.4-10.4); Monocytes # 0.8 10^3/uL (0.2-0.9); Monocytes % 3.8 %; Neutrophils # 19.54 10^3/uL (1.8-7.7); Neutrophils % 89.9 %; Nucleated Red Blood Cells % 0.1 %; Platelet Count 271 10^3/cmm (130-400); Red Blood Count 4.43 10^6/uL (4.1-5.3); Red Cell Distribution Width 24.1 % (12.1-15.1); White Blood Count 21.7 10^3/uL (4.0-10.0)
[2019-12-16 06:20] LABS: Glucose Point of Care 72 mg/dL (70-110)
[2019-12-16 06:20] LABS: Glucose Point of Care 61 mg/dL (70-110)
[2019-12-16 06:20] LABS: Glucose Point of Care 119 mg/dL (70-110)
[2019-12-16 06:20] LABS: Glucose Point of Care 108 mg/dL (70-110)
[2019-12-16] MEDS: HYDROcodone-acetaminophen 5-325 mg Tablet 1 TAB PO ×3 (07:41→19:55)
[2019-12-16] MEDS: piperacillin-tazobactam 3.375 GM in sodium chloride 0.9% (plus) 50 ML IV ×3 (07:41→22:44)
[2019-12-16 07:43] LABS: Glucose Point of Care 87 mg/dL (70-110)
[2019-12-16 09:27] LABS: Glucose Point of Care 110 mg/dL (70-110)
[2019-12-16 09:27] LABS: Glucose Point of Care 102 mg/dL (70-110)
[2019-12-16 09:27] LABS: Glucose Point of Care 501 mg/dL (70-110)
--- NOTE | 2019-12-16 10:47 | PM.PN ---
Subjective Subjective: Interval history: Assuming care of this patient today, known to me from previous admission. Accu-Cheks reviewed, have been as low as 34. Normotensive, tachycardic in the 110-120 range, afebrile, on 2 L nasal cannula. Had 1100 mL urine output overnight. Decreased leukocytosis with white count of 21.7, hemoglobin at 9.3, improved renal function with normalization of creatinine. Slight increase in T bili from 1.2->1.4, ALP up to 371, AST and ALT normal. Started on D10 overnight due to hypoglycemia and received 2 doses of glucagon. Quite somnolent, disoriented. Case discussed briefly with Dr. Dorsey earlier this morning. Waiting on records from [facility]. Medications: Reviewed: Yes Medication Review Details: Active Medications Generic Name Dose Route Start Last Admin Trade Name Freq PRN Reason Stop Dose Admin Acetaminophen 650 mg 12/15/19 12:55 Tylenol PO Q6H PRN MILD PAIN Hydrocodone Bitart /Acetaminophen 1 tab 12/15/19 12:55 12/16/19 07:41 Vassar 5-325 Mg PO 1 tab Q4H PRN Administration MODERATE PAIN Albuterol Sulfate 2 puff 12/15/19 12:55 Ventolin INHALATION Q4H PRN Shortness Of Lesvia th Aspirin 81 mg 12/16/19 09:00 12/16/19 10:54 Aspirin Ec PO 81 mg DAILY HI Administration Atorvastatin Calci um 20 mg 12/15/19 21:00 12/15/19 22:57 Lipitor PO Not Given BEDTIME HI Cyclobenzaprine HC l 10 mg 12/15/19 12:55 Flexeril PO TID PRN Pain Dextrose 25 ml 12/15/19 15:17 D50w IVP ONCE PRN hypoglycemia prot ocol Protocol Duloxetine HCl 30 mg 12/16/19 09:00 12/16/19 10:53 Cymbalta PO 30 mg DAILY HI Administration Enoxaparin Sodium 100 mg 12/15/19 16:00 12/16/19 04:26 Lovenox SUBCUT 100 mg Q12H HI Administration Enoxaparin Sodium 30 mg 12/15/19 16:00 12/16/19 04:25 Lovenox SUBCUT 30 mg Q12H HI Administration Ferrous Sulfate 325 mg 12/15/19 18:00 12/16/19 10:54 Ferrous Sulfate PO 325 mg BID HI Administration Piperacillin Sod/T azobactam 50 mls @ 12.5 mls /hr 12/15/19 15:30 12/16/19 07:41 Sod 3.375 gm/ So dium Chloride IV 12.5 mls/hr Q8H HI Administration Protocol Vancomycin HCl 1,5 00 mg/ 250 mls @ 166.667 mls/hr 12/15/19 14:30 12/16/19 04:28 Sodium Chloride IV Infused Q12H HI Infusion Protocol Dextrose 500 mls @ 100 mls /hr 12/15/19 15:17 D5w IV ONCE PRN Adult Acute Hypog lycemia Prot Protocol Dextrose/Sodium Ch loride 1,000 mls @ 100 m ls/hr 12/15/19 20:45 12/16/19 05:09 Dextrose 5%-Sod Chloride 0.9% IV Not Given .Q10H HI Dextrose 1,000 mls @ 50 ml s/hr 12/15/19 20:45 12/16/19 10:55 D10w IV 50 mls/hr .Q20H HI Administration Insulin Aspart 0 unit 12/15/19 21:00 12/15/19 22:58 Novolog SUBCUT Not Given BEDTIME [facility] Protocol Insulin Aspart 0 unit 12/15/19 18:00 12/16/19 10:56 Novolog SUBCUT Not Given TIDWM [facility] Protocol Lactulose 10 gm 12/16/19 09:00 12/16/19 10:53 Constulose PO 10 gm DAILY HI Administration Lidocaine HCl 0 ml 12/15/19 13:00 Lidocaine 2% Vis cous TOPICAL PRN PRN DRESSING CHANGE Lorazepam 0.5 mg 12/15/19 12:55 Ativan IVP Q6H PRN ANXIETY Metoprolol Succina te 50 mg 12/16/19 09:00 12/16/19 10:54 Toprol Xl PO 50 mg DAILY HI Administration Naloxone HCl 0.1 mg 12/15/19 11:10 12/15/19 11:27 Narcan IVP 0.1 mg Q2M PRN Administration RESPIRATORY RATE < 8/MIN Nystatin 1 applic 12/15/19 18:00 12/16/19 10:54 Nystatin Powder TOPICAL 1 applic BID HI Administration Ondansetron HCl 4 mg 08/14/20 12:55 Zofran IVP Q6H PRN NAUSEA AND VOMITI NG Pantoprazole Sodiu m 40 mg 12/15/19 13:00 12/16/19 10:54 Protonix IVP 40 mg DAILY HI Administration Pregabalin 150 mg 12/15/19 18:00 12/16/19 10:53 Lyrica PO 150 mg BID HI Administration Sacubitril/Valsart an 1 each 12/15/19 18:00 12/16/19 10:56 Entresto 24-26 M g PO 1 each BID HI Administration NONE Allergy (Unknown, Uncoded 12/13/19 13:25) Unknown Vitals/I&O/Wt Last Vital Signs Temp 98.7 F 12/16/19 08:00 Pulse 119 H 12/16/19 09:40 Resp 17 12/16/19 09:40 BP 123/80 12/16/19 08:00 Pulse Ox 98 12/16/19 09:40 12/15/19 12/16/19 12/16/19 22:59 06:59 14:59 Intake Total 945.417 / 2245.417 622.5 / 2867.917 Output Total 950 / 950 800 / 1750 Balance -4.583 / 1295.417 -177.5 / 1117.917 Weight last 48 hrs Weight 131.406 kg Weight 136.078 kg Physical Exam Const: COMMON NORMALS: no acute distress GENERAL APPEARANCE: cooperative, comfortable, lethargic, ill appearing and appears older than stated age NUTRITIONAL APPEARANCE: obese morbidly obese ORIENTATION/CONSCIOUSNESS: Yes awake and Yes lethargic OTHER: -Overall appears pale HENMT: COMMON NORMALS: normocephalic, atraumatic, hearing grossly normal bilaterally and moist oral mucous membranes HEAD & SCALP: normocephalic and atraumatic Eye: COMMON NORMALS: Equal, round and reactive pupils present, EOMs intact bilaterally and conjunctivae normal CONJUNCTIVA: Yes conjunctivae normal PUPIL: Yes Equal, round and reactive pupils present Neck/C-Spine: COMMON NORMALS: full ROM GENERAL: Yes normal visual inspection and Yes trachea midline Resp: COMMON NORMALS: normal respiratory effort, No retractions, No use of accessory muscles and clear to auscultation bilaterally EFFORT & INSPECTION: Yes able to speak in complete sentences, Yes symmetric chest movement and No tachypneic AUSCULTATION: clear to auscultation bilaterally OTHER: -on 2 L NC Cardio: COMMON NORMALS: regular rate, regular rhythm, S1 normal heart sound present, S2 normal heart sound present and No murmurs present (Cardio) RATE: regular rate RHYTHM: regular rhythm HEART SOUNDS: S1 normal heart sound present and S2 normal heart sound present GI: COMMON NORMALS: Normal to inspection, nondistended, normoactive bowel sounds present, Soft to palpation and non-tender INSPECTION: Yes central obesity PALPATION: Yes Soft to palpation : BLADDER/KIDNEY EXAM: Yes catheter in place Catheter type (Female): urethral Extremity: NARRATIVE EXTREMITY EXAM: -s/p R BKA; bulky dressing over stump -LLE: eschar on dorsum, rubor, diminished peripheral pulses, ulceration on calf with minimal purulent drainage, maceration between toes, cyanotic great toe; edematous Neuro: COMMON NORMALS: moves all extremities, no focal motor deficits and no sensory deficits noted SENSORIUM/ORIENTATION: Yes Orientation impaired and Yes lethargic Psych: COMMON NORMALS: cooperative and speech normal SPEECH: Yes normal speech MOOD & AFFECT: Yes Flat affect present Skin: NARRATIVE SKIN EXAM: -maceration between toes on L foot GENERAL SKIN EXAM: eschar (dorsum of L foot) Urinary Catheter Management^: Pierre: Cath Placed During This Visit: yes Reason for Continuing Indwelling Catheter: Accurate Measurement of Urinary Output in Critically Ill Patients Urinary Catheter Date of Insertion: 12/15/19 Urinary Catheter Time of Insertion: 08:45 Data : 12/16/19 04:16 12/16/19 03:38 Micro: Microbiology 12/15/19 09:04 Urine Culture - Preliminary Urine,Clean Catch 12/15/19 09:05 Blood Culture - Preliminary Blood NEGATIVE TO DATE 12/15/19 09:15 Blood Culture - Preliminary Blood NEGATIVE TO DATE A&P Assessment and plan (1) Acute encephalopathy: -Likely multifactorial, including medication induced given [facility], noted hypoglycemia -Got Narcan with improvement in mental status in ED -hold sedating meds -strict fall precautions Status: Acute (2) Sepsis: -Likely multifactorial given lower extremity cellulitis, cystitis -Urinalysis with noted blood, pyuria, leukocyte esterase, bacteria -On IV vancomycin and Zosyn, renally dosed -On IV fluid hydration -Blood cx: prelim negative -urine cx: colonization -decreasing leukocytosis, afebrile, tachycardic, tachypneic -continue to monitor vital signs -telemetry monitoring -hold oral antihypertensives Status: Acute Qualifiers: Sepsis acute organ dysfunction status: unspecified Sepsis type: sepsis due to unspecified organism Qualified Code(s): A41.9 - Sepsis, unspecified organism (3) Hypoglycemia: -on D10 -frequent accucheks -hypoglycemia precautions Status: Acute (4) Diabetes mellitus: -A1c-12.1 -insulin dependent, insulin on hold due to hypoglycemia -accuchecks, hypoglycemia precautions -on D10 Status: Chronic Qualifiers: Diabetes mellitus complication status: with other specified complication Diabetes mellitus termite control servicer insulin use: with snf use Diabetes mellitus type: type 2 Qualified Code(s): E11.69 - Type 2 diabetes mellitus with other specified complication; Z79.4 - alf (current) use of insulin (5) Critical lower limb ischemia: -noted to have severe PVD status post right BKA, follows up with vascular surgery at [facility] (Dr. Jonas) -ABIs abnormal on the left with possible distal SFA and posterior tibial artery occlusion -Consult by Dr. Dorsey appreciated -on therapeutic Lovenox, ASA, statin -pending records from [facility] Status: Acute (6) Acute cystitis: -UA indicative of infection -urine cx contaminated -on IV antibiotics Status: Acute Qualifiers: Hematuria presence: without hematuria Qualified Code(s): N30.00 - Acute cystitis without hematuria (7) History of DVT (deep vein thrombosis): -Eliquis on hold -on therapeutic lovenox Status: Chronic (8) Nonischemic cardiomyopathy: -Echo: EF=30%, G3DD, global LV hypokinesis -continue to monitor vital signs Status: Chronic Additional A&P Information -Morbid obesity: BMI-47 kg/m2 -Chronic iron deficiency anemia, anemia of chronic disease; baseline Hg is around 10, continue to monitor H/H -CKD stage 2-3; baseline Cr is around 1, Cr normalized; continue to monitor renal function, avoid nephrotoxins, renally dose meds -GI ppx with PPI -DVT ppx not needed as on therapeutic lovenox -Dispo: return to [facility] -Code status: FULL code -ICU care due to low threshold for decompensation Attestations Medical Necessity Statement*: Patient requires hospitalization for continued management of persistent hypoglycemia currently on D10, requiring frequent Accu-Cheks, treatment of lower extremity cellulitis on IV antibiotics and management of critical limb ischemia. Time Spent in Patient Care: Greater than 35 minutes (>than 50% of time spent in counselling and/or direct pt care on unit). Coding Level of Care Code Acute Kennel Manager Dog Track for Chg Fwd Exam Comprehensive Diagnoses Acute encephalopathy G93.40 Sepsis A41.9 Sepsis acute organ dysfunction status: unspecified Sepsis type: sepsis due to unspecified organism Hypoglycemia E16.2 Diabetes mellitus E11.69; Z79.4 Diabetes mellitus complication status: with other specified complication Diabetes mellitus termite control servicer insulin use: with termite control servicer use Diabetes mellitus type: type 2 Critical lower limb ischemia I99.8 Acute cystitis N30.00 Hematuria presence: without hematuria History of DVT (deep vein thrombosis) Z86.718 Nonischemic cardiomyopathy I42.8
[2019-12-16] MEDS: duloxetine 30 mg Capsule PO (10:53)
[2019-12-16] MEDS: pregabalin 150 mg Capsule PO ×2 (10:53→18:41)
[2019-12-16] MEDS: lactulose oral liq 20 gm/30 mL UDC 10 GM PO (10:53)
[2019-12-16] MEDS: aspirin 81 mg EC Tablet PO (10:54)
[2019-12-16] MEDS: metoprolol succinate ER (24 HR) 50 mg Tablet PO (10:54)
[2019-12-16] MEDS: nystatin powder 15 gm Btl 1 APPLIC TOPICAL ×2 (10:54→18:41)
[2019-12-16] MEDS: pantoprazole 40 mg SDV IVP (10:54)
[2019-12-16] MEDS: ferrous sulfate EC 325 mg Tablet PO ×2 (10:54→18:41)
[2019-12-16] MEDS: dextrose 10% 1,000 ML 50 ML IV ×2 (10:55→18:39)
[2019-12-16] MEDS: sacubitril/valsartan 24-26 mg Tablet 1 EACH PO ×2 (10:56→18:41)
[2019-12-16 12:32] LABS: Glucose Point of Care 104 mg/dL (70-110)
--- NOTE | 2019-12-16 13:12 | PM.PN ---
Subjective Subjective: Interval history: Patient is somnolent but opens her eyes and answer some question then go back to sleep. Medications: Reviewed: Yes Medication Review Details: Active Medications Generic Name Dose Route Start Last Admin Trade Name Freq PRN Reason Stop Dose Admin Acetaminophen 650 mg 12/15/19 12:55 Tylenol PO Q6H PRN MILD PAIN Hydrocodone Bitart /Acetaminophen 1 tab 12/15/19 12:55 12/16/19 07:41 Vinson 5-325 Mg PO 1 tab Q4H PRN Administration MODERATE PAIN Albuterol Sulfate 2 puff 12/15/19 12:55 Ventolin INHALATION Q4H PRN Shortness Of [place] th Aspirin 81 mg 12/16/19 09:00 12/16/19 10:54 Aspirin Ec PO 81 mg DAILY HI Administration Atorvastatin Calci um 20 mg 12/15/19 21:00 12/15/19 22:57 Lipitor PO Not Given BEDTIME HI Cyclobenzaprine HC l 10 mg 12/15/19 12:55 Flexeril PO TID PRN Pain Dextrose 25 ml 12/15/19 15:17 D50w IVP ONCE PRN hypoglycemia prot ocol Protocol Duloxetine HCl 30 mg 12/16/19 09:00 12/16/19 10:53 Cymbalta PO 30 mg DAILY HI Administration Enoxaparin Sodium 100 mg 12/15/19 16:00 12/16/19 04:26 Lovenox SUBCUT 100 mg Q12H HI Administration Enoxaparin Sodium 30 mg 12/15/19 16:00 12/16/19 04:25 Lovenox SUBCUT 30 mg Q12H HI Administration Ferrous Sulfate 325 mg 12/15/19 18:00 12/16/19 10:54 Ferrous Sulfate PO 325 mg BID HI Administration Piperacillin Sod/T azobactam 50 mls @ 12.5 mls /hr 12/15/19 15:30 12/16/19 07:41 Sod 3.375 gm/ So dium Chloride IV 12.5 mls/hr Q8H HI Administration Protocol Vancomycin HCl 1,5 00 mg/ 250 mls @ 166.667 mls/hr 12/15/19 14:30 12/16/19 04:28 Sodium Chloride IV Infused Q12H HI Infusion Protocol Dextrose 500 mls @ 100 mls /hr 08/14/20 15:17 D5w IV ONCE PRN Adult Acute Hypog lycemia Prot Protocol Dextrose/Sodium Ch loride 1,000 mls @ 100 m ls/hr 12/15/19 20:45 12/16/19 05:09 Dextrose 5%-Sod Chloride 0.9% IV Not Given .Q10H HI Dextrose 1,000 mls @ 50 ml s/hr 12/15/19 20:45 12/16/19 10:55 D10w IV 50 mls/hr .Q20H HI Administration Insulin Aspart 0 unit 12/15/19 21:00 12/15/19 22:58 Novolog SUBCUT Not Given BEDTIME HI Protocol Insulin Aspart 0 unit 12/15/19 18:00 12/16/19 10:56 Novolog SUBCUT Not Given TIDWM HI Protocol Lactulose 10 gm 12/16/19 09:00 12/16/19 10:53 Constulose PO 10 gm DAILY HI Administration Lidocaine HCl 0 ml 12/15/19 13:00 Lidocaine 2% Vis cous TOPICAL PRN PRN DRESSING CHANGE Lorazepam 0.5 mg 12/15/19 12:55 Ativan IVP Q6H PRN ANXIETY Metoprolol Succina te 50 mg 12/16/19 09:00 12/16/19 10:54 Toprol Xl PO 50 mg DAILY HI Administration Naloxone HCl 0.1 mg 12/15/19 11:10 12/15/19 11:27 Narcan IVP 0.1 mg Q2M PRN Administration RESPIRATORY RATE < 8/MIN Nystatin 1 applic 12/15/19 18:00 12/16/19 10:54 Nystatin Powder TOPICAL 1 applic BID HI Administration Ondansetron HCl 4 mg 12/15/19 12:55 Zofran IVP Q6H PRN NAUSEA AND VOMITI NG Pantoprazole Sodiu m 40 mg 12/15/19 13:00 12/16/19 10:54 Protonix IVP 40 mg DAILY HI Administration Pregabalin 150 mg 12/15/19 18:00 12/16/19 10:53 Lyrica PO 150 mg BID HI Administration Sacubitril/Valsart an 1 each 12/15/19 18:00 12/16/19 10:56 Entresto 24-26 M g PO 1 each BID HI Administration NONE Allergy (Unknown, Uncoded 12/13/19 13:25) Unknown Vitals/I&O/Wt Last Vital Signs Temp 98.7 F 12/16/19 08:00 Pulse 118 H 12/16/19 10:00 Resp 23 H 12/16/19 10:00 BP 129/79 12/16/19 10:00 Pulse Ox 98 12/16/19 09:40 12/15/19 12/16/19 12/16/19 22:59 06:59 14:59 Intake Total 945.417 / 2245.417 622.5 / 2867.917 292.5 / 292.5 Output Total 950 / 950 800 / 1750 600 / 600 Balance -4.583 / 1295.417 -177.5 / 1117.917 -307.5 / -307.5 Weight last 48 hrs Weight 289 lb 11.2 oz Weight 300 lb Physical Exam Narrative: EXAM NARRATIVE: GENERAL: Patient is confused somnolent NECK: No jugular vein distension. HEENT: No cyanosis. No icterus. No pallor. HEART: Regular S1 and S2. No murmur, rub or gallop. LUNGS: Clear to auscultate bilaterally. ABDOMEN: Soft, nontender and nondistended. Positive bowel sounds. No guarding, rebound or tenderness. CENTRAL NERVOUS SYSTEM: Grossly nonfocal. EXTREMITIES: Left side nonhealing leg and foot ulcer with black eschar, dopplerable posterior tibial pulse, right BKA with nonhealing stump Urinary Catheter Management^: Pierre: Cath Placed During This Visit: yes Reason for Continuing Indwelling Catheter: Accurate Measurement of Urinary Output in Critically Ill Patients Urinary Catheter Date of Insertion: 12/15/19 Urinary Catheter Time of Insertion: 08:45 Data : 12/16/19 04:16 12/16/19 03:38 Micro: Microbiology 12/15/19 09:04 Urine Culture - Preliminary Urine,Clean Catch 12/15/19 09:05 Blood Culture - Preliminary Blood NEGATIVE TO DATE 12/15/19 09:15 Blood Culture - Preliminary Blood NEGATIVE TO DATE A&P Assessment and plan (1) Critical lower limb ischemia: Patient has a lot of comorbidities including uncontrolled blood sugar, she is still somnolent not fully awake. Her sepsis is getting treated. I have not received paperwork from [facility] regarding her procedures further review. We will review the paperwork further plan will be advised as she is high risk for contrast-induced nephropathy. She has severe peripheral vascular disease with may not be amenable to intervention and requiring amputation all these things need to be considered before making final decision about intervention however we will continue to treat her medically for now. Status: Acute (2) Sepsis: Continue antibiotics and IV fluid Status: Acute Qualifiers: Sepsis type: sepsis due to unspecified organism Sepsis acute organ dysfunction status: unspecified Qualified Code(s): A41.9 - Sepsis, unspecified organism (3) Acute encephalopathy: Slowly improving however still she has vexing and waning of somnolence. Status: Acute (4) Nonischemic cardiomyopathy: Patient has severely depressed LV function with nonischemic cardiomyopathy 30% she appear to be stable and euvolemic. 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 Coding Level of Care Code Established Pt Acute Grant Writer for Emily Anthony Patient Type Established History Expanded Problem Focused Exam Expanded Problem Focused Medical Decision Making Moderate Complexity Diagnoses Critical lower limb ischemia I99.8 Sepsis A41.9 Sepsis type: sepsis due to unspecified organism Sepsis acute organ dysfunction status: unspecified Acute encephalopathy G93.40 Nonischemic cardiomyopathy I42.8 Diabetes mellitus E11.69; Z79.4 Diabetes mellitus type: type 2 Diabetes mellitus termite control technician insulin use: with termite control technician use Diabetes mellitus complication status: with other specified complication
[2019-12-16 14:40] LABS: Vancomycin Trough 13.6 ug/mL (10-15)
[2019-12-16 18:12] LABS: Glucose Point of Care 106 mg/dL (70-110)
[2019-12-16] MEDS: atorvastatin 40 mg Tablet 20 MG PO (22:15)
[2019-12-16] MEDS: cyclobenzaprine 10 mg Tablet PO (22:15)
[2019-12-17] VITALS (25 sets, daily range): BP systolic 98–124; BP diastolic 52–72; PULSE 75–106; RESP 15–29; TEMP 36.6–37.8; O2SAT 91–100
[2019-12-17] MEDS: LORazepam 2 mg/mL INJ 1 mL 0.5 MG IVP (00:50)
[2019-12-17 03:19] LABS: Glucose Point of Care 127 mg/dL (70-110)
[2019-12-17] MEDS: enoxaparin 100 mg/mL Syringe SUBCUT ×2 (03:24→14:59)
[2019-12-17] MEDS: enoxaparin 30 mg/0.3 mL Syringe SUBCUT ×2 (03:24→14:59)
[2019-12-17 04:24] LABS: Basophils # 0.1 10^3/uL (0.0-0.1); Basophils % 0.5 %; Eosinophils # 0.2 10^3/uL (0.0-0.8); Eosinophils % 1.1 %; Hematocrit 32.5 % (37.0-47.0); Hemoglobin 8.7 g/dL (11.5-15.3); Lymphocytes # 1.7 10^3/uL (0.8-4.8); Lymphocytes % 8.3 %; Mean Corpuscular HGB Conc 26.8 g/dL (30.0-36.0); Mean Corpuscular Hemoglobin 20.9 pg (28.0-34.0); Mean Corpuscular Volume 78.1 fL (81-99); Monocytes # 1.1 10^3/uL (0.2-0.9); Monocytes % 5.1 %; Neutrophils # 17.24 10^3/uL (1.8-7.7); Neutrophils % 83.7 %; Nucleated Red Blood Cells % 0 %; Platelet Count 271 10^3/cmm (130-400); Red Blood Count 4.16 10^6/uL (4.1-5.3); White Blood Count 20.6 10^3/uL (4.0-10.0)
[2019-12-17 04:53] LABS: Alanine Aminotransferase 9 U/L (0-33); Albumin Level 1.6 g/dL (3.5-5.2); Alkaline Phosphatase 317 IU/L (35-105); Ammonia 53 umol/L (11-51); Anion Gap 10.3 (5-19); Aspartate Amino Transferase 17 U/L (0-32); Blood Urea Nitrogen 24 mg/dL (6-20); Calcium 7.5 mg/dL (8.5-10.5); Carbon Dioxide 24 mmol/L (22-29); Chloride 104 mmol/L (98-107); Globulin 4.3 g/dL (1.3-4.6); Glomerular Filtration Rate 106.3 mL/min (90-130); Glucose 128 mg/dL (65-115); Osmolality Calculated 276 mOsm/kg (285-295); Potassium 4.3 mmol/L (3.5-5.1); Sodium 134 mmol/L (136-145); Total Bilirubin 1.3 mg/dL (0.15-1.2); Total Protein 5.9 g/dL (6.6-8.7)
--- NOTE | 2019-12-17 08:09 | PM.PN ---
Subjective Subjective: Interval history: Hemodynamically stable, afebrile, tachycardia resolved, on 2 L NC. Decreasing leukocytosis, drop in Hg (9.3->8.7), improved renal function, had 525 mL urine output. Accucheks noted, 61-127, remains on D10. Somnolent, quite uncomfortable during repositioning due to LLE pain. Pending receipt of records from [facility]. Medications: Reviewed: Yes Medication Review Details: Active Medications Generic Name Dose Route Start Last Admin Trade Name Freq PRN Reason Stop Dose Admin Acetaminophen 650 mg 12/15/19 12:55 Tylenol PO Q6H PRN MILD PAIN Hydrocodone Bitart /Acetaminophen 1 tab 12/15/19 12:55 12/16/19 19:55 [place] 5-325 Mg PO 1 tab Q4H PRN Administration MODERATE PAIN Albuterol Sulfate 2 puff 12/15/19 12:55 Ventolin INHALATION Q4H PRN Shortness Of [place] th Aspirin 81 mg 12/16/19 09:00 12/16/19 10:54 Aspirin Ec PO 81 mg DAILY HI Administration Atorvastatin Calci um 20 mg 12/15/19 21:00 12/16/19 22:15 Lipitor PO 20 mg BEDTIME HI Administration Cyclobenzaprine HC l 10 mg 12/15/19 12:55 12/16/19 22:15 Flexeril PO 10 mg TID PRN Administration Pain Dextrose 25 ml 12/15/19 15:17 D50w IVP ONCE PRN hypoglycemia prot ocol Protocol Duloxetine HCl 30 mg 12/16/19 09:00 12/16/19 10:53 Cymbalta PO 30 mg DAILY HI Administration Enoxaparin Sodium 100 mg 12/15/19 16:00 12/17/19 03:24 Lovenox SUBCUT 100 mg Q12H HI Administration Enoxaparin Sodium 30 mg 12/15/19 16:00 12/17/19 03:24 Lovenox SUBCUT 30 mg Q12H HI Administration Ferrous Sulfate 325 mg 12/15/19 18:00 12/16/19 18:41 Ferrous Sulfate PO 325 mg BID HI Administration Piperacillin Sod/T azobactam 50 mls @ 12.5 mls /hr 12/15/19 15:30 12/17/19 02:45 Sod 3.375 gm/ So dium Chloride IV Infused Q8H HI Infusion Protocol Vancomycin HCl 1,5 00 mg/ 250 mls @ 166.667 mls/hr 12/15/19 14:30 12/17/19 03:23 Sodium Chloride IV 250 mls/hr Q12H HI Administration Protocol Dextrose 500 mls @ 100 mls /hr 12/15/19 15:17 D5w IV ONCE PRN Adult Acute Hypog lycemia Prot Protocol Dextrose 1,000 mls @ 50 ml s/hr 12/16/19 18:30 12/16/19 18:39 D10w IV 50 mls/hr .Q20H HI Administration Insulin Aspart 0 unit 12/15/19 21:00 12/16/19 22:12 Novolog SUBCUT Not Given BEDTIME HI Protocol Insulin Aspart 0 unit 12/15/19 18:00 12/16/19 18:41 Novolog SUBCUT Not Given TIDWM HI Protocol Lactulose 10 gm 12/16/19 09:00 12/16/19 10:53 Constulose PO 10 gm DAILY HI Administration Lidocaine HCl 0 ml 12/15/19 13:00 Lidocaine 2% Vis cous TOPICAL PRN PRN DRESSING CHANGE Lorazepam 0.5 mg 12/15/19 12:55 12/17/19 00:50 Ativan IVP 0.5 mg Q6H PRN Administration ANXIETY Metoprolol Succina te 50 mg 12/16/19 09:00 12/16/19 10:54 Toprol Xl PO 50 mg DAILY HI Administration Naloxone HCl 0.1 mg 12/15/19 11:10 12/15/19 11:27 Narcan IVP 0.1 mg Q2M PRN Administration RESPIRATORY RATE < 8/MIN Nystatin 1 applic 12/15/19 18:00 12/16/19 18:41 Nystatin Powder TOPICAL 1 applic BID HI Administration Ondansetron HCl 4 mg 12/15/19 12:55 Zofran IVP Q6H PRN NAUSEA AND VOMITI NG Pantoprazole Sodiu m 40 mg 12/15/19 13:00 12/16/19 10:54 Protonix IVP 40 mg DAILY HI Administration Pregabalin 150 mg 12/15/19 18:00 12/16/19 18:41 Lyrica PO 150 mg BID HI Administration Sacubitril/Valsart an 1 each 12/15/19 18:00 12/16/19 18:41 Entresto 24-26 M g PO 1 each BID HI Administration NONE Allergy (Unknown, Uncoded 12/13/19 13:25) Unknown Vitals/I&O/Wt Last Vital Signs Temp 99.2 F 12/17/19 04:00 Pulse 79 12/17/19 06:00 Resp 20 H 12/17/19 06:00 BP 111/62 12/17/19 06:00 Pulse Ox 100 12/17/19 06:00 12/16/19 12/17/19 12/17/19 22:59 06:59 14:59 Intake Total 620 / 1182.5 50 / 1232.5 Output Total 750 / 1350 425 / 1775 Balance -130 / -167.5 -375 / -542.5 Weight last 48 hrs Weight 130.816 kg Weight 131.406 kg Weight 136.078 kg Physical Exam Const: COMMON NORMALS: no acute distress GENERAL APPEARANCE: cooperative, comfortable, lethargic, ill appearing and appears older than stated age NUTRITIONAL APPEARANCE: obese morbidly obese ORIENTATION/CONSCIOUSNESS: Yes awake and Yes lethargic OTHER: -Overall appears pale HENMT: COMMON NORMALS: normocephalic, atraumatic, hearing grossly normal bilaterally and moist oral mucous membranes HEAD & SCALP: normocephalic and atraumatic Eye: COMMON NORMALS: Equal, round and reactive pupils present, EOMs intact bilaterally and conjunctivae normal CONJUNCTIVA: Yes conjunctivae normal PUPIL: Yes Equal, round and reactive pupils present Neck/C-Spine: COMMON NORMALS: full ROM GENERAL: Yes normal visual inspection and Yes trachea midline Resp: COMMON NORMALS: normal respiratory effort, No retractions, No use of accessory muscles and clear to auscultation bilaterally EFFORT & INSPECTION: Yes able to speak in complete sentences, Yes symmetric chest movement and No tachypneic AUSCULTATION: clear to auscultation bilaterally OTHER: -on RA Cardio: COMMON NORMALS: regular rate, regular rhythm, S1 normal heart sound present, S2 normal heart sound present and No murmurs present (Cardio) RATE: regular rate RHYTHM: regular rhythm HEART SOUNDS: S1 normal heart sound present and S2 normal heart sound present GI: COMMON NORMALS: Normal to inspection, nondistended, normoactive bowel sounds present, Soft to palpation and non-tender INSPECTION: Yes central obesity PALPATION: Yes Soft to palpation : BLADDER/KIDNEY EXAM: Yes catheter in place Catheter type (Female): urethral Extremity: COMMON NORMALS: normal to inspection, full ROM and no clubbing, cyanosis or edema; negative for no pedal edema NARRATIVE EXTREMITY EXAM: -s/p R BKA; bulky dressing over stump -LLE: eschar on dorsum, rubor, diminished peripheral pulses, ulceration on calf with minimal purulent drainage, maceration between toes, cyanotic great toe; edematous Neuro: COMMON NORMALS: moves all extremities, no focal motor deficits and no sensory deficits noted SENSORIUM/ORIENTATION: Yes Orientation impaired and Yes lethargic Psych: COMMON NORMALS: cooperative and speech normal SPEECH: Yes normal speech MOOD & AFFECT: Yes Flat affect present Skin: COMMON NORMALS: no jaundice, no petechiae and no mottling NARRATIVE SKIN EXAM: -maceration between toes on L foot GENERAL SKIN EXAM: eschar (dorsum of L foot) Urinary Catheter Management^: Pierre: Cath Placed During This Visit: yes Reason for Continuing Indwelling Catheter: Accurate Measurement of Urinary Output in Critically Ill Patients Urinary Catheter Date of Insertion: 12/15/19 Urinary Catheter Time of Insertion: 08:45 Data : 12/17/19 04:01 12/17/19 04:01 Micro: Microbiology 12/15/19 09:04 Urine Culture - Preliminary Urine,Clean Catch 12/15/19 09:05 Blood Culture - Preliminary Blood NEGATIVE TO DATE 12/15/19 09:15 Blood Culture - Preliminary Blood NEGATIVE TO DATE A&P Assessment and plan (1) Acute encephalopathy: -Likely multifactorial, including medication induced given recent initiation of [facility], noted hypoglycemia -Got Narcan with improvement in mental status in ED -hold sedating meds -strict fall precautions -ammonia trending down, on lactulose Status: Acute (2) Sepsis: -Likely multifactorial given lower extremity cellulitis, cystitis -Urinalysis with noted blood, pyuria, leukocyte esterase, bacteria -On IV vancomycin and Zosyn, renally dosed -On IV fluid hydration -Blood cx: prelim negative -urine cx: colonization -decreasing leukocytosis, afebrile, tachycardic, tachypneic -continue to monitor vital signs -telemetry monitoring -hold oral antihypertensives Status: Acute Qualifiers: Sepsis acute organ dysfunction status: unspecified Sepsis type: sepsis due to unspecified organism Qualified Code(s): A41.9 - Sepsis, unspecified organism (3) Hypoglycemia: -on D10 -frequent accucheks -hypoglycemia precautions Status: Acute (4) Diabetes mellitus: -A1c-12.1 -insulin dependent, insulin on hold due to hypoglycemia -accuchecks, hypoglycemia precautions -on D10 Status: Chronic Qualifiers: Diabetes mellitus complication status: with other specified complication Diabetes mellitus remote computer terminal operator insulin use: with remote computer terminal operator use Diabetes mellitus type: type 2 Qualified Code(s): E11.69 - Type 2 diabetes mellitus with other specified complication; Z79.4 - shelter (current) use of insulin (5) Critical lower limb ischemia: -noted to have severe PVD status post right BKA, follows up with vascular surgery at [facility] in [place] (Dr. Jonas) -ABIs abnormal on the left with possible distal SFA and posterior tibial artery occlusion -Consult by Dr. Dorsey appreciated -on therapeutic Lovenox, ASA, statin -pending records from [facility] Status: Acute (6) Acute cystitis: -UA indicative of infection -urine cx contaminated -on IV antibiotics Status: Acute Qualifiers: Hematuria presence: without hematuria Qualified Code(s): N30.00 - Acute cystitis without hematuria (7) History of DVT (deep vein thrombosis): -Eliquis on hold -on therapeutic lovenox Status: Chronic (8) Nonischemic cardiomyopathy: -Echo: EF=30%, G3DD, global LV hypokinesis -continue to monitor vital signs Status: Chronic Additional A&P Information -Morbid obesity: BMI-47 kg/m2 -Chronic iron deficiency anemia, anemia of chronic disease; baseline Hg is around 10, continue to monitor H/H -CKD stage 2-3; baseline Cr is around 1, Cr normalized; continue to monitor renal function, avoid nephrotoxins, renally dose meds -GI ppx with PPI -DVT ppx not needed as on therapeutic lovenox -Dispo: return to [facility] -Code status: FULL code -ICU care due to low threshold for decompensation Attestations Medical Necessity Statement*: Patient requires hospitalization for continued management of sepsis, hypoglycemia, remains on D10, and IV antibiotics. Time Spent in Patient Care: 16 - 35 minutes (>than 50% of time spent in counselling and/or direct pt care on unit). Coding Level of Care Code Acute Steam Box Tender for Chg Fwd Exam Comprehensive Diagnoses Acute encephalopathy G93.40 Sepsis A41.9 Sepsis acute organ dysfunction status: unspecified Sepsis type: sepsis due to unspecified organism Hypoglycemia E16.2 Diabetes mellitus E11.69; Z79.4 Diabetes mellitus complication status: with other specified complication Diabetes mellitus remote computer terminal operator insulin use: with remote computer terminal operator use Diabetes mellitus type: type 2 Critical lower limb ischemia I99.8 Acute cystitis N30.00 Hematuria presence: without hematuria History of DVT (deep vein thrombosis) Z86.718 Nonischemic cardiomyopathy I42.8
[2019-12-17] MEDS: pantoprazole 40 mg SDV IVP (08:23)
[2019-12-17] MEDS: lactulose oral liq 20 gm/30 mL UDC 10 GM PO ×3 (08:23→20:50)
[2019-12-17 08:24] LABS: Glucose Point of Care 143 mg/dL (70-110)
[2019-12-17] MEDS: ferrous sulfate EC 325 mg Tablet PO ×2 (08:24→17:37)
[2019-12-17] MEDS: sacubitril/valsartan 24-26 mg Tablet 1 EACH PO ×2 (08:24→17:37)
[2019-12-17] MEDS: aspirin 81 mg EC Tablet PO (08:24)
[2019-12-17] MEDS: metoprolol succinate ER (24 HR) 50 mg Tablet PO (08:24)
[2019-12-17] MEDS: pregabalin 150 mg Capsule PO ×2 (08:24→17:42)
[2019-12-17] MEDS: duloxetine 30 mg Capsule PO (08:24)
[2019-12-17] MEDS: piperacillin-tazobactam 3.375 GM in sodium chloride 0.9% (plus) 50 ML IV ×3 (08:25→23:18)
[2019-12-17] MEDS: nystatin powder 15 gm Btl 1 APPLIC TOPICAL ×2 (08:26→17:39)
[2019-12-17 10:23] LABS: Glucose Point of Care 132 mg/dL (70-110)
[2019-12-17] MEDS: HYDROcodone-acetaminophen 5-325 mg Tablet 1 TAB PO ×3 (11:41→23:16)
[2019-12-17 12:17] LABS: Glucose Point of Care 159 mg/dL (70-110)
--- NOTE | 2019-12-17 13:09 | P.PN_ITS ---
Subjective Subjective: Interval history: Patient consciousness has improved Medications: Reviewed: Yes Medication Review Details: Active Medications Generic Name Dose Route Start Last Admin Trade Name Freq PRN Reason Stop Dose Admin Acetaminophen 650 mg 12/15/19 12:55 Tylenol PO Q6H PRN MILD PAIN Hydrocodone Bitart /Acetaminophen 1 tab 12/15/19 12:55 12/16/19 19:55 [place] 5-325 Mg PO 1 tab Q4H PRN Administration MODERATE PAIN Albuterol Sulfate 2 puff 12/15/19 12:55 Ventolin INHALATION Q4H PRN Shortness Of [place] th Aspirin 81 mg 12/16/19 09:00 12/16/19 10:54 Aspirin Ec PO 81 mg DAILY HI Administration Atorvastatin Calci um 20 mg 12/15/19 21:00 12/16/19 22:15 Lipitor PO 20 mg BEDTIME HI Administration Cyclobenzaprine HC l 10 mg 12/15/19 12:55 12/16/19 22:15 Flexeril PO 10 mg TID PRN Administration Pain Dextrose 25 ml 12/15/19 15:17 D50w IVP ONCE PRN hypoglycemia prot ocol Protocol Duloxetine HCl 30 mg 12/16/19 09:00 12/16/19 10:53 Cymbalta PO 30 mg DAILY HI Administration Enoxaparin Sodium 100 mg 12/15/19 16:00 12/17/19 03:24 Lovenox SUBCUT 100 mg Q12H HI Administration Enoxaparin Sodium 30 mg 12/15/19 16:00 12/17/19 03:24 Lovenox SUBCUT 30 mg Q12H HI Administration Ferrous Sulfate 325 mg 12/15/19 18:00 12/16/19 18:41 Ferrous Sulfate PO 325 mg BID HI Administration Piperacillin Sod/T azobactam 50 mls @ 12.5 mls /hr 12/15/19 15:30 12/17/19 02:45 Sod 3.375 gm/ So dium Chloride IV Infused Q8H HI Infusion Protocol Vancomycin HCl 1,5 00 mg/ 250 mls @ 166.667 mls/hr 12/15/19 14:30 12/17/19 03:23 Sodium Chloride IV 250 mls/hr Q12H HI Administration Protocol Dextrose 500 mls @ 100 mls /hr 12/15/19 15:17 D5w IV ONCE PRN Adult Acute Hypog lycemia Prot Protocol Dextrose 1,000 mls @ 50 ml s/hr 12/16/19 18:30 12/16/19 18:39 D10w IV 50 mls/hr .Q20H HI Administration Insulin Aspart 0 unit 12/15/19 21:00 12/16/19 22:12 Novolog SUBCUT Not Given BEDTIME HI Protocol Insulin Aspart 0 unit 12/15/19 18:00 12/16/19 18:41 Novolog SUBCUT Not Given TIDWM HI Protocol Lactulose 10 gm 12/16/19 09:00 12/16/19 10:53 Constulose PO 10 gm DAILY HI Administration Lidocaine HCl 0 ml 12/15/19 13:00 Lidocaine 2% Vis cous TOPICAL PRN PRN DRESSING CHANGE Lorazepam 0.5 mg 12/15/19 12:55 12/17/19 00:50 Ativan IVP 0.5 mg Q6H PRN Administration ANXIETY Metoprolol Succina te 50 mg 12/16/19 09:00 12/16/19 10:54 Toprol Xl PO 50 mg DAILY HI Administration Naloxone HCl 0.1 mg 12/15/19 11:10 12/15/19 11:27 Narcan IVP 0.1 mg Q2M PRN Administration RESPIRATORY RATE < 8/MIN Nystatin 1 applic 12/15/19 18:00 12/16/19 18:41 Nystatin Powder TOPICAL 1 applic BID HI Administration Ondansetron HCl 4 mg 12/15/19 12:55 Zofran IVP Q6H PRN NAUSEA AND VOMITI NG Pantoprazole Sodiu m 40 mg 12/15/19 13:00 12/16/19 10:54 Protonix IVP 40 mg DAILY HI Administration Pregabalin 150 mg 12/15/19 18:00 12/16/19 18:41 Lyrica PO 150 mg BID HI Administration Sacubitril/Valsart an 1 each 12/15/19 18:00 12/16/19 18:41 Entresto 24-26 M g PO 1 each BID HI Administration NONE Allergy (Unknown, Uncoded 12/13/19 13:25) Unknown Vitals/I&O/Wt Last Vital Signs Temp 98.0 F 12/17/19 12:00 Pulse 77 12/17/19 12:00 Resp 21 H 12/17/19 12:00 BP 119/71 12/17/19 12:00 Pulse Ox 100 12/17/19 12:00 12/16/19 12/17/19 12/17/19 22:59 06:59 14:59 Intake Total 620 / 1182.5 50 / 1232.5 480 / 480 Output Total 750 / 1350 425 / 1775 Balance -130 / -167.5 -375 / -542.5 480 / 480 Weight last 48 hrs Weight 288 lb 6.4 oz Weight 289 lb 11.2 oz Physical Exam Narrative: EXAM NARRATIVE: GENERAL: Patient is confused somnolent NECK: No jugular vein distension. HEENT: No cyanosis. No icterus. No pallor. HEART: Regular S1 and S2. No murmur, rub or gallop. LUNGS: Clear to auscultate bilaterally. ABDOMEN: Soft, nontender and nondistended. Positive bowel sounds. No guarding, rebound or tenderness. CENTRAL NERVOUS SYSTEM: Grossly nonfocal. EXTREMITIES: Left side nonhealing leg and foot ulcer with black eschar, dopplerable posterior tibial pulse, right BKA with nonhealing stump Urinary Catheter Management^: Pierre: Cath Placed During This Visit: yes Reason for Continuing Indwelling Catheter: Accurate Measurement of Urinary Output in Critically Ill Patients Urinary Catheter Date of Insertion: 12/15/19 Urinary Catheter Time of Insertion: 08:45 Data : 12/17/19 04:01 12/17/19 04:01 Micro: Microbiology 12/15/19 09:04 Urine Culture - Final Urine,Clean Catch 12/15/19 09:05 Blood Culture - Preliminary Blood NEGATIVE TO DATE 12/15/19 09:15 Blood Culture - Preliminary Blood NEGATIVE TO DATE A&P Assessment and plan (1) Critical lower limb ischemia: Today have interview with the patient according to her at [facility] where she underwent angiogram and she was told that nothing can be done below the knee on the left side since she has diffuse disease. I am still awaiting paperwork as despite of many requests we have not obtain it. I may have to call her tomorrow since it is the weekend. Continue to treat her medically. Status: Acute (2) Sepsis: As per medicine. Continue antibiotics and IV Status: Acute Qualifiers: Sepsis type: sepsis due to unspecified organism Sepsis acute organ dysfunction status: unspecified Qualified Code(s): A41.9 - Sepsis, unspecified organism (3) Acute encephalopathy: Slowly improving however still she has waxing and vaning of somnolence. Status: Acute (4) Nonischemic cardiomyopathy: Patient has severely depressed LV function with nonischemic cardiomyopathy 30% she continues to be stable and euvolemic. Continue same treatment. Status: Chronic (5) Diabetes mellitus: Continue as per medicine Status: Chronic Qualifiers: Diabetes mellitus type: type 2 Diabetes mellitus care home insulin use: with care home use Diabetes mellitus complication status: with other specified complication Qualified Code(s): E11.69 - Type 2 diabetes mellitus with other specified complication; Z79.4 - residential (current) use of insulin Attestations Medical Necessity Statement*: Patient require continuation of hospitalization for above defined care Coding Level of Care Code Established Pt Acute Drying Machine Tender for [facility] Patient Type Established History Expanded Problem Focused Exam Expanded Problem Focused Medical Decision Making Moderate Complexity Diagnoses Critical lower limb ischemia I99.8 Sepsis A41.9 Sepsis type: sepsis due to unspecified organism Sepsis acute organ dysfunction status: unspecified Acute encephalopathy G93.40 Nonischemic cardiomyopathy I42.8 Diabetes mellitus E11.69; Z79.4 Diabetes mellitus type: type 2 Diabetes mellitus care home insulin use: with care home use Diabetes mellitus complication status: with other specified complication
[2019-12-17] MEDS: dextrose 10% 1,000 ML 50 ML IV (13:46)
[2019-12-17] MEDS: dextrose 5%-sod chloride 0.9% 1,000 ML 100 ML IV (14:35)
[2019-12-17 15:11] LABS: Glucose Point of Care 153 mg/dL (70-110)
[2019-12-17 16:31] LABS: Glucose Point of Care 153 mg/dL (70-110)
[2019-12-17 17:38] LABS: Glucose Point of Care 105 mg/dL (70-110)
[2019-12-17] MEDS: cyclobenzaprine 10 mg Tablet PO (19:58)
[2019-12-17 20:41] LABS: Glucose Point of Care 131 mg/dL (70-110)
[2019-12-17 20:41] LABS: Glucose Point of Care 123 mg/dL (70-110)
[2019-12-17] MEDS: atorvastatin 40 mg Tablet 20 MG PO (20:49)
[2019-12-17 22:16] LABS: Glucose Point of Care 171 mg/dL (70-110)
[2019-12-18] VITALS (23 sets, daily range): BP systolic 102–148; BP diastolic 57–95; PULSE 74–103; RESP 12–30; TEMP 36.4–37.2; O2SAT 90–100
[2019-12-18 00:02] LABS: Glucose Point of Care 195 mg/dL (70-110)
--- NOTE | 2019-12-18 00:10 | PC.NURSE ---
Patient's blood glucose levels trending up with last check being 195. Called Dr. Cottrell. Order given to decrease IVF's to 25ml/hr. New order noted et implemented. Will continue to monitor.
[2019-12-18 02:30] LABS: Glucose Point of Care 161 mg/dL (70-110)
[2019-12-18] MEDS: enoxaparin 30 mg/0.3 mL Syringe SUBCUT ×2 (03:57→15:29)
[2019-12-18] MEDS: enoxaparin 100 mg/mL Syringe SUBCUT ×2 (03:59→15:27)
[2019-12-18 04:06] LABS: Glucose Point of Care 174 mg/dL (70-110)
[2019-12-18 04:57] LABS: Basophils # 0.1 10^3/uL (0.0-0.1); Basophils % 0.5 %; Eosinophils # 0.1 10^3/uL (0.0-0.8); Eosinophils % 0.4 %; Hematocrit 36.3 % (37.0-47.0); Hemoglobin 9.6 g/dL (11.5-15.3); Lymphocytes # 1.6 10^3/uL (0.8-4.8); Lymphocytes % 8.1 %; Mean Corpuscular HGB Conc 26.4 g/dL (30.0-36.0); Mean Corpuscular Hemoglobin 20.7 pg (28.0-34.0); Mean Corpuscular Volume 78.4 fL (81-99); Monocytes # 1.1 10^3/uL (0.2-0.9); Monocytes % 5.5 %; Neutrophils # 16.77 10^3/uL (1.8-7.7); Neutrophils % 83.6 %; Nucleated Red Blood Cells % 0.1 %; Platelet Count 326 10^3/cmm (130-400); Red Blood Count 4.63 10^6/uL (4.1-5.3); Red Cell Distribution Width 24.3 % (12.1-15.1); White Blood Count 20.1 10^3/uL (4.0-10.0)
[2019-12-18 05:14] LABS: Alanine Aminotransferase 8 U/L (0-33); Albumin Level 1.7 g/dL (3.5-5.2); Alkaline Phosphatase 350 IU/L (35-105); Aspartate Amino Transferase 15 U/L (0-32); Blood Urea Nitrogen 22 mg/dL (6-20); Calcium 8.1 mg/dL (8.5-10.5); Carbon Dioxide 22 mmol/L (22-29); Chloride 101 mmol/L (98-107); Globulin 4.6 g/dL (1.3-4.6); Glomerular Filtration Rate 106.3 mL/min (90-130); Glucose 183 mg/dL (65-115); Osmolality Calculated 277 mOsm/kg (285-295); Sodium 133 mmol/L (136-145); Total Bilirubin 1.7 mg/dL (0.15-1.2); Total Protein 6.3 g/dL (6.6-8.7)
[2019-12-18 05:15] LABS: Anion Gap 14.5 (5-19); Potassium 4.5 mmol/L (3.5-5.1)
[2019-12-18 05:16] LABS: Ammonia 24 umol/L (11-51)
[2019-12-18 06:01] LABS: Glucose Point of Care 186 mg/dL (70-110)
--- NOTE | 2019-12-18 06:51 | PC.NURSE ---
Report given to Latisha.
--- NOTE | 2019-12-18 07:34 | PM.PN ---
Subjective Subjective: Interval history: Eliza reports she is doing okay this morning. She seems sleepy but she does wake up and answer questions. States she still has left leg pain. Medications: Reviewed: Yes Vitals/I&O/Wt Last Vital Signs Temp 97.8 F 12/18/19 07:00 Pulse 82 12/18/19 07:00 Resp 18 12/18/19 07:00 BP 130/76 12/18/19 07:00 Pulse Ox 98 12/18/19 07:00 12/17/19 12/18/19 12/18/19 22:59 06:59 14:59 Intake Total 360 / 2795.833 561.667 / 3357.500 Output Total 350 / 350 550 / 900 Balance 10 / 2445.833 11.667 / 2457.500 Weight last 48 hrs Weight 127.913 kg Weight 130.816 kg Physical Exam Narrative: EXAM NARRATIVE: General exam is a sleepy white female in no apparent distress Cardiovascular regular rate and rhythm without murmur Lungs clear no wheezing or crackles Abdomen is soft with positive bowel sounds. Extremities right with [id number] amputation. Left appears ischemic with black eschar/gangrenous change left forefoot. Extremities cool with decreased perfusion. Neurologic: No obvious focal deficits. Urinary Catheter Management^: Pierre: Cath Placed During This Visit: yes Reason for Continuing Indwelling Catheter: Accurate Measurement of Urinary Output in Critically Ill Patients Urinary Catheter Date of Insertion: 12/15/19 Urinary Catheter Time of Insertion: 08:45 Data : 12/18/19 04:40 12/18/19 04:40 Micro: Microbiology 12/15/19 09:04 Urine Culture - Final Urine,Clean Catch A&P Assessment and plan (1) Acute encephalopathy: Multifactorial. Secondary to sepsis, narcotic. Elevated ammonia level may have also played a role. Cautious use of sedating medications Ammonia level is improved, on lactulose Status: Acute (2) Sepsis: Secondary to left lower extremity gangrene/cellulitis as well as possible UTI. Continue vancomycin and Zosyn Blood and urine cultures negative to date but clinical scenario consistent with sepsis. White blood cell count still elevated. Status: Acute Qualifiers: Sepsis type: sepsis due to unspecified organism Sepsis acute organ dysfunction status: unspecified Qualified Code(s): A41.9 - Sepsis, unspecified organism (3) Hypoglycemia: Improved. Decrease fluids to D5. 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 Await cardiology evaluation here after reviewing records Continue aspirin, statin, therapeutic Lovenox Status: Acute (6) Acute cystitis: Continue IV antibiotics Status: Acute Qualifiers: Hematuria presence: without hematuria Qualified Code(s): N30.00 - Acute cystitis without hematuria (7) History of DVT (deep vein thrombosis): Holding Eliquis. Continue full dose Lovenox Status: Chronic (8) Nonischemic cardiomyopathy: Compensated currently. -Echo: EF=30%, G3DD, global LV hypokinesis Status: Chronic Additional A&P Information Elevated bilirubin, possibly secondary to sepsis morbid obesity Chronic anemia Chronic kidney disease stage II GI prophylaxis Full code Attestations Medical Necessity Statement*: Needs continued hospitalization for IV antibiotics secondary to sepsis. Coding Level of Care Code Acute Hotel Service Supervisor for [facility] Fwd Diagnoses Acute encephalopathy G93.40 Sepsis A41.9 Sepsis type: sepsis due to unspecified organism Sepsis acute organ dysfunction status: unspecified Hypoglycemia E16.2 Diabetes mellitus E11.69; Z79.4 Diabetes mellitus type: type 2 Diabetes mellitus mcc insulin use: with mcc use Diabetes mellitus complication status: with other specified complication Critical lower limb ischemia I99.8 Acute cystitis N30.00 Hematuria presence: without hematuria History of DVT (deep vein thrombosis) Z86.718 Nonischemic cardiomyopathy I42.8
[2019-12-18] MEDS: piperacillin-tazobactam 3.375 GM in sodium chloride 0.9% (plus) 50 ML IV ×2 (07:55→15:21)
[2019-12-18] MEDS: dextrose 5%-sod chloride 0.9% 1,000 ML 30 ML IV (07:55)
[2019-12-18 08:16] LABS: Glucose Point of Care 177 mg/dL (70-110)
[2019-12-18] MEDS: sacubitril/valsartan 24-26 mg Tablet 1 EACH PO ×2 (08:35→17:32)
[2019-12-18] MEDS: lactulose oral liq 20 gm/30 mL UDC 10 GM PO ×2 (08:35→15:33)
[2019-12-18] MEDS: aspirin 81 mg EC Tablet PO (08:35)
[2019-12-18] MEDS: pregabalin 150 mg Capsule PO ×2 (08:35→17:20)
[2019-12-18] MEDS: duloxetine 30 mg Capsule PO (08:36)
[2019-12-18] MEDS: metoprolol succinate ER (24 HR) 50 mg Tablet PO (08:36)
[2019-12-18] MEDS: ferrous sulfate EC 325 mg Tablet PO ×2 (08:36→17:20)
[2019-12-18] MEDS: nystatin powder 15 gm Btl 1 APPLIC TOPICAL ×2 (08:37→17:34)
[2019-12-18] MEDS: pantoprazole 40 mg SDV IVP (08:37)
[2019-12-18 10:39] LABS: Glucose Point of Care 208 mg/dL (70-110)
[2019-12-18 12:04] LABS: Glucose Point of Care 166 mg/dL (70-110)
[2019-12-18] MEDS: HYDROcodone-acetaminophen 5-325 mg Tablet 1 TAB PO ×3 (12:07→21:08)
--- NOTE | 2019-12-18 15:51 | P.TS_ITS ---
Transfer Summary Providers Date of Admission: 12/15/19 10:25 Date of Discharge: 12/18/19 Attending Provider at Admission: Megan Lala DO Attending Provider at Transfer: Blake Wong MD Primary Care Provider: Hamilton Scott MD Anticipated Date of Transfer: Anticipated date of transfer: 12/18/19 Receiving Facility & Provider: Receiving Provider: Dr. Cole Receiving facility: [facility] Diagnoses at Discharge Discharge Diagnosis (1) Acute encephalopathy: Status: Acute Problem details: Resolved (2) Sepsis: Status: Acute Problem details: Currently on vancomycin and Zosyn. Source, left lower extremity Qualifiers: Sepsis type: sepsis due to unspecified organism Sepsis acute organ dysfunction status: unspecified Qualified Code(s): A41.9 - Sepsis, unspecified organism (3) Hypoglycemia: Status: Acute Problem details: Resolved on D5 (4) Diabetes mellitus: Status: Chronic Qualifiers: Diabetes mellitus type: type 2 Diabetes mellitus skilled nursing insulin use: with termite treater helper use Diabetes mellitus complication status: with other specified complication Qualified Code(s): E11.69 - Type 2 diabetes mellitus with other specified complication; Z79.4 - nursing home (current) use of insulin (5) Critical lower limb ischemia: Status: Acute Problem details: No intervention warranted per our interventional cardiology (6) Acute cystitis: Status: Acute Qualifiers: Hematuria presence: without hematuria Qualified Code(s): N30.00 - Acute cystitis without hematuria (7) History of DVT (deep vein thrombosis): Status: Chronic (8) Nonischemic cardiomyopathy: Status: Chronic Reason for Visit Reason for Visit: [facility]/ LOW Hospital Course Hospital Course: Eliza is a 49-year-old white female who presented on December 14 with low blood pressure, hypoglycemia, and concern of sepsis from the nursing facility. Cofactors for low blood pressure and some encephalopathy was pain medicine for increasing lower extremity pain. She had recently had angiogram, with thrombectomy at [facility] the week before. On presentation black eschar was present in the foot, with edema and drainage. White blood cell count was elevated. She was resuscitated from a fluid standpoint, placed on IV antibiotics including vancomycin and Zosyn, and interventional cardiology consultation was obtained. Throughout her hospital course mental status did improve. Glucose initially low when requiring D10 improved and D5 was initiated. Slightly elevated ammonia level was also known on admission which decreased during her hospital stay however this was thought likely secondary to her sepsis. By December 17 her white blood cell count was still elevated. Blood pressure had stabilized and was 132/71. Mental status had improved significantly. Appearance of the left lower extremity had not. Cardiology had reviewed her case and did not believe any further intervention here would be beneficial to the patient. They believe she was likely headed for an amputation. I have concerns this may be needed anyway secondary to her sepsis, cellulitis, gangrene of the left lower extremity. I discussed this with her family and they prefer to go to [facility]. As we have no vascular surgeon ammunition specialist today this will be arranged. I discussed this with Dr. Cole, realtime reporter at [facility] and he graciously accepted her care. Echocardiogram during this admission demonstrated an EF of 30%, 3/4 diastolic dysfunction without any significant change from prior. Venous duplex had normal SUSANNAH left side but abnormal Doppler waveforms suggestive of collateral filling of the dorsalis pedis and possible occlusion distal SFA. Blood cultures were negative at time of discharge. Physical Exam Narrative: EXAM NARRATIVE: See exam from earlier today Urinary Catheter Management^: Pierre: Cath Placed During This Visit: yes Reason for Continuing Indwelling Catheter: Accurate Measurement of Urinary Output in Critically Ill Patients Urinary Catheter Date of Insertion: 12/15/19 Urinary Catheter Time of Insertion: 08:45 TS Data Data Completed and Pending: Completed Studies During Hospitalization Category Date Time Status CT head wo con* 7 0450 Urgent Cat Scan 12/15/19 08:38 Completed XR chest 1V zafar ble [id number] Urgent Exams 12/15/19 08:38 [place] [id number] Urge nt Ultrasound 12/15/19 09:39 Completed CV echo complete* [id number] Routine Ultrasound 12/15/19 15:15 Completed Pending at discharge Category Date Time Status Blood Culture Sta t Lab 12/15/19 09:05 Results Complete Blood Co unt w/Auto AM LABS Lab 12/19/19 04:00 Ordered Comprehensive Met abolic Panel AM LA BS Lab 12/19/19 04:00 Ordered Labs from last 24 hours 12/18/19 12/18/19 12/18/19 12:00 10:36 07:37 WBC RBC Hgb Hct MCV MCH MCHC RDW Plt Count MPV Neut % (Auto) Lymph % (Auto) [place] % (Auto) Eos % (Auto) Baso % (Auto) Neut # (Auto) Lymph # (Auto) [place] # (Auto) Eos # (Auto) Baso # (Auto) Nucleated RBC % (a uto) Nucleated RBCs # Sodium Potassium Chloride Carbon Dioxide Anion Gap BUN Creatinine GFR Calculation Glucose POC Glucose 166 208 177 Calculated Osmolal ity Calcium Total Bilirubin AST ALT Alkaline Phosphata se Ammonia Total Protein Albumin Globulin 12/18/19 12/18/19 12/18/19 05:58 04:40 04:40 WBC RBC Hgb Hct MCV MCH MCHC RDW Plt Count MPV Neut % (Auto) Lymph % (Auto) [place] % (Auto) Eos % (Auto) Baso % (Auto) Neut # (Auto) Lymph # (Auto) [place] # (Auto) Eos # (Auto) Baso # (Auto) Nucleated RBC % (a uto) Nucleated RBCs # Sodium 133 L Potassium 4.5 Chloride 101 Carbon Dioxide 22 Anion Gap 14.5 BUN 22 H Creatinine 0.6 GFR Calculation 106.3 Glucose 183 H POC Glucose 186 Calculated Osmolal ity 277 L Calcium 8.1 L Total Bilirubin 1.7 H AST 15 ALT 8 Alkaline Phosphata se 350 H Ammonia 24 Total Protein 6.3 L Albumin 1.7 L Globulin 4.6 12/18/19 12/18/19 12/18/19 04:40 04:01 02:21 WBC 20.1 H RBC 4.63 Hgb 9.6 L Hct 36.3 L MCV 78.4 L MCH 20.7 L MCHC 26.4 L RDW 24.3 H Plt Count 326 MPV 11.0 H Neut % (Auto) 83.6 Lymph % (Auto) 8.1 [place] % (Auto) 5.5 Eos % (Auto) 0.4 Baso % (Auto) 0.5 Neut # (Auto) 16.77 H Lymph # (Auto) 1.6 [place] # (Auto) 1.1 H Eos # (Auto) 0.1 Baso # (Auto) 0.1 Nucleated RBC % (a uto) 0.1 Nucleated RBCs # 0.0 Sodium Potassium Chloride Carbon Dioxide Anion Gap BUN Creatinine GFR Calculation Glucose POC Glucose 174 161 Calculated Osmolal ity Calcium Total Bilirubin AST ALT Alkaline Phosphata se Ammonia Total Protein Albumin Globulin 12/17/19 12/17/19 12/17/19 23:57 22:10 19:43 WBC RBC Hgb Hct MCV MCH MCHC RDW Plt Count MPV Neut % (Auto) Lymph % (Auto) [place] % (Auto) Eos % (Auto) Baso % (Auto) Neut # (Auto) Lymph # (Auto) [place] # (Auto) Eos # (Auto) Baso # (Auto) Nucleated RBC % (a uto) Nucleated RBCs # Sodium Potassium Chloride Carbon Dioxide Anion Gap BUN Creatinine GFR Calculation Glucose POC Glucose 195 171 131 Calculated Osmolal ity Calcium Total Bilirubin AST ALT Alkaline Phosphata se Ammonia Total Protein Albumin Globulin 12/17/19 12/17/19 12/16/19 17:36 16:28 19:24 WBC RBC Hgb Hct MCV MCH MCHC RDW Plt Count MPV Neut % (Auto) Lymph % (Auto) [place] % (Auto) Eos % (Auto) Baso % (Auto) Neut # (Auto) Lymph # (Auto) [place] # (Auto) Eos # (Auto) Baso # (Auto) Nucleated RBC % (a uto) Nucleated RBCs # Sodium Potassium Chloride Carbon Dioxide Anion Gap BUN Creatinine GFR Calculation Glucose POC Glucose 123 153 105 Calculated Osmolal ity Calcium Total Bilirubin AST ALT Alkaline Phosphata se Ammonia Total Protein Albumin Globulin Vitals: Last Vital Signs Temp 97.8 F 12/18/19 14:00 Pulse 75 12/18/19 15:00 Resp 24 H 12/18/19 15:00 BP 132/71 12/18/19 15:00 Pulse Ox 90 12/18/19 15:00 TS Medications Medications Home Medications aspirin [Aspir-Low] 81 mg PO DAILY 06/04/19 [History Confirmed 12/15/19] atorvastatin 20 mg PO BEDTIME 06/04/19 [History Confirmed 12/15/19] furosemide [Lasix] 40 mg PO DAILY 06/04/19 [History Confirmed 12/15/19] hydralazine 10 mg PO TID 06/04/19 [History Confirmed 12/15/19] pantoprazole 40 mg PO DAILY #30 tab 06/24/19 [Rx Confirmed 12/15/19] trazodone 100 mg PO BEDTIME 07/06/19 [History Confirmed 12/15/19] insulin glargine 100 unit/mL (3 mL) subcutaneous pen 60 unit SUBCUT BID #15 ml 10/04/19 [Rx Confirmed 12/15/19] duloxetine 30 mg capsule,delayed release 30 mg PO DAILY #90 cap 10/24/19 [Rx Confirmed 12/15/19] Entresto 1 tab PO BID 10/25/19 [History Confirmed 12/15/19] Glucagon Emergency Kit (human) See Rx Instructions .ROUTE .COMPLEX 10/25/19 [History Confirmed 12/15/19] albuterol sulfate [ProAir HFA] 2 puff INHALATION Q4H PRN 10/25/19 [History Confirmed 12/15/19] cyclobenzaprine 10 mg PO TID PRN 10/25/19 [History Confirmed 12/15/19] ferrous sulfate [iron] 325 mg PO BID 10/25/19 [History Confirmed 12/15/19] lisinopril 2.5 mg PO DAILY 10/25/19 [History Confirmed 12/15/19] metoprolol succinate 50 mg PO DAILY 10/25/19 [History Confirmed 12/15/19] pregabalin 150 mg capsule 150 mg PO BID #60 cap 11/07/19 [Rx Confirmed 12/15/19] Prostat Oral 15 ml PO BID 12/13/19 [History Confirmed 12/15/19] acetaminophen [Tylenol] 650 mg PO Q4H PRN MDD 4000 mg 12/13/19 [History Confirmed 12/15/19] apixaban [Eliquis] 5 mg PO BID 12/13/19 [History Confirmed 12/15/19] bisacodyl 10 mg [place] DAILY PRN 12/13/19 [History Confirmed 12/15/19] hydrocodone-acetaminophen [[place]] 1 tab PO Q6H PRN 12/13/19 [History Confirmed 12/15/19] lidocaine HCl [Lidocaine Viscous] See Rx Instructions .ROUTE .COMPLEX 12/13/19 [History Confirmed 12/15/19] lorazepam [Ativan] 0.5 mg PO TID PRN 12/13/19 [History Confirmed 12/15/19] magnesium hydroxide [Milk of Magnesia] 30 ml PO DAILY PRN 12/13/19 [History Confirmed 12/15/19] nitrofurantoin monohyd/m-cryst [Macrobid] 100 mg PO BID 12/13/19 [History Confirmed 12/15/19] nystatin 1 applic TOPICAL BID 12/13/19 [History Confirmed 12/15/19] ondansetron HCl [Zofran] 4 mg PO Q4H PRN 12/13/19 [History Confirmed 12/15/19] sodium phosphates [Enema Disposable] 118 ml [place] DAILY PRN 12/13/19 [History Confirmed 12/15/19] morphine concentrate 10 mg PO Q2H PRN 12/15/19 [History Confirmed 12/15/19] morphine concentrate 20 mg PO Q2H PRN 12/15/19 [History Confirmed 12/15/19] Active Medications Acetaminophen (Tylenol) 650 mg PO Q6H PRN PRN Reason: MILD PAIN Hydrocodone Bitart/Acetaminophen ([place] 5-325 Mg) 1 tab PO Q4H PRN PRN Reason: MODERATE PAIN Last Admin: 12/18/19 12:07 Dose: 1 tab Documented by: Albuterol Sulfate (Ventolin) 2 puff INHALATION Q4H PRN PRN Reason: Shortness Of Breath Aspirin (Aspirin Ec) 81 mg PO DAILY [facility] Last Admin: 12/18/19 08:35 Dose: 81 mg Documented by: Atorvastatin Calcium (Lipitor) 20 mg PO BEDTIME [facility] Last Admin: 12/17/19 20:49 Dose: 20 mg Documented by: Cyclobenzaprine HCl (Flexeril) 10 mg PO TID PRN PRN Reason: Pain Last Admin: 12/17/19 19:58 Dose: 10 mg Documented by: Dextrose (D50w) 25 ml IVP ONCE PRN; Protocol PRN Reason: hypoglycemia protocol Duloxetine HCl (Cymbalta) 30 mg PO DAILY [facility] Last Admin: 12/18/19 08:36 Dose: 30 mg Documented by: Enoxaparin Sodium (Lovenox) 100 mg SUBCUT Q12H [facility] Last Admin: 12/18/19 15:27 Dose: 100 mg Documented by: Enoxaparin Sodium (Lovenox) 30 mg SUBCUT Q12H [facility] Last Admin: 12/18/19 15:29 Dose: 30 mg Documented by: Ferrous Sulfate (Ferrous Sulfate) 325 mg PO BID [facility] Last Admin: 12/18/19 08:36 Dose: 325 mg Documented by: Piperacillin Sod/Tazobactam (Sod 3.375 gm/ Sodium Chloride) 50 mls @ 12.5 mls/hr IV Q8H [facility]; Protocol Last Admin: 12/18/19 15:21 Dose: 12.5 mls/hr Documented by: Vancomycin HCl 1,500 mg/ (Sodium Chloride) 250 mls @ 166.667 mls/hr IV Q12H [facility]; Protocol Last Admin: 12/18/19 14:00 Dose: 166.7 mls/hr Documented by: Dextrose (D5w) 500 mls @ 100 mls/hr IV ONCE PRN; Protocol PRN Reason: Adult Acute Hypoglycemia Prot Dextrose/Sodium Chloride (Dextrose 5%-Sod Chloride 0.9%) 1,000 mls @ 30 mls/hr IV .Q24H [facility] Last Admin: 12/18/19 07:55 Dose: 30 mls/hr Documented by: Insulin Aspart (Novolog) 0 unit SUBCUT BEDTIME [facility]; Protocol Last Admin: 12/17/19 20:59 Dose: Not Given Documented by: Insulin Aspart (Novolog) 0 unit SUBCUT TIDWM [facility]; Protocol Last Admin: 12/18/19 12:06 Dose: 4 unit Documented by: Lactulose (Constulose) 10 gm PO TID [facility] Last Admin: 12/18/19 15:33 Dose: 10 gm Documented by: Lidocaine HCl (Lidocaine 2% Viscous) 0 ml TOPICAL PRN PRN PRN Reason: DRESSING CHANGE Lorazepam (Ativan) 0.5 mg IVP Q6H PRN PRN Reason: ANXIETY Last Admin: 12/17/19 00:50 Dose: 0.5 mg Documented by: Metoprolol Succinate (Toprol Xl) 50 mg PO DAILY [facility] Last Admin: 12/18/19 08:36 Dose: 50 mg Documented by: Naloxone HCl (Narcan) 0.1 mg IVP Q2M PRN PRN Reason: RESPIRATORY RATE < 8/MIN Last Admin: 12/15/19 11:27 Dose: 0.1 mg Documented by: Nystatin (Nystatin Powder) 1 applic TOPICAL BID [facility] Last Admin: 12/18/19 08:37 Dose: 1 applic Documented by: Ondansetron HCl (Zofran) 4 mg IVP Q6H PRN PRN Reason: NAUSEA AND VOMITING Pantoprazole Sodium (Protonix) 40 mg PO DAILY [facility] Pregabalin (Lyrica) 150 mg PO BID [facility] Last Admin: 12/18/19 08:35 Dose: 150 mg Documented by: Sacubitril/Valsartan (Entresto 24-26 Mg) 1 each PO BID [facility] Last Admin: 12/18/19 08:35 Dose: 1 each Documented by: Discharge Plan Discharge Patient Disposition: Xfer Short-Term Hosp Condition: Stable Prescriptions: No Action Lantus Solostar U-100 Insulin 100 unit/mL (3 mL) insulin pen 60 unit SUBCUT BID Qty: 15 RF: 6 duloxetine 30 mg capsule,delayed release(DR/EC) 30 mg PO DAILY Qty: 90 RF: 3 pregabalin [Lyrica] 150 mg capsule 150 mg PO BID Qty: 60 RF: 5 pantoprazole 40 mg tablet,delayed release (DR/EC) 40 mg PO DAILY Qty: 30 RF: 4 furosemide [Lasix] 40 mg Tablet 40 mg PO DAILY RF: 0 atorvastatin 40 mg Tablet 20 mg PO BEDTIME RF: 0 hydralazine 10 mg Tablet 10 mg PO TID RF: 0 aspirin [Aspir-Low] 81 mg Tablet,Delayed Release (Dr/Ec) 81 mg PO DAILY RF: 0 trazodone 100 mg Tablet 100 mg PO BEDTIME RF: 0 cyclobenzaprine 10 mg Tablet 10 mg PO TID PRN (Reason: Pain) RF: 0 metoprolol succinate 50 mg Tablet Extended Release 24 Hr 50 mg PO DAILY RF: 0 ferrous sulfate [iron] 325 mg (65 mg iron) Tablet 325 mg PO BID RF: 0 Glucagon Emergency Kit (human) 1 mg recon soln See Rx Instructions .ROUTE .COMPLEX RF: 0 albuterol sulfate [ProAir HFA] 90 mcg/actuation Hfa Aerosol Inhaler 2 puff INHALATION Q4H PRN (Reason: Shortness Of Breath) RF: 0 lisinopril 2.5 mg Tablet 2.5 mg PO DAILY RF: 0 Entresto 24-26 mg tablet 1 tab PO BID RF: 0 acetaminophen [Tylenol] 325 mg Tablet 650 mg PO Q4H MDD 4000 mg PRN (Reason: Pain) RF: 0 ondansetron HCl [Zofran] 4 mg Tablet 4 mg PO Q4H PRN (Reason: Nausea) RF: 0 hydrocodone-acetaminophen [[place]] 10-325 mg Tablet 1 tab PO Q6H PRN (Reason: Pain) RF: 0 lorazepam [Ativan] 0.5 mg Tablet 0.5 mg PO TID PRN (Reason: Anxiety) RF: 0 magnesium hydroxide [Milk of Magnesia] 400 mg/5 mL Suspension 30 ml PO DAILY PRN (Reason: Constipation) RF: 0 bisacodyl 10 mg Suppository 10 mg [place] DAILY PRN (Reason: Constipation) RF: 0 Enema Disposable 19-7 gram/118 mL Enema 118 ml [place] DAILY PRN (Reason: Constipation) RF: 0 Lidocaine Viscous 2 % Solution See Rx Instructions .ROUTE .COMPLEX RF: 0 nystatin 100,000 unit/gram Powder 1 applic TOPICAL BID RF: 0 nitrofurantoin monohyd/m-cryst [Macrobid] 100 mg Capsule 100 mg PO BID RF: 0 Eliquis 5 mg Tablet 5 mg PO BID RF: 0 Prostat Oral 15 ml PO BID RF: 0 morphine concentrate 10 mg/0.5 mL Syringe 10 mg PO Q2H PRN (Reason: Pain) RF: 0 morphine concentrate 10 mg/0.5 mL Syringe 20 mg PO Q2H PRN (Reason: Pain) RF: 0 Transfer Attestations Time Spent in Transfer Care*: greater than 30 min Status at Transfer: Cognitive status at transfer: cognitively intact , Quality Metrics Clinical Quality Measures: During this hospital stay, did patient experience: None Coding Level of Care Code Acute Building Services Coordinator for [facility] Fwd Diagnoses Acute encephalopathy G93.40 Sepsis A41.9 Sepsis type: sepsis due to unspecified organism Sepsis acute organ dysfunction status: unspecified Hypoglycemia E16.2 Diabetes mellitus E11.69; Z79.4 Diabetes mellitus type: type 2 Diabetes mellitus termite treater helper insulin use: with termite treater helper use Diabetes mellitus complication status: with other specified complication Critical lower limb ischemia I99.8 Acute cystitis N30.00 Hematuria presence: without hematuria History of DVT (deep vein thrombosis) Z86.718 Nonischemic cardiomyopathy I42.8
--- NOTE | 2019-12-18 16:00 | PC.NURSE ---
Provided bed bath and linen change to the patient. Offered oral care, patient declined.
[2019-12-18 16:25] LABS: Glucose Point of Care 164 mg/dL (70-110)
--- NOTE | 2019-12-18 16:46 | PC.NURSE ---
offered oral care to the patient, patient was agreeable to oral swabs. Swabbed pt mouth with oral swabs and water.
--- NOTE | 2019-12-18 16:57 | PC.NURSE ---
Brought dinner tray to patient. 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 I offered to assist patient with eating. Patient declined help and said she was not hungry. Left tray in room.
--- NOTE | 2019-12-18 18:00 | PC.NURSE ---
Report called to Erik Gonzalez RN, at [facility]. supervisor dental laboratory notified to sign transport form. Transport to be called and arranged after joss house keeper's signature.
--- NOTE | 2019-12-18 18:15 | PC.NURSE ---
Transport called to set up patient's ride to [facility] in [place], [place]. Patient's mother also notified at this time that patient will be transferring.
--- NOTE | 2019-12-18 18:21 | PC.NURSE ---
Patient's mother (Fadia) contact is [phone]
--- NOTE | 2019-12-18 18:50 | P.PN_ITS ---
Subjective Subjective: Interval history: She denies any complaint this morning. She is eating in the bed Medications: Reviewed: Yes Medication Review Details: Active Medications Generic Name Dose Route Start Last Admin Trade Name Freq PRN Reason Stop Dose Admin Acetaminophen 650 mg 12/15/19 12:55 Tylenol PO Q6H PRN MILD PAIN Hydrocodone Bitart /Acetaminophen 1 tab 12/15/19 12:55 12/16/19 19:55 [place] 5-325 Mg PO 1 tab Q4H PRN Administration MODERATE PAIN Albuterol Sulfate 2 puff 12/15/19 12:55 Ventolin INHALATION Q4H PRN Shortness Of [place] th Aspirin 81 mg 12/16/19 09:00 12/16/19 10:54 Aspirin Ec PO 81 mg DAILY HI Administration Atorvastatin Calci um 20 mg 12/15/19 21:00 12/16/19 22:15 Lipitor PO 20 mg BEDTIME HI Administration Cyclobenzaprine HC l 10 mg 12/15/19 12:55 12/16/19 22:15 Flexeril PO 10 mg TID PRN Administration Pain Dextrose 25 ml 12/15/19 15:17 D50w IVP ONCE PRN hypoglycemia prot ocol Protocol Duloxetine HCl 30 mg 12/16/19 09:00 12/16/19 10:53 Cymbalta PO 30 mg DAILY HI Administration Enoxaparin Sodium 100 mg 12/15/19 16:00 12/17/19 03:24 Lovenox SUBCUT 100 mg Q12H HI Administration Enoxaparin Sodium 30 mg 12/15/19 16:00 12/17/19 03:24 Lovenox SUBCUT 30 mg Q12H HI Administration Ferrous Sulfate 325 mg 12/15/19 18:00 12/16/19 18:41 Ferrous Sulfate PO 325 mg BID HI Administration Piperacillin Sod/T azobactam 50 mls @ 12.5 mls /hr 12/15/19 15:30 12/17/19 02:45 Sod 3.375 gm/ So dium Chloride IV Infused Q8H HI Infusion Protocol Vancomycin HCl 1,5 00 mg/ 250 mls @ 166.667 mls/hr 12/15/19 14:30 12/17/19 03:23 Sodium Chloride IV 250 mls/hr Q12H HI Administration Protocol Dextrose 500 mls @ 100 mls /hr 12/15/19 15:17 D5w IV ONCE PRN Adult Acute Hypog lycemia Prot Protocol Dextrose 1,000 mls @ 50 ml s/hr 12/16/19 18:30 12/16/19 18:39 D10w IV 50 mls/hr .Q20H HI Administration Insulin Aspart 0 unit 12/15/19 21:00 12/16/19 22:12 Novolog SUBCUT Not Given BEDTIME HI Protocol Insulin Aspart 0 unit 12/15/19 18:00 12/16/19 18:41 Novolog SUBCUT Not Given TIDWM HI Protocol Lactulose 10 gm 12/16/19 09:00 12/16/19 10:53 Constulose PO 10 gm DAILY HI Administration Lidocaine HCl 0 ml 12/15/19 13:00 Lidocaine 2% Vis cous TOPICAL PRN PRN DRESSING CHANGE Lorazepam 0.5 mg 12/15/19 12:55 12/17/19 00:50 Ativan IVP 0.5 mg Q6H PRN Administration ANXIETY Metoprolol Succina te 50 mg 12/16/19 09:00 12/16/19 10:54 Toprol Xl PO 50 mg DAILY HI Administration Naloxone HCl 0.1 mg 12/15/19 11:10 12/15/19 11:27 Narcan IVP 0.1 mg Q2M PRN Administration RESPIRATORY RATE < 8/MIN Nystatin 1 applic 12/15/19 18:00 12/16/19 18:41 Nystatin Powder TOPICAL 1 applic BID HI Administration Ondansetron HCl 4 mg 12/15/19 12:55 Zofran IVP Q6H PRN NAUSEA AND VOMITI NG Pantoprazole Sodiu m 40 mg 12/15/19 13:00 12/16/19 10:54 Protonix IVP 40 mg DAILY HI Administration Pregabalin 150 mg 12/15/19 18:00 12/16/19 18:41 Lyrica PO 150 mg BID HI Administration Sacubitril/Valsart an 1 each 12/15/19 18:00 12/16/19 18:41 Entresto 24-26 M g PO 1 each BID HI Administration NONE Allergy (Unknown, Uncoded 12/13/19 13:25) Unknown Vitals/I&O/Wt Last Vital Signs Temp 98.9 F 12/18/19 18:00 Pulse 101 H 12/18/19 18:00 Resp 18 12/18/19 18:00 BP 137/95 12/18/19 17:00 Pulse Ox 99 12/18/19 18:00 12/18/19 12/18/19 12/18/19 06:59 14:59 22:59 Intake Total 561.667 / 3357.500 848.333 / 848.333 350 / 1198.333 Output Total 550 / 900 250 / 250 Balance 11.667 / 2457.500 848.333 / 848.333 100 / 948.333 Weight last 48 hrs Weight 282 lb Weight 288 lb 6.4 oz Physical Exam Narrative: EXAM NARRATIVE: GENERAL: Patient is confused somnolent NECK: No jugular vein distension. HEENT: No cyanosis. No icterus. No pallor. HEART: Regular S1 and S2. No murmur, rub or gallop. LUNGS: Clear to auscultate bilaterally. ABDOMEN: Soft, nontender and nondistended. Positive bowel sounds. No guarding, rebound or tenderness. CENTRAL NERVOUS SYSTEM: Grossly nonfocal. EXTREMITIES: Left side nonhealing leg and foot ulcer with black eschar, dopplerable posterior tibial pulse, right BKA with nonhealing stump Urinary Catheter Management^: Pierre: Cath Placed During This Visit: yes Reason for Continuing Indwelling Catheter: Accurate Measurement of Urinary Output in Critically Ill Patients Urinary Catheter Date of Insertion: 12/15/19 Urinary Catheter Time of Insertion: 08:45 Data : 12/18/19 04:40 12/18/19 04:40 A&P Assessment and plan (1) Critical lower limb ischemia: I will run through her medical records from [facility] where she underwent peripheral angiogram and October 2019. She underwent atherectomy of posterior tibial artery. One-vessel runoff was present. It appeared to me that she did not have anterior tibial or peroneal artery which mostly were highly lee cified and chronically occluded vessels. Due to underlying comorbidities and because of the fact he is under treatment of vascular surgery before for continuity of care it is better that she can be treated at [facility] as in my opinion she may well end up in amputation due to her severe peripheral vascular disease. Patient and family also wished for that. Status: Acute (2) Sepsis: As per medicine. Continue antibiotics and IV Status: Acute Qualifiers: Sepsis type: sepsis due to unspecified organism Sepsis acute organ dysfunction status: unspecified Qualified Code(s): A41.9 - Sepsis, unspecified organism (3) Acute encephalopathy: improved Status: Acute (4) Nonischemic cardiomyopathy: Continues to be well compensated Status: Chronic (5) Diabetes mellitus: Continue as per medicine Status: Chronic Qualifiers: Diabetes mellitus type: type 2 Diabetes mellitus termite helper insulin use: with termite helper use Diabetes mellitus complication status: with other specified complication Qualified Code(s): E11.69 - Type 2 diabetes mellitus with other specified complication; Z79.4 - care home (current) use of insulin Attestations Medical Necessity Statement*: Patient will be transferred to [facility] under vascular surgery Coding Level of Care Code Established Pt Acute Software Test Technician for [facility] Fwd Patient Type Established History Expanded Problem Focused Exam Expanded Problem Focused Medical Decision Making Moderate Complexity Diagnoses Critical lower limb ischemia I99.8 Sepsis A41.9 Sepsis type: sepsis due to unspecified organism Sepsis acute organ dysfunction status: unspecified Acute encephalopathy G93.40 Nonischemic cardiomyopathy I42.8 Diabetes mellitus E11.69; Z79.4 Diabetes mellitus type: type 2 Diabetes mellitus care home insulin use: with termite helper use Diabetes mellitus complication status: with other specified complication
[2019-12-18 20:33] LABS: Glucose Point of Care 140 mg/dL (70-110)
[2019-12-18] MEDS: atorvastatin 40 mg Tablet 20 MG PO (21:08)
[2019-12-18] MEDS: cyclobenzaprine 10 mg Tablet PO (21:08)
--- NOTE | 2019-12-19 01:45 | PC.NURSE ---
Patient transferred to [facility] via ambulance. Report called to 3E during day shift. All discharge paperwork sent with paramedics.
== END 2019-12-18 23:11 | disposition short-term general hospital (02) | DRG 871 ==
LOC: ER 09:56 → ICU 10:49
PROVIDERS: Emergency Medicine; Family Medicine; Hospitalist; Admitting Provider Family Medicine; PCP Internal Medicine; Visit Provider Internal Medicine
DX: A41.9 Sepsis, unspecified organism (principal); G93.41 Metabolic encephalopathy; I42.8 Other cardiomyopathies; Z68.42 Body mass index [BMI] 45.0-49.9, adult; N30.00 Acute cystitis without hematuria; L03.116 Cellulitis of left lower limb; E11.52 Type 2 diabetes mellitus with diabetic peripheral angiopathy with gangrene; I96 Gangrene, not elsewhere classified; I13.0 Hypertensive heart and chronic kidney disease with heart failure and stage 1 through stage 4 chronic kidney disease, or unspecified chronic kidney disease; I50.20 Unspecified systolic (congestive) heart failure; Z86.718 Personal history of other venous thrombosis and embolism; Z79.01 Long term (current) use of anticoagulants; Z87.440 Personal history of urinary (tract) infections; Z87.891 Personal history of nicotine dependence; I95.9 Hypotension, unspecified; D50.9 Iron deficiency anemia, unspecified; E66.09 Other obesity due to excess calories; D63.1 Anemia in chronic kidney disease; Z79.82 Long term (current) use of aspirin; Z79.891 Long term (current) use of opiate analgesic; Z79.4 Long term (current) use of insulin; Z89.511 Acquired absence of right leg below knee; E11.649 Type 2 diabetes mellitus with hypoglycemia without coma; E11.22 Type 2 diabetes mellitus with diabetic chronic kidney disease; N18.2 Chronic kidney disease, stage 2 (mild); T81.89XA Other complications of procedures, not elsewhere classified, initial encounter
CPT/HCPCS: 12345; 36415; 36416; 36600; 51702; 70450; 71045; 80051; 80053; 80202; 81001; 82140; 82803; 82810; 82962; 83540; 83550; 83605; 83880; 83986; 84443; 84484; 85025; 85610; 87040; 87086; 93005; 93010; 93306; 93926; 94664; 96372; 96375; 99284; C9113; J1610; J1650; J1815; J2060; J2310; J2543; J3370; J7030; J7050

== ENCOUNTER 2021-03-27 16:11 | Emergency (ER) | payer MEDICAID, SELFPAY ==
[2021-03-27 16:13] VITALS: BP 171/112; PULSE 78; RESP 18; TEMP 36.6; O2SAT 100; BMI 48.4
--- NOTE | 2021-03-27 16:40 | XRR_ITS ---
PROCEDURE INFORMATION: Exam: XR Chest Exam date and time: 03/27/2021 4:40 PM Age: 50 years old Clinical indication: Dyspnea; Additional info: Chf, dyspnea TECHNIQUE: Imaging protocol: XR of the chest. Views: 1 view. Total images: 1 COMPARISON: CR XR chest 1V portable [id number] 12/15/2019 8:58 AM FINDINGS: Lungs: No visible active interstitial or alveolar airspace disease. Pleural spaces: Unremarkable. No pleural effusion. No pneumothorax. Heart/Mediastinum: Cardiomegaly. Bones/joints: Unremarkable as visualized. Other findings: Obesity. XR/XR chest 1V portable [id number] IMPRESSION: Nonacute. Radiation Dose CTDIVOL = (mGy): DLP = (mGy-cm)
--- NOTE | 2021-03-27 16:41 | ECG_ITS ---
Test Date: 2021-03-27 Pat Name: Eliza Quinn Department: Room: Gender: Female Survey Party Chief: : [id number] Requested By: Sally Reyna Order Number: [id number] Reading MD: USAMA TIDWELL Measurements Intervals [place] Rate: 75 P: 53 DE: 173 QRS: -47 QRSD: 119 T: 31 QT: 422 QTc: 472 Interpretive Statements SINUS RHYTHM LEFT AXIS DEVIATION [QRS AXIS < -30] LOW QRS VOLTAGE IN EXTREMITY LEADS [QRS DEFLECTION < 0.5 mV IN LIMB LEADS] POSSIBLE ANTERIOR MYOCARDIAL INFARCTION , PROBABLY OLD [30 ms Q WAVE IN V3/V4, OR R < 0.2 mV IN V4] Compared to ECG 12/15/2019 14:07:03 Left-axis deviation now present Myocardial infarct finding now present Electronically Signed On 03-28-2021 14:30:26 [employer] SCIENTIST by USAMA TIDWELL [email or web address]
--- NOTE | 2021-03-27 16:58 | ED_ITS ---
Documented by User: Sally Reyna MD 03/27/21 19:23 HPI - SOB/Dyspnea General: Chief Complaint: Shortness of Breath/Dyspnea Stated Complaint: DIFF BREATHING, HYPERGLYCEMIA Time Seen by Provider: 03/27/21 16:12 Source: patient and EMS Mode of arrival: EMS History of Present Illness: HPI Narrative: 50-year-old female with history of CHF, ischemic cardiomyopathy, diabetes, hypertension, COPD, presents worsening orthopnea, dyspnea, and edema over the last week. Was recently hospitalized in [place] for CHF exacerbation, discharged 1-2 weeks ago. blood sugars in the 400s, nausea, decreased appetite, Swelling of her lower abdomen: She has had bilateral above-knee amputations Unable to confirm her current medications other than Xarelto. Says that she is no longer prescribed Lasix. MD elicited complaint: shortness of breath, cough, pain with inspiration and chest pain Pertinent past history: COPD, congestive heart failure, diabetes and PE Onset (ago): day(s) Timing: constant and progressively worsening Severity: moderate Exacerbating factors: lying flat, exertion and movement Relieving factors: upright position Known history of: COPD, congestive heart failure, diabetes and PE Associated symptoms: Reports abdominal pain, nausea, orthopnea and polydipsia; Deny cough, diaphoresis, dizziness, fever(s), palpitations or syncope Review of Systems General: Reports: 10 or more systems reviewed and unremarkable except in HPI and below Const: Denies: fever(s) or diaphoresis Eyes: Denies: change in vision or blurry vision ENMT: Denies: throat pain or hoarseness Card: Reports: edema, dyspnea on exertion and orthopnea; Denies: palpitations or syncope GI: Reports: abdominal pain and nausea : Denies: difficulty voiding or dysuria Skin/Breast: Reports: skin tenderness Neuro: Denies: headache(s), numbness in extremities or dizziness Endo: Reports: polydipsia and tired all the time Hayder/Lymph: Reports: easy bleeding PFSH ED PFSH: Medical History Chronic anticoagulation Chronic kidney disease, stage II (mild) Critical lower limb ischemia No intervention warranted per our interventional cardiology Diabetes mellitus History of DVT (deep vein thrombosis) Nonischemic cardiomyopathy Poorly controlled diabetes mellitus PVD (peripheral vascular disease) with claudication Urinary tract infection due to ESBL Klebsiella Surgical History History of back surgery History of History of shoulder surgery Hx of cholecystectomy Family History Father CAD (coronary artery disease) Chronic kidney disease (CKD) Hyperlipidemia Hypertension Grandmother Dementia Mother Stroke Other Diabetes Denies family history of Clotting disorder Psychiatric illness Suicide Anesthesia complication Bleeding disorder Family history of premature coronary artery disease Lung disease Cancer Social History Smoking and tobacco status: former smoker Quit status (tobacco): has quit using tobacco Year quit tobacco: 3 mo ago Alcohol intake: never Lives independently: Yes Household members: children Current occupational status: employed History of recent travel: No Physical Exam Const: GENERAL APPEARANCE: in distress, anxious and ill appearing NUTRITIONAL APPEARANCE: obese centrally obese HENMT: COMMON NORMALS: normocephalic and atraumatic HEAD & SCALP: normocephalic and atraumatic FACE & SINUS: face symmetric MOUTH: Normal oral and palatal mucosa present Eye: COMMON NORMALS: Equal, round and reactive pupils present, EOMs intact bilaterally and conjunctivae normal CONJUNCTIVA: Yes conjunctivae normal PUPIL: Yes Equal, round and reactive pupils present Neck/C-Spine: COMMON NORMALS: full ROM, no lymphadenopathy and no JVD GENERAL: Yes normal visual inspection Lymph: LYMPHATIC: no lymphadenopathy noted and lymphedema (Lower abdominal wall,limb stumps) Chest: COMMONS NORMALS: normal inspection of the chest and normal palpation of entire chest wall Resp: EFFORT & INSPECTION: Yes tachypneic, Yes labored, Yes uses accessory muscles and No audible wheezes AUSCULTATION: crackles and diminished lung sounds Cardio: COMMON NORMALS: no JVD GI: COMMON NORMALS: Soft to palpation and non-tender INSPECTION: Yes Abdominal wall edema Laterality: bilateral and Yes central obesity AUSCULTATION: Yes normoactive bowel sounds PALPATION: Yes Soft to palpation, Yes Tenderness to palpation present (GI) (Generalized lower abdominal wall) and No Pulsatile mass present Course Vital Signs: Vital signs: Vital Signs Temperature 97.9 F 03/27/21 16:13 Pulse Rate 74 03/27/21 19:06 Respiratory Rate 16 03/27/21 19:06 Blood Pressure 171/112 03/27/21 16:13 Pulse Oximetry 98 03/27/21 19:06 MDM - SOB/Dyspnea MDM Narrative: Medical decision making narrative: 50-year-old female with worsening CHF symptoms over the past week. LVEF 30% on echo last year; has been seen at [facility] [place] since then. No acute ST changes on initial EKG Cardiomegally on xray, no large effusions.O2 sats normal on RA DDx: CHF exacerbation, STEMI, ACS, PE, records Requested from [facility] [place] Labs and imaging pending. Signed out to Dr Mead at 1800 Lab Data: Labs: Lab Results 03/27/21 03/27/21 03/27/21 17:13 17:17 17:30 WBC Cancelled Corrected WBC Cancelled RBC Cancelled Hgb Cancelled Hct Cancelled MCV Cancelled MCH Cancelled MCHC Cancelled RDW Cancelled Plt Count Cancelled MPV Cancelled Gran % Cancelled Neut % (Auto) Cancelled Lymph % (Auto) Cancelled [place] % (Auto) Cancelled Eos % (Auto) Cancelled Baso % (Auto) Cancelled Neut # (Auto) Cancelled Lymph # (Auto) Cancelled [place] # (Auto) Cancelled Eos # (Auto) Cancelled Baso # (Auto) Cancelled Absolute Gran (aut o) Cancelled Nucleated RBC % (a uto) Cancelled Nucleated RBCs # Cancelled Specimen Type Arterial Sample Site Brachial, left ABG pH 7.40 (7.35-7.45) ABG pCO2 33.3 mmHg L mmHg (35-45) ABG pO2 88.1 mmHg mmHg (80.0-100.0) ABG HCO3 20.6 mmol/L L mmo l/L (22-26) ABG O2 Saturation 97.4 ABG Base Excess -3.6 mmol/L L mmo l/L (-2.0-2.0) Hector Test N/a A-a O2 Gradient 2.7 mmHg L mmHg (5-10) Hematocrit 28.9 % L % (37-47) Hgb O2 Saturation 94.4 % L % (95-100) Carboxyhemoglobin 2.2 %THgb %THgb (0.4-20.1) Methemoglobin 0.9 % % (0.4-1.5) Total Hemoglobin 9.4 g/dL L g/dL (12-16) Sodium 134.0 mmol/L mmol /L 128 mmol/L L mmol /L (131-143) (136-145) Potassium 4.6 mmol/L mmol/L 4.7 mmol/L mmol/L (3.5-5.0) (3.5-5.1) Glucose 460.0 mg/dL H mg/ dL 419 mg/dL H mg/dL (70-115) (65-115) Ionized Calcium 1.2 mmol/L mmol/L (1.1-1.4) O2 Delivery Device Room air FiO2 21.0 % % Liquified Natural Gas Specialist ID Ed Chloride 97 mmol/L L mmol/ L (98-107) Carbon Dioxide 17 mmol/L L mmol/ L (22-29) Anion Gap 18.7 (5-19) BUN 24 mg/dL H mg/dL (6-20) Creatinine 0.9 mg/dL mg/dL (0.5-0.9) GFR Calculation 66.3 mL/min L mL/ min (90-130) Calculated Osmolal ity 288 mOsm/kg mOsm/ kg (285-295) Calcium 8.6 mg/dL mg/dL (8.5-10.5) Magnesium 1.9 mg/dL mg/dL (1.7-2.3) Total Bilirubin 1.0 mg/dL mg/dL (0.15-1.2) AST 22 U/L U/L (0-32) ALT 17 U/L U/L (0-33) Alkaline Phosphata se 151 IU/L H IU/L (35-105) Troponin T Baselin e Troponin T 120 Min earnest Delta Troponin T NT-Pro-B Natriuret Pep 06429 pg/mL H pg/ mL (0-125) Total Protein 7.1 g/dL g/dL (6.6-8.7) Albumin 3.0 g/dL L g/dL (3.5-5.2) Globulin 4.1 g/dL g/dL (1.3-4.6) Lipase 19 U/L U/L (13-60) Urine Color Urine Appearance Urine pH Ur Specific Gravit y Urine Protein Urine Glucose (UA) Urine Ketones Urine Blood Urine Nitrate Urine Bilirubin Urine Urobilinogen Ur Leukocyte Ailin ase Urine RBC Urine WBC Ur Squamous Epith Cells Amorphous Sediment Urine Bacteria 11/03/27/21 03/27/21 17:30 19:57 19:57 WBC 8.7 10^3/uL 10^3/ uL (4.0-10.0) Corrected WBC RBC 4.36 10^6/uL 10^6 /uL (4.1-5.3) Hgb 9.1 g/dL L g/dL (11.5-15.3) Hct 34.4 % L % (37.0-47.0) MCV 78.9 fl L fl (81-99) MCH 20.9 pg L pg (28.0-34.0) MCHC 26.5 g/dL L g/dL (30.0-36.0) RDW 21.4 % H % (12.1-15.1) Plt Count 275 10^3/cmm 10^3 /cmm (130-400) MPV 10.8 fL H fL (7.4-10.4) Gran % Neut % (Auto) 67.5 % % Lymph % (Auto) 17.5 % % [place] % (Auto) 12.0 % % Eos % (Auto) 0.8 % % Baso % (Auto) 1.7 % % Neut # (Auto) 5.88 10^3/uL 10^3 /uL (1.8-7.7) Lymph # (Auto) 1.5 10^3/uL 10^3/ uL (0.8-4.8) [place] # (Auto) 1.1 10^3/uL H 10^ 3/uL (0.2-0.9) Eos # (Auto) 0.1 10^3/uL 10^3/ uL (0.0-0.8) Baso # (Auto) 0.2 10^3/uL H 10^ 3/uL (0.0-0.1) Absolute Gran (aut o) Nucleated RBC % (a uto) 0.5 % % Nucleated RBCs # 0.0 /100WBC /100W BC Specimen Type Sample Site ABG pH ABG pCO2 ABG pO2 ABG HCO3 ABG O2 Saturation ABG Base Excess Hector Test A-a O2 Gradient Hematocrit Hgb O2 Saturation Carboxyhemoglobin Methemoglobin Total Hemoglobin Sodium Potassium Glucose Ionized Calcium O2 Delivery Device FiO2 Liquified Natural [employer] Specialist ID Chloride Carbon Dioxide Anion Gap BUN Creatinine GFR Calculation Calculated Osmolal ity Calcium Magnesium Total Bilirubin AST ALT Alkaline Phosphata se Troponin T Baselin e 42 ng/L H ng/L (0-10) Troponin T 120 Min earnest 45.60 ng/L H ng/L (0-10) Delta Troponin T 3.60 ABS# ABS# (0-10) NT-Pro-B Natriuret Pep Total Protein Albumin Globulin Lipase Urine Color Urine Appearance Urine pH Ur Specific Gravit y Urine Protein Urine Glucose (UA) Urine Ketones Urine Blood Urine Nitrate Urine Bilirubin Urine Urobilinogen Ur Leukocyte Ailin ase Urine RBC Urine WBC Ur Squamous Epith Cells Amorphous Sediment Urine Bacteria 03/27/21 20:57 WBC Corrected WBC RBC Hgb Hct MCV MCH MCHC RDW Plt Count MPV Gran % Neut % (Auto) Lymph % (Auto) [place] % (Auto) Eos % (Auto) Baso % (Auto) Neut # (Auto) Lymph # (Auto) [place] # (Auto) Eos # (Auto) Baso # (Auto) Absolute Gran (aut o) Nucleated RBC % (a uto) Nucleated RBCs # Specimen Type Sample Site ABG pH ABG pCO2 ABG pO2 ABG HCO3 ABG O2 Saturation ABG Base Excess Hector Test A-a O2 Gradient Hematocrit Hgb O2 Saturation Carboxyhemoglobin Methemoglobin Total Hemoglobin Sodium Potassium Glucose Ionized Calcium O2 Delivery Device FiO2 Liquified [employer] Specialist ID Chloride Carbon Dioxide Anion Gap BUN Creatinine GFR Calculation Calculated Osmolal ity Calcium Magnesium Total Bilirubin AST ALT Alkaline Phosphata se Troponin T Baselin e Troponin T 120 Min earnest [place] Troponin T NT-Pro-B Natriuret Pep Total Protein Albumin Globulin Lipase Urine Color Yellow (Yellow) Urine Appearance Clear (CLEAR) Urine pH 5 (5-7) Ur Specific Gravit y 1.020 (1.005-1.030) Urine Protein 3+ H (Negative) Urine Glucose (UA) 4+ H (Normal) Urine Ketones Negative (Negative) Urine Blood Trace H (Negative) Urine Nitrate Negative (Negative) Urine Bilirubin Neg (Negative) Urine Urobilinogen Norm mg/dL mg/dL (Negative) Ur Leukocyte Ailin ase Negative (Negative) Urine RBC 0-4 /hpf H /hpf (0-2) Urine WBC 5-10 /hpf H /hpf (0-5) Ur Squamous Epith Cells 15-25 /hpf H /hpf (0-5) Amorphous Sediment Not Reportable Urine Bacteria 1+ /hpf H /hpf (NONE) Discharge Plan Discharge Patient Disposition: Home Clinical Impression: Congestive heart failure Qualifiers: Heart failure type: unspecified Heart failure chronicity: acute on chronic Qualified Code(s): I50.9 - Heart failure, unspecified Condition: Stable Prescriptions: Changed Lasix 40 mg Tablet 80 mg PO DAILY Qty: 14 RF: 0 No Action Lantus Solostar U-100 Insulin 100 unit/mL (3 mL) insulin pen 60 unit SUBCUT BID Qty: 15 RF: 6 duloxetine 30 mg capsule,delayed release(DR/EC) 30 mg PO DAILY Qty: 90 RF: 3 pregabalin [Lyrica] 150 mg capsule 150 mg PO BID Qty: 60 RF: 5 pantoprazole 40 mg tablet,delayed release (DR/EC) 40 mg PO DAILY Qty: 30 RF: 4 atorvastatin 40 mg Tablet 20 mg PO BEDTIME RF: 0 hydralazine 10 mg Tablet 10 mg PO TID RF: 0 aspirin [Aspir-Low] 81 mg Tablet,Delayed Release (Dr/Ec) 81 mg PO DAILY RF: 0 trazodone 100 mg Tablet 100 mg PO BEDTIME RF: 0 cyclobenzaprine 10 mg Tablet 10 mg PO TID PRN (Reason: Pain) RF: 0 metoprolol succinate 50 mg Tablet Extended Release 24 Hr 50 mg PO DAILY RF: 0 ferrous sulfate [iron] 325 mg (65 mg iron) Tablet 325 mg PO BID RF: 0 Glucagon Emergency Kit (human) 1 mg recon soln See Rx Instructions .ROUTE .COMPLEX RF: 0 albuterol sulfate [ProAir HFA] 90 mcg/actuation Hfa Aerosol Inhaler 2 puff INHALATION Q4H PRN (Reason: Shortness Of Breath) RF: 0 lisinopril 2.5 mg Tablet 2.5 mg PO DAILY RF: 0 Entresto 24-26 mg tablet 1 tab PO BID RF: 0 acetaminophen [Tylenol] 325 mg Tablet 650 mg PO Q4H MDD 4000 mg PRN (Reason: Pain) RF: 0 ondansetron HCl [Zofran] 4 mg Tablet 4 mg PO Q4H PRN (Reason: Nausea) RF: 0 hydrocodone-acetaminophen [[place]] 10-325 mg Tablet 1 tab PO Q6H PRN (Reason: Pain) RF: 0 lorazepam [Ativan] 0.5 mg Tablet 0.5 mg PO TID PRN (Reason: Anxiety) RF: 0 magnesium hydroxide [Milk of Magnesia] 400 mg/5 mL Suspension 30 ml PO DAILY PRN (Reason: Constipation) RF: 0 bisacodyl 10 mg Suppository 10 mg NC DAILY PRN (Reason: Constipation) RF: 0 Enema Disposable 19-7 gram/118 mL Enema 118 ml NC DAILY PRN (Reason: Constipation) RF: 0 Lidocaine Viscous 2 % Solution See Rx Instructions .ROUTE .COMPLEX RF: 0 nystatin 100,000 unit/gram Powder 1 applic TOPICAL BID RF: 0 nitrofurantoin monohyd/m-cryst [Macrobid] 100 mg Capsule 100 mg PO BID RF: 0 Eliquis 5 mg Tablet 5 mg PO BID RF: 0 Prostat Oral 15 ml PO BID RF: 0 morphine concentrate 10 mg/0.5 mL Syringe 10 mg PO Q2H PRN (Reason: Pain) RF: 0 morphine concentrate 10 mg/0.5 mL Syringe 20 mg PO Q2H PRN (Reason: Pain) RF: 0 Discharge Orders: Discharge ED (Routine); Ordered 03/27/21 Ordered By: Yordy Mead Discharge Diet: Advance as tolerated Discharge Activity: Resume usual activity Patient Instructions: Heart Failure (ED) Coding Level of Care Code ED Pulmonary Function Technologist for Chg Fwd Exam Comprehensive Documented by User: Yordy Mead MD 03/27/21 22:36 HPI - SOB/Dyspnea General: Chief Complaint: Shortness of Breath/Dyspnea Stated Complaint: DIFF BREATHING, HYPERGLYCEMIA Time Seen by Provider: 03/27/21 16:12 PFSH ED PFSH: Medical History Chronic anticoagulation Chronic kidney disease, stage II (mild) Critical lower limb ischemia No intervention warranted per our interventional cardiology Diabetes mellitus History of DVT (deep vein thrombosis) Nonischemic cardiomyopathy Poorly controlled diabetes mellitus PVD (peripheral vascular disease) with claudication Urinary tract infection due to ESBL Klebsiella Surgical History History of back surgery History of History of shoulder surgery Hx of cholecystectomy Family History Father CAD (coronary artery disease) Chronic kidney disease (CKD) Hyperlipidemia Hypertension Grandmother Dementia Mother Stroke Other Diabetes Denies family history of Clotting disorder Psychiatric illness Suicide Anesthesia complication Bleeding disorder Family history of premature coronary artery disease Lung disease Cancer Social History Smoking and tobacco status: former smoker Quit status (tobacco): has quit using tobacco Year quit tobacco: 3 mo ago Alcohol intake: never Lives independently: Yes Household members: children Current occupational status: employed History of recent travel: No Course Vital Signs: Vital signs: Vital Signs Temperature 97.9 F 03/27/21 16:13 Pulse Rate 74 03/27/21 19:06 Respiratory Rate 16 03/27/21 19:06 Blood Pressure 171/112 03/27/21 16:13 Pulse Oximetry 98 03/27/21 19:06 MDM - SOB/Dyspnea MDM Narrative: Medical decision making narrative: And presents with dyspnea that is chronic in nature she has a long history congestive heart failure x-ray shows no pulmonary edema she is not requiring any increased oxygen patient given Lasix here will increase her Lasix at home for 1 week as well. 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 Lab Data: Labs: Lab Results 03/27/21 03/27/21 03/27/21 17:13 17:17 17:30 WBC Cancelled Corrected WBC Cancelled RBC Cancelled Hgb Cancelled Hct Cancelled MCV Cancelled MCH Cancelled MCHC Cancelled RDW Cancelled Plt Count Cancelled MPV Cancelled Gran % Cancelled Neut % (Auto) Cancelled Lymph % (Auto) Cancelled [place] % (Auto) Cancelled Eos % (Auto) Cancelled Baso % (Auto) Cancelled Neut # (Auto) Cancelled Lymph # (Auto) Cancelled [place] # (Auto) Cancelled Eos # (Auto) Cancelled Baso # (Auto) Cancelled Absolute Gran (aut o) Cancelled Nucleated RBC % (a uto) Cancelled Nucleated RBCs # Cancelled Specimen Type Arterial Sample Site Brachial, left ABG pH 7.40 (7.35-7.45) ABG pCO2 33.3 mmHg L mmHg (35-45) ABG pO2 88.1 mmHg mmHg (80.0-100.0) ABG HCO3 20.6 mmol/L L mmo l/L (22-26) ABG O2 Saturation 97.4 ABG Base Excess -3.6 mmol/L L mmo l/L (-2.0-2.0) Hector Test N/a A-a O2 Gradient 2.7 mmHg L mmHg (5-10) Hematocrit 28.9 % L % (37-47) Hgb O2 Saturation 94.4 % L % (95-100) Carboxyhemoglobin 2.2 %THgb %THgb (0.4-20.1) Methemoglobin 0.9 % % (0.4-1.5) Total Hemoglobin 9.4 g/dL L g/dL (12-16) Sodium 134.0 mmol/L mmol /L 128 mmol/L L mmol /L (131-143) (136-145) Potassium 4.6 mmol/L mmol/L 4.7 mmol/L mmol/L (3.5-5.0) (3.5-5.1) Glucose 460.0 mg/dL H mg/ dL 419 mg/dL H mg/dL (70-115) (65-115) Ionized Calcium 1.2 mmol/L mmol/L (1.1-1.4) O2 Delivery Device Room air FiO2 21.0 % % Liquified Natural [employer] Specialist ID Ed Chloride 97 mmol/L L mmol/ L (98-107) Carbon Dioxide 17 mmol/L L mmol/ L (22-29) Anion Gap 18.7 (5-19) BUN 24 mg/dL H mg/dL (6-20) Creatinine 0.9 mg/dL mg/dL (0.5-0.9) GFR Calculation 66.3 mL/min L mL/ min (90-130) Calculated Osmolal ity 288 mOsm/kg mOsm/ kg (285-295) Calcium 8.6 mg/dL mg/dL (8.5-10.5) Magnesium 1.9 mg/dL mg/dL (1.7-2.3) Total Bilirubin 1.0 mg/dL mg/dL (0.15-1.2) AST 22 U/L U/L (0-32) ALT 17 U/L U/L (0-33) Alkaline Phosphata se 151 IU/L H IU/L (35-105) Troponin T Baselin e Troponin T 120 Min earnest Delta Troponin T NT-Pro-B Natriuret Pep 50702 pg/mL H pg/ mL (0-125) Total Protein 7.1 g/dL g/dL (6.6-8.7) Albumin 3.0 g/dL L g/dL (3.5-5.2) Globulin 4.1 g/dL g/dL (1.3-4.6) Lipase 19 U/L U/L (13-60) Urine Color Urine Appearance Urine pH Ur Specific Gravit y Urine Protein Urine Glucose (UA) Urine Ketones Urine Blood Urine Nitrate Urine Bilirubin Urine Urobilinogen Ur Leukocyte Ailin ase Urine RBC Urine WBC Ur Squamous Epith Cells Amorphous Sediment Urine Bacteria 03/27/21 03/27/21 03/27/21 17:30 19:57 19:57 WBC 8.7 10^3/uL 10^3/ uL (4.0-10.0) Corrected WBC RBC 4.36 10^6/uL 10^6 /uL (4.1-5.3) Hgb 9.1 g/dL L g/dL (11.5-15.3) Hct 34.4 % L % (37.0-47.0) MCV 78.9 fl L fl (81-99) MCH 20.9 pg L pg (28.0-34.0) MCHC 26.5 g/dL L g/dL (30.0-36.0) RDW 21.4 % H % (12.1-15.1) Plt Count 275 10^3/cmm 10^3 /cmm (130-400) MPV 10.8 fL H fL (7.4-10.4) Gran % Neut % (Auto) 67.5 % % Lymph % (Auto) 17.5 % % [place] % (Auto) 12.0 % % Eos % (Auto) 0.8 % % Baso % (Auto) 1.7 % % Neut # (Auto) 5.88 10^3/uL 10^3 /uL (1.8-7.7) Lymph # (Auto) 1.5 10^3/uL 10^3/ uL (0.8-4.8) [place] # (Auto) 1.1 10^3/uL H 10^ 3/uL (0.2-0.9) Eos # (Auto) 0.1 10^3/uL 10^3/ uL (0.0-0.8) Baso # (Auto) 0.2 10^3/uL H 10^ 3/uL (0.0-0.1) Absolute Gran (aut o) Nucleated RBC % (a uto) 0.5 % % Nucleated RBCs # 0.0 /100WBC /100W BC Specimen Type Sample Site ABG pH ABG pCO2 ABG pO2 ABG HCO3 ABG O2 Saturation ABG Base Excess Hector Test A-a O2 Gradient Hematocrit Hgb O2 Saturation Carboxyhemoglobin Methemoglobin Total Hemoglobin Sodium Potassium Glucose Ionized Calcium O2 Delivery Device FiO2 Liquified [employer] Specialist ID Chloride Carbon Dioxide Anion Gap BUN Creatinine GFR Calculation Calculated Osmolal ity Calcium Magnesium Total Bilirubin AST ALT Alkaline Phosphata se Troponin T Baselin e 42 ng/L H ng/L (0-10) Troponin T 120 Min earnest 45.60 ng/L H ng/L (0-10) Delta Troponin T 3.60 ABS# ABS# (0-10) NT-Pro-B Natriuret Pep Total Protein Albumin Globulin Lipase Urine Color Urine Appearance Urine pH Ur Specific Gravit y Urine Protein Urine Glucose (UA) Urine Ketones Urine Blood Urine Nitrate Urine Bilirubin Urine Urobilinogen Ur Leukocyte Ailin ase Urine RBC Urine WBC Ur Squamous Epith Cells Amorphous Sediment Urine Bacteria 03/27/21 20:57 WBC Corrected WBC RBC Hgb Hct MCV MCH MCHC RDW Plt Count MPV Gran % Neut % (Auto) Lymph % (Auto) [place] % (Auto) Eos % (Auto) Baso % (Auto) Neut # (Auto) Lymph # (Auto) [place] # (Auto) Eos # (Auto) Baso # (Auto) Absolute Gran (aut o) Nucleated RBC % (a uto) Nucleated RBCs # Specimen Type Sample Site ABG pH ABG pCO2 ABG pO2 ABG HCO3 ABG O2 Saturation ABG Base Excess Hector Test A-a O2 Gradient Hematocrit Hgb O2 Saturation Carboxyhemoglobin Methemoglobin Total Hemoglobin Sodium Potassium Glucose Ionized Calcium O2 Delivery Device FiO2 Liquified [employer] Specialist ID Chloride Carbon Dioxide Anion Gap BUN Creatinine GFR Calculation Calculated Osmolal ity Calcium Magnesium Total Bilirubin AST ALT Alkaline Phosphata se Troponin T Baselin e Troponin T 120 Min earnest Delta Troponin T NT-Pro-B Natriuret Pep Total Protein Albumin Globulin Lipase Urine Color Yellow (Yellow) Urine Appearance Clear (CLEAR) Urine pH 5 (5-7) Ur Specific Gravit y 1.020 (1.005-1.030) Urine Protein 3+ H (Negative) Urine Glucose (UA) 4+ H (Normal) Urine Ketones Negative (Negative) Urine Blood Trace H (Negative) Urine Nitrate Negative (Negative) Urine Bilirubin Neg (Negative) Urine Urobilinogen Norm mg/dL mg/dL (Negative) Ur Leukocyte Ailin ase Negative (Negative) Urine RBC 0-4 /hpf H /hpf (0-2) Urine WBC 5-10 /hpf H /hpf (0-5) Ur Squamous Epith Cells 15-25 /hpf H /hpf (0-5) Amorphous Sediment Not Reportable Urine Bacteria 1+ /hpf H /hpf (NONE) Discharge Plan Discharge Patient Disposition: Home Clinical Impression: Congestive heart failure Qualifiers: Heart failure type: unspecified Heart failure chronicity: acute on chronic Qualified Code(s): I50.9 - Heart failure, unspecified Condition: Stable Prescriptions: Changed Lasix 40 mg Tablet 80 mg PO DAILY Qty: 14 RF: 0 No Action Lantus Solostar U-100 Insulin 100 unit/mL (3 mL) insulin pen 60 unit SUBCUT BID Qty: 15 RF: 6 duloxetine 30 mg capsule,delayed release(DR/EC) 30 mg PO DAILY Qty: 90 RF: 3 pregabalin [Lyrica] 150 mg capsule 150 mg PO BID Qty: 60 RF: 5 pantoprazole 40 mg tablet,delayed release (DR/EC) 40 mg PO DAILY Qty: 30 RF: 4 atorvastatin 40 mg Tablet 20 mg PO BEDTIME RF: 0 hydralazine 10 mg Tablet 10 mg PO TID RF: 0 aspirin [Aspir-Low] 81 mg Tablet,Delayed Release (Dr/Ec) 81 mg PO DAILY RF: 0 trazodone 100 mg Tablet 100 mg PO BEDTIME RF: 0 cyclobenzaprine 10 mg Tablet 10 mg PO TID PRN (Reason: Pain) RF: 0 metoprolol succinate 50 mg Tablet Extended Release 24 Hr 50 mg PO DAILY RF: 0 ferrous sulfate [iron] 325 mg (65 mg iron) Tablet 325 mg PO BID RF: 0 Glucagon Emergency Kit (human) 1 mg recon soln See Rx Instructions .ROUTE .COMPLEX RF: 0 albuterol sulfate [ProAir HFA] 90 mcg/actuation Hfa Aerosol Inhaler 2 puff INHALATION Q4H PRN (Reason: Shortness Of Breath) RF: 0 lisinopril 2.5 mg Tablet 2.5 mg PO DAILY RF: 0 Entresto 24-26 mg tablet 1 tab PO BID RF: 0 acetaminophen [Tylenol] 325 mg Tablet 650 mg PO Q4H MDD 4000 mg PRN (Reason: Pain) RF: 0 ondansetron HCl [Zofran] 4 mg Tablet 4 mg PO Q4H PRN (Reason: Nausea) RF: 0 hydrocodone-acetaminophen [[place]] 10-325 mg Tablet 1 tab PO Q6H PRN (Reason: Pain) RF: 0 lorazepam [Ativan] 0.5 mg Tablet 0.5 mg PO TID PRN (Reason: Anxiety) RF: 0 magnesium hydroxide [Milk of Magnesia] 400 mg/5 mL Suspension 30 ml PO DAILY PRN (Reason: Constipation) RF: 0 bisacodyl 10 mg Suppository 10 mg NC DAILY PRN (Reason: Constipation) RF: 0 Enema Disposable 19-7 gram/118 mL Enema 118 ml NC DAILY PRN (Reason: Constipation) RF: 0 Lidocaine Viscous 2 % Solution See Rx Instructions .ROUTE .COMPLEX RF: 0 nystatin 100,000 unit/gram Powder 1 applic TOPICAL BID RF: 0 nitrofurantoin monohyd/m-cryst [Macrobid] 100 mg Capsule 100 mg PO BID RF: 0 Eliquis 5 mg Tablet 5 mg PO BID RF: 0 Prostat Oral 15 ml PO BID RF: 0 morphine concentrate 10 mg/0.5 mL Syringe 10 mg PO Q2H PRN (Reason: Pain) RF: 0 morphine concentrate 10 mg/0.5 mL Syringe 20 mg PO Q2H PRN (Reason: Pain) RF: 0 Discharge Orders: Discharge ED (Routine); Ordered 03/27/21 Ordered By: Yordy Mead Discharge Diet: Advance as tolerated Discharge Activity: Resume usual activity Patient Instructions: Heart Failure (ED) Coding Level of Care Code ED Pulmonary Function Technologist for Mundog Fwd Exam Comprehensive
[2021-03-27 17:22] LABS: ABG PCO2 33.3 mmHg (35-45); Alveolar-Arterial Oxygen Gradi 2.7 mmHg (5-10); Arterial Blood Gas Hematocrit 28.9 % (37-47); Base Excess ABG -3.6 mmol/L (-2.0-2.0); Blood Gas Sample Type Arterial; Carboxyhemoglobin 2.2 %THgb (0.4-20.1); HCO3 ABG 20.6 mmol/L (22-26); HGB O2 Sat 94.4 % (95-100); Ionized Calcium Level - ABG 1.2 mmol/L (1.1-1.4); Methemoglobin 0.9 % (0.4-1.5); Oxygen Saturation ABG 97.4; PO2 ABG 88.1 mmHg (80.0-100.0); Potassium Level - ABG 4.6 mmol/L (3.5-5.0); Total Hemoglobin 9.4 g/dL (12-16)
[2021-03-27 17:24] LABS: Blood Gas Operator Identificat ED; Blood Gas Sample Site Brachial, left; Oxygen Device ROOM AIR
[2021-03-27 18:07] LABS: Troponin(5th) Baseline 42 ng/L (0-10)
[2021-03-27 18:09] LABS: Alanine Aminotransferase 17 U/L (0-33); Alkaline Phosphatase 151 IU/L (35-105); Blood Urea Nitrogen 24 mg/dL (6-20); Calcium 8.6 mg/dL (8.5-10.5); Carbon Dioxide 17 mmol/L (22-29); Chloride 97 mmol/L (98-107); Globulin 4.1 g/dL (1.3-4.6); Glomerular Filtration Rate 66.3 mL/min (90-130); Glucose 419 mg/dL (65-115); Lipase 19 U/L (13-60); Magnesium 1.9 mg/dL (1.7-2.3); NT Pro B Type Natriuretic Pept 12152 pg/mL (0-125); Osmolality Calculated 288 mOsm/kg (285-295); Sodium 128 mmol/L (136-145); Total Protein 7.1 g/dL (6.6-8.7)
[2021-03-27 18:10] LABS: Anion Gap 18.7 (5-19); Aspartate Amino Transferase 22 U/L (0-32); Potassium 4.7 mmol/L (3.5-5.1)
--- NOTE | 2021-03-27 18:41 | ECG_ITS ---
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[id number] Requested By: Sally Reyna Order Number: [id number] Reading MD: USAMA TIDWELL Measurements Intervals [place] Rate: 76 P: 50 CA: 173 QRS: -47 QRSD: 105 T: 31 QT: 404 QTc: 457 Interpretive Statements SINUS RHYTHM LEFT AXIS DEVIATION [QRS AXIS < -30] LOW QRS VOLTAGE IN EXTREMITY LEADS [QRS DEFLECTION < 0.5 mV IN LIMB LEADS] POSSIBLE ANTERIOR MYOCARDIAL INFARCTION , PROBABLY OLD [30 ms Q WAVE IN V3/V4, OR R < 0.2 mV IN V4] Compared to ECG 03/27/2021 17:42:14 No significant changes Electronically Signed On 03-28-2021 14:35:29 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
[2021-03-27 19:06] VITALS: PULSE 74; RESP 16; O2SAT 98
[2021-03-27] MEDS: ondansetron 2 mg/ML SDV 2 mL 4 MG IVP (19:06)
[2021-03-27 20:14] LABS: Basophils # 0.2 10^3/uL (0.0-0.1); Basophils % 1.7 %; Eosinophils # 0.1 10^3/uL (0.0-0.8); Eosinophils % 0.8 %; Hematocrit 34.4 % (37.0-47.0); Hemoglobin 9.1 g/dL (11.5-15.3); Lymphocytes # 1.5 10^3/uL (0.8-4.8); Lymphocytes % 17.5 %; Mean Corpuscular HGB Conc 26.5 g/dL (30.0-36.0); Mean Corpuscular Hemoglobin 20.9 pg (28.0-34.0); Mean Corpuscular Volume 78.9 fl (81-99); Monocytes # 1.1 10^3/uL (0.2-0.9); Neutrophils # 5.88 10^3/uL (1.8-7.7); Neutrophils % 67.5 %; Nucleated Red Blood Cells % 0.5 %; Platelet Count 275 10^3/cmm (130-400); Red Blood Count 4.36 10^6/uL (4.1-5.3); Red Cell Distribution Width 21.4 % (12.1-15.1); White Blood Count 8.7 10^3/uL (4.0-10.0)
[2021-03-27 20:18] LABS: Mean Platelet Volume 10.8 fL (7.4-10.4)
[2021-03-27] MEDS: FUROsemide 10 mg/mL SDV 10mL 60 MG IVP (20:20)
[2021-03-27 21:12] LABS: Add Urine Microscopic? YES; Bilirubin Urine Neg (Negative); Blood Urine Trace (Negative); Glucose Urine UA 4+ (Normal); Ketones Urine Negative (Negative); Leukocyte Esterase Urine Negative (Negative); Nitrate Urine Negative (Negative); Protein Urine 3+ (Negative); Urine Appearance Clear (CLEAR); Urine Color Yellow (Yellow); Urobilinogen Urine Norm (Negative); pH Urine 5 (5-7)
[2021-03-27 21:13] LABS: Add Urine Culture? No; Bacteria Urine 1+ /hpf; RBC Urine 0-4 /hpf (0-2); Squamous Epithelial Cell Urine 15-25 /hpf (0-5)
[2021-03-27] MEDS: insulin regular-human 100 units/1 mL 10 UNIT IVP (21:15)
--- NOTE | 2021-03-27 21:35 | PC.NURSE ---
Pt. states that her mother is trying to get her home somehow, since she has bilateral below knee amputation and is unable to get into the car.
[2021-03-27 22:38] LABS: Glucose Point of Care 462 mg/dL (70-110)
[2021-03-28 00:16] LABS: Glucose Point of Care 379 mg/dL (70-110)
--- NOTE | 2021-03-28 00:39 | PC.NURSE ---
Pt. waiting on EMS to give ride home. EMS state that they are unable to transport home until 7 in the morning.
--- NOTE | 2021-03-28 00:46 | PC.NURSE ---
I have explained to patient that she will be waiting for a ride at 7 in the morning. Pt is upset about having to wait.
[2021-03-28] MEDS: ondansetron 4 MG Tablet PO (01:44)
--- NOTE | 2021-03-28 01:49 | PC.NURSE ---
Pt. vomiting in room when doing rounding. Pt given zofran for nausea.
[2021-03-28 02:36] VITALS: BP 156/85; PULSE 88; RESP 18; O2SAT 97
--- NOTE | 2021-03-28 02:37 | PC.NURSE ---
Pt. states that she has no needs at this time.
[2021-03-28] MEDS: LORazepam 2 mg Tablet PO (04:18)
--- NOTE | 2021-03-28 04:18 | PC.NURSE ---
Pt. crying in room and states that she did not get her home meds for anxiety. ordered PO anxiety med for patient.
--- NOTE | 2021-03-28 06:03 | PC.NURSE ---
Pt. helped up in bed. Pt states that she has no needs at this time.
== END 2021-03-28 07:44 | disposition home or self-care (01) ==
PROVIDERS: Family Medicine; Emergency Provider Emergency Medicine
DX: I50.9 Heart failure, unspecified (principal); Z87.891 Personal history of nicotine dependence; Z79.01 Long term (current) use of anticoagulants; Z79.82 Long term (current) use of aspirin; E11.22 Type 2 diabetes mellitus with diabetic chronic kidney disease; E11.65 Type 2 diabetes mellitus with hyperglycemia; I13.0 Hypertensive heart and chronic kidney disease with heart failure and stage 1 through stage 4 chronic kidney disease, or unspecified chronic kidney disease; N18.2 Chronic kidney disease, stage 2 (mild); Z79.4 Long term (current) use of insulin
CPT/HCPCS: 36416; 36600; 71045; 80051; 80053; 81001; 82330; 82805; 82962; 83690; 83735; 83880; 84484; 85025; 93005; 96374; 96375; 99284; 99291; J1815; J1940; J2405; Q0162